=== PATIENT | female | born 1950 | race Caucasian/White ===

== ENCOUNTER 2019-11-13 14:45 | Emergency (ER) | payer MEDICARE ==
[2019-11-13] MEDS ORDERED: GI COCKTAIL 45 ML (Maalox/Lidocaine) PO ONE (15:05)
[2019-11-13] MEDS ORDERED: MORPHINE SULFATE 4 MG INJ IV ONE (15:05)
[2019-11-13] MEDS ORDERED: Sodium Chloride 0.9% 1000 ML 1,000 ML IV STA (15:05)
[2019-11-13] MEDS ORDERED: MORPHINE SULFATE 4 MG INJ ONE (15:12)
[2019-11-13] MEDS ORDERED: MAALOX ES 30 ML UNIT DOSE ONE (15:12)
[2019-11-13] MEDS ORDERED: Sodium Chloride 0.9% 1000 ML 1,000 ML ONE (15:12)
[2019-11-13] MEDS ORDERED: XYLOCAINE HCl Viscous ONE (15:12)
[2019-11-13 15:19] LABS: Absolute Neutrophil Ct (ANC) 1.25 (1.4-6.9); BASOPHIL % 0.3 % (0.0-0.4); Basophil (Absolute #) 0.01 (0-0.4); Eosinophil % 0.5 % (0.00-5.0); Eosinophil (Absolute #) 0.02 (0-0.5); Hematocrit 35.2 % (35-47); Hemoglobin 12.2 gm/dl (12.0-16.0); Lymphocyte (Absolute #) 1.88 (1.0-4.6); Lymphocytes % 50.8 % (24.0-44.0); Mean Cell Volume 78.2 fl (78-100); Mean Corpuscular Hemoglobin 27.1 pg (26-32); Mean Corpuscular Hgb Concent. 34.7 g/dl (32-36); Mean Platelet Volume 9.3 fl (7.5-11.0); Monocyte (Absolute #) 0.54 (0.0-1.3); Monocytes % 14.6 % (0.0-12.0); Neutrophil % 33.8 % (36.0-66.0); Platelet Count 146 K/mm3 (150-450); Red Cell Distribution Width 15.5 % (11.5-14.0); White Blood Count 3.7 K/mm3 (4.0-10.5)
--- NOTE | 2019-11-13 15:29 | ERPHSYRPT ---
- History of Present Illness Time Seen by Provider: 11/13/19 15:28 Historian: patient, family Exam Limitations: no limitations Patient Subjective Stated Complaint: Pt states "I have horrible belly pain. I woke up and my back hurt all the way accross and then my stomach hurt." Triage Nursing Assessment: Pt presented alert oriented X 3, skin pwd pt ambulates with an upright steady gait, able to speak in clear full sentences pT holding abdomen and moaning. Physician History: Pt states "I have horrible belly pain. I woke up and my back hurt all the way accross and then my stomach hurt." no fever, nausea, vomiting or diarrhea Timing/Duration: today Activities at Onset: none Quality: cramping Abdominal Pain Onset Location: epigastric, periumbilical Pain Radiation: back Severity of Pain-Max: moderate Severity of Pain-Current: moderate Modifying Factors: Improves With: nothing Associated Symptoms: denies symptoms Allergies/Adverse Reactions: No Known Drug Allergies Allergy (Unverified 11/13/19 14:58) Home Medications: Adalimumab [Humira] 40 mg SQ 11/13/19 [History] Benazepril HCl 20 mg PO DAILY 11/13/19 [History] Hx Tetanus, Diphtheria Vaccination/Date Given: No Hx Influenza Vaccination/Date Given: No Hx Pneumococcal Vaccination/Date Given: No Immunizations Up to Date: Yes - Review of Systems Constitutional: No Fever, No Chills Eyes: No Symptoms Ears, Nose, & Throat: No Symptoms Respiratory: No Cough, No Dyspnea Cardiac: No Chest Pain, No Edema, No Syncope Abdominal/Gastrointestinal: Abdominal Pain, No Nausea, No Vomiting, No Diarrhea Genitourinary Symptoms: No Dysuria Musculoskeletal: No Back Pain, No Neck Pain Skin: No Rash Neurological: No Dizziness, No Focal Weakness, No Sensory Changes Psychological: No Symptoms Endocrine: No Symptoms All Other Systems: Reviewed and Negative - Past Medical History Pertinent Past Medical History: Yes Neurological History: No Pertinent History ENT History: No Pertinent History Cardiac History: Hypertension Respiratory History: No Pertinent History Endocrine Medical History: No Pertinent History Musculoskeletal History: Rheumatoid Arthritis GI Medical History: No Pertinent History History: No Pertinent History Psycho-Social History: No Pertinent History Female Reproductive Disorders: No Pertinent History - Past Surgical History Past Surgical History: Yes Other Surgical History: DNC. melanoma - Social History Smoking Status: Never smoker Exposure to second hand smoke: No Drug Use: none Patient Lives Alone: No - Female History Hx Now: No - Nursing Vital Signs Nursing Vital Signs: Initial Vital Signs Temperature 97.4 F 11/13/19 14:50 Pulse Rate 52 L 11/13/19 14:50 Respiratory Rate 20 11/13/19 14:50 Blood Pressure 177/78 11/13/19 14:50 O2 Sat by Pulse Oximetry 99 11/13/19 14:50 Pain Scale Pain Intensity 6 - Physical Exam General Appearance: no apparent distress, alert Eye Exam: PERRL/EOMI, eyes nml inspection Ears, Nose, Throat Exam: normal ENT inspection, pharynx normal, moist mucous membranes Neck Exam: normal inspection, non-tender, supple, full range of motion Respiratory Exam: normal breath sounds, lungs clear, No respiratory distress Cardiovascular Exam: regular rate/rhythm, normal heart sounds Gastrointestinal/Abdomen Exam: soft, No tenderness, No mass Back Exam: normal inspection, normal range of motion, No CVA tenderness, No vertebral tenderness Extremity Exam: normal inspection, normal range of motion, pelvis stable Neurologic Exam: alert, oriented x 3, cooperative, normal mood/affect, nml cerebellar function, sensation nml, No motor deficits Skin Exam: normal color, warm, dry SpO2: 99 - Course Nursing assessment & vital signs reviewed: Yes EKG Interpreted by Me: Non-specific ST Changes - CT Exams Abdomen/Pelvis CT Interpretation: Tele-radiologist Report (Cholelitiasis, sludge in gall bladder) Ordered Tests: Active Orders 24 hr Category Date Time Status Optical Effects Line Up Person STAT Care 11/13/19 15:00 Active EKG-ER Only STAT Care 11/13/19 15:00 Active IV Insertion STAT Care 11/13/19 15:00 Active ABDOMEN AND PELVIS W/0 CONTRAS [CT] Stat Exams 11/13/19 15:06 Taken AMYLASE Stat Lab 11/13/19 15:15 Completed CBC W DIFF Stat Lab 11/13/19 15:15 Completed CMP Stat Lab 11/13/19 15:15 Completed CULTURE,URINE Stat Lab 11/13/19 15:51 Received LIPASE Stat Lab 11/13/19 15:15 Completed Lactic Acid Stat Lab 11/13/19 15:05 Completed TROPONIN Q3H Lab 11/13/19 15:15 Completed TROPONIN Q3H Lab 01/25/20 18:15 Ordered TROPONIN Q3H Lab 11/13/19 21:15 Ordered TROPONIN Q3H Lab 11/14/19 00:15 Ordered TROPONIN Q3H Lab 11/14/19 03:15 Ordered UA W/RFX UR CULTURE Stat Lab 11/13/19 15:51 Completed Medication Summary Generic Name Dose Route Start Last Admin Trade Name Royal PRN Reason Stop Dose Admin Ceftriaxone Sodium/Dextrose 1 g in 50 mls @ 100 mls/hr 11/13/19 16:49 16:51 Rocephin 1 Gm-D5w 50 Ml Bag IV 11/13/19 17:18 100 mls/hr STAT ONE 100 mls/hr Administration Discontinued Medications Generic Name Dose Route Start Last Admin Trade Name Freq PRN Reason Stop Dose Admin Al Hydrox/Mg Hydrox/Simethicone Confirm 11/13/19 15:12 Maalox Es 30 Ml Unit Dose Administered 11/13/19 15:13 Dose 30 ml .ROUTE .STK-MED ONE Fentanyl Citrate 50 mcg 11/13/19 15:54 11/13/19 15:58 Sublimaze 100 Mcg/2 Ml IV 11/13/19 15:55 50 mcg STAT ONE Administration Fentanyl Citrate Confirm 11/13/19 15:56 Sublimaze 100 Mcg/2 Ml Administered 11/13/19 15:57 Dose 100 mcg .ROUTE .STK-MED ONE Sodium Chloride 1,000 mls @ 999 mls/hr 11/13/19 15:05 11/13/19 16:17 Sodium Chloride 0.9% 1000 Ml IV 11/13/19 16:05 Infused .Q1H1M STA Infusion Sodium Chloride Confirm 11/13/19 15:12 Sodium Chloride 0.9% 1000 Ml Administered 11/13/19 15:13 Dose 1,000 mls @ ud .ROUTE .STK-MED ONE Ceftriaxone Sodium/Dextrose Confirm 11/13/19 16:50 Rocephin 1 Gm-D5w 50 Ml Bag Administered 11/13/19 16:51 Dose 1 g in 50 mls @ ud IV .STK-MED ONE Lidocaine HCl Confirm 11/13/19 15:12 Xylocaine Hcl Viscous * Administered 11/13/19 15:13 Dose 15 ml .ROUTE .STK-MED ONE Magnesium Hydroxide 45 ml 11/13/19 15:05 11/13/19 15:15 Gi Cocktail 45 Ml (Maalox/Lidocaine) PO 11/13/19 15:06 45 ml STAT ONE Administration Morphine Sulfate 4 mg 11/13/19 15:05 11/13/19 15:16 Morphine Sulfate 4 Mg Inj IV 11/13/19 15:06 4 mg STAT ONE Administration Morphine Sulfate Confirm 11/13/19 15:12 Morphine Sulfate 4 Mg Inj Administered 11/13/19 15:13 Dose 4 mg .ROUTE .STK-MED ONE Lab/Rad Data: Laboratory Result Diagrams 11/13/19 15:15 11/13/19 15:15 Laboratory Results 11/13/19 11/13/19 11/13/19 Range/Units 15:51 15:15 15:15 WBC (4.0-10.5) K/mm3 RBC (4.1-5.4) M/mm3 Hgb (12.0-16.0) gm/dl Hct (35-47) % MCV (78-100) fl MCH (26-32) pg MCHC (32-36) g/dl RDW (11.5-14.0) % Plt Count (150-450) K/mm3 MPV (7.5-11.0) fl Gran % (36.0-66.0) % Eos # (Auto) (0-0.5) Absolute Lymphs (auto) (1.0-4.6) Absolute Monos (auto) (0.0-1.3) Lymphocytes % (24.0-44.0) % Monocytes % (0.0-12.0) % Eosinophils % (0.00-5.0) % Basophils % (0.0-0.4) % Absolute Granulocytes (1.4-6.9) Basophils # (0-0.4) Sodium 139 (137-145) mmol/L Potassium 4.0 (3.5-5.1) mmol/L Chloride 105 (98-107) mmol/L Carbon Dioxide 23 (22-30) mmol/L Anion Gap 15.4 H (5-15) MEQ/L BUN 17 (7-17) mg/dL Creatinine 1.28 H (0.52-1.04) mg/dL Estimated GFR 43.7 ML/MIN Glucose 137 H (74-106) mg/dL Lactic Acid (0.4-2.0) Calcium 9.5 (8.4-10.2) mg/dL Total Bilirubin 1.80 H (0.2-1.3) mg/dL AST 21 (14-36) U/L ALT 12 (0-35) U/L Alkaline Phosphatase 100 (38-126) U/L Troponin I < 0.012 (0.000-0.034) ng/mL Serum Total Protein 8.4 H (6.3-8.2) g/dL Albumin 4.3 (3.5-5.0) g/dL Amylase 96 (30-110) U/L Lipase 161 (23-300) U/L Urine Color YELLOW (YELLOW) Urine Appearance CLEAR (CLEAR) Urine pH 7.0 (5-6) Ur Specific Jackson 1.016 (1.005-1.025) Urine Protein NEGATIVE (Negative) Urine Ketones TRACE (NEGATIVE) Urine Blood SMALL (0-5) Vicente/ul Urine Nitrite POSITIVE (NEGATIVE) Urine Bilirubin NEGATIVE (NEGATIVE) Urine Urobilinogen NEGATIVE (0-1) mg/dL Ur Leukocyte Esterase TRACE (NEGATIVE) Urine WBC (Auto) 6-10 (0-5) /HPF Urine RBC (Auto) 0-2 (0-2) /HPF U Epithel Cells (Auto) FEW (FEW) /HPF Urine Bacteria (Auto) MANY (NEGATIVE) /HPF Urine Mucus (Auto) SLIGHT (NEGATIVE) /HPF Urine Culture Reflexed YES (NO) Urine Glucose NEGATIVE (NEGATIVE) mg/dL 11/13/19 11/13/19 Range/Units 15:15 15:05 WBC 3.7 L (4.0-10.5) K/mm3 RBC 4.50 (4.1-5.4) M/mm3 Hgb 12.2 (12.0-16.0) gm/dl Hct 35.2 (35-47) % MCV 78.2 (78-100) fl MCH 27.1 (26-32) pg MCHC 34.7 (32-36) g/dl RDW 15.5 H (11.5-14.0) % Plt Count 146 L (150-450) K/mm3 MPV 9.3 (7.5-11.0) fl Gran % 33.8 L (36.0-66.0) % Eos # (Auto) 0.02 (0-0.5) Absolute Lymphs (auto) 1.88 (1.0-4.6) Absolute Monos (auto) 0.54 (0.0-1.3) Lymphocytes % 50.8 H (24.0-44.0) % Monocytes % 14.6 H (0.0-12.0) % Eosinophils % 0.5 (0.00-5.0) % Basophils % 0.3 (0.0-0.4) % Absolute Granulocytes 1.25 L (1.4-6.9) Basophils # 0.01 (0-0.4) Sodium (137-145) mmol/L Potassium (3.5-5.1) mmol/L Chloride (98-107) mmol/L Carbon Dioxide (22-30) mmol/L Anion Gap (5-15) MEQ/L BUN (7-17) mg/dL Creatinine (0.52-1.04) mg/dL Estimated GFR ML/MIN Glucose (74-106) mg/dL Lactic Acid 3.2 H (0.4-2.0) Calcium (8.4-10.2) mg/dL Total Bilirubin (0.2-1.3) mg/dL AST (14-36) U/L ALT (0-35) U/L Alkaline Phosphatase (38-126) U/L Troponin I (0.000-0.034) ng/mL Serum Total Protein (6.3-8.2) g/dL Albumin (3.5-5.0) g/dL Amylase (30-110) U/L Lipase (23-300) U/L Urine Color (YELLOW) Urine Appearance (CLEAR) Urine pH (5-6) Ur Specific Jackson (1.005-1.025) Urine Protein (Negative) Urine Ketones (NEGATIVE) Urine Blood (0-5) Vicente/ul Urine Nitrite (NEGATIVE) Urine Bilirubin (NEGATIVE) Urine Urobilinogen (0-1) mg/dL Ur Leukocyte Esterase (NEGATIVE) Urine WBC (Auto) (0-5) /HPF Urine RBC (Auto) (0-2) /HPF U Epithel Cells (Auto) (FEW) /HPF Urine Bacteria (Auto) (NEGATIVE) /HPF Urine Mucus (Auto) (NEGATIVE) /HPF Urine Culture Reflexed (NO) Urine Glucose (NEGATIVE) mg/dL - Progress Progress: unchanged, pain not gone completely Progress Note: 11/13/19 16:54 I discussed with patient and her daughter and granddaughter about the CAT scan of the abdomen report, which suggests that patient has a gallstone but there might be a chances of sludge in her bile duct. So, she may require probably MRCP or ERCP and followed by surgery. Those facility. We do not have available here, so we will transfer her to [facility]. Patient daughter is a nurse and so they have opted for patient to be taken by private car. Discussed with : Other (T) Will see patient in: other ([facility]) Counseled pt/family regarding: lab results, diagnosis, need for follow-up, rad results - Departure Departure Disposition: Transfer ([facility] DR Pal) Clinical Impression: Choledocholithiasis, Biliary sludge UTI (urinary tract infection) Qualifiers: Urinary tract infection type: site unspecified Hematuria presence: without hematuria Qualified Code(s): N39.0 - Urinary tract infection, site not specified Condition: Stable Critical Care Time: Yes Critical Care Time(excluding separately billable procedures): Critical 30-74 mins Referrals: ANGIE NGUYEN [Primary Care Provider] -
[2019-11-13 15:31] LABS: ALBUMIN 4.3 g/dL (3.5-5.0); ANION GAP 15.4 MEQ/L (5-15); BILIRUBIN,TOTAL 1.8 mg/dL (0.2-1.3); Calcium 9.5 mg/dL (8.4-10.2); Creatinine 1 1.28 mg/dL (0.52-1.04); Total Protein 8.4 g/dL (6.3-8.2)
[2019-11-13] MEDS ORDERED: SUBLIMAZE 100 MCG/2 ML IV ONE (15:54)
[2019-11-13] MEDS ORDERED: SUBLIMAZE 100 MCG/2 ML ONE (15:56)
[2019-11-13 16:04] LABS: Appearance CLEAR (CLEAR); Bacteria MANY /HPF (NEGATIVE); Bilirubin NEGATIVE (NEGATIVE); Blood SMALL Ery/ul (0-5); Epithelial Cells FEW /HPF (FEW); Glucose NEGATIVE (NEGATIVE); Ketones TRACE (NEGATIVE); Leukocyte Esterase TRACE (NEGATIVE); Mucus SLIGHT /HPF (NEGATIVE); Nitrite POSITIVE (NEGATIVE); Protein,Urine Dip NEGATIVE (Negative); RBC 0-2 /HPF (0-2); Specific Gravity 1.016 (1.005-1.025); Urobilinogen NEGATIVE mg/dL (0-1)
[2019-11-13] MEDS ORDERED: ROCEPHIN 1 Gm-D5w 50 ml Bag** 1 G/50 ML IVPB IV ONE ×2 (16:49→16:50)
[2019-11-13 16:59] VITALS: BP 143/62; PULSE 56; O2SAT 98
--- NOTE | 2019-11-13 20:58 | XRAY ---
Indication: Epigastric/periumbilical pain. Multiple contiguous axial images obtained through the abdomen and pelvis without contrast as ordered. Comparison: None Lung bases demonstrates minimal bibasilar fibrosis/scarring and right middle lobe calcified granuloma. No infiltrate or effusion. Heart is not enlarged. Distal esophagus demonstrates mild circumferential wall thickening, possible esophagitis. Noncontrasted stomach and bowel loops appear nonobstructed. Normal appendix. Tiny cul-de-sac fluid presumed physiologic from rupture/leaking cyst. 11 mm gallstone near the neck of the gallbladder. A few tiny calcified splenic granulomas. Nonobstructing 2-3 mm left lower renal calculus. Remaining liver, pancreas, spleen, adrenal glands, kidneys, ureters, bladder, and uterus appear unremarkable for noncontrast exam. Mild scattered aortoiliac calcifications without AAA. Osseous structures intact with mild degenerative changes throughout the spine. Impression: 1. 11 mm gallstone. Ultrasound may yield further information if clinically warranted. 2. Mild distal esophageal circumferential wall thickening. Rule out esophagitis. 3. Incidental nonobstructing left renal microcalculus and evidence for old granulomatous disease. Comment: Preliminary interpretation was made by [facility] who reports "amorphous density in the common bile duct" which I cannot appreciate. No abnormal intra/extra hepatic biliary distention.
== END 2019-11-13 17:05 | disposition short-term general hospital (02) ==
LOC: ED 14:45
DX: K80.50 Calculus of bile duct without cholangitis or cholecystitis without obstruction (principal); K83.8 Other specified diseases of biliary tract; N39.0 Urinary tract infection, site not specified
CPT/HCPCS: 36000; 36415; 74176; 80053; 81001; 82150; 83605; 83690; 84484; 85025; 87077; 87086; 87186; 93005; 93041; 96365; 96374; 96375; 99285; 99291; J0696; J2270; J3010; A9270-GY

== ENCOUNTER 2023-05-27 11:30 | Observation (INO) | payer MEDICARE ==
[2023-05-27 12:45] LABS: Hematocrit 24.6 % (35-47); Hemoglobin 7.7 g/dL (12.0-16.0); Mean Cell Volume 82.8 fL (78-100); Mean Corpuscular Hemoglobin 25.9 pg (26-32); Mean Corpuscular Hgb Concent. 31.3 g/dL (32-36); Mean Platelet Volume 9.4 fL (7.5-11.0); Platelet Count 182 x10^3/uL (150-450); Red Blood Count 2.97 x10^6/uL (4.1-5.4); Red Cell Distribution Width 18.9 % (11.5-14.0)
[2023-05-27 12:59] LABS: ALBUMIN 2.9 g/dL (3.5-5.0); ANION GAP 12.5 MEQ/L (5-15); BILIRUBIN,TOTAL 1.4 mg/dL (0.2-1.3); Calcium 8.3 mg/dL (8.4-10.2); Creatinine 1 1.15 mg/dL (0.52-1.04); EST GLOMERULAR FILTRATION RATE 48.9 ML/MIN; Potassium 4.4 mmol/L (3.5-5.1); Total Protein 5.3 g/dL (6.3-8.2)
--- NOTE | 2023-05-27 13:58 | ERPHSYRPT ---
- History of Present Illness Time Seen by Provider: 05/27/23 13:52 Source: patient Exam Limitations: no limitations Patient Subjective Stated Complaint: "I can't catch my breath. I've been short of breath for a couple weeks" Triage Nursing Assessment: Pt presents to ER with complaints of short of breath x 2-3 weeks. Pt feels short of breath. Intermittent cough noted with white/yellow scant sputum. Lungs are clear and equal throughout. Skin is pink, warm, and dry. Noted some peripheral pitting edema to right lower extremity. Daughter states she had Methotrexate for her Leukemia but stopped a week ago. Has intermittently been on steriod and antibiotics per blood specialists but has stopped regimens in March 2023. Pt states has had no appetite and has nausea when looking at food. Abdomen is soft and non-tender. Denies pain at this time. Pt is alert and oriented x 3. Able to communicate in full sentences. Physician History: Patient is a 73-year-old female presents to our emergency department for evaluation of shortness of breath. Patient states shortness of breath started approximately 2 weeks ago. Symptoms have been progressive. Patient had a chest x-ray 2 weeks ago which was read as negative per daughter who is at the bedside. Patient adds that she has been coughing intermittently as well. Cough pro ductive of yellow-whitish sputum. Patient has a history of leukemia. Leukemia treated with methotrexate. Patient completed a course of methotrexate last week. Patient feels very weak. Patient says her appetite has significantly diminished. Patient experiences nausea when looking at food. Patient adds that she was previously on steroids but currently is not. Patient lives alone. Symptoms are progressive. Symptoms are moderate in intensity. No specific worsening or improving factors. Patient voices no other complaints or concerns at this time. Portions of this note were created with voice recognition technology. There may be grammatical, spelling, punctuation or sound alike errors Timing/Duration: week(s) (2 weeks) Severity: moderate Modifying Factors: Improves With: nothing Associated Symptoms: denies symptoms Allergies/Adverse Reactions: No Known Drug Allergies Allergy (Verified 05/27/23 11:52) Home Medications: Amlodipine Besylate 5 mg [Norvasc 5 mg] 5 mg PO DAILY 05/27/23 [History] Cholecalciferol (Vitamin D3) [D3-5000] 125 mcg PO DAILY 05/27/23 [History] Folic Acid 0.4 mg PO DAILY 05/27/23 [History] Mecobalamin [B12 Active] 1,000 mcg PO DAILY 05/27/23 [History] Hx Tetanus, Diphtheria Vaccination/Date Given: No Hx Influenza Vaccination/Date Given: No Hx Pneumococcal Vaccination/Date Given: Yes Immunizations Up to Date: Yes Travel Risk - International Travel Have you traveled outside of the country in past 3 weeks: No - Coronavirus Screening Are you exhibiting any of the following symptoms?: Yes Symptoms: Shortness of Breath Close contact with a COVID-19 positive Pt in past 14-21 Days: No - Vaccine Status Have you recieved a Covid-19 vaccination: Yes 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 - Vaccination Dates Dates if Unknown: unknown - Review of Systems Constitutional: No Symptoms, No Fever, No Chills Eyes: No Symptoms Ears, Nose, & Throat: No Symptoms Respiratory: No Symptoms, No Cough, No Dyspnea Cardiac: No Symptoms, No Chest Pain, No Edema, No Syncope Abdominal/Gastrointestinal: No Symptoms, No Abdominal Pain, No Nausea, No Vomiting, No Diarrhea Genitourinary Symptoms: No Symptoms, No Dysuria Musculoskeletal: No Symptoms, No Back Pain, No Neck Pain Skin: No Symptoms, No Rash Neurological: No Symptoms, No Dizziness, No Focal Weakness, No Sensory Changes Psychological: No Symptoms Endocrine: No Symptoms Hematologic/Lymphatic: No Symptoms Immunological/Allergic: No Symptoms All Other Systems: Reviewed and Negative - Past Medical History Pertinent Past Medical History: Yes Neurological History: No Pertinent History ENT History: No Pertinent History Cardiac History: Hypertension Respiratory History: No Pertinent History Endocrine Medical History: No Pertinent History Musculoskeletal History: Rheumatoid Arthritis GI Medical History: No Pertinent History History: No Pertinent History Psycho-Social History: No Pertinent History Female Reproductive Disorders: No Pertinent History 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 melanoma - Social History Smoking Status: Never smoker Exposure to second hand smoke: No Drug Use: none Patient Lives Alone: Yes - Nursing Vital Signs Nursing Vital Signs: Initial Vital Signs Temperature 98.3 F 05/27/23 11:31 Pulse Rate 93 H 05/27/23 11:31 Respiratory Rate 24 05/27/23 11:31 Blood Pressure 136/60 05/27/23 11:31 O2 Sat by Pulse Oximetry 97 05/27/23 11:31 Pain Scale Pain Intensity 0 - Physical Exam General Appearance: no apparent distress, alert, other (Patient appears pale and frail) Eye Exam: PERRL/EOMI, eyes nml inspection Ears, Nose, Throat Exam: normal ENT inspection, TMs normal, pharynx normal, moist mucous membranes Neck Exam: normal inspection, non-tender, supple, full range of motion Respiratory Exam: normal breath sounds, lungs clear, airway intact, No respiratory distress Cardiovascular Exam: regular rate/rhythm, normal heart sounds, normal peripheral pulses Gastrointestinal/Abdomen Exam: soft, normal bowel sounds, No tenderness, No mass Back Exam: normal inspection, normal range of motion, No CVA tenderness, No vertebral tenderness Extremity Exam: normal inspection, normal range of motion, pelvis stable, other (Bilateral lower extremity pitting edema. Bilateral lower extremities are neurovascular intact distally. Compartments are soft. Cap refill less than 2 seconds.) Neurologic Exam: alert, oriented x 3, cooperative, normal mood/affect, nml cerebellar function, nml station & gait, sensation nml, No motor deficits Skin Exam: normal color, warm, dry, No rash Lymphatic Exam: No adenopathy SpO2 Interpretation: normal SpO2: 100 O2 Delivery: Room Air - Course Nursing assessment & vital signs reviewed: Yes EKG Interpreted by Me: RATE (91), Sinus Rhythm, NORMAL AXIS, NORMAL INTERVALS (Left anterior fascicular block.) - CT Exams Chest CT Interpretation: Tele-radiologist Report (No PE) Ordered Tests: Active Orders 24 hr Category Date Time Status Family Law Legal Assistant STAT Care 05/27/23 12:20 Active EKG-ER Only STAT Care 05/27/23 12:19 Active IV Insertion STAT Care 05/27/23 12:19 Active Pulse Oximetry (ED) STAT Care 05/27/23 12:19 Active CHEST WITH CONTRAST [CT] Stat Exams 05/27/23 13:11 Completed CBC W DIFF Stat Lab 05/27/23 12:40 Completed CMP Stat Lab 05/27/23 12:40 Completed D-DIMER QUANTITATIVE Stat Lab 05/27/23 12:40 Completed Manual Differential NC Stat Lab 05/27/23 12:40 Completed TROPONIN Q4H Lab 05/27/23 12:40 Completed TROPONIN Q4H Lab 05/27/23 16:30 Ordered TROPONIN Q4H Lab 05/27/23 20:30 Ordered UA W/RFX UR CULTURE Stat Lab 05/27/23 14:49 Received Transfer Order Routine Transfer 05/27/23 Ordered Lab/Rad Data: Laboratory Result Diagrams 05/27/23 12:40 05/27/23 12:40 Laboratory Results 05/27/23 05/27/23 05/27/23 Range/Units 12:40 12:40 12:40 WBC (4.0-10.5) x10^3/uL RBC (4.1-5.4) x10^6/uL Hgb (12.0-16.0) g/dL Hct (35-47) % MCV (78-100) fL MCH (26-32) pg MCHC (32-36) g/dL RDW (11.5-14.0) % Plt Count (150-450) x10^3/uL MPV (7.5-11.0) fL Segmented Neutrophils (36.0-66.0) % Lymphocytes (Manual) (24-44) % Monocytes (Manual) (0.0-12.0) % Eosinophils (Manual) (0.00-3.0) % Platelet Estimate (NORMAL) RBC Morphology Anisocytosis Microcytosis D-Dimer 10.36 H* (0.0-0.50) mg/L Sodium 132 L (137-145) mmol/L Potassium 4.4 (3.5-5.1) mmol/L Chloride 102 (98-107) mmol/L Carbon Dioxide 22 (22-30) mmol/L Anion Gap 12.5 (5-15) MEQ/L BUN 15 (7-17) mg/dL Creatinine 1.15 H (0.52-1.04) mg/dL Estimated GFR 48.9 ML/MIN Glucose 116 H (74-106) mg/dL Calcium 8.3 L (8.4-10.2) mg/dL Total Bilirubin 1.40 H (0.2-1.3) mg/dL AST 25 (14-36) U/L ALT 14 (0-35) U/L Alkaline Phosphatase 53 (38-126) U/L Troponin I < 0.012 (0.000-0.034) ng/mL Serum Total Protein 5.3 L (6.3-8.2) g/dL Albumin 2.9 L (3.5-5.0) g/dL 05/27/23 Range/Units 12:40 WBC 4.0 (4.0-10.5) x10^3/uL RBC 2.97 L (4.1-5.4) x10^6/uL Hgb 7.7 L (12.0-16.0) g/dL Hct 24.6 L (35-47) % MCV 82.8 (78-100) fL MCH 25.9 L (26-32) pg MCHC 31.3 L (32-36) g/dL RDW 18.9 H (11.5-14.0) % Plt Count 182 (150-450) x10^3/uL MPV 9.4 (7.5-11.0) fL Segmented Neutrophils 55 (36.0-66.0) % Lymphocytes (Manual) 26 (24-44) % Monocytes (Manual) 12 (0.0-12.0) % Eosinophils (Manual) 7 H (0.00-3.0) % Platelet Estimate NORMAL (NORMAL) RBC Morphology ABNORMAL Anisocytosis 2+ Microcytosis 1+ D-Dimer (0.0-0.50) mg/L Sodium (137-145) mmol/L Potassium (3.5-5.1) mmol/L Chloride (98-107) mmol/L Carbon Dioxide (22-30) mmol/L Anion Gap (5-15) MEQ/L BUN (7-17) mg/dL Creatinine (0.52-1.04) mg/dL Estimated GFR ML/MIN Glucose (74-106) mg/dL Calcium (8.4-10.2) mg/dL Total Bilirubin (0.2-1.3) mg/dL AST (14-36) U/L ALT (0-35) U/L Alkaline Phosphatase (38-126) U/L Troponin I (0.000-0.034) ng/mL Serum Total Protein (6.3-8.2) g/dL Albumin (3.5-5.0) g/dL - Progress Progress: improved Progress Note: I spoke to Shawna patient's oncologist nurse practitioner who advised to hold off on transfusion. We will admit patient to treat the symptoms. Patient agrees to admission to [facility] for further evaluation and treatment. Portions of this note were created with voice recognition technology. There may be grammatical, spelling, punctuation or sound alike errors 05/27/23 14:[address] Gary at 2:[address] Gary excepts admission to observation. Patient 73-year-old female with a history of leukemia on methotrexate/prednisone currently 1 week posttreatment presents to our ED with shortness of breath generalized weakness nausea anorexia failure to thrive. Physical exam reveals a frail pale 73-year-old female very pleasant. Daughter at bedside. EKG is normal sinus rhythm. D-dimer positive. CTA chest negative for PE. CBC reveals a hemoglobin of 7.7. This appears to show just under a 2 g drop in a period of a week and a half. Type and screen completed. Urinalysis pending. Patient will require admission for further evaluation and treatment. Patient lives alone and is just too weak to manage. Plan of care discussed with patient. She agrees to admission to [facility] for further evaluation and treatment. Case discussed with hospitalist who excepts admission to observation. Complexity of problem addressed is moderate acute complicated No critical care time Complex data reviewed and analyzed is extensive. Test ordered. Test reviewed and analyzed. Clinical correlation made between findings and history. Physical exam findings also correlated with work-up. Case discussed with both patient's oncology nurse practitioner and admitting physician. Patient will be admitted for further evaluation and treatment. Regimen application and or risk of morbidity/mortality of patient management is high. Patient will require hospitalization for further evaluation and treatment./Failure to thrive Vital stable. Plan of care established for shared decision making. Time spent to admit patient approximately 15 minutes. Portions of this note were created with voice recognition technology. There may be grammatical, spelling, punctuation or sound alike errors 05/27/23 14:53 Counseled pt/family regarding: lab results, diagnosis, rad results - Departure Departure Disposition: Observation Clinical Impression: Generalized weakness, Anorexia, History of leukemia, Pulmonary emphysema, Shortness of breath, Lung granuloma, Failure to thrive Condition: Stable Critical Care Time: No Referrals: ANGIE NGUYEN [Primary Care Provider] - Follow up/PCP as directed Instructions: Chronic Obstructive Pulmonary Disease
--- NOTE | 2023-05-27 14:05 | XRAY ---
Indication: Short of breath. Elevated d-dimer. Pulmonary embolus. Multiple contiguous axial images obtained through the chest using 80 cc Isovue 370 contrast and PE protocol. Comparison: None Good opacification of the pulmonary arteries to include the lobar and segmental branches. No pulmonary embolus. Heart is not enlarged. Aorta minimally arteriosclerotic without aneurysm/dissection. No pathologic mediastinal/hilar lymphadenopathy. Small hiatal hernia. Lungs demonstrates moderate diffuse pulmonary emphysema with mild bibasilar subsegmental atelectasis/scarring. Medial right middle lobe demonstrates 2 calcified granulomas, largest 1 cm. No suspicious pulmonary mass/nodule, infiltrate, effusion, or pneumothorax. Bony thorax intact with osteopenia and minimal degenerative changes throughout the spine. Limited upper abdomen demonstrates mild fatty liver and a few tiny splenic calcified granulomas. Impression: 1. Negative pulmonary embolus. No acute cardiopulmonary abnormalities. 2. Chronic findings including pulmonary emphysema, atelectasis/scarring, arteriosclerotic disease, fatty liver, chronic bony findings, and old granulomatous disease.
[2023-05-27 14:14] LABS: Eosinophil 7 % (0.00-3.0); Lymphocytes 26 % (24-44); Monocyte 12 % (0.0-12.0); Neutrophils 55 % (36.0-66.0); Total Cells Counted 100
[2023-05-27 14:19] LABS: ANISOCYTOSIS 2+; Microcytosis 1+; Platelet Estimate NORMAL (NORMAL)
[2023-05-27 14:59] LABS: Appearance Clear (Clear); Bacteria None Seen /HPF (None Seen); Bilirubin Small (Negative); Blood Negative (Negative); Epithelial Cells Rare /HPF (None Seen); Glucose, Urine Negative (Negative); Ketones Trace (Negative); Leukocyte Esterase Trace (Negative); Nitrite Negative (Negative); Ph 5.5 (4.6-8.0); Protein,Urine Dip Trace (Negative); RBC 0-2 /HPF (0-5); Specific Gravity 1.025 (1.005-1.030); WBC 0-2 /HPF (0-5)
[2023-05-27 15:01] LABS: ADD URINE CULTURE? YES (NO)
[2023-05-27] MEDS: Sodium Chloride 0.9% 1000 ML 1,000 ML IV SCH (15:04)
[2023-05-27 15:08] LABS: ABO TYPING B; Antibody Screen NEGATIVE (NEGATIVE); RH TYPING NEGATIVE
--- NOTE | 2023-05-27 16:04 | PCM.HP ---
History of Present Illness - Chief Complaint Chief Complaint: Generalized weakness, failure to thrive Date: 05/27/23 History of Present Illness: is a 73 year old female with a pmhx of HTN, RA, and TCell large granular lymphocytic leukemia (diagnosed November 2022/last treatment with methotrexate two weeks ago) admitted under observation 05/27/23 for generalized weakness, anorexia, and failure to thrive after presenting to ED with complaints of shortness of breath, productive cough, nausea with a poor appetite, and weakness. Onset about three weeks ago. Patient reports that she was taking Lisinopril which was discontinued with thoughts that this may be the cause of her cough, but it has now been several weeks and her cough remains. She describes the cough as productive with clear sputum. Additionally, she has complaints of RLE redness, swelling, and warmth. Edema is particularly noted around the right ankle, she does report hearing her ankle "pop" a few weeks ago. Of note, patient's spouse recently which she feels may be contributory to her poor appetite. In ER patient was afebrile, normotensive, and eupneic with spo2 @ 97% on RA. Lab interpretation remarkable for Hgb 7.7, eosiniphils 7, RBC morphology abnormal, anisocytois and microcytosis (pt with TCell leukemia), sodium at 132, creat at 1.15 which is her baseline, D-Dimer elevated at 10.36. EKG with normal sinus rhythm, no ST elevation/deviation. CTA imaging of the chest negative for PE, with chronic findings including pulmonary emphysema, atelectasis/scarring,arteriosclerotic disease, fatty liver, chronic bony findings, and old granulomatous disease. Patient was started on IVF. PCP: Emilie Newman Oncologist: Raul Code Status:Full Code ) - Review of Systems Constitutional: Fatigue, Weakness Eyes: No Symptoms Ears, Nose, & Throat: No Symptoms Respiratory: Cough (productive with clear sputum), Short Of Breath Cardiac: Edema (RLE redness, swelling, warmth) Abdominal/Gastrointestinal: Nausea, Appetite Changes Genitourinary Symptoms: Dysuria Musculoskeletal: No Symptoms Skin: No Symptoms Psychological: Other ( recently ) Endocrine: No Symptoms Hematologic/Lymphatic: Anemia Immunological/Allergic: No Symptoms Medications & Allergies Home Medications: Home Medication List Amlodipine Besylate 5 mg [Norvasc 5 mg] 5 mg PO DAILY 05/27/23 [History Confirmed 05/27/23] Cholecalciferol (Vitamin D3) [D3-5000] 125 mcg PO DAILY 05/27/23 [History Confirmed 05/27/23] Folic Acid 0.4 mg PO DAILY 05/27/23 [History Confirmed 05/27/23] Mecobalamin [B12 Active] 1,000 mcg PO DAILY 05/27/23 [History Confirmed 05/27/23] Allergies/Adverse Reactions: Allergies Allergy/AdvReac Type Severity Reaction Status Date / Time No Known Drug Allergies Allergy Verified 05/27/23 11:52 - Past Medical History Past Medical History: Yes Neurological History: No Pertinent History ENT History: No Pertinent History Cardiac History: Hypertension Respiratory History: No Pertinent History Endocrine Medical History: No Pertinent History Musculoskelatal History: Rheumatoid Arthritis GI Medical History: No Pertinent History History: No Pertinent History Pyscho-Social History: No Pertinent History Reproductive Disorders: No Pertinent History Comment: 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 melanoma - Social History Smoking Status: Never smoker Exposure to second hand smoke: No Alcohol: None Drug Use: none Significant Family History: cancer (Father with colon cancer) - Physical Exam Vital Signs: Vital Signs - 24 hr Temp Pulse Resp BP BP Pulse Ox 05/27/23 15:28 97.7 F 89 18 144/65 97 05/27/23 15:00 100 05/27/23 15:00 83 20 132/62 97 05/27/23 14:56 88 24 128/61 99 05/27/23 14:54 98.4 F 80 20 126/55 98 05/27/23 13:00 82 29 H 126/55 126/55 100 05/27/23 12:36 91 H 19 112/62 98 05/27/23 12:33 96 05/27/23 12:15 90 25 H 115/60 05/27/23 12:06 20 96 05/27/23 12:00 91 H 27 H 120/62 98 05/27/23 11:31 98.3 F 93 H 24 136/60 97 General Appearance: no apparent distress Neurologic Exam: alert, oriented x 3, cooperative, normal mood/affect Eye Exam: PERRL/EOMI Ears, Nose, Throat Exam: dry mucous membranes Neck Exam: normal inspection Respiratory Exam: normal breath sounds Cardiovascular Exam: regular rate/rhythm, edema (RLE edema, redness) Gastrointestinal/Abdomen Exam: normal bowel sounds Results - Labs Lab/Micro Results: Lab Results-Last 24 Hours 05/27/23 05/27/23 05/27/23 Range/Units 12:40 12:40 12:40 WBC 4.0 (4.0-10.5) x10^3/uL RBC 2.97 L (4.1-5.4) x10^6/uL Hgb 7.7 L (12.0-16.0) g/dL Hct 24.6 L (35-47) % MCV 82.8 (78-100) fL MCH 25.9 L (26-32) pg MCHC 31.3 L (32-36) g/dL RDW 18.9 H (11.5-14.0) % Plt Count 182 (150-450) x10^3/uL MPV 9.4 (7.5-11.0) fL Segmented Neutrophils 55 (36.0-66.0) % Lymphocytes (Manual) 26 (24-44) % Monocytes (Manual) 12 (0.0-12.0) % Eosinophils (Manual) 7 H (0.00-3.0) % Platelet Estimate NORMAL (NORMAL) RBC Morphology ABNORMAL Anisocytosis 2+ Microcytosis 1+ D-Dimer 10.36 H* (0.0-0.50) mg/L Sodium 132 L (137-145) mmol/L Potassium 4.4 (3.5-5.1) mmol/L Chloride 102 (98-107) mmol/L Carbon Dioxide 22 (22-30) mmol/L Anion Gap 12.5 (5-15) MEQ/L BUN 15 (7-17) mg/dL Creatinine 1.15 H (0.52-1.04) mg/dL Estimated GFR 48.9 ML/MIN Glucose 116 H (74-106) mg/dL Calcium 8.3 L (8.4-10.2) mg/dL Total Bilirubin 1.40 H (0.2-1.3) mg/dL AST 25 (14-36) U/L ALT 14 (0-35) U/L Alkaline Phosphatase 53 (38-126) U/L Troponin I (0.000-0.034) ng/mL Serum Total Protein 5.3 L (6.3-8.2) g/dL Albumin 2.9 L (3.5-5.0) g/dL Urine Color (Yellow) Urine Appearance (Clear) Urine pH (4.6-8.0) Ur Specific [place] (1.005-1.030) Urine Protein (Negative) Urine Glucose (UA) (Negative) mg/dL Urine Ketones (Negative) Urine Blood (Negative) Urine Nitrite (Negative) Urine Bilirubin (Negative) Urine Urobilinogen (0.2) mg/dL Ur Leukocyte Esterase (Negative) U Hyaline Cast (Auto) (0-2) /LPF Urine Microscopic RBC (0-5) /HPF Urine Microscopic WBC (0-5) /HPF Ur Epithelial Cells (None Seen) /HPF Urine Bacteria (None Seen) /HPF Urine Culture Reflexed (NO) ABO Group Rh Factor Antibody Screen (NEGATIVE) 05/27/23 05/27/23 05/27/23 Range/Units 12:40 14:21 14:49 WBC (4.0-10.5) x10^3/uL RBC (4.1-5.4) x10^6/uL Hgb (12.0-16.0) g/dL Hct (35-47) % MCV (78-100) fL MCH (26-32) pg MCHC (32-36) g/dL RDW (11.5-14.0) % Plt Count (150-450) x10^3/uL MPV (7.5-11.0) fL Segmented Neutrophils (36.0-66.0) % Lymphocytes (Manual) (24-44) % Monocytes (Manual) (0.0-12.0) % Eosinophils (Manual) (0.00-3.0) % Platelet Estimate (NORMAL) RBC Morphology Anisocytosis Microcytosis D-Dimer (0.0-0.50) mg/L Sodium (137-145) mmol/L Potassium (3.5-5.1) mmol/L Chloride (98-107) mmol/L Carbon Dioxide (22-30) mmol/L Anion Gap (5-15) MEQ/L BUN (7-17) mg/dL Creatinine (0.52-1.04) mg/dL Estimated GFR ML/MIN Glucose (74-106) mg/dL Calcium (8.4-10.2) mg/dL Total Bilirubin (0.2-1.3) mg/dL AST (14-36) U/L ALT (0-35) U/L Alkaline Phosphatase (38-126) U/L Troponin I < 0.012 (0.000-0.034) ng/mL Serum Total Protein (6.3-8.2) g/dL Albumin (3.5-5.0) g/dL Urine Color Dark Yellow A (Yellow) Urine Appearance Clear (Clear) Urine pH 5.5 (4.6-8.0) Ur Specific [place] 1.025 (1.005-1.030) Urine Protein Trace A (Negative) Urine Glucose (UA) Negative (Negative) mg/dL Urine Ketones Trace A (Negative) Urine Blood Negative (Negative) Urine Nitrite Negative (Negative) Urine Bilirubin Small A (Negative) Urine Urobilinogen 1.0 A (0.2) mg/dL Ur Leukocyte Esterase Trace A (Negative) U Hyaline Cast (Auto) 3-5 A (0-2) /LPF Urine Microscopic RBC 0-2 (0-5) /HPF Urine Microscopic WBC 0-2 (0-5) /HPF Ur Epithelial Cells Rare (None Seen) /HPF Urine Bacteria None Seen (None Seen) /HPF Urine Culture Reflexed YES (NO) ABO Group B Rh Factor NEGATIVE Antibody Screen NEGATIVE (NEGATIVE) - Radiology Impressions Radiology Exams & Impressions: Radiology Procedures Category Date Time Status CHEST WITH CONTRAST [CT] Stat Exams 05/27/23 13:11 Completed Assessment/Plan (1) Failure to thrive Current Visit: Yes Status: Acute Assessment & Plan: Patient with nausea/poor appetite depressed mood since spouse's recent passing -PT/OT -Remeron 15mg QHS for appetite/sleep -Nutritional consult/Ensure -PT/OT evaluation, may need placement Code(s): [id number] - (2) Edema of right lower extremity Current Visit: Yes Status: Acute Assessment & Plan: RLE redness, edema, and warmth. Reports that a few weeks ago she thought she heard a "pop" -Venous Doppler of RLE -XR right ankle/foot Code(s): R60.0 - LOCALIZED EDEMA (3) Nausea Current Visit: Yes Status: Acute Assessment & Plan: Poor oral intake due to nausea -IVF -Zofran PRN Code(s): R11.0 - NAUSEA (4) Anorexia Current Visit: Yes Status: Acute Assessment & Plan: -see failure to thrive Code(s): R63.0 - ANOREXIA (5) Generalized weakness Current Visit: Yes Status: Acute Assessment & Plan: -PT/OT evaluation, may need placement Code(s): R53.1 - WEAKNESS (6) History of leukemia Current Visit: Yes Status: Acute Assessment & Plan: -Noted, adds complexity, patient follows with Dr. Carter, last treatment with methotrexate approximately two weeks ago Code(s): Z85.6 - PERSONAL HISTORY OF LEUKEMIA (7) Shortness of breath Current Visit: Yes Status: Acute Assessment & Plan: -Patient on RA with spo2 @ 97% -CTA chest reviewed, negative for PE, chronic findings including pulmonary emphysema, atelectasis/scarring, arteriosclerotic disease, fatty liver, chronic bony findings, and old granulomatous disease. Code(s): R06.02 - SHORTNESS OF BREATH (8) Cough Current Visit: Yes Status: Acute Assessment & Plan: Subacute, duration between 2-3 weeks -Mucinex -Tessalon perles Code(s): R05.9 - COUGH, UNSPECIFIED (9) Anemia Current Visit: Yes Status: Acute Qualifiers: Anemia type: unspecified type Qualified Code(s): D64.9 - Anemia, unspecified Assessment & Plan: Most likely chemotherapy induced -Hgb at 7.7 today, will continue to monitor and replace as appropriate -iron studies, b12/fol, ferritin Code(s): D64.9 - ANEMIA, UNSPECIFIED Telemedicine Encounter - Telemedicine Encounter Telemedicine Encounter: The entirety of this encounter was performed via Telemedicine"
[2023-05-27] MEDS: Zofran 4 MG/2 ML VIAL IV PRN (17:13)
[2023-05-27] MEDS ORDERED: REMERON 30 MG ONE (20:49)
[2023-05-27] MEDS ORDERED: MIRTAZAPINE PO SCH (22:00)
[2023-05-27] MEDS ORDERED: Flonase NASAL NS SCH (22:00)
[2023-05-28] MEDS: Sodium Chloride 0.9% 1000 ML 1,000 ML IV SCH ×2 (00:58→12:25)
[2023-05-28 02:49] LABS: Ferritin 636 ng/mL (11.1-264); Folate (Folic Acid) > 19.0 ng/mL (2.76 - >20)
[2023-05-28 02:51] LABS: Vitamin B12 > 1000 pg/mL (239-931)
[2023-05-28 04:36] LABS: Hematocrit 22.5 % (35-47); Hemoglobin 7.1 g/dL (12.0-16.0); Mean Cell Volume 82.1 fL (78-100); Mean Corpuscular Hemoglobin 25.9 pg (26-32); Mean Corpuscular Hgb Concent. 31.6 g/dL (32-36); Mean Platelet Volume 9.2 fL (7.5-11.0); Platelet Count 148 x10^3/uL (150-450); Red Blood Count 2.74 x10^6/uL (4.1-5.4); White Blood Count 3.2 x10^3/uL (4.0-10.5)
[2023-05-28 04:51] LABS: ALBUMIN 2.3 g/dL (3.5-5.0); ANION GAP 8.9 MEQ/L (5-15); BILIRUBIN,TOTAL 1.2 mg/dL (0.2-1.3); Calcium 7.5 mg/dL (8.4-10.2); Creatinine 1 1.08 mg/dL (0.52-1.04); EST GLOMERULAR FILTRATION RATE 52.6 ML/MIN; Potassium 3.6 mmol/L (3.5-5.1); Total Protein 4.5 g/dL (6.3-8.2)
[2023-05-28 05:20] LABS: BAND 1 % (0.0-2.0); Eosinophil 10 % (0.00-3.0); Lymphocytes 30 % (24-44); Monocyte 19 % (0.0-12.0); Neutrophils 40 % (36.0-66.0); Total Cells Counted 100
[2023-05-28 05:21] LABS: Platelet Estimate NORMAL (NORMAL)
[2023-05-28 05:22] LABS: ANISOCYTOSIS 1+; Ovalocytes 1+; Poikilocytosis 1+
--- NOTE | 2023-05-28 08:36 | XRAY ---
Indication: Right lower extremity edema. Comparison: None 3 nonweightbearing views right foot demonstrates osteopenia, mild 1st MTP degenerative changes, small posterior heel spur, and mild diffuse soft tissue swelling/edema. No other bony, articular, or soft tissue abnormalities.
--- NOTE | 2023-05-28 08:36 | XRAY ---
Indication: Right lower extremity edema. Comparison: None 3 view right ankle demonstrates osteopenia, small posterior heel spur, and mild diffuse soft tissue swelling/edema. No other bony, articular, or soft tissue abnormalities.
[2023-05-28] MEDS: Protonix 40MG Tablet PO SCH (08:57)
[2023-05-28] MEDS: Vitamin B-12 500 MCG PO SCH (08:57)
[2023-05-28] MEDS: FOLATE 1 MG PO SCH (08:57)
[2023-05-28] MEDS: VITAMIN D PO SCH (08:57)
[2023-05-28] MEDS: NORVASC 5 MG PO SCH (08:58)
[2023-05-28] MEDS: Flonase NASAL NS SCH ×2 (08:58→23:00)
[2023-05-28] MEDS ORDERED: NON-FORMULARY ITEM (Cholecalciferol (Vitamin D3) [D3-5000] 125 MCG Capsule) PO SCH (10:00)
[2023-05-28] MEDS ORDERED: NON-FORMULARY ITEM (Folic Acid [Folic Acid] 0.4 MG Tablet) PO SCH (10:00)
[2023-05-28] MEDS ORDERED: NON-FORMULARY ITEM (Mecobalamin [B12 Active] 1,000 MCG Tab.Chew) PO SCH (10:00)
--- NOTE | 2023-05-28 10:09 | XRAY ---
Indication: Right lower extremity edema and erythema. Two-dimensional sonogram and color Doppler imaging of the major venous vessels of the right leg performed. Comparison: None Distal femoral and popliteal veins demonstrate nonoccluding thrombi. No thrombus seen in the remaining visualized common femoral, mid to proximal femoral, posterior tibial, and greater saphenous veins. Patent veins demonstrate normal compressibility and normal venous waveforms. Impression: Nonoccluding DVT in distal femoral and popliteal veins.
[2023-05-28 10:31] LABS: CROSS MATCH (PRBC) COMPATIBLE (COMPATIBLE)
[2023-05-28] MEDS: TYLENOL 325 MG PO PRN ×2 (10:53→18:39)
[2023-05-28] MEDS: Tessalon Perles 100 MG PO PRN ×2 (11:51→17:31)
[2023-05-28 15:04] LABS: Hemoglobin 8.7 g/dL (12.0-16.0)
--- NOTE | 2023-05-28 15:34 | PCM.NOTE ---
Date and Time: 05/28/23 1529 Subjective Assessment: Met with patient bedside, daughter present during interview. Endorses improvement of shortness of breath and appetite, but not back to baseline as she still has some fatigue and weakness. She also reports a continued productive cough. Discussed lab results showing hgb at 7.1 and venous doppler results with findings of DVT. Patient agreeable to receive 1 unit LPRBC and the initiation of Eliquis today. Most likely will discharge in the morning. - Review of Systems Constitutional: Fatigue, Weakness Eyes: No Symptoms Ears, Nose, & Throat: No Symptoms Respiratory: Cough (productive, clear sputum) Cardiac: Edema (RLE with erythema, edema, redness) Abdominal/Gastrointestinal: Appetite Changes (poor appetite) Genitourinary Symptoms: No Symptoms Musculoskeletal: No Symptoms Hematologic/Lymphatic: Anemia, Blood Clots Objective Exam General Appearance: no apparent distress Neurologic Exam: alert, oriented x 3, cooperative, normal mood/affect Skin Exam: normal color Eye Exam: PERRL Respiratory Exam: normal breath sounds Cardiovascular Exam: regular rate/rhythm, edema Gastrointestinal/Abdomen Exam: soft, normal bowel sounds Extremity Exam: calf tenderness (RLE), tenderness (RLE erythema, edema, tenderness) OBJECTIVE DATA Vital Signs: Vital Signs - 24 hr Temp Pulse Resp BP Pulse Ox 05/28/23 12:00 97.3 F 83 18 118/56 92 L 05/28/23 07:05 97.8 F 90 21 140/60 94 L 05/28/23 06:42 92 L 05/28/23 03:53 99.6 F 80 20 132/61 94 L 05/27/23 23:31 98.9 F 72 18 146/62 96 05/27/23 20:00 99.8 F 80 22 121/58 96 05/27/23 18:27 92 L 05/27/23 15:53 97.7 F 89 18 144/65 Pain Assessment - Last Documented Pain Intensity 0 Pain Scale Used 0-10 Pain Scale Intake and Output: Intake & Output 05/26/23 05/27/23 05/28/23 05/29/23 11:59 11:59 11:59 11:59 Intake Total 1804 380 Balance 1804 380 Weight 53.7 kg 52 kg Lab Results: Lab Results-Last 24 Hours 05/27/23 05/28/23 05/28/23 Range/Units 17:36 01:34 04:25 WBC 3.2 L (4.0-10.5) x10^3/uL RBC 2.74 L (4.1-5.4) x10^6/uL Hgb 7.1 L (12.0-16.0) g/dL Hct 22.5 L (35-47) % MCV 82.1 (78-100) fL MCH 25.9 L (26-32) pg MCHC 31.6 L (32-36) g/dL RDW 19.0 H (11.5-14.0) % Plt Count 148 L (150-450) x10^3/uL MPV 9.2 (7.5-11.0) fL Segmented Neutrophils 40 (36.0-66.0) % Band Neutrophils 1 (0.0-2.0) % Lymphocytes (Manual) 30 (24-44) % Monocytes (Manual) 19 H (0.0-12.0) % Eosinophils (Manual) 10 H (0.00-3.0) % Platelet Estimate NORMAL (NORMAL) RBC Morphology ABNORMAL Poikilocytosis 1+ Anisocytosis 1+ Ovalocytes 1+ Sodium (137-145) mmol/L Potassium (3.5-5.1) mmol/L Chloride (98-107) mmol/L Carbon Dioxide (22-30) mmol/L Anion Gap (5-15) MEQ/L BUN (7-17) mg/dL Creatinine (0.52-1.04) mg/dL Estimated GFR ML/MIN Glucose (74-106) mg/dL Calcium (8.4-10.2) mg/dL Iron (37-170) ug/dL Ferritin 636 H (11.1-264) ng/mL Total Bilirubin (0.2-1.3) mg/dL AST (14-36) U/L ALT (0-35) U/L Alkaline Phosphatase (38-126) U/L Troponin I < 0.012 (0.000-0.034) ng/mL Serum Total Protein (6.3-8.2) g/dL Albumin (3.5-5.0) g/dL Vitamin B12 > 1000 H (239-931) pg/mL Folic Acid > 19.0 (2.76 - >20) ng/mL Crossmatch (COMPATIBLE) 05/28/23 05/28/23 05/28/23 Range/Units 04:25 04:25 14:50 WBC (4.0-10.5) x10^3/uL RBC (4.1-5.4) x10^6/uL Hgb 8.7 L D (12.0-16.0) g/dL Hct 27.0 L (35-47) % MCV (78-100) fL MCH (26-32) pg MCHC (32-36) g/dL RDW (11.5-14.0) % Plt Count (150-450) x10^3/uL MPV (7.5-11.0) fL Segmented Neutrophils (36.0-66.0) % Band Neutrophils (0.0-2.0) % Lymphocytes (Manual) (24-44) % Monocytes (Manual) (0.0-12.0) % Eosinophils (Manual) (0.00-3.0) % Platelet Estimate (NORMAL) RBC Morphology Poikilocytosis Anisocytosis Ovalocytes Sodium 132 L (137-145) mmol/L Potassium 3.6 (3.5-5.1) mmol/L Chloride 105 (98-107) mmol/L Carbon Dioxide 21 L (22-30) mmol/L Anion Gap 8.9 (5-15) MEQ/L BUN 11 (7-17) mg/dL Creatinine 1.08 H (0.52-1.04) mg/dL Estimated GFR 52.6 ML/MIN Glucose 92 (74-106) mg/dL Calcium 7.5 L (8.4-10.2) mg/dL Iron 15 L (37-170) ug/dL Ferritin (11.1-264) ng/mL Total Bilirubin 1.20 (0.2-1.3) mg/dL AST 20 (14-36) U/L ALT 11 (0-35) U/L Alkaline Phosphatase 43 (38-126) U/L Troponin I (0.000-0.034) ng/mL Serum Total Protein 4.5 L (6.3-8.2) g/dL Albumin 2.3 L (3.5-5.0) g/dL Vitamin B12 (239-931) pg/mL Folic Acid (2.76 - >20) ng/mL Crossmatch (COMPATIBLE) 05/28/23 Range/Units Unknown WBC (4.0-10.5) x10^3/uL RBC (4.1-5.4) x10^6/uL Hgb (12.0-16.0) g/dL Hct (35-47) % MCV (78-100) fL MCH (26-32) pg MCHC (32-36) g/dL RDW (11.5-14.0) % Plt Count (150-450) x10^3/uL MPV (7.5-11.0) fL Segmented Neutrophils (36.0-66.0) % Band Neutrophils (0.0-2.0) % Lymphocytes (Manual) (24-44) % Monocytes (Manual) (0.0-12.0) % Eosinophils (Manual) (0.00-3.0) % Platelet Estimate (NORMAL) RBC Morphology Poikilocytosis Anisocytosis Ovalocytes Sodium (137-145) mmol/L Potassium (3.5-5.1) mmol/L Chloride (98-107) mmol/L Carbon Dioxide (22-30) mmol/L Anion Gap (5-15) MEQ/L BUN (7-17) mg/dL Creatinine (0.52-1.04) mg/dL Estimated GFR ML/MIN Glucose (74-106) mg/dL Calcium (8.4-10.2) mg/dL Iron (37-170) ug/dL Ferritin (11.1-264) ng/mL Total Bilirubin (0.2-1.3) mg/dL AST (14-36) U/L ALT (0-35) U/L Alkaline Phosphatase (38-126) U/L Troponin I (0.000-0.034) ng/mL Serum Total Protein (6.3-8.2) g/dL Albumin (3.5-5.0) g/dL Vitamin B12 (239-931) pg/mL Folic Acid (2.76 - >20) ng/mL Crossmatch COMPATIBLE (COMPATIBLE) Radiology Exams: Radiology Procedures Category Date Time Status ANKLE (3 VIEWS) Stat Exams 05/27/23 17:35 Completed CHEST WITH CONTRAST [CT] Stat Exams 05/27/23 13:11 Completed FOOT (MINIMUM 3 VIEWS) Stat Exams 05/27/23 17:35 Completed VENOUS UNILAT/LIMITED EXTREMIT [US] Routine Exams 05/28/23 18:02 Completed Multi-Disciplinary Progress Notes: Multi-Disciplinary Progress Notes 05/28/23 10:02 Physical Therapy Note by James(Truong#[id number])Marcela CHART REVIEW COMPLETE. ATTEMPTED P.T. EVAL THIS A.M. AND PT. IS NEEDING BLOOD TRANSFUSION. WILL HOLD UNTIL AFTER TRANSFUSION D/T LOW HGB, P.T. CONTRAINDICATED AT THIS TIME. Initialized on 05/28/23 10:02 - END OF NOTE Assessment/Plan (1) DVT (deep venous thrombosis) Current Visit: Yes Status: Acute Qualifiers: DVT location: lower extremity Affected thrombotic vein of extremity: femoral Chronicity: acute Laterality: right Qualified Code(s): I82.411 - Acute embolism and thrombosis of right femoral vein Assessment & Plan: -Venous doppler reviewed with findings of a nonoccluding DVT in the distal femoral and popliteal veins. Will initiate Eliquis 10mg BID x 7 days, then 5mg BID there after -Patient follows with Dr. Carter as OP, advised follow up visit for management Code(s): I82.409 - ACUTE EMBOLISM AND THOMBOS UNSP DEEP VN UNSP LOWER EXTREMITY (2) Anemia Current Visit: Yes Status: Acute Qualifiers: Anemia type: unspecified type Qualified Code(s): D64.9 - Anemia, unspecified Assessment & Plan: Secondary to TCell leukemia/cytotoxic therapies -Hgb at 7.1 today, transfused with 1 unit LPRBC, repeat hgb following transfusion stable at 8.7, will continue to monitor closely, replace as appropriate Code(s): D64.9 - ANEMIA, UNSPECIFIED (3) Failure to thrive Current Visit: Yes Status: Acute Assessment & Plan: Patient with nausea/poor appetite depressed mood since spouse's recent passing -PT/OT -Remeron 15mg QHS for appetite/sleep -Nutritional consult/Ensure Code(s): QZI0004 - (4) Edema of right lower extremity Current Visit: Yes Status: Acute Assessment & Plan: -see DVT Code(s): R60.0 - LOCALIZED EDEMA (5) Nausea Current Visit: Yes Status: Resolved Assessment & Plan: -resolved Code(s): R11.0 - NAUSEA (6) Anorexia Current Visit: Yes Status: Acute Assessment & Plan: Multifocal component of husbands recent passing and adverse effects of cytoxic therapy -Will continue remeron while IP and send rx on discharge -Encourage Ensure high protein, service station equipment mechanic consult pending Code(s): R63.0 - ANOREXIA (7) Generalized weakness Current Visit: Yes Status: Acute Assessment & Plan: -Continue PT while IP, will discuss HHC with PT for strengthening on discharge as pt wishes to return home on discharg Code(s): R53.1 - WEAKNESS (8) History of leukemia Current Visit: Yes Status: Acute Assessment & Plan: -Noted, adds complexity, patient follows with Dr. Carter, last treatment with methotrexate approximately two weeks ago Code(s): Z85.6 - PERSONAL HISTORY OF LEUKEMIA (9) Shortness of breath Current Visit: Yes Status: Acute Assessment & Plan: -Patient on RA with spo2 @ 97% -CTA chest reviewed, negative for PE, chronic findings including pulmonary emphysema, atelectasis/scarring, arteriosclerotic disease, fatty liver, chronic bony findings, and old granulomatous disease. May be symptomatic anemia, symptoms improved overnight. Code(s): R06.02 - SHORTNESS OF BREATH (10) Cough Current Visit: Yes Status: Acute Assessment & Plan: Subacute, duration between 2-3 weeks -Mucinex -Tessalon perles -Flonase Code(s): R05.9 - COUGH, UNSPECIFIED Telemedicine Encounter - Telemedicine Encounter Telemedicine Encounter: The entirety of this encounter was performed via Telemedicine"
[2023-05-28] MEDS: Zofran 4 MG/2 ML VIAL IV PRN (17:19)
[2023-05-28] MEDS ORDERED: TYLENOL 325 MG PO PRN (18:43)
[2023-05-28] MEDS ORDERED: REMERON 30 MG PO SCH (22:00)
[2023-05-28] MEDS: ELIQUIS 2.5 MG TABLET PO SCH (22:56)
[2023-05-29] MEDS: Tessalon Perles 100 MG PO PRN ×2 (03:52→09:08)
[2023-05-29 04:16] VITALS: RESP 16
[2023-05-29] MEDS: Sodium Chloride 0.9% 1000 ML 1,000 ML IV SCH ×2 (07:25→08:50)
[2023-05-29 07:37] VITALS: O2SAT 91
[2023-05-29 07:54] LABS: Hematocrit 29.4 % (35-47); Hemoglobin 9.8 g/dL (12.0-16.0); Mean Cell Volume 82.4 fL (78-100); Mean Corpuscular Hemoglobin 27.5 pg (26-32); Mean Corpuscular Hgb Concent. 33.3 g/dL (32-36); Mean Platelet Volume 9.5 fL (7.5-11.0); Platelet Count 157 x10^3/uL (150-450); Red Blood Count 3.57 x10^6/uL (4.1-5.4); Red Cell Distribution Width 17.6 % (11.5-14.0); White Blood Count 4.1 x10^3/uL (4.0-10.5)
[2023-05-29 08:11] LABS: ALBUMIN 2.4 g/dL (3.5-5.0); ANION GAP 11.8 MEQ/L (5-15); Calcium 7.7 mg/dL (8.4-10.2); Creatinine 1 1.03 mg/dL (0.52-1.04); EST GLOMERULAR FILTRATION RATE 55.5 ML/MIN; Potassium 3.7 mmol/L (3.5-5.1); Total Protein 4.7 g/dL (6.3-8.2)
[2023-05-29] MEDS: VITAMIN D PO SCH (09:07)
[2023-05-29] MEDS: NORVASC 5 MG PO SCH (09:08)
[2023-05-29] MEDS: FOLATE 1 MG PO SCH (09:08)
[2023-05-29] MEDS: Vitamin B-12 500 MCG PO SCH (09:08)
[2023-05-29] MEDS: Protonix 40MG Tablet PO SCH (09:08)
[2023-05-29] MEDS: ELIQUIS 2.5 MG TABLET PO SCH (09:09)
--- NOTE | 2023-05-29 10:26 | PCM.DS ---
Discharge Summary Date of Admission: 05/27/23 15:17 Date of Discharge: 05/29/23 Admitting Physician: KRISTEN BAHENA MD Primary Care Provider: ANGIE NGUYEN Allergies Allergies No Known Drug Allergies Allergy (Verified 05/27/23 11:52) Hospital Summary - Hospital Course Hospital Course: Ms. Calix is a 73 y/o F with h/o T cell leukemia, HTN, who was admitted 05/27/23 after presenting to ER with c/o anorexia, shortness of breath with chronic cough, and generalized weakness. Likely component of reactive disorder with recent passing of her , compounded by poor appetite after leukemia treatment. CTA of the chest was performed as her d-dimer was elevated which had findings negative for PE, chronic pulmonary emphysema, atelectasis/scaring, and old granulomatous disease. CKD is at baseline; sodium slightly low but also at baseline. Patient received IVF, Remeron as appetite stimulant, with Ensure protein supplements,and offer physical therapy which she declined. She additionally had c/o of RLE edema for which a venous doppler and right foot and ankle xrays were ordered. The right foot and ankle xrays were unremarkable. However, her venous doppler did show a nonoccluding DVT in the distal femoral and popliteal veins. She has been started on Eliquis initially but unable to afford due to high deductible and therefore will be started on coumadin with a lovenox brideg managed by the coumadin clinic which is more affordable. 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 Pineda for further management. During hospitalization, her hgb did drop down to 7.1, she does have a h/o chronic anemia with her h/o TCell leukemia. She was transfused with 1 unit of LPRBC with noted improvement of hemoglobin now at 9.8. Patient has been offered [facility] with physical therapy for strengthening, but she has declined. Patient will continue on Remeron, coumadin/ with lovenox bridging managed by the coumadin clinic at [facility] as they are helping her chronic cough, as well as flonase. (1) DVT (deep venous thrombosis) Current Visit: Yes Status: Acute Qualifiers: DVT location: lower extremity Affected thrombotic vein of extremity: femoral Chronicity: acute Laterality: right Qualified Code(s): I82.411 - Acute embolism and thrombosis of right femoral vein Assessment & Plan: -Venous doppler reviewed with findings of a nonoccluding DVT in the distal femoral and popliteal veins. Eliquis initially initiated but due to high deductible/out of pocket cost greater than $600, patient was placed on coumadin with lovenox bridging to be managed by the coumadin clinic at [facility] -Patient follows with Dr. Pineda as OP, advised follow up visit for management Code(s): I82.409 - ACUTE EMBOLISM AND THOMBOS UNSP DEEP VN UNSP LOWER EXTREMITY (2) Anemia Current Visit: Yes Status: Acute Qualifiers: Anemia type: unspecified type Qualified Code(s): D64.9 - Anemia, unspecified Assessment & Plan: Secondary to TCell leukemia/cytotoxic therapies -Hgb at 7.1 05/28/23 and was transfused with 1 unit LPRBC, repeat hgb following transfusion stable now at 9.8, she follows with Dr. Pineda outpatient Code(s): D64.9 - ANEMIA, UNSPECIFIED (3) Failure to thrive Current Visit: Yes Status: Acute Assessment & Plan: Patient with nausea/poor appetite depressed mood since spouse's recent passing. Will continue with Remeron on discharge per pt request, encouraged continue use of Boost/Ensure high protein/calorie -PT/OT -Remeron 15mg QHS for appetite/sleep -Nutritional consult/Ensure Code(s): [id number] - (4) Edema of right lower extremity Current Visit: Yes Status: Acute Assessment & Plan: -see DVT Code(s): R60.0 - LOCALIZED EDEMA (5) Nausea Current Visit: Yes Status: Resolved Assessment & Plan: -resolved Code(s): R11.0 - NAUSEA (6) Anorexia Current Visit: Yes Status: Acute Assessment & Plan: Multifocal component of husbands recent passing and adverse effects of cytoxic therapy -Will continue remeron while IP and send rx on discharge -Encourage Ensure high protein, caregiver services home consult pending Code(s): R63.0 - ANOREXIA (7) Generalized weakness Current Visit: Yes Status: Acute Assessment & Plan: -Continue PT while IP, will discuss HHC with PT for strengthening on discharge as pt wishes to return home on discharge Code(s): R53.1 - WEAKNESS (8) History of leukemia Current Visit: Yes Status: Acute Assessment & Plan: -Noted, adds complexity, patient follows with Dr. Pineda, last treatment with methotrexate approximately two weeks ago Code(s): Z85.6 - PERSONAL HISTORY OF LEUKEMIA (9) Shortness of breath Current Visit: Yes Status: Acute Assessment & Plan: -Patient on RA with spo2 @ 97% -CTA chest reviewed, negative for PE, chronic findings including pulmonary emphysema, atelectasis/scarring, arteriosclerotic disease, fatty liver, chronic bony findings, and old granulomatous disease. May be symptomatic anemia, symptoms improved overnight. Code(s): R06.02 - SHORTNESS OF BREATH (10) Cough Current Visit: Yes Status: Acute Assessment & Plan: Subacute, duration between 2-3 weeks -Justin -Harry clark -Jenifer I have spent > 45 minutes planning and coordinating safe discharge of this patient. - Vitals & Intake/Output Vital Signs: Vital Signs Temperature 98.6 F 05/29/23 07:34 Pulse Rate 87 05/29/23 07:34 Respiratory Rate 16 05/29/23 07:34 Blood Pressure 160/70 05/29/23 07:34 O2 Sat by Pulse Oximetry 91 L 05/29/23 07:34 Intake & Output: Intake & Output 05/26/23 05/27/23 05/28/23 05/29/23 11:59 11:59 11:59 11:59 Intake Total 1804 1580 Balance 1804 1580 Weight 53.7 kg 52 kg - Lab Result Diagrams: 05/29/23 07:38 05/29/23 07:38 Lab Results-Last 24 Hrs: Lab Results-Last 24 Hours 05/28/23 05/28/23 05/29/23 Range/Units 14:50 Unknown 07:38 WBC 4.1 (4.0-10.5) x10^3/uL RBC 3.57 L (4.1-5.4) x10^6/uL Hgb 8.7 L D 9.8 L (12.0-16.0) g/dL Hct 27.0 L 29.4 L (35-47) % MCV 82.4 (78-100) fL MCH 27.5 (26-32) pg MCHC 33.3 (32-36) g/dL RDW 17.6 H (11.5-14.0) % Plt Count 157 (150-450) x10^3/uL MPV 9.5 (7.5-11.0) fL Sodium (137-145) mmol/L Potassium (3.5-5.1) mmol/L Chloride (98-107) mmol/L Carbon Dioxide (22-30) mmol/L Anion Gap (5-15) MEQ/L BUN (7-17) mg/dL Creatinine (0.52-1.04) mg/dL Estimated GFR ML/MIN Glucose (74-106) mg/dL Calcium (8.4-10.2) mg/dL Total Bilirubin (0.2-1.3) mg/dL AST (14-36) U/L ALT (0-35) U/L Alkaline Phosphatase (38-126) U/L Serum Total Protein (6.3-8.2) g/dL Albumin (3.5-5.0) g/dL Crossmatch COMPATIBLE (COMPATIBLE) 05/29/23 Range/Units 07:38 WBC (4.0-10.5) x10^3/uL RBC (4.1-5.4) x10^6/uL Hgb (12.0-16.0) g/dL Hct (35-47) % MCV (78-100) fL MCH (26-32) pg MCHC (32-36) g/dL RDW (11.5-14.0) % Plt Count (150-450) x10^3/uL MPV (7.5-11.0) fL Sodium 133 L (137-145) mmol/L Potassium 3.7 (3.5-5.1) mmol/L Chloride 106 (98-107) mmol/L Carbon Dioxide 19 L (22-30) mmol/L Anion Gap 11.8 (5-15) MEQ/L BUN 12 (7-17) mg/dL Creatinine 1.03 (0.52-1.04) mg/dL Estimated GFR 55.5 ML/MIN Glucose 96 (74-106) mg/dL Calcium 7.7 L (8.4-10.2) mg/dL Total Bilirubin 2.00 H (0.2-1.3) mg/dL AST 23 (14-36) U/L ALT 12 (0-35) U/L Alkaline Phosphatase 52 (38-126) U/L Serum Total Protein 4.7 L (6.3-8.2) g/dL Albumin 2.4 L (3.5-5.0) g/dL Crossmatch (COMPATIBLE) Micro Results-Entire Visit: Microbiology 05/27/23 14:49 Urine Culture - Final Urine, Void NO GROWTH - Radiology Exams Ordered Rad Exams-Entire Visit: Radiology Procedures Category Date Time Status ANKLE (3 VIEWS) Stat Exams 05/27/23 17:35 Completed CHEST WITH CONTRAST [CT] Stat Exams 05/27/23 13:11 Completed FOOT (MINIMUM 3 VIEWS) Stat Exams 05/27/23 17:35 Completed VENOUS UNILAT/LIMITED EXTREMIT [US] Routine Exams 05/28/23 18:02 Completed - Procedures and Test Procedures and Tests throughout Hospitalization: Therapy Orders & Screens 05/27/23 16:26 PT Eval & Treat (MD Order) ONCE Reason for Eval:: Generalized weakness Diagnosis: Generalized weakness, failure to thrive OT Eval and Treat (MD Order) ONCE Comment: Physician Instructions: Reason For Exam: Discharge Exam General Appearance: no apparent distress Neurologic Exam: alert, oriented x 3 Eye Exam: PERRL Respiratory Exam: normal breath sounds Cardiovascular Exam: regular rate/rhythm, normal heart sounds Gastrointestinal/Abdomen Exam: soft, normal bowel sounds Skin Exam: normal color, warm, dry Final Diagnosis/Problem List - Final Discharge Diagnosis/Problem (1) DVT (deep venous thrombosis) Current Visit: Yes Status: Acute Code(s): I82.409 - ACUTE EMBOLISM AND THOMBOS UNSP DEEP VN UNSP LOWER EXTREMITY (2) Anemia Current Visit: Yes Status: Acute Code(s): D64.9 - ANEMIA, UNSPECIFIED (3) Failure to thrive Current Visit: Yes Status: Chronic Code(s): [id number] - (4) Edema of right lower extremity Current Visit: Yes Status: Acute Code(s): R60.0 - LOCALIZED EDEMA (5) Nausea Current Visit: Yes Status: Resolved Code(s): R11.0 - NAUSEA (6) Anorexia Current Visit: Yes Status: Chronic Code(s): R63.0 - ANOREXIA (7) Generalized weakness Current Visit: Yes Status: Chronic Code(s): R53.1 - WEAKNESS (8) History of leukemia Current Visit: Yes Status: Chronic Code(s): Z85.6 - PERSONAL HISTORY OF LEUKEMIA (9) Shortness of breath Current Visit: Yes Status: Resolved Code(s): R06.02 - SHORTNESS OF BREATH (10) Cough Current Visit: Yes Status: Chronic Code(s): R05.9 - COUGH, UNSPECIFIED Telemedicine Encounter - Telemedicine Encounter Telemedicine Encounter: The entirety of this encounter was performed via Telemedicine" - Discharge Discharge Date: 05/29/23 Disposition: Home, Self-Care Condition: Stable Prescriptions: New Fluticasone Propionate [Flonase NASAL] 2 sprays NS BID #1 unit Mirtazapine 30 mg [Remeron 30 mg] 15 mg PO HS 30 Days #30 tablet Warfarin Sodium 3 mg [Coumadin 3 MG] 3 mg PO DAILY AT 1800 tablet Continue Mecobalamin [B12 Active] 1,000 mcg PO DAILY Folic Acid 0.4 mg PO DAILY Amlodipine Besylate 5 mg [Norvasc 5 mg] 5 mg PO DAILY Cholecalciferol (Vitamin D3) [D3-5000] 125 mcg PO DAILY Outpatient Orders: Coumadin Clinic Referral Facility: [facility][1]. Hosp, Location: COUMADIN CLINIC Instructions: Deep Vein Thrombosis (Blood Clots in the Legs) (DC), Preventing falls in adults, Apixaban, Going Home on Blood Thinners , Failure to Thrive, Adult (DC), Blood transfusion Additional Instructions: TRY TO DRINK ENSURE WITH PROTEIN 2-3 TIMES A DAY. IF YOU BECOME INTERESTED IN THERAPY (EMOTIONAL) YOU CAN CALL DIDIER CHOI AT [phone] ext [phone] Follow up with: AMY PINEDA [COURTESY STAFF] - ANGIE NGUYEN [Primary Care Provider] - 06/13/23 1:00 pm ()
[2023-05-29] MEDS: Flonase NASAL NS SCH (10:31)
[2023-05-29 10:44] LABS: INR 1.18 (0.8-3.0); PROTIME 12.7 SECONDS (9.4-12.5)
[2023-05-29 11:42] VITALS: BP 137/63; PULSE 81; TEMP 98.3
[2023-05-29] MEDS ORDERED: PHARMACY DOSING REQUEST MC ONE (12:09)
[2023-05-29] MEDS ORDERED: Coumadin 3 MG PO SCH (14:00)
== END 2023-05-29 14:42 | disposition home or self-care (01) ==
LOC: ED 11:30 → MED SURG 15:17
PROVIDERS: ADMIT Internal Medicine; ATTEND Internal Medicine
DX: I82.411 Acute embolism and thrombosis of right femoral vein (principal); D64.9 Anemia, unspecified; R62.7 Adult failure to thrive; R60.0 Localized edema; R11.0 Nausea; R63.0 Anorexia; R53.1 Weakness; Z85.6 Personal history of leukemia; R06.02 Shortness of breath; R05.9 Cough, unspecified; I10 Essential (primary) hypertension; Z79.899 Other long term (current) drug therapy; Z20.828 Contact with and (suspected) exposure to other viral communicable diseases
CPT/HCPCS: 36415; 36430; 71260; 73610; 73630; 80053; 81001; 82607; 82728; 82746; 83540; 84484; 85014; 85018; 85025; 85027; 85379; 85610; 86850; 86900; 86901; 86922; 87086; 93005; 93041; 93268; 93971; 94760; 94762; 97161; 99285; G0378; P9016; Q3014; J2405; A9270-GY

== ENCOUNTER 2024-03-05 15:53 | Emergency (ER) | payer MEDICARE ==
--- NOTE | 2024-03-05 16:45 | ERPHSYRPT ---
- History of Present Illness Source: patient Exam Limitations: no limitations Timing/Duration: day(s) (6), worse Cough Quality/Degree: moderate Possible Cause: no prior episodes Modifying Factors: Improves With: coughing, rest Associated Symptoms: fever, cough, No chest pain/soreness, No shortness of breath, No sore throat Hx Tetanus, Diphtheria Vaccination/Date Given: No Hx Influenza Vaccination/Date Given: No Hx Pneumococcal Vaccination/Date Given: Yes <AYALA LANE - Last Filed: 03/05/24 19:04> <MISTI KLEIN - Last Filed: 03/05/24 20:03> - History of Present Illness Time Seen by Provider: 03/05/24 16:45 Physician History: This is a 73-year-old white female patient that has had a cough for the last 6 days and over the last several days she has been weaker and weaker. She had a fever today and arrives to the emergency department by private vehicle and has a temperature of 103 F. Patient denies chest pain. Patient denies abdominal pain. Patient denies shortness of breath. Patient does have a history of hypertension and arthritis. Patient is on methotrexate (AYALA L[address]) Allergies/Adverse Reactions: No Known Drug Allergies Allergy (Verified 03/05/24 16:45) Home Medications: Amlodipine Besylate 5 mg [Norvasc 5 mg] 5 mg PO DAILY 05/27/23 [History] Cholecalciferol (Vitamin D3) [D3-5000] 125 mcg PO DAILY 05/27/23 [History] Folic Acid 0.4 mg PO DAILY 05/27/23 [History] Mecobalamin [B12 Active] 1,000 mcg PO DAILY 05/27/23 [History] Losartan/Hydrochlorothiazide [Losartan-Hctz 50-12.5 mg Tab] 1 each PO DAILY 03/05/24 [History] Methotrexate Sodium 2.5 mg [Trexall 2.5 mg] 3 tab PO WEEKLY 03/05/24 [His tory] Travel Risk - International Travel Have you traveled outside of the country in past 3 weeks: No - Emerging Infectious Disease Are you exhibiting symptoms associated with any current EIDs: Yes Symptoms: Cough: New Onset, Fever <AYALA LANE - Last Filed: 03/05/24 19:04> - Review of Systems Constitutional: Fever, Weakness Eyes: No Symptoms Ears, Nose, & Throat: No Symptoms Respiratory: Cough Cardiac: No Symptoms Abdominal/Gastrointestinal: No Symptoms Genitourinary Symptoms: No Symptoms Musculoskeletal: No Symptoms Neurological: No Symptoms Psychological: No Symptoms Endocrine: No Symptoms Hematologic/Lymphatic: No Symptoms Immunological/Allergic: No Symptoms All Other Systems: Reviewed and Negative <AYALA LANE - Last Filed: 03/05/24 19:04> - Past Medical History Pertinent Past Medical History: Yes Neurological History: No Pertinent History ENT History: No Pertinent History Cardiac History: Hypertension Respiratory History: No Pertinent History Endocrine Medical History: No Pertinent History Musculoskeletal History: Rheumatoid Arthritis GI Medical History: No Pertinent History History: No Pertinent History Psycho-Social History: No Pertinent History Female Reproductive Disorders: No Pertinent History 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 melanoma Significant Family History: cancer (Father with colon cancer) - Social History Smoking Status: Never smoker Exposure to second hand smoke: No Drug Use: none Patient Lives Alone: Yes <AYALA LANE - Last Filed: 03/05/24 19:04> - Physical Exam General Appearance: mild distress, alert, lethargy, thin Eye Exam: PERRL/EOMI, eyes nml inspection Ears, Nose, Throat Exam: dry mucous membranes Neck Exam: normal inspection, non-tender, supple, full range of motion Respiratory Exam: normal breath sounds, lungs clear, airway intact, No chest tenderness, No respiratory distress Cardiovascular Exam: regular rate/rhythm, normal heart sounds, normal peripheral pulses Gastrointestinal/Abdomen Exam: soft, normal bowel sounds, No tenderness Pelvic Exam: not done Rectal Exam: not done Back Exam: normal inspection, normal range of motion, No CVA tenderness, No vertebral tenderness Extremity Exam: normal inspection, normal range of motion, pelvis stable Neurologic Exam: alert, oriented x 3, cooperative, rehab aide II-XII nml as tested, nml cerebellar function, sensation nml Skin Exam: normal color, warm, dry Lymphatic Exam: No adenopathy SpO2 Interpretation: normal O2 Delivery: Room Air <AYALA LANE - Last Filed: 03/05/24 19:04> - Nursing Vital Signs Nursing Vital Signs: Initial Vital Signs Pulse Rate 74 03/05/24 16:30 Respiratory Rate 25 H 03/05/24 16:30 Blood Pressure 130/63 03/05/24 16:30 O2 Sat by Pulse Oximetry 98 03/05/24 16:30 Pain Scale Pain Intensity 0 - Course Nursing assessment & vital signs reviewed: Yes EKG Interpreted by Me: RATE (74), Sinus Rhythm, NORMAL AXIS, NORMAL INTERVALS, NORMAL QRS, Other (No acute ischemic changes on today's twelve-lead EKG) <AYALA LANE - Last Filed: 03/05/24 19:04> Ordered Tests: Active Orders 24 hr Category Date Time Status Tower Equipment Repairer STAT Care 03/05/24 17:31 Active IV Insertion STAT Care 03/05/24 17:29 Active Pulse Oximetry (ED) STAT Care 03/05/24 17:29 Active CHEST 1 VIEW (PORTABLE) Stat Exams 03/05/24 17:29 Taken BLOOD CULTURE Stat Lab 03/05/24 16:10 Received CBC W DIFF Stat Lab 03/05/24 16:10 Completed CMP Stat Lab 03/05/24 17:29 Completed Lactic Acid Stat Lab 03/05/24 17:38 Completed MAG [MAGNESIUM] Stat Lab 03/05/24 16:10 Completed MONO SCREEN Stat Lab 03/05/24 17:30 Completed TROPONIN Q4H Lab 03/05/24 16:10 Completed TROPONIN Q4H Lab 03/05/24 23:15 Ordered TROPONIN Q4H Lab 03/06/24 03:15 Ordered UA W/RFX UR CULTURE Stat Lab 03/05/24 18:15 Completed Medication Summary Generic Name Dose Route Start Last Admin Trade Name Freq PRN Reason Stop Dose Admin Sodium Chloride 1,000 mls @ 250 mls/hr 03/05/24 17:30 03/05/24 17:56 Sodium Chloride 0.9% 1000 Ml IV 04/04/24 17:29 250 mls/hr .Q4H REMBERTO Administration Discontinued Medications Generic Name Dose Route Start Last Admin Trade Name Freq PRN Reason Stop Dose Admin Acetaminophen 650 mg 03/05/24 17:29 03/05/24 17:55 Acetaminophen 325 Mg Tablet PO 03/05/24 17:30 650 mg STAT STA Administration Acetaminophen Confirm 03/05/24 17:51 Acetaminophen 325 Mg Tablet Administered 03/05/24 17:52 Dose 650 mg .ROUTE .STK-MED ONE Ibuprofen 600 mg 03/05/24 17:29 03/05/24 17:54 Ibuprofen 600 Mg Tablet PO 03/05/24 17:30 600 mg STAT STA Administration Ibuprofen Confirm 03/05/24 17:51 Ibuprofen 600 Mg Tablet Administered 03/05/24 17:52 Dose 600 mg .ROUTE .STK-MED ONE Ondansetron HCl 4 mg 03/05/24 17:29 03/05/24 17:56 Ondansetron Hcl 4 Mg/2 Ml Vial IV 03/05/24 17:30 4 mg STAT STA Administration Ondansetron HCl Confirm 03/05/24 17:51 Ondansetron Hcl 4 Mg/2 Ml Vial Administered 03/05/24 17:52 Dose 4 mg .ROUTE .STK-MED ONE Lab/Rad Data: Laboratory Result Diagrams 03/05/24 16:10 03/05/24 17:29 Laboratory Results 03/05/24 03/05/24 03/05/24 Range/Units 18:15 17:50 17:50 WBC (4.0-10.5) x10^3/uL RBC (4.1-5.4) x10^6/uL Hgb (12.0-16.0) g/dL Hct (35-47) % MCV (78-100) fL MCH (26-32) pg MCHC (32-36) g/dL RDW (11.5-14.0) % Plt Count (150-450) x10^3/uL MPV (7.5-11.0) fL Gran % (36.0-66.0) % Immature Gran % (Auto) (0.00-0.4) % Nucleat RBC Rel Count (0.00-0.1) % Eos # (Auto) (0-0.5) x10^3/uL Immature Gran # (Auto) (0.00-0.03) x10^3u/L Absolute Lymphs (auto) (1.0-4.6) x10^3/uL Absolute Monos (auto) (0.0-1.3) x10^3/uL Absolute Nucleated RBC (0.00-0.01) x10^3u/L Lymphocytes % (24.0-44.0) % Monocytes % (0.0-12.0) % Eosinophils % (0.00-5.0) % Basophils % (0.0-0.4) % Absolute Granulocytes (1.4-6.9) x10^3/uL Basophils # (0-0.4) x10^3/uL Sodium (135-145) mmol/L Potassium (3.5-5.1) mmol/L Chloride (98-107) mmol/L Carbon Dioxide (22-30) mmol/L Anion Gap (5-15) MEQ/L BUN (7-17) mg/dL Creatinine (0.52-1.04) mg/dL Estimated GFR ML/MIN Glucose (74-106) mg/dL Lactic Acid (0.4-2.0) Calcium (8.4-10.2) mg/dL Magnesium (1.6-2.3) mg/dL Total Bilirubin (0.2-1.3) mg/dL AST (14-36) U/L ALT (0-35) U/L Alkaline Phosphatase (38-126) U/L Troponin I (0.000-0.033) ng/mL Serum Total Protein (6.3-8.2) g/dL Albumin (3.5-5.0) g/dL Urine Color Yellow (Yellow) Urine Appearance Clear (Clear) Urine pH 5.0 (4.6-8.0) Ur Specific [place] 1.020 (1.005-1.030) Urine Protein Trace A (Negative) Urine Glucose (UA) Negative (Negative) mg/dL Urine Ketones Negative (Negative) Urine Blood Negative (Negative) Urine Nitrite Negative (Negative) Urine Bilirubin Negative (Negative) Urine Urobilinogen 0.2 (0.2) mg/dL Ur Leukocyte Esterase Trace A (Negative) U Hyaline Cast (Auto) NONE SEEN (0-2) /LPF Urine Microscopic RBC 0-2 (0-5) /HPF Urine Microscopic WBC 0-2 (0-5) /HPF Ur Epithelial Cells None Seen (None Seen) /HPF Urine Bacteria None Seen (None Seen) /HPF Urine Culture Reflexed NO (NO) Monoscreen (NEGATIVE) Influenza Type A Ag NEGATIVE (NEGATIVE) Influenza Type B Ag NEGATIVE (NEGATIVE) RSV (PCR) NEGATIVE (NEGATIVE) SARS-CoV-2 (PCR) NEGATIVE (NEGATIVE) Group A Strep Antibody NOT DETECTED (NEGATIVE) Slides for Path Review 03/05/24 03/05/24 03/05/24 Range/Units 17:38 17:30 17:29 WBC (4.0-10.5) x10^3/uL RBC (4.1-5.4) x10^6/uL Hgb (12.0-16.0) g/dL Hct (35-47) % MCV (78-100) fL MCH (26-32) pg MCHC (32-36) g/dL RDW (11.5-14.0) % Plt Count (150-450) x10^3/uL MPV (7.5-11.0) fL Gran % (36.0-66.0) % Immature Gran % (Auto) (0.00-0.4) % Nucleat RBC Rel Count (0.00-0.1) % Eos # (Auto) (0-0.5) x10^3/uL Immature Gran # (Auto) (0.00-0.03) x10^3u/L Absolute Lymphs (auto) (1.0-4.6) x10^3/uL Absolute Monos (auto) (0.0-1.3) x10^3/uL Absolute Nucleated RBC (0.00-0.01) x10^3u/L Lymphocytes % (24.0-44.0) % Monocytes % (0.0-12.0) % Eosinophils % (0.00-5.0) % Basophils % (0.0-0.4) % Absolute Granulocytes (1.4-6.9) x10^3/uL Basophils # (0-0.4) x10^3/uL Sodium 136 (135-145) mmol/L Potassium 3.7 (3.5-5.1) mmol/L Chloride 105 (98-107) mmol/L Carbon Dioxide 18 L (22-30) mmol/L Anion Gap 16.1 H (5-15) MEQ/L BUN 27 H (7-17) mg/dL Creatinine 1.69 H (0.52-1.04) mg/dL Estimated GFR 31.3 ML/MIN Glucose 118 H (74-106) mg/dL Lactic Acid 1.1 (0.4-2.0) Calcium 9.1 (8.4-10.2) mg/dL Magnesium (1.6-2.3) mg/dL Total Bilirubin 1.10 (0.2-1.3) mg/dL AST 33 (14-36) U/L ALT 28 (0-35) U/L Alkaline Phosphatase 58 (38-126) U/L Troponin I (0.000-0.033) ng/mL Serum Total Protein 7.1 (6.3-8.2) g/dL Albumin 4.2 (3.5-5.0) g/dL Urine Color (Yellow) Urine Appearance (Clear) Urine pH (4.6-8.0) Ur Specific [place] (1.005-1.030) Urine Protein (Negative) Urine Glucose (UA) (Negative) mg/dL Urine Ketones (Negative) Urine Blood (Negative) Urine Nitrite (Negative) Urine Bilirubin (Negative) Urine Urobilinogen (0.2) mg/dL Ur Leukocyte Esterase (Negative) U Hyaline Cast (Auto) (0-2) /LPF Urine Microscopic RBC (0-5) /HPF Urine Microscopic WBC (0-5) /HPF Ur Epithelial Cells (None Seen) /HPF Urine Bacteria (None Seen) /HPF Urine Culture Reflexed (NO) Monoscreen NEGATIVE (NEGATIVE) Influenza Type A Ag (NEGATIVE) Influenza Type B Ag (NEGATIVE) RSV (PCR) (NEGATIVE) SARS-CoV-2 (PCR) (NEGATIVE) Group A Strep Antibody (NEGATIVE) Slides for Path Review 03/05/24 03/05/24 03/05/24 Range/Units 16:10 16:10 16:10 WBC 2.3 L (4.0-10.5) x10^3/uL RBC 3.62 L (4.1-5.4) x10^6/uL Hgb 10.3 L (12.0-16.0) g/dL Hct 30.3 L (35-47) % MCV 83.7 (78-100) fL MCH 28.5 (26-32) pg MCHC 34.0 (32-36) g/dL RDW 14.7 H (11.5-14.0) % Plt Count 126 L (150-450) x10^3/uL MPV 10.0 (7.5-11.0) fL Gran % 67.2 H (36.0-66.0) % Immature Gran % (Auto) 0.0 (0.00-0.4) % Nucleat RBC Rel Count 0.0 (0.00-0.1) % Eos # (Auto) 0.01 (0-0.5) x10^3/uL Immature Gran # (Auto) 0.00 (0.00-0.03) x10^3u/L Absolute Lymphs (auto) 0.55 L (1.0-4.6) x10^3/uL Absolute Monos (auto) 0.18 (0.0-1.3) x10^3/uL Absolute Nucleated RBC 0.00 (0.00-0.01) x10^3u/L Lymphocytes % 24.1 (24.0-44.0) % Monocytes % 7.9 (0.0-12.0) % Eosinophils % 0.4 (0.00-5.0) % Basophils % 0.4 (0.0-0.4) % Absolute Granulocytes 1.53 (1.4-6.9) x10^3/uL Basophils # 0.01 (0-0.4) x10^3/uL Sodium (135-145) mmol/L Potassium (3.5-5.1) mmol/L Chloride (98-107) mmol/L Carbon Dioxide (22-30) mmol/L Anion Gap (5-15) MEQ/L BUN (7-17) mg/dL Creatinine (0.52-1.04) mg/dL Estimated GFR ML/MIN Glucose (74-106) mg/dL Lactic Acid (0.4-2.0) Calcium (8.4-10.2) mg/dL Magnesium 1.5 L (1.6-2.3) mg/dL Total Bilirubin (0.2-1.3) mg/dL AST (14-36) U/L ALT (0-35) U/L Alkaline Phosphatase (38-126) U/L Troponin I < 0.012 (0.000-0.033) ng/mL Serum Total Protein (6.3-8.2) g/dL Albumin (3.5-5.0) g/dL Urine Color (Yellow) Urine Appearance (Clear) Urine pH (4.6-8.0) Ur Specific [place] (1.005-1.030) Urine Protein (Negative) Urine Glucose (UA) (Negative) mg/dL Urine Ketones (Negative) Urine Blood (Negative) Urine Nitrite (Negative) Urine Bilirubin (Negative) Urine Urobilinogen (0.2) mg/dL Ur Leukocyte Esterase (Negative) U Hyaline Cast (Auto) (0-2) /LPF Urine Microscopic RBC (0-5) /HPF Urine Microscopic WBC (0-5) /HPF Ur Epithelial Cells (None Seen) /HPF Urine Bacteria (None Seen) /HPF Urine Culture Reflexed (NO) Monoscreen (NEGATIVE) Influenza Type A Ag (NEGATIVE) Influenza Type B Ag (NEGATIVE) RSV (PCR) (NEGATIVE) SARS-CoV-2 (PCR) (NEGATIVE) Group A Strep Antibody (NEGATIVE) Slides for Path Review YES - Progress Progress: improved, re-examined Air Movement: good Blood Culture(s) Obtained: Yes <AYALA LANE - Last Filed: 03/05/24 19:04> - Progress Progress: improved Air Movement: good Blood Culture(s) Obtained: Yes Antibiotics given: No <MISTI KLEIN - Last Filed: 03/05/24 20:03> - Progress Progress Note: 03/05/24 19:08 My medical decision making and the assignment of moderate complexity to this patient's medical issue is based on review of the patient's past medical history, review patient medication list, review patient drug allergy list, history present illness and physical findings on examination. Workup in this patient includes placement of intravenous line, infusion of normal saline solution, infusion of Zofran, oral Tylenol and oral ibuprofen, CBC, CMP, magnesium level, troponin level, urinalysis, twelve-lead EKG, chest x-ray, monotest, group A strep test, viral swabs. Differential diagnosis includes pneumonia, viral illness, urinary tract infection, dehydration, electrolyte abnormalities, myocardial infarction, I am transferring care to Dr. Klein at shift change. He will follow-up with the pending studies and make final disposition. (AYALA LANE) 03/05/24 19:25 I assumed care of this patient from Dr Lane @ 19:00 03/05/24 19:58 CXR shows no acute cardio-pulmonary process labs not suggestive of bacterial infection vitals stable - fever resolved in ED w/ 1 dose tylenol - 99.5 on recent check plan to dc home, pt and daughters agree that she is stable to return home likely viral URI, plan to dc home recommend symptom treatment w/ flonase, claritin, mucinex tylenol every 6 hours for fevers drink plenty of clear liquids/gatorade/pedialyte return to ER if: develop fever that does not resolve w/ tylenol, develop significant weakness, develop chest pain, develop shortness of breath (MISTI KLEIN) Medical Desision Making - Independent Historian Additional History obtained from: Family - Diagnostic Testing Diagnostic test were ordered, analyzed, and reviewed by me: Yes Radiological Interpretation: Interpreted by me <AYALA LANE - Last Filed: 03/05/24 19:04> - Diagnostic Testing Diagnostic test were ordered, analyzed, and reviewed by me: Yes Radiological Interpretation: Interpreted by me, Reviewed by me - Risk of complications Minimal Risk: Minimal risk of morbidity <MISTI KLEIN - Last Filed: 03/05/24 20:03> - Departure Departure Disposition: Observation Critical Care Time: No <AYALA LANE - Last Filed: 03/05/24 19:04> - Departure Departure Disposition: Home Critical Care Time: No <MISTI KLEIN - Last Filed: 03/05/24 20:03> - Departure Clinical Impression: Leukopenia, Weakness, Viral URI Fever Qualifiers: Fever type: unspecified Qualified Code(s): R50.9 - Fever, unspecified Condition: Stable Referrals: ANGIE NGUYEN [Primary Care Provider] - Follow up/PCP as directed Additional Instructions: likely viral URI, plan to dc home recommend symptom treatment w/ flonase, claritin, mucinex tylenol every 6 hours for fevers drink plenty of clear liquids/gatorade/pedialyte return to ER if: develop fever that does not resolve w/ tylenol, develop significant weakness, develop chest pain, develop shortness of breath
[2024-03-05 17:40] LABS: Absolute Neutrophil Ct (ANC) 1.53 x10^3/uL (1.4-6.9); BASOPHIL % 0.4 % (0.0-0.4); Basophil (Absolute #) 0.01 x10^3/uL (0-0.4); Eosinophil % 0.4 % (0.00-5.0); Eosinophil (Absolute #) 0.01 x10^3/uL (0-0.5); Hematocrit 30.3 % (35-47); Hemoglobin 10.3 g/dL (12.0-16.0); Lymphocyte (Absolute #) 0.55 x10^3/uL (1.0-4.6); Lymphocytes % 24.1 % (24.0-44.0); Mean Cell Volume 83.7 fL (78-100); Mean Corpuscular Hemoglobin 28.5 pg (26-32); Monocyte (Absolute #) 0.18 x10^3/uL (0.0-1.3); Monocytes % 7.9 % (0.0-12.0); Neutrophil % 67.2 % (36.0-66.0); Platelet Count 126 x10^3/uL (150-450); Red Blood Count 3.62 x10^6/uL (4.1-5.4); Red Cell Distribution Width 14.7 % (11.5-14.0); White Blood Count 2.3 x10^3/uL (4.0-10.5)
[2024-03-05 17:46] LABS: ALBUMIN 4.2 g/dL (3.5-5.0); ANION GAP 16.1 MEQ/L (5-15); BILIRUBIN,TOTAL 1.1 mg/dL (0.2-1.3); Calcium 9.1 mg/dL (8.4-10.2); Creatinine 1 1.69 mg/dL (0.52-1.04); EST GLOMERULAR FILTRATION RATE 31.3 ML/MIN; Potassium 3.7 mmol/L (3.5-5.1); Total Protein 7.1 g/dL (6.3-8.2)
[2024-03-05] MEDS ORDERED: Zofran 4 MG/2 ML VIAL ONE (17:51)
[2024-03-05] MEDS ORDERED: MOTRIN 600 MG ONE (17:51)
[2024-03-05] MEDS ORDERED: TYLENOL 325 MG ONE (17:51)
[2024-03-05] MEDS ORDERED: Sodium Chloride 0.9% 1000 ML 1,000 ML ONE (17:51)
[2024-03-05] MEDS: MOTRIN 600 MG PO STA (17:54)
[2024-03-05] MEDS: TYLENOL 325 MG PO STA (17:55)
[2024-03-05] MEDS: Sodium Chloride 0.9% 1000 ML 1,000 ML IV SCH (17:56)
[2024-03-05] MEDS: Zofran 4 MG/2 ML VIAL IV STA (17:56)
[2024-03-05 18:40] LABS: INFLUENZA A NEGATIVE (NEGATIVE); INFLUENZA B NEGATIVE (NEGATIVE); RESPIRATORY SYNCTIAL VIRUS NEGATIVE (NEGATIVE); SARS-CoV-2 Xpert Express NEGATIVE (NEGATIVE)
[2024-03-05 18:43] LABS: Slide Review 1 YES
[2024-03-05 19:13] LABS: Appearance Clear (Clear); Bacteria None Seen /HPF (None Seen); Bilirubin Negative (Negative); Blood Negative (Negative); Epithelial Cells None Seen /HPF (None Seen); Glucose, Urine Negative (Negative); Hyaline Casts NONE SEEN /LPF (0-2); Ketones Negative (Negative); Leukocyte Esterase Trace (Negative); Nitrite Negative (Negative); Protein,Urine Dip Trace (Negative); RBC 0-2 /HPF (0-5); Urobilinogen 0.2 mg/dL (0.2); WBC 0-2 /HPF (0-5)
[2024-03-05 19:14] LABS: ADD URINE CULTURE? NO (NO)
[2024-03-05 19:29] VITALS: O2SAT 95
[2024-03-05 20:06] VITALS: BP 95/58; PULSE 87; RESP 17
[2024-03-05 20:10] VITALS: TEMP 99.5
--- NOTE | 2024-03-05 23:22 | XRAY ---
Indication: Fever and cough. Comparison: April 29, 2023 Portable chest remains hyperinflated and clear. Heart and mediastinal structures within normal limits. Bony thorax intact again with osteopenia and mild degenerative changes. Impression: Continued nonacute hyperinflated chest with chronic features.
== END 2024-03-05 20:13 | disposition home or self-care (01) ==
LOC: ED 15:53
DX: J06.9 Acute upper respiratory infection, unspecified (principal); D72.819 Decreased white blood cell count, unspecified; R53.1 Weakness; R50.9 Fever, unspecified; R05.1 Acute cough; I10 Essential (primary) hypertension; Z79.899 Other long term (current) drug therapy
CPT/HCPCS: 0241U; 36000; 36415; 71045; 80053; 81001; 83605; 83735; 84484; 85025; 86308; 87040; 87651; 93041; 94760; 96374; 99284; J2405; A9270-GY

== ENCOUNTER 2025-01-21 12:09 | Emergency (ER) | payer MEDICARE ==
[2025-01-21 12:14] VITALS: TEMP 98.6; O2SAT 100
--- NOTE | 2025-01-21 12:24 | ERPHSYRPT ---
- History of Present Illness Time Seen by Provider: 01/21/25 12:21 Source: patient, family Exam Limitations: no limitations Physician History: This is a cachectic appearing 74-year-old white female patient of Dr. Gerard Newman who presents to the emergency department by private vehicle accompanied by her daughter with the complaint of worsening shortness of breath over the last 2 months. Symptoms are worse with exertion. She denies chest pain. She denies fever. She does have a mild cough. She has no abdominal pain. She has had no nausea vomiting or diarrhea symptoms. She has a history of a pulmonary embolus in the past but is not on any anticoagulation therapy. Patient has a history of hypertension. Patient also has had a blood transfusion within the last 2 years secondary to a hemoglobin dropping to 7.1 level. She received 1 unit of packed red blood cells at that time. She has seen a rn baby in the past and has a known hematologic disorder. Patient's vital signs are stable at rest. Her room air oxygen saturation levels are 100% at rest. Timing/Duration: intermittent, worse, other (Intermittent symptoms for over 2 months) Severity of Dyspnea-Max: moderate Severity of Dyspnea-Current: mild Possible Cause: occasional episodes Modifying Factors: Improves With: activity (Worsens), rest (Improves) Associated Symptoms: intermittent, cough, No chest pain/discomfort, No wheezing, No calf pain Allergies/Adverse Reactions: No Known Drug Allergies Allergy (Verified 01/21/25 12:23) Home Medications: Cholecalciferol (Vitamin D3) [D3-5000] 125 mcg PO DAILY 05/27/23 [History] Mecobalamin [B12 Active] 1,000 mcg PO DAILY 05/27/23 [History] Losartan/Hydrochlorothiazide [Losartan-Hctz 50-12.5 mg Tab] 1 each PO DAILY 03/05/24 [History] Methotrexate Sodium 2.5 mg [Trexall 2.5 mg] 2 tab PO WEEKLY 03/05/24 [History] Hx Tetanus, Diphtheria Vaccination/Date Given: No Hx Influenza Vaccination/Date Given: No Hx Pneumococcal Vaccination/Date Given: Yes Travel Risk - International Travel Have you traveled outside of the country in past 3 weeks: No - Emerging Infectious Disease Are you exhibiting symptoms associated with any current EIDs: Yes Symptoms: Cough: New Onset, Fever - Review of Systems Constitutional: Weakness Eyes: No Symptoms Ears, Nose, & Throat: No Symptoms Respiratory: Dyspnea on Exertion (PIMENTEL) Cardiac: No Symptoms Abdominal/Gastrointestinal: No Symptoms Genitourinary Symptoms: No Symptoms Musculoskeletal: No Symptoms Skin: No Symptoms Neurological: No Symptoms Psychological: No Symptoms Endocrine: No Symptoms Hematologic/Lymphatic: No Symptoms Immunological/Allergic: No Symptoms All Other Systems: Reviewed and Negative - Past Medical History Pertinent Past Medical History: Yes Neurological History: No Pertinent History ENT History: No Pertinent History Cardiac History: Hypertension Respiratory History: No Pertinent History Endocrine Medical History: No Pertinent History Musculoskeletal History: Rheumatoid Arthritis GI Medical History: No Pertinent History History: No Pertinent History Psycho-Social History: No Pertinent History Female Reproductive Disorders: No Pertinent History 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 melanoma Significant Family History: cancer (Father with colon cancer) - Social History Smoking Status: Never smoker Exposure to second hand smoke: No Drug Use: none Patient Lives Alone: Yes - Social Determinants of Health Will the patient participate in the screening: Yes Do you worry about a steady place to live?: No In the past 12 months,have you had to go without utilities?: No Transportation Issues: No Has anyone in your support network made you feel unsafe?: No Have you or anyone in your house had to go w/o enough food: No - Nursing Vital Signs Nursing Vital Signs: Initial Vital Signs Temperature 98.6 F 01/21/25 12:13 Pulse Rate 71 01/21/25 12:13 Respiratory Rate 14 01/21/25 12:13 Blood Pressure 115/59 01/21/25 12:13 O2 Sat by Pulse Oximetry 100 01/21/25 12:13 Pain Scale Pain Intensity 0 - Physical Exam General Appearance: no apparent distress, alert, anxiety, cachetic Eye Exam: PERRL/EOMI, pale conjunctivae Ears, Nose, Throat Exam: hearing grossly normal, normal ENT inspection, normal pharynx Neck Exam: normal inspection, non-tender, supple, full range of motion Respiratory Exam: normal breath sounds, lungs clear, airway intact, No chest tenderness, No respiratory distress Cardiovascular/Chest Exam: normal heart sounds, regular rate/rhythm Abdominal/Gastrointestinal Exam: soft, normal bowel sounds, No tenderness, No guarding, No rebound Rectal Exam: No not done Extremity Exam: non-tender, normal range of motion, normal inspection Neurologic Exam: alert, oriented x 3, cooperative, clam dredger II-XII nml as tested, nml cerebellar function, nml station & gait, sensation nml Skin Exam: pale Lymphatic Exam: No adenopathy SpO2 Interpretation: normal SpO2: 100 O2 Delivery: Room Air - Course Nursing assessment & vital signs reviewed: Yes EKG Interpreted by Me: RATE (70), Sinus Rhythm, LAFB, NORMAL INTERVALS, NORMAL QRS, Other (No acute anemia on today's twelve-lead EKG. QTc is 463) Ordered Tests: Active Orders 24 hr Category Date Time Status Card Puncher STAT Care 01/21/25 12:20 Active EKG-ER Only STAT Care 01/21/25 12:20 Active IV Insertion STAT Care 01/21/25 12:20 Active Pulse Oximetry (ED) STAT Care 01/21/25 12:20 Active CHEST WITH CONTRAST [CT] Stat Exams 01/21/25 13:29 Completed BLOOD CULTURE Stat Lab 01/21/25 12:45 Received CBC W DIFF Stat Lab 01/21/25 12:30 Completed CMP Stat Lab 01/21/25 12:30 Completed D-DIMER QUANTITATIVE Stat Lab 01/21/25 12:30 Completed Lactic Acid Stat Lab 01/21/25 12:35 Completed MAGNESIUM Stat Lab 01/21/25 12:30 Completed NT PRO BNPII Stat Lab 01/21/25 12:30 Completed PROTIME WITH INR Stat Lab 01/21/25 12:30 Completed TROPONIN Q4H Lab 01/21/25 12:30 Completed TROPONIN Q4H Lab 01/21/25 16:05 Completed TROPONIN Q4H Lab 01/21/25 20:30 Ordered Medication Summary Generic Name Dose Route Start Last Admin Trade Name Freq PRN Reason Stop Dose Admin Sodium Chloride 500 mls @ 50 mls/hr 01/21/25 13:30 01/21/25 13:39 Sodium Chloride 0.9% 500 Ml IV 02/20/25 13:29 50 mls/hr .Q10H REMBERTO Administration Discontinued Medications Generic Name Dose Route Start Last Admin Trade Name Freq PRN Reason Stop Dose Admin Apixaban 10 mg 01/21/25 16:19 Apixaban 2.5 Mg Tablet PO 01/21/25 16:20 STAT ONE Lab/Rad Data: Laboratory Result Diagrams 01/21/25 12:30 01/21/25 12:30 Laboratory Results 01/21/25 01/21/25 01/21/25 Range/Units 16:05 13:45 13:45 WBC (3.98-10.04) x10^3/uL RBC (3.93-5.22) x10^6/uL Hgb (11.2-15.7) g/dL Hct (34.1-44.9) % MCV (79.4-94.8) fL MCH (25.6-32.2) pg MCHC (32.2-35.5) g/dL RDW (11.7-14.4) % Plt Count (182-369) x10^3/uL MPV (9.4-12.3) fL Gran % (34.0-71.1) % Immature Gran % (Auto) (0.001-0.429) % Nucleat RBC Rel Count (0.00-0.2) % Eos # (Auto) (0.04-0.36) x10^3/uL Immature Gran # (Auto) (0.001-0.031) x10^3u/L Absolute Lymphs (auto) (1.18-3.74) x10^3/uL Absolute Monos (auto) (0.24-0.86) x10^3/uL Absolute Nucleated RBC (0.00-0.012) x10^3u/L Lymphocytes % (19.3-51.7) % Monocytes % (4.7-12.5) % Eosinophils % (0.7-5.8) % Basophils % (0.1-1.2) % Absolute Granulocytes (1.56-6.13) x10^3/uL Basophils # (0.01-0.08) x10^3/uL PT (9.4-12.5) SECONDS INR (0.8-3.0) D-Dimer (0.0-0.50) mg/L Sodium (135-145) mmol/L Potassium (3.5-5.1) mmol/L Chloride (98-107) mmol/L Carbon Dioxide (22-30) mmol/L Anion Gap (5-15) MEQ/L BUN (7-17) mg/dL Creatinine (0.52-1.04) mg/dL Estimated GFR ML/MIN Glucose (74-106) mg/dL Lactic Acid (0.4-2.0) Calcium (8.4-10.2) mg/dL Magnesium (1.6-2.3) mg/dL Total Bilirubin (0.2-1.3) mg/dL AST (14-36) U/L ALT (0-35) U/L Alkaline Phosphatase (38-126) U/L Troponin I < 0.012 (0.000-0.033) ng/mL NT-Pro-B Natriuret Pep (<300) pg/mL Serum Total Protein (6.3-8.2) g/dL Albumin (3.5-5.0) g/dL Influenza Type A Ag (NEGATIVE) Influenza Type B Ag (NEGATIVE) RSV (PCR) (NEGATIVE) SARS-CoV-2 (PCR) (NEGATIVE) ABO Group B Rh Factor NEGATIVE Antibody Screen NEGATIVE (NEGATIVE) Crossmatch COMPATIBLE COMPATIBLE (COMPATIBLE) 01/21/25 01/21/25 01/21/25 Range/Units 12:55 12:35 12:30 WBC (3.98-10.04) x10^3/uL RBC (3.93-5.22) x10^6/uL Hgb (11.2-15.7) g/dL Hct (34.1-44.9) % MCV (79.4-94.8) fL MCH (25.6-32.2) pg MCHC (32.2-35.5) g/dL RDW (11.7-14.4) % Plt Count (182-369) x10^3/uL MPV (9.4-12.3) fL Gran % (34.0-71.1) % Immature Gran % (Auto) (0.001-0.429) % Nucleat RBC Rel Count (0.00-0.2) % Eos # (Auto) (0.04-0.36) x10^3/uL Immature Gran # (Auto) (0.001-0.031) x10^3u/L Absolute Lymphs (auto) (1.18-3.74) x10^3/uL Absolute Monos (auto) (0.24-0.86) x10^3/uL Absolute Nucleated RBC (0.00-0.012) x10^3u/L Lymphocytes % (19.3-51.7) % Monocytes % (4.7-12.5) % Eosinophils % (0.7-5.8) % Basophils % (0.1-1.2) % Absolute Granulocytes (1.56-6.13) x10^3/uL Basophils # (0.01-0.08) x10^3/uL PT (9.4-12.5) SECONDS INR (0.8-3.0) D-Dimer (0.0-0.50) mg/L Sodium (135-145) mmol/L Potassium (3.5-5.1) mmol/L Chloride (98-107) mmol/L Carbon Dioxide (22-30) mmol/L Anion Gap (5-15) MEQ/L BUN (7-17) mg/dL Creatinine (0.52-1.04) mg/dL Estimated GFR ML/MIN Glucose (74-106) mg/dL Lactic Acid 1.9 (0.4-2.0) Calcium (8.4-10.2) mg/dL Magnesium (1.6-2.3) mg/dL Total Bilirubin (0.2-1.3) mg/dL AST (14-36) U/L ALT (0-35) U/L Alkaline Phosphatase (38-126) U/L Troponin I < 0.012 (0.000-0.033) ng/mL NT-Pro-B Natriuret Pep (<300) pg/mL Serum Total Protein (6.3-8.2) g/dL Albumin (3.5-5.0) g/dL Influenza Type A Ag NEGATIVE (NEGATIVE) Influenza Type B Ag NEGATIVE (NEGATIVE) RSV (PCR) NEGATIVE (NEGATIVE) SARS-CoV-2 (PCR) NEGATIVE (NEGATIVE) ABO Group Rh Factor Antibody Screen (NEGATIVE) Crossmatch (COMPATIBLE) 01/21/25 01/21/25 01/21/25 Range/Units 12:30 12:30 12:30 WBC 4.6 (3.98-10.04) x10^3/uL RBC 2.68 L (3.93-5.22) x10^6/uL Hgb 7.6 L (11.2-15.7) g/dL Hct 22.2 L (34.1-44.9) % MCV 82.8 (79.4-94.8) fL MCH 28.4 (25.6-32.2) pg MCHC 34.2 (32.2-35.5) g/dL RDW 16.2 H (11.7-14.4) % Plt Count 135 L (182-369) x10^3/uL MPV 9.6 (9.4-12.3) fL Gran % 78.5 H (34.0-71.1) % Immature Gran % (Auto) 0.2 (0.001-0.429) % Nucleat RBC Rel Count 0.0 (0.00-0.2) % Eos # (Auto) 0.07 (0.04-0.36) x10^3/uL Immature Gran # (Auto) 0.01 (0.001-0.031) x10^3u/L Absolute Lymphs (auto) 0.61 L (1.18-3.74) x10^3/uL Absolute Monos (auto) 0.28 (0.24-0.86) x10^3/uL Absolute Nucleated RBC 0.00 (0.00-0.012) x10^3u/L Lymphocytes % 13.2 L (19.3-51.7) % Monocytes % 6.0 (4.7-12.5) % Eosinophils % 1.5 (0.7-5.8) % Basophils % 0.6 (0.1-1.2) % Absolute Granulocytes 3.63 (1.56-6.13) x10^3/uL Basophils # 0.03 (0.01-0.08) x10^3/uL PT 11.9 (9.4-12.5) SECONDS INR 1.10 (0.8-3.0) D-Dimer 5.51 H* (0.0-0.50) mg/L Sodium 133 L (135-145) mmol/L Potassium 4.0 (3.5-5.1) mmol/L Chloride 102 (98-107) mmol/L Carbon Dioxide 17 L (22-30) mmol/L Anion Gap 18.6 H (5-15) MEQ/L BUN 25 H (7-17) mg/dL Creatinine 1.49 H (0.52-1.04) mg/dL Estimated GFR 36.2 ML/MIN Glucose 82 (74-106) mg/dL Lactic Acid (0.4-2.0) Calcium 9.4 (8.4-10.2) mg/dL Magnesium 1.4 L (1.6-2.3) mg/dL Total Bilirubin 1.70 H (0.2-1.3) mg/dL AST 31 (14-36) U/L ALT 22 (0-35) U/L Alkaline Phosphatase 65 (38-126) U/L Troponin I (0.000-0.033) ng/mL NT-Pro-B Natriuret Pep 1210 (<300) pg/mL Serum Total Protein 5.8 L (6.3-8.2) g/dL Albumin 3.4 L (3.5-5.0) g/dL Influenza Type A Ag (NEGATIVE) Influenza Type B Ag (NEGATIVE) RSV (PCR) (NEGATIVE) SARS-CoV-2 (PCR) (NEGATIVE) ABO Group Rh Factor Antibody Screen (NEGATIVE) Crossmatch (COMPATIBLE) - Progress Progress: improved, re-examined Air Movement: good Progress Note: 01/21/25 12:21 My medical decision making and the assignment of at least moderate complexity is based on review of the patient's past medical history, review of the patient's medication list, review the patient drug allergy list, history present illness and physical findings on examination. The workup in this patient includes intravenous line placement, CBC, CMP, magnesium level, BNP, troponin level, D- dimer level, twelve-lead EKG, PT/INR. Differential diagnosis includes but is not limited to myocardial infarction, COPD, CHF, anemia, arrhythmia, electrolyte abnormalities, DVT/pulmonary embolus 01/21/25 15:22 I interpreted the patient's laboratory data results. Based on the laboratory data results, the patient has anemia with a hemoglobin of 7.6. She also has chronic renal failure with her GFR in her typical range based on several lab results dating back to 2022. In addition, she has a significantly elevated D- dimer level. We ordered a CT scan of the chest with contrast. The CT scan of the chest with contrast was interpreted by the radiologist and I reviewed the impression. The impression states new, nonoccluding pulmonary emboli right middle, right lower and left lower lobes. No distal infarction. No evidence of infiltrate or effusion. I think this patient would be better served at a facility that has a service developer, rn baby and forge operator. This patient's medical issue today is unique and that she is symptomatically anemic with chronic anemia and has bilateral pulmonary emboli in need of anticoagulation therapy. The patient does not wish to be transferred to [facility]. We will attempt to transfer this patient to [facility]. If we are placed on a list, and it is several hours to days before the ability to transfer, we will discuss with the patient/family other facilities she could be transferred to more urgently. 01/21/25 15:[address] Henry, the hospitalist on-call at [facility] at this time. I reviewed the patient's past medical history, presenting complaint, physical findings on examination and the results of our workup including the response of the patient to our interventions. She accepts the patient in transfer. The transfer center will call us back to give us an estimation of time. In the interim, I will contact Dr. Carter, the patient's rn baby to determine which intervention to begin with. That is, blood transfusion versus anticoagulant therapy. 01/21/25 16:38 As I was waiting for callback from [facility], I contacted Dr. Carter and spoke with his nurse practitioner Any Junior. She then spoke directly to Dr. Carter. He is aware that this patient's hemoglobin is 7.6. He also is aware that she has chronic renal failure issues. He is following her closely. He is now aware that she has bilateral, nonoccluding pulmonary emboli. He states that the patient can go home. Do not transfuse blood products. He states to start Eliquis 10 mg here in the emergency department then 10 mg orally twice daily. I will write a prescription for 7 days. Patient is to return to the lab here at [facility] at 8 AM on 01/24/2025, to have a CBC redrawn. The patient is told to call Dr. Carter's office at 8:30 AM to obtain a follow-up appointment. They will determine if the patient needs blood transfusions and make arrangement for it. This is all per Any Junior nurse practitioner who spoke with Dr. Carter directly. I discussed this plan with the patient and her daughter. They are fine with this plan. Blood Culture(s) Obtained: Yes Antibiotics given: No Counseled pt/family regarding: lab results, diagnosis, rad results Medical Desision Making - Independent Historian Additional History obtained from: Family - Diagnostic Testing Diagnostic test were ordered, analyzed, and reviewed by me: Yes Radiological Interpretation: Reviewed by me, Teleradiologist Report - Risk of complications The pt has a mod risk of morbidity or mortality based on: Need for prescription drug management - Departure Departure Disposition: Home Clinical Impression: Symptomatic anemia, Pulmonary emboli, Chronic renal failure Condition: Fair Critical Care Time: Yes Critical Care Time(excluding separately billable procedures): Critical 30-74 mins (50) Referrals: ANGIE NEWMAN [Primary Care Provider] - Follow up/PCP as directed Instructions: Pulmonary embolism - Discharge instructions Additional Instructions: Take your medications as prescribed. Return to the [facility] lab on 01/24/2025 at 8 AM to have repeat labs drawn. Call Dr. Franklin morgan's office on 01/24/2025, at 8:30 AM to make arrangements for follow-up appointment. If over the weekend you began to have worsening shortness of breath or increasing weakness, return to the emergency department either here at [facility], [facility] or [facility].
[2025-01-21 13:02] LABS: Absolute Neutrophil Ct (ANC) 3.63 x10^3/uL (1.56-6.13); BASOPHIL % 0.6 % (0.1-1.2); Basophil (Absolute #) 0.03 x10^3/uL (0.01-0.08); Eosinophil % 1.5 % (0.7-5.8); Eosinophil (Absolute #) 0.07 x10^3/uL (0.04-0.36); Hematocrit 22.2 % (34.1-44.9); Hemoglobin 7.6 g/dL (11.2-15.7); IMMATURE GRAN # 0.01 x10^3u/L (0.001-0.031); IMMATURE GRAN % 0.2 % (0.001-0.429); Lymphocyte (Absolute #) 0.61 x10^3/uL (1.18-3.74); Lymphocytes % 13.2 % (19.3-51.7); Mean Cell Volume 82.8 fL (79.4-94.8); Mean Corpuscular Hemoglobin 28.4 pg (25.6-32.2); Mean Corpuscular Hgb Concent. 34.2 g/dL (32.2-35.5); Mean Platelet Volume 9.6 fL (9.4-12.3); Monocyte (Absolute #) 0.28 x10^3/uL (0.24-0.86); Neutrophil % 78.5 % (34.0-71.1); Platelet Count 135 x10^3/uL (182-369); Red Blood Count 2.68 x10^6/uL (3.93-5.22); Red Cell Distribution Width 16.2 % (11.7-14.4); White Blood Count 4.6 x10^3/uL (3.98-10.04)
[2025-01-21 13:24] LABS: INR 1.1 (0.8-3.0); PROTIME 11.9 SECONDS (9.4-12.5)
[2025-01-21 13:25] LABS: ALBUMIN 3.4 g/dL (3.5-5.0); ANION GAP 18.6 MEQ/L (5-15); BILIRUBIN,TOTAL 1.7 mg/dL (0.2-1.3); Calcium 9.4 mg/dL (8.4-10.2); Creatinine 1 1.49 mg/dL (0.52-1.04); EST GLOMERULAR FILTRATION RATE 36.2 ML/MIN; MAGNESIUM 1.4 mg/dL (1.6-2.3); Total Protein 5.8 g/dL (6.3-8.2)
[2025-01-21 13:38] LABS: INFLUENZA A NEGATIVE (NEGATIVE); INFLUENZA B NEGATIVE (NEGATIVE); RESPIRATORY SYNCTIAL VIRUS NEGATIVE (NEGATIVE); SARS-CoV-2 Xpert Express NEGATIVE (NEGATIVE)
[2025-01-21] MEDS ORDERED: Sodium Chloride 0.9% 500 ML 500 ML IV ONE (13:38)
[2025-01-21] MEDS: Sodium Chloride 0.9% 500 ML 500 ML IV SCH (13:39)
[2025-01-21 14:39] LABS: ABO TYPING B; Antibody Screen NEGATIVE (NEGATIVE); RH TYPING NEGATIVE
[2025-01-21 14:40] LABS: CROSS MATCH (PRBC) COMPATIBLE (COMPATIBLE)
[2025-01-21 14:41] LABS: CROSS MATCH (PRBC) COMPATIBLE (COMPATIBLE)
--- NOTE | 2025-01-21 15:19 | XRAY ---
Indication: Short of breath. Elevated d-dimer. Pulmonary embolus. Multiple contiguous axial images obtained through the chest using 70 cc Isovue 370 contrast and PE protocol. Comparison: May 27, 2023. Good opacification pulmonary arteries. However mild diffuse respiration artifact limits pulmonary embolus evaluation. New nonoccluding emboli in right middle and lesser degree right lower/left lower lobes extending into segmental branches. Heart not enlarged. Aorta minimally atherosclerotic without aneurysm/dissection. No pathologic mediastinal/hilar lymphadenopathy. Stable small hiatal hernia. Lungs again demonstrates diffuse pulmonary emphysema, scattered fibrosis/scarring, and right middle lobe calcified granulomas. No infiltrate or effusion. Bony thorax intact again with osteopenia and minimal degenerative changes throughout spine. Limited upper abdomen again demonstrates fatty liver. Impression: 1. Respiration artifact. 2. New nonoccluding pulmonary emboli in right middle, right lower, and left lower lobes as detailed. No distal infarct. 3. Again chronic findings including pulmonary emphysema, pulmonary fibrosis/scarring, arteriosclerotic disease, hiatal hernia, fatty liver, chronic bony findings, and old granulomatous disease.
[2025-01-21 16:15] VITALS: BP 119/69; PULSE 71; RESP 22
[2025-01-21] MEDS: ELIQUIS 2.5 MG TABLET PO ONE (16:43)
== END 2025-01-21 16:55 | disposition home or self-care (01) ==
LOC: ED 12:09
DX: D64.9 Anemia, unspecified (principal); I26.99 Other pulmonary embolism without acute cor pulmonale; I12.9 Hypertensive chronic kidney disease with stage 1 through stage 4 chronic kidney disease, or unspecified chronic kidney disease; N18.9 Chronic kidney disease, unspecified; R06.02 Shortness of breath; Z79.899 Other long term (current) drug therapy
CPT/HCPCS: 0241U; 36415; 71260; 80053; 83605; 83735; 83880; 84484; 85025; 85379; 85610; 86850; 86900; 86901; 86922; 87040; 93005; 93041; 94760; 99285; 99284; 99291; A9270-GY

== ENCOUNTER 2025-02-21 14:44 | Inpatient (IN) | payer MEDICARE ==
--- NOTE | 2025-02-21 15:22 | ERPHSYRPT ---
- History of Present Illness Historian: patient Exam Limitations: no limitations Physician History: Patient's had some abdominal cramping for about 24 to 48 hours. She has been vomiting. She said it was red. She is also had some dark bowel movements and diarrhea. She has not had any episodes of vomiting or diarrhea since she has been here. What she described as kind of sounded like melena. She is on blood thinners secondary to a pulmonary embolism.Exertion makes her symptoms worse. She gets fatigued with exertion. She is pale appearing.She does not have any real exquisite abdominal pain at this time.She does have some lower extremity edema which she says is chronic. She has a history of CHF and has had fluid on her lungs before.She has been coughing quite a bit. Allergies/Adverse Reactions: No Known Drug Allergies Allergy (Verified 02/21/25 15:03) Home Medications: Cholecalciferol (Vitamin D3) [D3-5000] 125 mcg PO DAILY 05/27/23 [History] Mecobalamin [B12 Active] 1,000 mcg PO DAILY 05/27/23 [History] Losartan/Hydrochlorothiazide [Losartan-Hctz 50-12.5 mg Tab] 1 each PO DAILY 03/05/24 [History] Methotrexate Sodium 2.5 mg [Trexall 2.5 mg] 5 mg PO WEEKLY 03/05/24 [History] Albuterol Sulfate [Albuterol Sulfate Hfa] 2 puff PO Q4-6HPRN PRN 02/21/25 [History] Bumetanide 0.5 mg PO DAILY 02/21/25 [History] Hx Tetanus, Diphtheria Vaccination/Date Given: No Hx Influenza Vaccination/Date Given: No Hx Pneumococcal Vaccination/Date Given: Yes Travel Risk - Emerging Infectious Disease Are you exhibiting symptoms associated with any current EIDs: Yes Symptoms: Cough: New Onset, Fever - Review of Systems Constitutional: Fatigue, Lethargy Eyes: No Symptoms Ears, Nose, & Throat: No Symptoms Respiratory: Cough Cardiac: No Symptoms Abdominal/Gastrointestinal: Nausea, Vomiting, Diarrhea, Hematemesis (Possibly. Also possible melena.) Genitourinary Symptoms: No Symptoms Musculoskeletal: No Symptoms Skin: Other (P[place]or) - Past Medical History Pertinent Past Medical History: Yes Neurological History: No Pertinent History ENT History: No Pertinent History Cardiac History: Hypertension Respiratory History: No Pertinent History Endocrine Medical History: No Pertinent History Musculoskeletal History: Rheumatoid Arthritis GI Medical History: No Pertinent History History: No Pertinent History Psycho-Social History: No Pertinent History Female Reproductive Disorders: No Pertinent History Other Medical History: 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 Carter - Past Surgical History Past Surgical History: Yes Neuro Surgical History: No Pertinent History Cardiac: No Pertinent History Respiratory: No Pertinent History Gastrointestinal: Cholecystectomy Genitourinary: No Pertinent History Musculoskeletal: No Pertinent History Female Surgical History: Dilation & Curettage Other Surgical History: melanoma Significant Family History: cancer (Father with colon cancer) - Social History Smoking Status: Never smoker Exposure to second hand smoke: No Drug Use: none Patient Lives Alone: Yes - Social Determinants of Health Will the patient participate in the screening: Yes Do you worry about a steady place to live?: No In the past 12 months,have you had to go without utilities?: No Transportation Issues: No Has anyone in your support network made you feel unsafe?: No Have you or anyone in your house had to go w/o enough food: No - Nursing Vital Signs Nursing Vital Signs: Initial Vital Signs Temperature 99.9 F 02/21/25 15:00 Pulse Rate 89 02/21/25 15:00 Respiratory Rate 24 02/21/25 15:00 Blood Pressure 95/57 02/21/25 15:00 O2 Sat by Pulse Oximetry 99 02/21/25 15:00 Pain Scale Pain Intensity 0 - Physical Exam General Appearance: no apparent distress Eye Exam: PERRL/EOMI Ears, Nose, Throat Exam: normal ENT inspection Neck Exam: normal inspection Respiratory Exam: diminished breath sounds, No accessory muscle use Cardiovascular Exam: regular rate/rhythm, normal heart sounds Gastrointestinal/Abdomen Exam: soft, normal bowel sounds, No tenderness, No distention Pelvic Exam: not done Rectal Exam: deferred Back Exam: normal inspection Extremity Exam: normal inspection Neurologic Exam: alert, oriented x 3, cooperative Skin Exam: warm, pale SpO2: 99 - Course Nursing assessment & vital signs reviewed: Yes EKG Interpreted by Me: Sinus Rhythm, NORMAL AXIS, Left Bundle Branch Block, Non- specific ST Changes Ordered Tests: Active Orders 24 hr Category Date Time Status EKG-ER Only STAT Care 02/21/25 15:14 Active CHEST 1 VIEW (PORTABLE) Stat Exams 02/21/25 15:14 Completed BLOOD CULTURE Stat Lab 02/21/25 15:35 Received CBC W DIFF Stat Lab 02/21/25 15:40 Completed CMP Stat Lab 02/21/25 15:08 Completed Lactic Acid Routine Lab 02/21/25 17:35 Completed Lactic Acid Stat Lab 02/21/25 15:26 Completed MAG [MAGNESIUM] Stat Lab 02/21/25 15:08 Completed PT INR [PROTIME WITH INR] Stat Lab 02/21/25 15:08 Completed PTT Stat Lab 02/21/25 15:08 Completed UA W/RFX UR CULTURE Stat Lab 02/21/25 15:16 Ordered Medication Summary Generic Name Dose Route Start Last Admin Trade Name Freq PRN Reason Stop Dose Admin Sodium Chloride 1,000 mls @ 150 mls/hr 02/21/25 15:23 02/21/25 17:02 Sodium Chloride 0.9% 1000 Ml IV 02/21/25 22:02 150 mls/hr .[id number] STA Infusion Discontinued Medications Generic Name Dose Route Start Last Admin Trade Name Freq PRN Reason Stop Dose Admin Sodium Chloride Confirm 02/21/25 15:31 Sodium Chloride 0.9% 1000 Ml Administered 02/21/25 15:32 Dose 1,000 mls @ ud .ROUTE .STK-MED ONE Lab/Rad Data: Laboratory Result Diagrams 02/21/25 15:40 02/21/25 15:08 Laboratory Results 02/21/25 02/21/25 02/21/25 Range/Units 17:35 15:40 15:26 WBC 6.0 (3.98-10.04) x10^3/uL RBC 3.03 L (3.93-5.22) x10^6/uL Hgb 8.4 L (11.2-15.7) g/dL Hct 25.2 L (34.1-44.9) % MCV 83.2 (79.4-94.8) fL MCH 27.7 (25.6-32.2) pg MCHC 33.3 (32.2-35.5) g/dL RDW 19.1 H (11.7-14.4) % Plt Count 250 (182-369) x10^3/uL MPV 9.7 (9.4-12.3) fL Gran % 70.9 (34.0-71.1) % Immature Gran % (Auto) 0.8 H (0.001-0.429) % Nucleat RBC Rel Count 0.0 (0.00-0.2) % Eos # (Auto) 0.22 (0.04-0.36) x10^3/uL Immature Gran # (Auto) 0.05 H (0.001-0.031) x10^3u/L Absolute Lymphs (auto) 0.77 L (1.18-3.74) x10^3/uL Absolute Monos (auto) 0.68 (0.24-0.86) x10^3/uL Absolute Nucleated RBC 0.00 (0.00-0.012) x10^3u/L Lymphocytes % 12.8 L (19.3-51.7) % Monocytes % 11.3 (4.7-12.5) % Eosinophils % 3.7 (0.7-5.8) % Basophils % 0.5 (0.1-1.2) % Absolute Granulocytes 4.27 (1.56-6.13) x10^3/uL Basophils # 0.03 (0.01-0.08) x10^3/uL PT (9.4-12.5) SECONDS INR (0.8-3.0) APTT (25.1-36.5) SECONDS Sodium (135-145) mmol/L Potassium (3.5-5.1) mmol/L Chloride (98-107) mmol/L Carbon Dioxide (22-30) mmol/L Anion Gap (5-15) MEQ/L BUN (7-17) mg/dL Creatinine (0.52-1.04) mg/dL Estimated GFR ML/MIN Glucose (74-106) mg/dL Lactic Acid 0.8 2.7 H (0.4-2.0) Calcium (8.4-10.2) mg/dL Magnesium (1.6-2.3) mg/dL Total Bilirubin (0.2-1.3) mg/dL AST (14-36) U/L ALT (0-35) U/L Alkaline Phosphatase (38-126) U/L Serum Total Protein (6.3-8.2) g/dL Albumin (3.5-5.0) g/dL ABO Group Rh Factor Antibody Screen (NEGATIVE) 02/21/25 02/21/25 02/21/25 Range/Units 15:08 15:08 15:08 WBC (3.98-10.04) x10^3/uL RBC (3.93-5.22) x10^6/uL Hgb (11.2-15.7) g/dL Hct (34.1-44.9) % MCV (79.4-94.8) fL MCH (25.6-32.2) pg MCHC (32.2-35.5) g/dL RDW (11.7-14.4) % Plt Count (182-369) x10^3/uL MPV (9.4-12.3) fL Gran % (34.0-71.1) % Immature Gran % (Auto) (0.001-0.429) % Nucleat RBC Rel Count (0.00-0.2) % Eos # (Auto) (0.04-0.36) x10^3/uL Immature Gran # (Auto) (0.001-0.031) x10^3u/L Absolute Lymphs (auto) (1.18-3.74) x10^3/uL Absolute Monos (auto) (0.24-0.86) x10^3/uL Absolute Nucleated RBC (0.00-0.012) x10^3u/L Lymphocytes % (19.3-51.7) % Monocytes % (4.7-12.5) % Eosinophils % (0.7-5.8) % Basophils % (0.1-1.2) % Absolute Granulocytes (1.56-6.13) x10^3/uL Basophils # (0.01-0.08) x10^3/uL PT 12.2 (9.4-12.5) SECONDS INR 1.13 (0.8-3.0) APTT 27.9 (25.1-36.5) SECONDS Sodium (135-145) mmol/L Potassium (3.5-5.1) mmol/L Chloride (98-107) mmol/L Carbon Dioxide (22-30) mmol/L Anion Gap (5-15) MEQ/L BUN (7-17) mg/dL Creatinine (0.52-1.04) mg/dL Estimated GFR ML/MIN Glucose (74-106) mg/dL Lactic Acid (0.4-2.0) Calcium (8.4-10.2) mg/dL Magnesium 1.5 L (1.6-2.3) mg/dL Total Bilirubin (0.2-1.3) mg/dL AST (14-36) U/L ALT (0-35) U/L Alkaline Phosphatase (38-126) U/L Serum Total Protein (6.3-8.2) g/dL Albumin (3.5-5.0) g/dL ABO Group B Rh Factor NEGATIVE Antibody Screen NEGATIVE (NEGATIVE) 02/21/25 Range/Units 15:08 WBC (3.98-10.04) x10^3/uL RBC (3.93-5.22) x10^6/uL Hgb (11.2-15.7) g/dL Hct (34.1-44.9) % MCV (79.4-94.8) fL MCH (25.6-32.2) pg MCHC (32.2-35.5) g/dL RDW (11.7-14.4) % Plt Count (182-369) x10^3/uL MPV (9.4-12.3) fL Gran % (34.0-71.1) % Immature Gran % (Auto) (0.001-0.429) % Nucleat RBC Rel Count (0.00-0.2) % Eos # (Auto) (0.04-0.36) x10^3/uL Immature Gran # (Auto) (0.001-0.031) x10^3u/L Absolute Lymphs (auto) (1.18-3.74) x10^3/uL Absolute Monos (auto) (0.24-0.86) x10^3/uL Absolute Nucleated RBC (0.00-0.012) x10^3u/L Lymphocytes % (19.3-51.7) % Monocytes % (4.7-12.5) % Eosinophils % (0.7-5.8) % Basophils % (0.1-1.2) % Absolute Granulocytes (1.56-6.13) x10^3/uL Basophils # (0.01-0.08) x10^3/uL PT (9.4-12.5) SECONDS INR (0.8-3.0) APTT (25.1-36.5) SECONDS Sodium 129 L (135-145) mmol/L Potassium 3.2 L (3.5-5.1) mmol/L Chloride 96 L (98-107) mmol/L Carbon Dioxide 21 L (22-30) mmol/L Anion Gap 15.2 H (5-15) MEQ/L BUN 23 H (7-17) mg/dL Creatinine 1.61 H (0.52-1.04) mg/dL Estimated GFR 33.0 ML/MIN Glucose 127 H (74-106) mg/dL Lactic Acid (0.4-2.0) Calcium 8.9 (8.4-10.2) mg/dL Magnesium (1.6-2.3) mg/dL Total Bilirubin 1.40 H (0.2-1.3) mg/dL AST 34 (14-36) U/L ALT 22 (0-35) U/L Alkaline Phosphatase 60 (38-126) U/L Serum Total Protein 5.1 L (6.3-8.2) g/dL Albumin 3.0 L (3.5-5.0) g/dL ABO Group Rh Factor Antibody Screen (NEGATIVE) - Progress Progress: improved Progress Note: On the differential is GI bleed, pneumonia, dehydration, electrolyte abnormality.X-ray was done which showed a worsening pneumonia. We never did get a stool for Hemoccult testing. The fact that she has been here for 4 hours or more and has not had any hematemesis or melena or anything like that tells me I do not think she has a massive GI bleed and also her hemoglobin is 8.4 and that is usually about where it is.She got 500 cc bolus of normal saline and her pressure darern nicely. Her vital signs were stable. Her x-ray showed worsening of her pneumonia.She is weak and cannot get around the house very well speaking with the daughter it seems like would be prudent to admit her. I went ahead and called the hospitalist and he agreed to accept her. I am going to start her on Rocephin and Zithromax. 02/21/25 17:53 02/21/25 18:03 Discussed with : Juli Will see patient in: hospital (observation) Medical Desision Making - Independent Historian Additional History obtained from: Child - External Record(s) Reviewed Records reviewed as a part of evaluation & management: Inpatient, Discharge Summary - Discussion of managment Care discussed with:: hospitalist Reviewed:: Test results, Need for additional workup Agreed on:: Treatment plan, decision to admit Will see patient: in ED - Diagnostic Testing Diagnostic test were ordered, analyzed, and reviewed by me: Yes Radiological Interpretation: Reviewed by me - Risk of complications Low Risk: Low risk of morbidity from additional dx testing or treatment - Departure Departure Disposition: In-patient Admission Clinical Impression: Pneumonia Condition: Stable Critical Care Time: No Referrals: ANGIE NGUYEN [Primary Care Provider, [facility]] - Follow up/PCP as directed
[2025-02-21] MEDS ORDERED: Sodium Chloride 0.9% 1000 ML 1,000 ML ONE (15:31)
[2025-02-21] MEDS: Sodium Chloride 0.9% 1000 ML 1,000 ML IV STA ×2 (15:31→21:08)
[2025-02-21 15:42] LABS: Absolute Neutrophil Ct (ANC) 4.27 x10^3/uL (1.56-6.13); BASOPHIL % 0.5 % (0.1-1.2); Basophil (Absolute #) 0.03 x10^3/uL (0.01-0.08); Eosinophil % 3.7 % (0.7-5.8); Eosinophil (Absolute #) 0.22 x10^3/uL (0.04-0.36); Hematocrit 25.2 % (34.1-44.9); Hemoglobin 8.4 g/dL (11.2-15.7); IMMATURE GRAN # 0.05 x10^3u/L (0.001-0.031); IMMATURE GRAN % 0.8 % (0.001-0.429); Lymphocyte (Absolute #) 0.77 x10^3/uL (1.18-3.74); Lymphocytes % 12.8 % (19.3-51.7); Mean Cell Volume 83.2 fL (79.4-94.8); Mean Corpuscular Hemoglobin 27.7 pg (25.6-32.2); Mean Corpuscular Hgb Concent. 33.3 g/dL (32.2-35.5); Mean Platelet Volume 9.7 fL (9.4-12.3); Monocyte (Absolute #) 0.68 x10^3/uL (0.24-0.86); Monocytes % 11.3 % (4.7-12.5); Neutrophil % 70.9 % (34.0-71.1); Platelet Count 250 x10^3/uL (182-369); Red Blood Count 3.03 x10^6/uL (3.93-5.22); Red Cell Distribution Width 19.1 % (11.7-14.4)
[2025-02-21 15:57] LABS: ANION GAP 15.2 MEQ/L (5-15); BILIRUBIN,TOTAL 1.4 mg/dL (0.2-1.3); Calcium 8.9 mg/dL (8.4-10.2); Creatinine 1 1.61 mg/dL (0.52-1.04); Potassium 3.2 mmol/L (3.5-5.1); Total Protein 5.1 g/dL (6.3-8.2)
[2025-02-21 15:58] LABS: INR 1.13 (0.8-3.0); PROTIME 12.2 SECONDS (9.4-12.5); PTT 27.9 SECONDS (25.1-36.5)
--- NOTE | 2025-02-21 16:24 | XRAY ---
Indication: Cough. Fatigue. Comparison: February 08, 2025 Portable chest demonstrates minimal worsening mild right base infiltrate/atelectasis/effusion with new right suprahilar groundglass airspace disease. Left lung now clear. Stable COPD. Heart not enlarged.
[2025-02-21 16:26] LABS: ABO TYPING B; Antibody Screen NEGATIVE (NEGATIVE); RH TYPING NEGATIVE
[2025-02-21] MEDS ORDERED: ROCEPHIN 1 GM / 100 ML NaCl 1 GM/100 ML IVPB IV ONE (18:06)
[2025-02-21] MEDS: ROCEPHIN 1 GM / 100 ML NaCl 1 GM/100 ML IVPB IV ONE (18:07)
[2025-02-21] MEDS ORDERED: FEVERALL 650 MG PR PRN (18:48)
[2025-02-21] MEDS ORDERED: ZITHROMAX IV IV ONE (18:54)
[2025-02-21] MEDS ORDERED: Sodium Chloride 0.9% 250 ML 250 ML IV ONE (18:54)
[2025-02-21] MEDS: ZITHROMAX IV*** 500 MG in Sodium Chloride 0.9% 250 ML 250 ML IV SCH (19:02)
[2025-02-21] MEDS ORDERED: Zofran 4 MG/2 ML VIAL IV PRN (19:49)
[2025-02-21] MEDS ORDERED: TREXALL 2.5 MG PO SCH (20:00)
--- NOTE | 2025-02-21 20:25 | PCM.HP ---
History of Present Illness - Chief Complaint Chief Complaint: Pneumonia Date: 02/21/25 History of Present Illness: is a 74 year old female with a history of large T cell lymphoma, CKD, chronic anemia of CKD, HTN (no history of CAD; had recent evaluation by Dr. Wood for nonspecific T wave abnormalities on EKG attributed to hyperventilation), possible CHF (has chronic leg edema on Bumex with upcoming outpatient ECHO scheduled) and recent pneumonia (diagnosed about 3 weeks ago and treated with course of antibiotics) who presented to the ED with abdominal cramping for about 24 to 48 hours, vomiting with possible hematemesis, dark bowel movements, diarrhea, cough productive of clear sputum, fatigue with exertion, and generalized weakness. She did report recently having some red Gatorade. She is not on any blood thinners and denies any history of prior ulcer or GI bleed. She has never had an endoscopy. In the ED, hemoglobin was noted to be at baseline, and the patient's CXR demonstrated worsening infiltrate. The patient's daughter was at bedside during my assessment. - Review of Systems Constitutional: Fatigue Eyes: No Symptoms Ears, Nose, & Throat: No Symptoms Respiratory: Cough Cardiac: Edema Abdominal/Gastrointestinal: Nausea, Vomiting, Diarrhea, Hematemesis, Melena Musculoskeletal: No Symptoms Skin: No Symptoms Neurological: No Symptoms Psychological: No Symptoms Endocrine: No Symptoms Hematologic/Lymphatic: No Symptoms Immunological/Allergic: No Symptoms All Other Systems: Reviewed and Negative Medications & Allergies Home Medications: Home Medication List Cholecalciferol (Vitamin D3) [D3-5000] 125 mcg PO DAILY 05/27/23 [History Confirmed 02/21/25] Mecobalamin [B12 Active] 1,000 mcg PO DAILY 05/27/23 [History Confirmed 02/21/25] Losartan/Hydrochlorothiazide [Losartan-Hctz 50-12.5 mg Tab] 1 each PO DAILY 03/05/24 [History Confirmed 02/21/25] Methotrexate Sodium 2.5 mg [Trexall 2.5 mg] 5 mg PO WEEKLY 03/05/24 [History Confirmed 02/21/25] Albuterol Sulfate [Albuterol Sulfate Hfa] 2 puff PO Q4-6HPRN PRN 02/21/25 [ History Confirmed 02/21/25] Bumetanide 0.5 mg PO DAILY 02/21/25 [History Confirmed 02/21/25] Allergies/Adverse Reactions: Allergies Allergy/AdvReac Type Severity Reaction Status Date / Time No Known Drug Allergies Allergy Verified 02/21/25 15:03 - Past Medical History Past Medical History: Yes Neurological History: No Pertinent History ENT History: No Pertinent History Cardiac History: Hypertension Respiratory History: No Pertinent History Endocrine Medical History: No Pertinent History Musculoskelatal History: Rheumatoid Arthritis GI Medical History: No Pertinent History History: No Pertinent History Pyscho-Social History: No Pertinent History Reproductive Disorders: No Pertinent History Comment: 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 Carter - Past Surgical History Past Surgical History: Yes Neuro Surgical History: No Pertinent History Cardiac History: No Pertinent History Respiratory Surgery: No Pertinent History GI Surgical History: Cholecystectomy Genitourinary Surgical Hx: No Pertinent History Musculskeletal Surgical Hx: No Pertinent History Female Surgical History: Dilation & Curettage Other Surgical History: melanoma Significant Family History: cancer (Father with colon cancer) - Social History Smoking Status: Never smoker Exposure to second hand smoke: No Alcohol: None Drug Use: none - Social Determinants of Health Will the patient participate in the screening: Yes Do you worry about a steady place to live?: No Do you have any problems with any of the following?: No known problems In the past 12 months,have you had to go without utilities?: No Have you or anyone in your house had to go without enough: No Transportation Issues: No Has anyone in your support network made you feel unsafe?: No - Physical Exam Vital Signs: Vital Signs - 24 hr Temp Pulse Resp BP Pulse Ox 02/21/25 18:06 99 02/21/25 18:00 75 31 H 102/57 95 02/21/25 17:30 85 30 H 105/56 96 02/21/25 17:00 77 27 H 108/64 97 02/21/25 16:30 80 26 H 123/65 93 L 02/21/25 16:00 121 H 33 H 97/60 96 02/21/25 15:00 99.9 F 89 24 95/57 99 General Appearance: no apparent distress, alert Neurologic Exam: alert, oriented x 3, cooperative, rotary drier feeder II-XII nml as tested, normal mood/affect, nml cerebellar function Eye Exam: PERRL/EOMI, eyes nml inspection Ears, Nose, Throat Exam: normal ENT inspection Neck Exam: normal inspection, non-tender, full range of motion Respiratory Exam: airway intact, rhonchi (in right lung field) Cardiovascular Exam: regular rate/rhythm, normal heart sounds, edema (symmetric bilateral leg edema (at baseline per patient)) Gastrointestinal/Abdomen Exam: soft, normal bowel sounds Back Exam: normal range of motion Extremity Exam: normal range of motion, pedal edema, swelling Skin Exam: normal color Results - Labs Lab/Micro Results: Lab Results-Last 24 Hours 02/21/25 02/21/25 02/21/25 Range/Units 15:08 15:08 15:08 WBC (3.98-10.04) x10^3/uL RBC (3.93-5.22) x10^6/uL Hgb (11.2-15.7) g/dL Hct (34.1-44.9) % MCV (79.4-94.8) fL MCH (25.6-32.2) pg MCHC (32.2-35.5) g/dL RDW (11.7-14.4) % Plt Count (182-369) x10^3/uL MPV (9.4-12.3) fL Gran % (34.0-71.1) % Immature Gran % (Auto) (0.001-0.429) % Nucleat RBC Rel Count (0.00-0.2) % Eos # (Auto) (0.04-0.36) x10^3/uL Immature Gran # (Auto) (0.001-0.031) x10^3u/L Absolute Lymphs (auto) (1.18-3.74) x10^3/uL Absolute Monos (auto) (0.24-0.86) x10^3/uL Absolute Nucleated RBC (0.00-0.012) x10^3u/L Lymphocytes % (19.3-51.7) % Monocytes % (4.7-12.5) % Eosinophils % (0.7-5.8) % Basophils % (0.1-1.2) % Absolute Granulocytes (1.56-6.13) x10^3/uL Basophils # (0.01-0.08) x10^3/uL PT 12.2 (9.4-12.5) SECONDS INR 1.13 (0.8-3.0) APTT 27.9 (25.1-36.5) SECONDS Sodium 129 L (135-145) mmol/L Potassium 3.2 L (3.5-5.1) mmol/L Chloride 96 L (98-107) mmol/L Carbon Dioxide 21 L (22-30) mmol/L Anion Gap 15.2 H (5-15) MEQ/L BUN 23 H (7-17) mg/dL Creatinine 1.61 H (0.52-1.04) mg/dL Estimated GFR 33.0 ML/MIN Glucose 127 H (74-106) mg/dL Lactic Acid (0.4-2.0) Calcium 8.9 (8.4-10.2) mg/dL Magnesium 1.5 L (1.6-2.3) mg/dL Total Bilirubin 1.40 H (0.2-1.3) mg/dL AST 34 (14-36) U/L ALT 22 (0-35) U/L Alkaline Phosphatase 60 (38-126) U/L Serum Total Protein 5.1 L (6.3-8.2) g/dL Albumin 3.0 L (3.5-5.0) g/dL ABO Group Rh Factor Antibody Screen (NEGATIVE) 02/21/25 02/21/25 02/21/25 Range/Units 15:08 15:26 15:40 WBC 6.0 (3.98-10.04) x10^3/uL RBC 3.03 L (3.93-5.22) x10^6/uL Hgb 8.4 L (11.2-15.7) g/dL Hct 25.2 L (34.1-44.9) % MCV 83.2 (79.4-94.8) fL MCH 27.7 (25.6-32.2) pg MCHC 33.3 (32.2-35.5) g/dL RDW 19.1 H (11.7-14.4) % Plt Count 250 (182-369) x10^3/uL MPV 9.7 (9.4-12.3) fL Gran % 70.9 (34.0-71.1) % Immature Gran % (Auto) 0.8 H (0.001-0.429) % Nucleat RBC Rel Count 0.0 (0.00-0.2) % Eos # (Auto) 0.22 (0.04-0.36) x10^3/uL Immature Gran # (Auto) 0.05 H (0.001-0.031) x10^3u/L Absolute Lymphs (auto) 0.77 L (1.18-3.74) x10^3/uL Absolute Monos (auto) 0.68 (0.24-0.86) x10^3/uL Absolute Nucleated RBC 0.00 (0.00-0.012) x10^3u/L Lymphocytes % 12.8 L (19.3-51.7) % Monocytes % 11.3 (4.7-12.5) % Eosinophils % 3.7 (0.7-5.8) % Basophils % 0.5 (0.1-1.2) % Absolute Granulocytes 4.27 (1.56-6.13) x10^3/uL Basophils # 0.03 (0.01-0.08) x10^3/uL PT (9.4-12.5) SECONDS INR (0.8-3.0) APTT (25.1-36.5) SECONDS Sodium (135-145) mmol/L Potassium (3.5-5.1) mmol/L Chloride (98-107) mmol/L Carbon Dioxide (22-30) mmol/L Anion Gap (5-15) MEQ/L BUN (7-17) mg/dL Creatinine (0.52-1.04) mg/dL Estimated GFR ML/MIN Glucose (74-106) mg/dL Lactic Acid 2.7 H (0.4-2.0) Calcium (8.4-10.2) mg/dL Magnesium (1.6-2.3) mg/dL Total Bilirubin (0.2-1.3) mg/dL AST (14-36) U/L ALT (0-35) U/L Alkaline Phosphatase (38-126) U/L Serum Total Protein (6.3-8.2) g/dL Albumin (3.5-5.0) g/dL ABO Group B Rh Factor NEGATIVE Antibody Screen NEGATIVE (NEGATIVE) 02/21/25 Range/Units 17:35 WBC (3.98-10.04) x10^3/uL RBC (3.93-5.22) x10^6/uL Hgb (11.2-15.7) g/dL Hct (34.1-44.9) % MCV (79.4-94.8) fL MCH (25.6-32.2) pg MCHC (32.2-35.5) g/dL RDW (11.7-14.4) % Plt Count (182-369) x10^3/uL MPV (9.4-12.3) fL Gran % (34.0-71.1) % Immature Gran % (Auto) (0.001-0.429) % Nucleat RBC Rel Count (0.00-0.2) % Eos # (Auto) (0.04-0.36) x10^3/uL Immature Gran # (Auto) (0.001-0.031) x10^3u/L Absolute Lymphs (auto) (1.18-3.74) x10^3/uL Absolute Monos (auto) (0.24-0.86) x10^3/uL Absolute Nucleated RBC (0.00-0.012) x10^3u/L Lymphocytes % (19.3-51.7) % Monocytes % (4.7-12.5) % Eosinophils % (0.7-5.8) % Basophils % (0.1-1.2) % Absolute Granulocytes (1.56-6.13) x10^3/uL Basophils # (0.01-0.08) x10^3/uL PT (9.4-12.5) SECONDS INR (0.8-3.0) APTT (25.1-36.5) SECONDS Sodium (135-145) mmol/L Potassium (3.5-5.1) mmol/L Chloride (98-107) mmol/L Carbon Dioxide (22-30) mmol/L Anion Gap (5-15) MEQ/L BUN (7-17) mg/dL Creatinine (0.52-1.04) mg/dL Estimated GFR ML/MIN Glucose (74-106) mg/dL Lactic Acid 0.8 (0.4-2.0) Calcium (8.4-10.2) mg/dL Magnesium (1.6-2.3) mg/dL Total Bilirubin (0.2-1.3) mg/dL AST (14-36) U/L ALT (0-35) U/L Alkaline Phosphatase (38-126) U/L Serum Total Protein (6.3-8.2) g/dL Albumin (3.5-5.0) g/dL ABO Group Rh Factor Antibody Screen (NEGATIVE) - Radiology Impressions Radiology Exams & Impressions: Radiology Procedures Category Date Time Status CHEST 1 VIEW (PORTABLE) Stat Exams 02/21/25 15:14 Completed - Other Procedures and Tests Respiratory Therapy 02/21/25 18:16 Flutter Therapy UD Assessment/Plan (1) Symptomatic anemia Current Visit: No Status: Acute Assessment & Plan: Will trend hemoglobin and transfuse if Hgb <7. IV PPI. May need outpatient GI referral. Not on anticoagulation. Denies NSAID use or alcohol overuse. Has a component of anemia of CKD. Code(s): D64.9 - ANEMIA, UNSPECIFIED (2) Pneumonia Current Visit: Yes Status: Acute Assessment & Plan: IV antibiotics. Will request sputum culture. Mucinex. Ambulatory O2 assessment. Code(s): J18.9 - PNEUMONIA, UNSPECIFIED ORGANISM (3) Weakness Current Visit: No Status: Acute Assessment & Plan: Possibly due to the anemia, hypokalemia, dehydration, and pneumonia. PT eval. Code(s): R53.1 - WEAKNESS (4) Chronic renal failure Current Visit: No Status: Acute Assessment & Plan: Monitor renal function. Hold Bumex. Creatinine at baseline. Does not follow with a computer science professor. (5) Hypokalemia Current Visit: Yes Status: Acute Assessment & Plan: Replete. Telemetry. Code(s): E87.6 - HYPOKALEMIA (6) Dehydration Current Visit: Yes Status: Acute Assessment & Plan: Hold Bumex. Gentle IV fluids. Code(s): E86.0 - DEHYDRATION (7) Hypomagnesemia Current Visit: Yes Status: Acute Assessment & Plan: Replete Mag and recheck level. Code(s): E83.42 - HYPOMAGNESEMIA Telemedicine Encounter - Telemedicine Encounter Telemedicine Encounter: "The entirety of this encounter was performed via Telemedicine" This visit was performed using real-time audio and video connection between my location and thepatients locationwith the assistance of a surrogateat the patients location. Written or verbal consent was obtained from the patient /guardian to perform this visit using[place] Casetelemedicine technology. Any patient questions regarding the telemedicine interaction were answered. Please note that this admission required 45 minutes to complete.
[2025-02-21] MEDS: POTASSIUM CHLORIDE 20 mEq IN WATER 100ML 20 MEQ/100 ML BAG IV ONE (21:08)
[2025-02-21] MEDS ORDERED: Magnesium 1 Gm / 100 Ml D5W*** 0 ML IV ONE (21:22)
[2025-02-21] MEDS: PROTONIX 40 MG IV IV SCH (21:32)
[2025-02-21] MEDS: Mucinex 600MG ER Tabs PO SCH (21:32)
[2025-02-21] MEDS ORDERED: MAGNESIUM SULF 2 G/50 ML BAG 2 GM/50 ML PIGGYBACK IV ONE (21:37)
[2025-02-21] MEDS: Magnesium Sulfate 1 GM/2 ML VIAL IV ONE (21:56)
[2025-02-21] MEDS: MAGNESIUM SULF 2 G/50 ML BAG 2 GM/50 ML PIGGYBACK IV ONE (21:58)
[2025-02-22] MEDS: POTASSIUM CHLORIDE 20 mEq IN WATER 100ML 20 MEQ/100 ML BAG IV ONE (01:51)
[2025-02-22 06:46] LABS: Absolute Neutrophil Ct (ANC) 2.92 x10^3/uL (1.56-6.13); BASOPHIL % 0.5 % (0.1-1.2); Basophil (Absolute #) 0.02 x10^3/uL (0.01-0.08); Eosinophil % 6.2 % (0.7-5.8); Eosinophil (Absolute #) 0.27 x10^3/uL (0.04-0.36); Hematocrit 20.7 % (34.1-44.9); Hemoglobin 7.1 g/dL (11.2-15.7); IMMATURE GRAN # 0.04 x10^3u/L (0.001-0.031); IMMATURE GRAN % 0.9 % (0.001-0.429); Lymphocyte (Absolute #) 0.64 x10^3/uL (1.18-3.74); Lymphocytes % 14.6 % (19.3-51.7); Mean Cell Volume 83.5 fL (79.4-94.8); Mean Corpuscular Hemoglobin 28.6 pg (25.6-32.2); Mean Corpuscular Hgb Concent. 34.3 g/dL (32.2-35.5); Mean Platelet Volume 9.3 fL (9.4-12.3); Monocytes % 11.4 % (4.7-12.5); Neutrophil % 66.4 % (34.0-71.1); Platelet Count 169 x10^3/uL (182-369); Red Blood Count 2.48 x10^6/uL (3.93-5.22); Red Cell Distribution Width 18.9 % (11.7-14.4); White Blood Count 4.4 x10^3/uL (3.98-10.04)
[2025-02-22 07:10] LABS: ANION GAP 10.4 MEQ/L (5-15); Calcium 7.8 mg/dL (8.4-10.2); Creatinine 1 1.48 mg/dL (0.52-1.04); EST GLOMERULAR FILTRATION RATE 36.5 ML/MIN; MAGNESIUM 1.8 mg/dL (1.6-2.3); Potassium 3.8 mmol/L (3.5-5.1)
[2025-02-22 08:37] LABS: Appearance Clear (Clear); Bacteria None Seen /HPF (None Seen); Bilirubin Negative (Negative); Blood Negative (Negative); Epithelial Cells None Seen /HPF (None Seen); Glucose, Urine Negative (Negative); Ketones Negative (Negative); Leukocyte Esterase Trace (Negative); Nitrite Negative (Negative); Protein,Urine Dip Negative (Negative); RBC 0-2 /HPF (0-5); Specific Gravity 1.015 (1.005-1.030); Urobilinogen 0.2 mg/dL (0.2); WBC 0-2 /HPF (0-5)
[2025-02-22] MEDS ORDERED: NON-FORMULARY ITEM (Cholecalciferol (Vitamin D3) [D3-5000] 125 MCG Capsule) PO SCH (10:00)
[2025-02-22] MEDS ORDERED: NON-FORMULARY ITEM (Mecobalamin [B12 Active] 1,000 MCG Tab.Chew) PO SCH (10:00)
[2025-02-22] MEDS ORDERED: NON-FORMULARY ITEM (Losartan/Hydrochlorothiazide [Losartan-Hctz 50-12.5 Mg Tab] 1 EACH Tab PO SCH (10:00)
--- NOTE | 2025-02-22 10:23 | XRAY ---
Indication: Abdomen pain. Bloody stools. Multiple contiguous axial images obtained through the abdomen and pelvis without contrast. Comparison: November 13, 2019. Lung bases demonstrates new incompletely visualized right lower lobe consolidating/nonconsolidating airspace disease with moderate effusion. Also new incompletely visualized tiny left effusion with compressive atelectasis. Heart not enlarged. Noncontrasted stomach and bowel loops appear nonobstructed. Again incidental 3 cm descending duodenal diverticulum. New mild uniformly fluid distended small bowel loops up to 3 cm with fluid leveling, ileus versus enteritis. Interval cholecystectomy. Again incidental nonobstructing left renal punctate calculus and tiny splenic calcified granulomas. No free fluid/air. Remaining liver, pancreas, spleen, adrenal glands, kidneys, ureters, bladder, and uterus are unremarkable for noncontrast exam. Worsening mild diffuse arteriosclerotic calcifications. No AAA. Osseous structures intact again with osteopenia and mild degenerative changes throughout the spine. Impression: 1. New incompletely visualized right lower lobe consolidating/nonconsolidating airspace disease with effusion. Also new tiny left effusion. 2. New mild fluid distended small bowel loops with fluid leveling, ileus versus enteritis. 3. Chronic findings including duodenal diverticulum, nonobstructing left renal punctate calculus, arteriosclerotic disease, chronic bony findings, and old granulomatous disease
[2025-02-22] MEDS: VITAMIN D PO SCH (10:24)
[2025-02-22] MEDS: hydroDIURIL 25 MG PO SCH (10:25)
[2025-02-22] MEDS: Acidophilus TABLET PO SCH (10:26)
[2025-02-22] MEDS: TYLENOL 325 MG PO PRN (10:26)
[2025-02-22] MEDS: Cozaar 50 MG PO SCH (10:38)
[2025-02-22] MEDS: Vitamin B-12 500 MCG PO SCH (10:38)
[2025-02-22 12:14] LABS: Hemoglobin 7.2 g/dL (11.2-15.7)
--- NOTE | 2025-02-22 12:21 | PCM.NOTE ---
Date and Time: 02/22/25 1206 Subjective Assessment: A 74-year-old female with a history of large T-cell lymphoma, chronic kidney disease (CKD), chronic anemia secondary to CKD, hypertension (without a history of coronary artery disease and with a recent evaluation by Dr. Wood attributing nonspecific T-wave abnormalities on EKG to hyperventilation), possi ble congestive heart failure (on Bumex for chronic leg edema with an upcoming outpatient echocardiogram), and a recent pneumonia diagnosis approximately three weeks ago (treated with antibiotics), presented to the ED with 2448 hours of abdominal cramping, vomiting with possible hematemesis, dark bowel movements, diarrhea, a productive cough with clear sputum, exertional fatigue, and generalized weakness. She noted having consumed red Gatorade recently. She is on blood thinners currently for multiple PE's dx 1 moth ago. She has never undergone an endoscopy. In the ED, her hemoglobin was at baseline, though the chest X-ray showed worsening infiltrates. The patient appeared very weak and underweight during assessment, resting in bed on 02/22. She admitted to poor oral intake due to a lack of appetite. Her daughter, present at the bedside, inquired about restarting Remeron, which the patient had previously taken with good results over two years ago. Nutrition was consulted. The patient is currently NPO in preparation for a CT abdomen/pelvis to evaluate for melena and abdominal pain, and General Surgery was consulted for possible EGD and colonoscopy. Hemoglobin was noted to be 7.1; H&H checks were ordered every six hours, with plans to transfuse if hemoglobin drops below 7. Occult blood testing is pending, though the patient reports dark, tarry stools. She also has a family history of colorectal cancer (father). The patient reported bilateral lower extremity pain and edema for the past month following a diagnosis of bilateral pulmonary emboli. Her legs were warm on exam, and a venous duplex of both lower extremities was ordered. Her daughter mentioned possibly misdosing Eliquis, stating she had been administering 10 mg twice daily for longer than recommended accidentally and had not reduced to 5 mg BID as instructed. Eliquis has been held due to concern for melena and hematemesis. Protonix was started on admission. Antibiotics for pneumonia continued. She remains on 2L nasal cannula at 93%, baseline (room air). The patient denies chest pain, shortness of breath, nausea, vomiting, or diarrhea at this time. - Review of Systems Constitutional: Fatigue, Weakness, Weight Loss, No Fever, No Chills Eyes: No Symptoms Ears, Nose, & Throat: No Symptoms Respiratory: No Cough, No Short Of Breath Cardiac: Edema (BLLE), No Chest Pain, No Syncope Abdominal/Gastrointestinal: Abdominal Pain, Hematemesis, Melena, Appetite Changes, No Nausea, No Vomiting, No Diarrhea Genitourinary Symptoms: No Dysuria Musculoskeletal: No Back Pain, No Neck Pain Skin: No Rash Neurological: No Dizziness, No Focal Weakness, No Sensory Changes Psychological: No Symptoms Endocrine: No Symptoms Hematologic/Lymphatic: No Symptoms Immunological/Allergic: No Symptoms Objective Exam General Appearance: no apparent distress, alert, cachetic, thin Neurologic Exam: alert, oriented x 3, cooperative, normal mood/affect, nml cerebellar function, sensation nml, motor weakness, No motor deficits Skin Exam: warm, dry, pale Eye Exam: PERRL, EOMI, eyes nml inspection Ears, Nose, Throat Exam: normal ENT inspection, pharynx normal, moist mucous membranes Neck Exam: normal inspection, non-tender, supple, full range of motion Respiratory Exam: normal breath sounds, lungs clear, No respiratory distress Cardiovascular Exam: regular rate/rhythm, normal heart sounds Gastrointestinal/Abdomen Exam: soft, tenderness (generalized), No mass Extremity Exam: normal inspection, normal range of motion, swelling (+ 3 BLLE edema), tenderness Back Exam: normal inspection, normal range of motion, No CVA tenderness, No vertebral tenderness Pelvic Exam: deferred Rectal Exam: deferred Objective Data Vital Signs: Vital Signs - 24 hr Temp Pulse Resp BP BP Pulse Ox 02/22/25 11:02 99.1 F 89 16 126/56 91 L 02/22/25 10:00 101.5 F 02/22/25 07:41 95 H 16 91 L 02/22/25 07:34 97.9 F 95 H 16 117/57 93 L 02/22/25 04:00 97.8 F 85 19 125/58 95 02/21/25 23:50 98.2 F 101 H 22 114/55 95 02/21/25 20:32 98.9 F 77 18 105/51 100 02/21/25 18:46 98.3 F 76 18 105/51 100 02/21/25 18:06 99 02/21/25 18:00 75 31 H 102/57 95 02/21/25 17:30 85 30 H 105/56 96 02/21/25 17:00 77 27 H 108/64 97 02/21/25 16:30 80 26 H 123/65 93 L 02/21/25 16:00 121 H 33 H 97/60 96 02/21/25 15:00 99.9 F 89 24 95/57 99 Pain Assessment - Last Documented Pain Intensity 0 Intake and Output: Intake & Output 02/20/25 02/21/25 02/22/25 02/23/25 11:59 11:59 11:59 11:59 Intake Total 1581 Output Total 400 Balance 1181 Weight 46.7 kg Lab Results: Lab Results-Last 24 Hours 02/21/25 02/21/25 02/21/25 Range/Units 08:25 15:08 15:08 WBC (3.98-10.04) x10^3/uL RBC (3.93-5.22) x10^6/uL Hgb (11.2-15.7) g/dL Hct (34.1-44.9) % MCV (79.4-94.8) fL MCH (25.6-32.2) pg MCHC (32.2-35.5) g/dL RDW (11.7-14.4) % Plt Count (182-369) x10^3/uL MPV (9.4-12.3) fL Gran % (34.0-71.1) % Immature Gran % (Auto) (0.001-0.429) % Nucleat RBC Rel Count (0.00-0.2) % Eos # (Auto) (0.04-0.36) x10^3/uL Immature Gran # (Auto) (0.001-0.031) x10^3u/L Absolute Lymphs (auto) (1.18-3.74) x10^3/uL Absolute Monos (auto) (0.24-0.86) x10^3/uL Absolute Nucleated RBC (0.00-0.012) x10^3u/L Lymphocytes % (19.3-51.7) % Monocytes % (4.7-12.5) % Eosinophils % (0.7-5.8) % Basophils % (0.1-1.2) % Absolute Granulocytes (1.56-6.13) x10^3/uL Basophils # (0.01-0.08) x10^3/uL PT (9.4-12.5) SECONDS INR (0.8-3.0) APTT (25.1-36.5) SECONDS Sodium 129 L (135-145) mmol/L Potassium 3.2 L (3.5-5.1) mmol/L Chloride 96 L (98-107) mmol/L Carbon Dioxide 21 L (22-30) mmol/L Anion Gap 15.2 H (5-15) MEQ/L BUN 23 H (7-17) mg/dL Creatinine 1.61 H (0.52-1.04) mg/dL Estimated GFR 33.0 ML/MIN Glucose 127 H (74-106) mg/dL Lactic Acid (0.4-2.0) Calcium 8.9 (8.4-10.2) mg/dL Magnesium 1.5 L (1.6-2.3) mg/dL Total Bilirubin 1.40 H (0.2-1.3) mg/dL AST 34 (14-36) U/L ALT 22 (0-35) U/L Alkaline Phosphatase 60 (38-126) U/L Serum Total Protein 5.1 L (6.3-8.2) g/dL Albumin 3.0 L (3.5-5.0) g/dL Urine Color Dark Yellow A (Yellow) Urine Appearance Clear (Clear) Urine pH 5.0 (4.6-8.0) Ur Specific [place] 1.015 (1.005-1.030) Urine Protein Negative (Negative) Urine Glucose (UA) Negative (Negative) mg/dL Urine Ketones Negative (Negative) Urine Blood Negative (Negative) Urine Nitrite Negative (Negative) Urine Bilirubin Negative (Negative) Urine Urobilinogen 0.2 (0.2) mg/dL Ur Leukocyte Esterase Trace A (Negative) U Hyaline Cast (Auto) 6-10 A (0-2) /LPF Urine Microscopic RBC 0-2 (0-5) /HPF Urine Microscopic WBC 0-2 (0-5) /HPF Ur Epithelial Cells None Seen (None Seen) /HPF Urine Bacteria None Seen (None Seen) /HPF Urine Culture Reflexed NO (NO) ABO Group Rh Factor Antibody Screen (NEGATIVE) 02/21/25 02/21/25 02/21/25 Range/Units 15:08 15:08 15:26 WBC (3.98-10.04) x10^3/uL RBC (3.93-5.22) x10^6/uL Hgb (11.2-15.7) g/dL Hct (34.1-44.9) % MCV (79.4-94.8) fL MCH (25.6-32.2) pg MCHC (32.2-35.5) g/dL RDW (11.7-14.4) % Plt Count (182-369) x10^3/uL MPV (9.4-12.3) fL Gran % (34.0-71.1) % Immature Gran % (Auto) (0.001-0.429) % Nucleat RBC Rel Count (0.00-0.2) % Eos # (Auto) (0.04-0.36) x10^3/uL Immature Gran # (Auto) (0.001-0.031) x10^3u/L Absolute Lymphs (auto) (1.18-3.74) x10^3/uL Absolute Monos (auto) (0.24-0.86) x10^3/uL Absolute Nucleated RBC (0.00-0.012) x10^3u/L Lymphocytes % (19.3-51.7) % Monocytes % (4.7-12.5) % Eosinophils % (0.7-5.8) % Basophils % (0.1-1.2) % Absolute Granulocytes (1.56-6.13) x10^3/uL Basophils # (0.01-0.08) x10^3/uL PT 12.2 (9.4-12.5) SECONDS INR 1.13 (0.8-3.0) APTT 27.9 (25.1-36.5) SECONDS Sodium (135-145) mmol/L Potassium (3.5-5.1) mmol/L Chloride (98-107) mmol/L Carbon Dioxide (22-30) mmol/L Anion Gap (5-15) MEQ/L BUN (7-17) mg/dL Creatinine (0.52-1.04) mg/dL Estimated GFR ML/MIN Glucose (74-106) mg/dL Lactic Acid 2.7 H (0.4-2.0) Calcium (8.4-10.2) mg/dL Magnesium (1.6-2.3) mg/dL Total Bilirubin (0.2-1.3) mg/dL AST (14-36) U/L ALT (0-35) U/L Alkaline Phosphatase (38-126) U/L Serum Total Protein (6.3-8.2) g/dL Albumin (3.5-5.0) g/dL Urine Color (Yellow) Urine Appearance (Clear) Urine pH (4.6-8.0) Ur Specific [place] (1.005-1.030) Urine Protein (Negative) Urine Glucose (UA) (Negative) mg/dL Urine Ketones (Negative) Urine Blood (Negative) Urine Nitrite (Negative) Urine Bilirubin (Negative) Urine Urobilinogen (0.2) mg/dL Ur Leukocyte Esterase (Negative) U Hyaline Cast (Auto) (0-2) /LPF Urine Microscopic RBC (0-5) /HPF Urine Microscopic WBC (0-5) /HPF Ur Epithelial Cells (None Seen) /HPF Urine Bacteria (None Seen) /HPF Urine Culture Reflexed (NO) ABO Group B Rh Factor NEGATIVE Antibody Screen NEGATIVE (NEGATIVE) 02/21/25 02/21/25 02/21/25 Range/Units 15:40 17:35 21:05 WBC 6.0 (3.98-10.04) x10^3/uL RBC 3.03 L (3.93-5.22) x10^6/uL Hgb 8.4 L 7.7 L (11.2-15.7) g/dL Hct 25.2 L (34.1-44.9) % MCV 83.2 (79.4-94.8) fL MCH 27.7 (25.6-32.2) pg MCHC 33.3 (32.2-35.5) g/dL RDW 19.1 H (11.7-14.4) % Plt Count 250 (182-369) x10^3/uL MPV 9.7 (9.4-12.3) fL Gran % 70.9 (34.0-71.1) % Immature Gran % (Auto) 0.8 H (0.001-0.429) % Nucleat RBC Rel Count 0.0 (0.00-0.2) % Eos # (Auto) 0.22 (0.04-0.36) x10^3/uL Immature Gran # (Auto) 0.05 H (0.001-0.031) x10^3u/L Absolute Lymphs (auto) 0.77 L (1.18-3.74) x10^3/uL Absolute Monos (auto) 0.68 (0.24-0.86) x10^3/uL Absolute Nucleated RBC 0.00 (0.00-0.012) x10^3u/L Lymphocytes % 12.8 L (19.3-51.7) % Monocytes % 11.3 (4.7-12.5) % Eosinophils % 3.7 (0.7-5.8) % Basophils % 0.5 (0.1-1.2) % Absolute Granulocytes 4.27 (1.56-6.13) x10^3/uL Basophils # 0.03 (0.01-0.08) x10^3/uL PT (9.4-12.5) SECONDS INR (0.8-3.0) APTT (25.1-36.5) SECONDS Sodium (135-145) mmol/L Potassium (3.5-5.1) mmol/L Chloride (98-107) mmol/L Carbon Dioxide (22-30) mmol/L Anion Gap (5-15) MEQ/L BUN (7-17) mg/dL Creatinine (0.52-1.04) mg/dL Estimated GFR ML/MIN Glucose (74-106) mg/dL Lactic Acid 0.8 (0.4-2.0) Calcium (8.4-10.2) mg/dL Magnesium (1.6-2.3) mg/dL Total Bilirubin (0.2-1.3) mg/dL AST (14-36) U/L ALT (0-35) U/L Alkaline Phosphatase (38-126) U/L Serum Total Protein (6.3-8.2) g/dL Albumin (3.5-5.0) g/dL Urine Color (Yellow) Urine Appearance (Clear) Urine pH (4.6-8.0) Ur Specific [place] (1.005-1.030) Urine Protein (Negative) Urine Glucose (UA) (Negative) mg/dL Urine Ketones (Negative) Urine Blood (Negative) Urine Nitrite (Negative) Urine Bilirubin (Negative) Urine Urobilinogen (0.2) mg/dL Ur Leukocyte Esterase (Negative) U Hyaline Cast (Auto) (0-2) /LPF Urine Microscopic RBC (0-5) /HPF Urine Microscopic WBC (0-5) /HPF Ur Epithelial Cells (None Seen) /HPF Urine Bacteria (None Seen) /HPF Urine Culture Reflexed (NO) ABO Group Rh Factor Antibody Screen (NEGATIVE) 02/22/25 02/22/25 02/22/25 Range/Units 01:00 06:42 06:42 WBC 4.4 (3.98-10.04) x10^3/uL RBC 2.48 L (3.93-5.22) x10^6/uL Hgb 7.1 L (11.2-15.7) g/dL Hct 20.7 L (34.1-44.9) % MCV 83.5 (79.4-94.8) fL MCH 28.6 (25.6-32.2) pg MCHC 34.3 (32.2-35.5) g/dL RDW 18.9 H (11.7-14.4) % Plt Count 169 L (182-369) x10^3/uL MPV 9.3 L (9.4-12.3) fL Gran % 66.4 (34.0-71.1) % Immature Gran % (Auto) 0.9 H (0.001-0.429) % Nucleat RBC Rel Count 0.0 (0.00-0.2) % Eos # (Auto) 0.27 (0.04-0.36) x10^3/uL Immature Gran # (Auto) 0.04 H (0.001-0.031) x10^3u/L Absolute Lymphs (auto) 0.64 L (1.18-3.74) x10^3/uL Absolute Monos (auto) 0.50 (0.24-0.86) x10^3/uL Absolute Nucleated RBC 0.00 (0.00-0.012) x10^3u/L Lymphocytes % 14.6 L (19.3-51.7) % Monocytes % 11.4 (4.7-12.5) % Eosinophils % 6.2 H (0.7-5.8) % Basophils % 0.5 (0.1-1.2) % Absolute Granulocytes 2.92 (1.56-6.13) x10^3/uL Basophils # 0.02 (0.01-0.08) x10^3/uL PT (9.4-12.5) SECONDS INR (0.8-3.0) APTT (25.1-36.5) SECONDS Sodium 131 L (135-145) mmol/L Potassium 3.3 L 3.8 (3.5-5.1) mmol/L Chloride 105 (98-107) mmol/L Carbon Dioxide 20 L (22-30) mmol/L Anion Gap 10.4 (5-15) MEQ/L BUN 20 H (7-17) mg/dL Creatinine 1.48 H (0.52-1.04) mg/dL Estimated GFR 36.5 ML/MIN Glucose 98 (74-106) mg/dL Lactic Acid (0.4-2.0) Calcium 7.8 L (8.4-10.2) mg/dL Magnesium 1.8 (1.6-2.3) mg/dL Total Bilirubin (0.2-1.3) mg/dL AST (14-36) U/L ALT (0-35) U/L Alkaline Phosphatase (38-126) U/L Serum Total Protein (6.3-8.2) g/dL Albumin (3.5-5.0) g/dL Urine Color (Yellow) Urine Appearance (Clear) Urine pH (4.6-8.0) Ur Specific [place] (1.005-1.030) Urine Protein (Negative) Urine Glucose (UA) (Negative) mg/dL Urine Ketones (Negative) Urine Blood (Negative) Urine Nitrite (Negative) Urine Bilirubin (Negative) Urine Urobilinogen (0.2) mg/dL Ur Leukocyte Esterase (Negative) U Hyaline Cast (Auto) (0-2) /LPF Urine Microscopic RBC (0-5) /HPF Urine Microscopic WBC (0-5) /HPF Ur Epithelial Cells (None Seen) /HPF Urine Bacteria (None Seen) /HPF Urine Culture Reflexed (NO) ABO Group Rh Factor Antibody Screen (NEGATIVE) 02/22/25 Range/Units 06:42 WBC (3.98-10.04) x10^3/uL RBC (3.93-5.22) x10^6/uL Hgb (11.2-15.7) g/dL Hct (34.1-44.9) % MCV (79.4-94.8) fL MCH (25.6-32.2) pg MCHC (32.2-35.5) g/dL RDW (11.7-14.4) % Plt Count (182-369) x10^3/uL MPV (9.4-12.3) fL Gran % (34.0-71.1) % Immature Gran % (Auto) (0.001-0.429) % Nucleat RBC Rel Count (0.00-0.2) % Eos # (Auto) (0.04-0.36) x10^3/uL Immature Gran # (Auto) (0.001-0.031) x10^3u/L Absolute Lymphs (auto) (1.18-3.74) x10^3/uL Absolute Monos (auto) (0.24-0.86) x10^3/uL Absolute Nucleated RBC (0.00-0.012) x10^3u/L Lymphocytes % (19.3-51.7) % Monocytes % (4.7-12.5) % Eosinophils % (0.7-5.8) % Basophils % (0.1-1.2) % Absolute Granulocytes (1.56-6.13) x10^3/uL Basophils # (0.01-0.08) x10^3/uL PT (9.4-12.5) SECONDS INR (0.8-3.0) APTT (25.1-36.5) SECONDS Sodium (135-145) mmol/L Potassium (3.5-5.1) mmol/L Chloride (98-107) mmol/L Carbon Dioxide (22-30) mmol/L Anion Gap (5-15) MEQ/L BUN (7-17) mg/dL Creatinine (0.52-1.04) mg/dL Estimated GFR ML/MIN Glucose (74-106) mg/dL Lactic Acid (0.4-2.0) Calcium (8.4-10.2) mg/dL Magnesium (1.6-2.3) mg/dL Total Bilirubin 0.80 (0.2-1.3) mg/dL AST (14-36) U/L ALT (0-35) U/L Alkaline Phosphatase (38-126) U/L Serum Total Protein (6.3-8.2) g/dL Albumin (3.5-5.0) g/dL Urine Color (Yellow) Urine Appearance (Clear) Urine pH (4.6-8.0) Ur Specific [place] (1.005-1.030) Urine Protein (Negative) Urine Glucose (UA) (Negative) mg/dL Urine Ketones (Negative) Urine Blood (Negative) Urine Nitrite (Negative) Urine Bilirubin (Negative) Urine Urobilinogen (0.2) mg/dL Ur Leukocyte Esterase (Negative) U Hyaline Cast (Auto) (0-2) /LPF Urine Microscopic RBC (0-5) /HPF Urine Microscopic WBC (0-5) /HPF Ur Epithelial Cells (None Seen) /HPF Urine Bacteria (None Seen) /HPF Urine Culture Reflexed (NO) ABO Group Rh Factor Antibody Screen (NEGATIVE) Radiology Exams: Radiology Procedures Category Date Time Status ABDOMEN AND PELVIS W/0 CONTRAS [CT] Routine Exams 02/22/25 09:19 Completed CHEST 1 VIEW (PORTABLE) Stat Exams 02/21/25 15:14 Completed ECHO W/2D AND DOPPLER [US] Routine Exams 02/22/25 09:19 Ordered VENOUS BILATERAL EXTREMITY [US] Routine Exams 02/22/25 09:23 Ordered Medications: Medications Generic Name Dose Route Start Last Admin Trade Name Freq PRN Reason Stop Dose Admin Acetaminophen 650 mg 02/21/25 18:48 Acetaminophen 650 Mg Supp.Rect MT 03/23/25 18:47 Q4H PRN PRN PAIN AND/OR FEVER Acetaminophen 325 mg 02/21/25 19:49 02/22/25 10:26 Acetaminophen 325 Mg Tablet PO 03/23/25 19:48 325 mg Q4H PRN PRN Administration PAIN, FEVER, HEADACHE Albuterol Sulfate 2 puff 02/21/25 19:47 Albuterol Common Canister Inhaler IH 03/23/25 19:46 Q4-6HPRN PRN SHORTNESS OF BREATH Cholecalciferol 5,000 unit 02/22/25 10:00 02/22/25 10:24 Cholecalciferol (Vitamin D3) 1000 Unit Tablet PO 03/24/25 09:59 5,000 unit DAILY REMBERTO Administration Cyanocobalamin 1,000 mcg 02/22/25 10:00 02/22/25 10:38 Cyanocobalamin 500 Mcg Tablet PO 03/24/25 09:59 1,000 mcg DAILY REMBERTO Administration Guaifenesin 600 mg 02/21/25 22:00 02/22/25 10:30 Guaifenesin 600 Mg Tablet Er PO 03/23/25 21:59 600 mg BID REMBERTO Administration Hydrochlorothiazide 12.5 mg 02/22/25 10:00 02/22/25 10:25 Hydrochlorothiazide 25 Mg Tablet PO 03/24/25 09:59 12.5 mg DAILY REMBERTO Administration Ceftriaxone Sodium 2 gm in 100 mls @ 200 mls/hr 02/22/25 22:00 Rocephin 2 Gm/100 Ml Nacl IV 03/24/25 21:59 HS REMBERTO Azithromycin 500 mg/ Sodium 250 mls @ 250 mls/hr 02/22/25 22:00 Chloride IV 03/24/25 09:59 HS REMBERTO Lactobacillus Acidophilus 1 tab 02/22/25 10:00 02/22/25 10:26 Lactobacillus Acidophilus 1 Tab Tablet PO 03/24/25 09:59 1 tab DAILY REMBERTO Administration Losartan Potassium 50 mg 02/22/25 10:00 02/22/25 10:38 Losartan Potassium 50 Mg Tablet PO 03/24/25 09:59 50 mg DAILY REMBERTO Administration Ondansetron HCl 4 mg 02/21/25 19:49 Ondansetron Hcl 4 Mg/2 Ml Vial IV 03/23/25 19:48 Q6H PRN PRN NAUSEA/VOMITING Pantoprazole Sodium 40 mg 02/22/25 22:00 Pantoprazole 40 Mg Vial IV 03/23/25 19:59 HS REMBERTO Discontinued Medications Generic Name Dose Route Start Last Admin Trade Name Freq PRN Reason Stop Dose Admin Azithromycin Confirm 02/21/25 18:54 Azithromycin Inj Administered 02/21/25 18:55 Dose 500 mg IV .STK-MED ONE Sodium Chloride 1,000 mls @ 150 mls/hr 02/21/25 15:23 02/21/25 20:10 Sodium Chloride 0.9% 1000 Ml IV 02/21/25 22:02 Infused .Q6H40M STA Infusion Sodium Chloride Confirm 02/21/25 15:31 Sodium Chloride 0.9% 1000 Ml Administered 02/21/25 15:32 Dose 1,000 mls @ ud .ROUTE .STK-MED ONE Ceftriaxone Sodium 1 gm in 100 mls @ 200 mls/hr 02/21/25 18:04 02/21/25 18:07 Rocephin 1 Gm / 100 Ml Nacl IV 02/21/25 18:33 200 mls/hr STAT ONE 200 mls/hr Administration Azithromycin 500 mg/ Sodium 250 mls @ 250 mls/hr 02/22/25 10:00 02/21/25 19:02 Chloride IV 03/24/25 09:59 250 mls/hr Q24H10 REMBERTO Administration Ceftriaxone Sodium Confirm 02/21/25 18:06 Rocephin 1 Gm / 100 Ml Nacl Administered 02/21/25 18:07 Dose 1 gm in 100 mls @ ud IV .STK-MED ONE Sodium Chloride 1,000 mls @ 100 mls/hr 02/21/25 18:48 02/21/25 21:08 Sodium Chloride 0.9% 1000 Ml IV 02/22/25 04:47 75 mls/hr .Q10H STA Administration Sodium Chloride Confirm 02/21/25 18:54 Sodium Chloride 0.9% 250 Ml Administered 02/21/25 18:55 Dose 250 mls @ ud IV .STK-MED ONE Potassium Chloride 20 meq in 100 mls @ 50 mls/hr 02/21/25 19:52 02/21/25 21:08 Potassium Chloride 20 Meq In Water 100ml IV 02/21/25 21:51 50 mls/hr STAT ONE Administration Magnesium Sulfate/Dextrose Confirm 02/21/25 21:22 Magnesium 1 Gm / 100 Ml D5w Administered 02/21/25 21:23 Dose 100 mls @ ud IV .STK-MED ONE Magnesium Sulfate/Water Confirm 02/21/25 21:37 Magnesium Sulf 2 G/50 Ml Bag Administered 02/21/25 21:38 Dose 2 gm in 50 mls @ ud IV .STK-MED ONE Magnesium Sulfate/Water 2 gm in 50 mls @ 100 mls/hr 02/21/25 21:55 02/21/25 21:58 Magnesium Sulf 2 G/50 Ml Bag IV 02/21/25 22:24 100 mls/hr ONCE ONE Administration Potassium Chloride 20 meq in 100 mls @ 50 mls/hr 02/22/25 01:47 02/22/25 01:51 Potassium Chloride 20 Meq In Water 100ml IV 02/22/25 03:46 50 mls/hr STAT ONE Administration Magnesium Sulfate 2 gm 02/21/25 20:00 02/21/25 21:56 Magnesium Sulfate Injection IV 02/21/25 20:01 Not Given ONCE ONE Methotrexate 5 mg 02/21/25 20:00 Methotrexate Sodium 2.5 Mg Tablet PO 03/23/25 19:59 WEEKLY REMBERTO Methotrexate 5 mg 02/27/25 10:00 Methotrexate Sodium 2.5 Mg Tablet PO 03/29/25 09:59 WEEKLY REMBERTO Non-Formulary Medication 1 each 02/22/25 10:00 Losartan/Hydrochlorothiazide [Losartan-Hctz 50-12.5 Mg Tab] PO 03/24/25 09:59 DAILY REMBERTO Non-Formulary Medication 1 each 02/21/25 19:52 Pharmacy Dosing Request [facility] 02/21/25 19:53 STAT ONE Pantoprazole Sodium 40 mg 02/21/25 20:00 02/21/25 21:32 Pantoprazole 40 Mg Vial IV 03/23/25 19:59 40 mg Q24H REMBERTO Administration Multi-Disciplinary Progress Notes: Multi-Disciplinary Progress Notes 02/21/25 23:49 Respiratory Note by Marlen Villa SpO2 83% on room air, 2lpm applied via nasal cannula. SpO2 95% on 2L. Initialized on 02/21/25 23:49 - END OF NOTE Assessment/Plan (1) Symptomatic anemia Current Visit: No Status: Acute Assessment & Plan: - Hgb 7.1 this AM - repeat 7.2 - H& H Q6 - Transfuse if Hgb <7 - GS consult - Protonix Code(s): D64.9 - ANEMIA, UNSPECIFIED (2) Hx of pulmonary embolus Current Visit: Yes Status: Acute Assessment & Plan: - Dx 1 month ago and started on Eliquis - Eliquis on hold d/t anemia - BLLE + edema, warm, painful- VD of BLLE. - ECHO Code(s): Z86.711 - PERSONAL HISTORY OF PULMONARY EMBOLISM (3) Pneumonia Current Visit: Yes Status: Acute Assessment & Plan: -IV antibiotics. - Sputum culture. - Mucinex. - Ambulatory O2 assessment. - 2L NC 93%- BL RA - CBC reviewed - BC x2 - Sputum culture pending - CXR reviewed - CBC reviewed Code(s): J18.9 - PNEUMONIA, UNSPECIFIED ORGANISM (4) Melena Current Visit: Yes Status: Acute Assessment & Plan: - Occult stool pending - CT abd/pelvis - GS consult - Hgb 7.1 this AM- transfuse if < 7 - H& H Q6 - Dosing of Eliquis may be of concern Code(s): K92.1 - MELENA (5) Edema of both lower extremities Current Visit: Yes Status: Acute Assessment & Plan: - Venous duplex BLLE - If VD negative will place TEDS Code(s): R60.0 - LOCALIZED EDEMA (6) Abdominal pain Current Visit: Yes Status: Acute Assessment & Plan: - CT abd pelvis- reviewed- possible ileus - NPO - GS consult - Pain only increased with palpation Code(s): R10.9 - UNSPECIFIED ABDOMINAL PAIN (7) Underweight (BMI < 18.5) Current Visit: Yes Status: Acute Assessment & Plan: - Nutrition consult - Consider Ensure high protein when not NPO - Consider restarting Remeron Code(s): R63.6 - UNDERWEIGHT; Z68.1 - BODY MASS INDEX [BMI] 19.9 OR LESS, ADULT (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 Code(s): R53.1 - WEAKNESS (11) Dehydration Current Visit: Yes Status: Acute Assessment & Plan: - CMP reviewed - anion gap 10.4- OK - At baseline renal function - IVF Code(s): E86.0 - DEHYDRATION (12) Hypokalemia Current Visit: Yes Status: Resolved Assessment & Plan: - resolved Code(s): E87.6 - HYPOKALEMIA (13) Hypomagnesemia Current Visit: Yes Status: Resolved Assessment & Plan: - resolved VTE: On hold PPI: Protonix Next of KIN: Daughter D/C plan: 2-3 days Code status: Full Code(s): E83.42 - HYPOMAGNESEMIA
[2025-02-22] MEDS: Sodium Chloride 0.9% 1000 ML 1,000 ML IV SCH (13:09)
--- NOTE | 2025-02-22 15:40 | XRAY ---
Indication: Bilateral leg edema. Recent PEs. Two-dimensional sonogram and color Doppler imaging major venous major venous vessels left and right leg performed. Comparison: None No thrombus seen in the examined deep venous vessels left and right leg including greater saphenous vein. Veins demonstrate normal compressibility. Venous waveforms are normal with and without augmentation. Impression: Left and right legs negative for DVT.
[2025-02-22 18:24] LABS: Hematocrit 22.3 % (34.1-44.9); Hemoglobin 7.4 g/dL (11.2-15.7)
[2025-02-22] MEDS: ROCEPHIN 2 GM/100 ML NACL 2 GM/100 ML IVPB IV SCH (21:36)
[2025-02-22] MEDS: PROTONIX 40 MG IV IV SCH (21:43)
[2025-02-22] MEDS: ZITHROMAX IV*** 500 MG in Sodium Chloride 0.9% 250 ML 250 ML IV SCH (22:40)
--- NOTE | 2025-02-23 09:08 | XRAY ---
Indication: New onset confusion. Stroke. History lymphocytic leukemia. Multiple contiguous axial images obtained through the head without contrast. Comparison: None Age-appropriate global atrophy. Remote lacunar infarcts left basal ganglia and left external capsule. No acute intracranial hemorrhage, abnormal extra-axial fluid collection, or mass effect. Fourth ventricle is midline without hydrocephalus. Oneil-white matter differentiation preserved. Bony calvarium intact. Mild mucosal thickening both ethmoid and both maxillary sinuses without fluid leveling. Mastoid air cells are clear. Impression: Atrophy within normal limits. Remote lacunar infarcts left basal ganglia and left external capsule. No acute intracranial abnormalities. Incidental paranasal sinus disease.
[2025-02-23 09:19] LABS: Hematocrit 25.1 % (34.1-44.9); Hemoglobin 7.9 g/dL (11.2-15.7); Mean Cell Volume 85.7 fL (79.4-94.8); Mean Corpuscular Hgb Concent. 31.5 g/dL (32.2-35.5); Mean Platelet Volume 9.6 fL (9.4-12.3); Platelet Count 228 x10^3/uL (182-369); Red Blood Count 2.93 x10^6/uL (3.93-5.22); White Blood Count 5.9 x10^3/uL (3.98-10.04)
[2025-02-23 09:37] LABS: ALBUMIN 2.2 g/dL (3.5-5.0); ANION GAP 13.9 MEQ/L (5-15); BILIRUBIN,TOTAL 0.7 mg/dL (0.2-1.3); Calcium 8.7 mg/dL (8.4-10.2); Creatinine 1 1.47 mg/dL (0.52-1.04); EST GLOMERULAR FILTRATION RATE 36.8 ML/MIN; Potassium 3.9 mmol/L (3.5-5.1); Total Protein 4.2 g/dL (6.3-8.2)
[2025-02-23] MEDS: DULCOLAX 5 MG PO ONE (09:44)
--- NOTE | 2025-02-23 10:24 | PCM.NOTE ---
Date and Time: 02/23/25 1010 Subjective Assessment: 02/22/25 A 74-year-old female with a history of large T-cell lymphoma, chronic kidney disease (CKD), chronic anemia secondary to CKD, hypertension (without a history of coronary artery disease and with a recent evaluation by Dr. Wood attributing nonspecific T-wave abnormalities on EKG to hyperventilation), possible congestive heart failure (on Bumex for chronic leg edema with an upcoming outpatient echocardiogram), and a recent pneumonia diagnosis approximately three weeks ago (treated with antibiotics), presented to the ED with 2448 hours of abdominal cramping, vomiting with possible hematemesis, dark bowel movements, diarrhea, a productive cough with clear sputum, exertional fatigue, and generalized weakness. She noted having consumed red Gatorade recently. She is on blood thinners currently for multiple PE's dx 1 moth ago. She has never undergone an endoscopy. In the ED, her hemoglobin was at baseline, though the chest X-ray showed worsening infiltrates. The patient appeared very weak and underweight during assessment, resting in bed on 02/22. She admitted to poor oral intake due to a lack of appetite. Her daughter, present at the bedside, inquired about restarting Remeron, which the patient had previously taken with good results over two years ago. Nutrition was consulted. The patient is currently NPO in preparation for a CT abdomen/pelvis to evaluate for melena and abdominal pain, and General Surgery was consulted for possible EGD and colonoscopy. Hemoglobin was noted to be 7.1; H&H checks were ordered every six hours, with plans to transfuse if hemoglobin drops below 7. Occult blood testing is pending, though the patient reports dark, tarry stools. She also has a family history of colorectal cancer (father). The patient reported bilateral lower extremity pain and edema for the past month following a diagnosis of bilateral pulmonary emboli. Her legs were warm on exam, and a venous duplex of both lower extremities was ordered. Her daughter mentioned possibly misdosing Eliquis, stating she had been administering 10 mg twice daily for longer than recommended accidentally and had not reduced to 5 mg BID as instructed. Eliquis has been held due to concern for melena and hematemesis. Protonix was started on admission. Antibiotics for pneumonia continued. She remains on 2L nasal cannula at 93%, baseline (room air). The patient denies chest pain, shortness of breath, nausea, vomiting, or diarrhea at this time. 02/23/25 The patient was found resting in bed and is now awake and alert with the lights on in the room. She was noted to be very confused earlier this morning and was initially not agreeable to having labs drawn. According to the nursing note, the confusion began overnight. The patients daughter reported that this change in mental status is not typical and expressed concern that she had not been contacted. There is no documentation indicating that the overnight provider was informed of the new-onset confusion. A head CT was ordered this morning to evaluate the change in mental status, which revealed chronic lacunar infarcts in the left basal ganglia and left external capsule, with no acute abnormalities. After speaking with her daughter, the patient became agreeable to having labs drawn. The daughter also shared that the patient is underweight and cannot tolerate regular Ensure protein drinks but is willing to drink Ensure Clear, which has now been ordered with meals. Occult stool testing is pending today. The patient is scheduled for EGD and colonoscopy tomorrow with General Surgery, and bowel prep is set to begin today. IV fluids are to be continued. A venous duplex study performed yesterday was negative, and TEDS have been placed. Blood cultures x2 remain negative. On exam, the patient showed no focal neurological deficits after returning from the head CT. Additionally, the patient reports left thigh muscle pain and was unable to lift her leg during the neurological exam due to discomfort. No bruising or visible abnormalities were noted on physical exam. She denies any further concerns at this time. A CT abdomen performed yesterday revealed findings concerning for possible ileus versus enteritis. Surgery was consulted for evaluation, and they recommended initiating a clear liquid diet, which has since been started. - Review of Systems Constitutional: Weakness, No Fever, No Chills Eyes: No Symptoms Ears, Nose, & Throat: No Symptoms Respiratory: Short Of Breath, No Cough Cardiac: No Chest Pain, No Edema, No Syncope Abdominal/Gastrointestinal: No Abdominal Pain, No Nausea, No Vomiting, No Diarrhea Genitourinary Symptoms: No Dysuria Musculoskeletal: Myalgias (Left thigh pain), No Back Pain, No Neck Pain Skin: No Rash Neurological: Irritability, Other (confusion), No Dizziness, No Focal Weakness, No Sensory Changes Psychological: No Symptoms, Mood Changes Endocrine: No Symptoms Hematologic/Lymphatic: No Symptoms Immunological/Allergic: No Symptoms Objective Exam General Appearance: alert, cachetic, thin Neurologic Exam: alert, oriented x 3, cooperative, normal mood/affect, nml cere bellar function, sensation nml, disoriented, confusion, motor weakness, No motor deficits Skin Exam: normal color, warm, dry Eye Exam: PERRL, EOMI, eyes nml inspection Ears, Nose, Throat Exam: normal ENT inspection, pharynx normal, moist mucous membranes Neck Exam: normal inspection, non-tender, supple, full range of motion Respiratory Exam: normal breath sounds, lungs clear, No respiratory distress Cardiovascular Exam: regular rate/rhythm, normal heart sounds Gastrointestinal/Abdomen Exam: soft, No tenderness, No mass Extremity Exam: normal inspection, normal range of motion, tenderness (Left thigh) Back Exam: normal inspection, normal range of motion, No CVA tenderness, No vertebral tenderness Pelvic Exam: deferred Rectal Exam: deferred Objective Data Vital Signs: Vital Signs - 24 hr Temp Pulse Resp BP Pulse Ox 02/23/25 08:17 80 16 91 L 02/23/25 07:09 98.5 F 81 16 102/51 91 L 02/22/25 23:24 97.5 F 86 17 105/49 96 02/22/25 20:00 97.1 F 97 H 19 80/50 94 L 02/22/25 18:20 78 18 92 L 02/22/25 15:44 98.4 F 72 16 101/49 85 L 02/22/25 11:02 99.1 F 89 16 126/56 91 L Pain Assessment - Last Documented Pain Intensity 0 Intake and Output: Intake & Output 02/20/25 02/21/25 02/22/25 02/23/25 11:59 11:59 11:59 11:59 Intake Total 1581 3155 Output Total 400 350 Balance 1181 2805 Weight 46.7 kg Lab Results: Lab Results-Last 24 Hours 02/22/25 02/22/25 02/23/25 Range/Units 12:11 18:19 09:14 WBC 5.9 (3.98-10.04) x10^3/uL RBC 2.93 L (3.93-5.22) x10^6/uL Hgb 7.2 L 7.4 L 7.9 L (11.2-15.7) g/dL Hct 22.0 L 22.3 L 25.1 L (34.1-44.9) % MCV 85.7 (79.4-94.8) fL MCH 27.0 (25.6-32.2) pg MCHC 31.5 L (32.2-35.5) g/dL RDW 19.0 H (11.7-14.4) % Plt Count 228 D (182-369) x10^3/uL MPV 9.6 (9.4-12.3) fL Sodium (135-145) mmol/L Potassium (3.5-5.1) mmol/L Chloride (98-107) mmol/L Carbon Dioxide (22-30) mmol/L Anion Gap (5-15) MEQ/L BUN (7-17) mg/dL Creatinine (0.52-1.04) mg/dL Estimated GFR ML/MIN Glucose (74-106) mg/dL Calcium (8.4-10.2) mg/dL Total Bilirubin (0.2-1.3) mg/dL AST (14-36) U/L ALT (0-35) U/L Alkaline Phosphatase (38-126) U/L Serum Total Protein (6.3-8.2) g/dL Albumin (3.5-5.0) g/dL 02/23/25 Range/Units 09:14 WBC (3.98-10.04) x10^3/uL RBC (3.93-5.22) x10^6/uL Hgb (11.2-15.7) g/dL Hct (34.1-44.9) % MCV (79.4-94.8) fL MCH (25.6-32.2) pg MCHC (32.2-35.5) g/dL RDW (11.7-14.4) % Plt Count (182-369) x10^3/uL MPV (9.4-12.3) fL Sodium 132 L (135-145) mmol/L Potassium 3.9 (3.5-5.1) mmol/L Chloride 104 (98-107) mmol/L Carbon Dioxide 18 L (22-30) mmol/L Anion Gap 13.9 (5-15) MEQ/L BUN 21 H (7-17) mg/dL Creatinine 1.47 H (0.52-1.04) mg/dL Estimated GFR 36.8 ML/MIN Glucose 106 (74-106) mg/dL Calcium 8.7 (8.4-10.2) mg/dL Total Bilirubin 0.70 (0.2-1.3) mg/dL AST 31 (14-36) U/L ALT 17 (0-35) U/L Alkaline Phosphatase 55 (38-126) U/L Serum Total Protein 4.2 L (6.3-8.2) g/dL Albumin 2.2 L (3.5-5.0) g/dL Radiology Exams: Radiology Procedures Category Date Time Status ABDOMEN AND PELVIS W/0 CONTRAS [CT] Routine Exams 02/22/25 09:19 Completed CHEST 1 VIEW (PORTABLE) Stat Exams 02/21/25 15:14 Completed ECHO W/2D AND DOPPLER [US] Routine Exams 02/22/25 09:19 Taken HEAD WITHOUT CONTRAST [CT] Routine Exams 02/23/25 07:42 Completed VENOUS BILATERAL EXTREMITY [US] Routine Exams 02/22/25 09:23 Completed Medications: Medications Generic Name Dose Route Start Last Admin Trade Name Freq PRN Reason Stop Dose Admin Acetaminophen 650 mg 02/21/25 18:48 Acetaminophen 650 Mg Supp.Rect W[place] 03/23/25 18:47 Q4H PRN PRN PAIN AND/OR FEVER Acetaminophen 325 mg 02/21/25 19:49 02/22/25 10:26 Acetaminophen 325 Mg Tablet PO 03/23/25 19:48 325 mg Q4H PRN PRN Administration PAIN, FEVER, HEADACHE Albuterol Sulfate 2 puff 02/21/25 19:47 Albuterol Common Canister Inhaler IH 03/23/25 19:46 Q4-6HPRN PRN SHORTNESS OF BREATH Cholecalciferol 5,000 unit 02/22/25 10:00 02/23/25 09:44 Cholecalciferol (Vitamin D3) 1000 Unit Tablet PO 03/24/25 09:59 5,000 unit DAILY REMBERTO Administration Cyanocobalamin 1,000 mcg 02/22/25 10:00 02/23/25 09:44 Cyanocobalamin 500 Mcg Tablet PO 03/24/25 09:59 1,000 mcg DAILY REMBERTO Administration Guaifenesin 600 mg 02/21/25 22:00 02/23/25 09:44 Guaifenesin 600 Mg Tablet Er PO 03/23/25 21:59 600 mg BID REMBERTO Administration Hydrochlorothiazide 12.5 mg 02/22/25 10:00 02/22/25 10:25 Hydrochlorothiazide 25 Mg Tablet PO 03/24/25 09:59 12.5 mg DAILY REMBERTO Administration Ceftriaxone Sodium 2 gm in 100 mls @ 200 mls/hr 02/22/25 22:00 02/22/25 21:36 Rocephin 2 Gm/100 Ml Nacl IV 03/24/25 21:59 200 mls/hr HS REMBERTO Administration Azithromycin 500 mg/ Sodium 250 mls @ 250 mls/hr 02/22/25 22:00 02/22/25 22:40 Chloride IV 03/24/25 09:59 250 mls/hr HS REMBERTO Administration Sodium Chloride 1,000 mls @ 50 mls/hr 02/22/25 12:45 02/22/25 13:09 Sodium Chloride 0.9% 1000 Ml IV 03/24/25 12:44 50 mls/hr .Q20H REMBERTO Administration Lactobacillus Acidophilus 1 tab 02/22/25 10:00 02/23/25 09:44 Lactobacillus Acidophilus 1 Tab Tablet PO 03/24/25 09:59 1 tab DAILY REMBERTO Administration Losartan Potassium 50 mg 02/22/25 10:00 02/22/25 10:38 Losartan Potassium 50 Mg Tablet PO 03/24/25 09:59 50 mg DAILY REMBERTO Administration Ondansetron HCl 4 mg 02/21/25 19:49 Ondansetron Hcl 4 Mg/2 Ml Vial IV 03/23/25 19:48 Q6H PRN PRN NAUSEA/VOMITING Pantoprazole Sodium 40 mg 02/22/25 22:00 02/22/25 21:43 Pantoprazole 40 Mg Vial IV 03/23/25 19:59 40 mg HS REMBERTO Administration Discontinued Medications Generic Name Dose Route Start Last Admin Trade Name Freq PRN Reason Stop Dose Admin Azithromycin Confirm 02/21/25 18:54 Azithromycin Inj Administered 02/21/25 18:55 Dose 500 mg IV .STK-MED ONE Bisacodyl 10 mg 02/23/25 09:00 02/23/25 09:44 Bisacodyl 5 Mg Tablet.Ec PO 02/23/25 09:01 10 mg NOW ONE Administration Sodium Chloride 1,000 mls @ 150 mls/hr 02/21/25 15:23 02/21/25 20:10 Sodium Chloride 0.9% 1000 Ml IV 02/21/25 22:02 Infused .Q6H40M STA Infusion Sodium Chloride Confirm 02/21/25 15:31 Sodium Chloride 0.9% 1000 Ml Administered 02/21/25 15:32 Dose 1,000 mls @ ud .ROUTE .STK-MED ONE Ceftriaxone Sodium 1 gm in 100 mls @ 200 mls/hr 02/21/25 18:04 02/21/25 18:07 Rocephin 1 Gm / 100 Ml Nacl IV 02/21/25 18:33 200 mls/hr STAT ONE 200 mls/hr Administration Azithromycin 500 mg/ Sodium 250 mls @ 250 mls/hr 02/22/25 10:00 02/21/25 19:02 Chloride IV 03/24/25 09:59 250 mls/hr Q24H10 REMBERTO Administration Ceftriaxone Sodium Confirm 02/21/25 18:06 Rocephin 1 Gm / 100 Ml Nacl Administered 02/21/25 18:07 Dose 1 gm in 100 mls @ ud IV .STK-MED ONE Sodium Chloride 1,000 mls @ 100 mls/hr 02/21/25 18:48 02/21/25 21:08 Sodium Chloride 0.9% 1000 Ml IV 02/22/25 04:47 75 mls/hr .Q10H STA Administration Sodium Chloride Confirm 02/21/25 18:54 Sodium Chloride 0.9% 250 Ml Administered 02/21/25 18:55 Dose 250 mls @ ud IV .STK-MED ONE Potassium Chloride 20 meq in 100 mls @ 50 mls/hr 02/21/25 19:52 02/21/25 21:08 Potassium Chloride 20 Meq In Water 100ml IV 02/21/25 21:51 50 mls/hr STAT ONE Administration Magnesium Sulfate/Dextrose Confirm 02/21/25 21:22 Magnesium 1 Gm / 100 Ml D5w Administered 02/21/25 21:23 Dose 100 mls @ ud IV .STK-MED ONE Magnesium Sulfate/Water Confirm 02/21/25 21:37 Magnesium Sulf 2 G/50 Ml Bag Administered 02/21/25 21:38 Dose 2 gm in 50 mls @ ud IV .STK-MED ONE Magnesium Sulfate/Water 2 gm in 50 mls @ 100 mls/hr 02/21/25 21:55 02/21/25 21:58 Magnesium Sulf 2 G/50 Ml Bag IV 02/21/25 22:24 100 mls/hr ONCE ONE Administration Potassium Chloride 20 meq in 100 mls @ 50 mls/hr 02/22/25 01:47 02/22/25 01:51 Potassium Chloride 20 Meq In Water 100ml IV 02/22/25 03:46 50 mls/hr STAT ONE Administration Magnesium Sulfate 2 gm 02/21/25 20:00 02/21/25 21:56 Magnesium Sulfate Injection IV 02/21/25 20:01 Not Given ONCE ONE Methotrexate 5 mg 02/21/25 20:00 Methotrexate Sodium 2.5 Mg Tablet PO 03/23/25 19:59 WEEKLY REMBERTO Methotrexate 5 mg 02/27/25 10:00 Methotrexate Sodium 2.5 Mg Tablet PO 03/29/25 09:59 WEEKLY REMBERTO Non-Formulary Medication 1 each 02/22/25 10:00 Losartan/Hydrochlorothiazide [Losartan-Hctz 50-12.5 Mg Tab] PO 03/24/25 09:59 DAILY REMBERTO Non-Formulary Medication 1 each 02/21/25 19:52 Pharmacy Dosing Request [facility] 02/21/25 19:53 STAT ONE Pantoprazole Sodium 40 mg 02/21/25 20:00 02/21/25 21:32 Pantoprazole 40 Mg Vial IV 03/23/25 19:59 40 mg Q24H REMBERTO Administration Assessment/Plan (1) Symptomatic anemia Current Visit: No Status: Acute Code(s): D64.9 - ANEMIA, UNSPECIFIED (2) Hx of pulmonary embolus Current Visit: Yes Status: Acute Code(s): Z86.711 - PERSONAL HISTORY OF PULMONARY EMBOLISM (3) Pneumonia Current Visit: Yes Status: Acute Code(s): J18.9 - PNEUMONIA, UNSPECIFIED ORGANISM (4) Melena Current Visit: Yes Status: Acute Code(s): K92.1 - MELENA (5) Edema of both lower extremities Current Visit: Yes Status: Acute Code(s): R60.0 - LOCALIZED EDEMA (6) Abdominal pain Current Visit: Yes Status: Acute Code(s): R10.9 - UNSPECIFIED ABDOMINAL PAIN (7) Underweight (BMI < 18.5) Current Visit: Yes Status: Acute Code(s): R63.6 - UNDERWEIGHT; Z68.1 - BODY MASS INDEX [BMI] 19.9 OR LESS, ADULT (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 Code(s): Z85.72 - PERSONAL HISTORY OF NON-HODGKIN LYMPHOMAS (9) Chronic renal failure Current Visit: No Status: Acute (10) Generalized weakness Current Visit: No Status: Chronic Code(s): R53.1 - WEAKNESS (11) Dehydration Current Visit: Yes Status: Acute Code(s): E86.0 - DEHYDRATION (12) Hypokalemia Current Visit: Yes Status: Resolved Code(s): E87.6 - HYPOKALEMIA (13) Hypomagnesemia Current Visit: Yes Status: Resolved Assessment & Plan: (1) Symptomatic anemia Current Visit: No Status: Acute Assessment & Plan: - Hgb 7.1 this AM - repeat 7.2 - H& H Q6 - Transfuse if Hgb <7 - GS consult - Protonix 02/23 - Hgb 7.9 - Plan is for EGD colonoscopy tomorrow with GS- NPO at midnight- prep to start today. Code(s): D64.9 - ANEMIA, UNSPECIFIED (2) Hx of pulmonary embolus Current Visit: Yes Status: Acute Assessment & Plan: - Dx 1 month ago and started on Eliquis - Eliquis on hold d/t anemia - BLLE + edema, warm, painful- VD of BLLE. - ECHO results pending Code(s): Z86.711 - PERSONAL HISTORY OF PULMONARY EMBOLISM (3) Pneumonia Current Visit: Yes Status: Acute Assessment & Plan: - IV antibiotics. - Sputum culture- pending - Mucinex. - Ambulatory O2 assessment. - 2L NC 93%- BL RA - CBC reviewed - BC x2 negative - Sputum culture pending - CXR reviewed 02/23 - 2lNC 91% - CBC reviewed Code(s): J18.9 - PNEUMONIA, UNSPECIFIED ORGANISM (4) Melena Current Visit: Yes Status: Acute Assessment & Plan: - Occult stool pending - CT abd/pelvis - GS consult - Hgb 7.1 this AM- transfuse if < 7 - H& H Q6 - Dosing of Eliquis may be of concern 02/23 - Hgb 7.9 - EGD Colonoscopy in AM with GS Code(s): K92.1 - MELENA (5) Edema of both lower extremities Current Visit: Yes Status: Acute Assessment & Plan: - Venous duplex BLLE - If VD negative will place TEDS Code(s): R60.0 - LOCALIZED EDEMA (6) Abdominal pain Current Visit: Yes Status: Acute Assessment & Plan: - CT abd pelvis- reviewed- possible ileus- GS consulted - NPO - GS consult - Pain only increased with palpation 02/23 - GS started clears and bowel prep today Code(s): R10.9 - UNSPECIFIED ABDOMINAL PAIN (7) Underweight (BMI < 18.5) Current Visit: Yes Status: Acute Assessment & Plan: - Nutrition consult - Consider Ensure high protein when not NPO - Consider restarting Remeron 02/23 - Ensure clear started Code(s): R63.6 - UNDERWEIGHT; Z68.1 - BODY MASS INDEX [BMI] 19.9 OR LESS, ADULT (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 Code(s): R53.1 - WEAKNESS (11) Dehydration Current Visit: Yes Status: Acute Assessment & Plan: - CMP reviewed - anion gap 10.4- OK - At baseline renal function - IVF Code(s): E86.0 - DEHYDRATION (12) Hypokalemia Current Visit: Yes Status: Resolved Assessment & Plan: - resolved Code(s): E87.6 - HYPOKALEMIA (13) Hypomagnesemia Current Visit: Yes Status: Resolved Assessment & Plan: - resolved Code(s): E83.42 - HYPOMAGNESEMIA (14) Confusion state Current Visit: Yes Status: Acute Assessment & Plan: - Started last night per nursing note. - Daughter asked that she be called if pt is confused. - CT head- reviewed- no acute concerns - Lights on during the day and blinds open. VTE: On hold PPI: Protonix Next of KIN: Daughter D/C plan: 2-3 days Code status: Full Code(s): F44.89 - OTHER DISSOCIATIVE AND CONVERSION DISORDERS
[2025-02-23] MEDS: VENTOLIN COMMON CANISTER IH PRN (11:55)
[2025-02-23] MEDS: PHARMACY DOSING REQUEST MC ONE (12:26)
[2025-02-23] MEDS: PHARMACY RENAL DOSING MC ONE (12:41)
[2025-02-23] MEDS ORDERED: solu-MEDROL 40 MG, Sterile H2O 10 ml 1 ML IV SCH ×2 (13:51→22:00)
[2025-02-23] MEDS ORDERED: DUONEB 0.5-3 MG/3 ml Neb IH PRN (15:25)
[2025-02-23] MEDS: solu-MEDROL 40 MG, Sterile H2O 10 ml 1 ML IV SCH (15:53)
[2025-02-23] MEDS: Pain Relieving Rub TOP PRN (16:05)
--- NOTE | 2025-02-23 16:17 | XRAY ---
Indication: Increasing short of breath. Comparison: February 21, 2025 Portable chest demonstrates new diffuse right lung consolidating/nonconsolidating airspace disease with small effusion and new left upper lobe groundglass airspace disease without large effusion. Heart not enlarged.
[2025-02-23 16:47] LABS: IFOB TEST RESULTS POSITIVE (NEGATIVE)
[2025-02-23] MEDS: GAVILAX PO SCH ×2 (17:10→21:25)
[2025-02-23] MEDS: Advair Hfa 115/21 Common canister IH SCH (18:58)
--- NOTE | 2025-02-23 20:48 | CONS ---
HISTORY: A 74-year-old female who had a prior history of some T-cell lymphoma, chronic renal insufficiency, chronic anemia, with some hypertension. She had been on some Eliquis for some nonspecific T-wave abnormalities. She had some recent diagnosis. She came in with complaint of pneumonia at this time and some weakness. She has had 1 episode of some dark stools, although she said she had taken some medication for her bowels that she thought turned that color. PAST SURGICAL HISTORY: She had cholecystectomy in the past, had D and C in the past, had some skin cancer removed in the past. HOME MEDICATIONS: Medications prior to admission were vitamin D3, vitamin B12, Losartan, hydrochlorothiazide, Trexall, albuterol sulfate, bumetanide. She had been on some Eliquis. It is unclear exactly when her last dosage was. ALLERGIES: No known drug allergies. FAMILY HISTORY: Father had colon cancer. SOCIAL HISTORY: No smoking or alcohol abuse. REVIEW OF SYSTEMS: Twelve systems reviewed. Appropriate as noted above and peer my assessment. She had some weakness and anemia as well as a pneumonia. She had some other chronic medical problems mentioned above. Continued medical management of her vitamin deficiency and her history of lymphoma and renal insufficiency. Otherwise, continue antibiotics for pneumonia. She seems to be hemodynamically stable right at the moment. She does not need any emergent surgical intervention. LABORATORY DATA AND TESTS: Initially, they had mentioned the hemoglobin being 4, but it looks like it was 7.1 or so initially according to the staff. It looks like it was 7.2 this afternoon. Hematocrit was 22. She denies any bright bloody stools at this point. Her INR was okay. She is on some antibiotics for the pneumonia here. PHYSICAL EXAMINATION: GENERAL: No acute distress. HEENT: Sclerae nonicteric. NECK: No JVD. CHEST: Equal excursion. Nonlabored breathing. ABDOMEN: Soft, nontender. No peritoneal signs. EXTREMITIES: No edema. NEUROLOGIC: Alert. PSYCHIATRIC: Appropriate mood and affect. IMPRESSION: A 74-year-old patient with a history of pneumonia, history of some anemia and some weakness, history of some renal insufficiency in the past. I feel that if she is stable medically from the pneumonia standpoint, which she seems to be at the moment, as she has not had prior endoscopy in the past, and she has had a prior history of dark stools whether it was related to medication or related to upper GI source such as peptic ulcer disease, gastritis, or colon source, she does have a family history of a father with colon cancer, feel she would benefit from EGD and colonoscopy this admission if she is stable from a medical standpoint from the pneumonia standpoint. Risks were explained in detail including bleeding, infection, risk of bowel injury, perforation, risk of missed or non-diagnosis, risk of incomplete exam, general risk of anesthesia sedation, risk of bowel prep, not limited to. She seems to be agreeable with her family at the bedside right at this time. She will be on full liquids today and clear liquids tomorrow. She will have a MiraLAX bowel prep tomorrow evening. We will double check. Enrique wants just doing cases here on . We will see if he has time to proceed on . If not, then myself or one of my partners could do it later in the evening.
[2025-02-24 04:55] LABS: Hematocrit 20.8 % (34.1-44.9); Mean Cell Volume 83.2 fL (79.4-94.8); Mean Corpuscular Hemoglobin 27.2 pg (25.6-32.2); Mean Corpuscular Hgb Concent. 32.7 g/dL (32.2-35.5); Mean Platelet Volume 9.7 fL (9.4-12.3); Platelet Count 161 x10^3/uL (182-369); Red Cell Distribution Width 18.7 % (11.7-14.4); White Blood Count 2.1 x10^3/uL (3.98-10.04)
[2025-02-24 05:02] LABS: Hemoglobin 6.8 g/dL (11.2-15.7)
[2025-02-24 05:28] LABS: ALBUMIN 2.2 g/dL (3.5-5.0); ANION GAP 15.7 MEQ/L (5-15); BILIRUBIN,TOTAL 0.3 mg/dL (0.2-1.3); Calcium 9.1 mg/dL (8.4-10.2); Creatinine 1 1.36 mg/dL (0.52-1.04); EST GLOMERULAR FILTRATION RATE 40.4 ML/MIN; Total Protein 4.5 g/dL (6.3-8.2)
[2025-02-24] MEDS: POTASSIUM CHLORIDE 20 mEq IN WATER 100ML 20 MEQ/100 ML BAG IV SCH (05:56)
[2025-02-24 06:20] LABS: Slide Review YES
[2025-02-24 07:04] LABS: ABO TYPING B; Antibody Screen NEGATIVE (NEGATIVE); RH TYPING NEGATIVE
[2025-02-24 07:06] LABS: CROSS MATCH (PRBC) COMPATIBLE (COMPATIBLE)
[2025-02-24] MEDS ORDERED: HUMALOG SQ PRN (07:40)
[2025-02-24 08:08] LABS: CROSS MATCH (PRBC) COMPATIBLE (COMPATIBLE)
--- NOTE | 2025-02-24 11:39 | PCM.NOTE ---
Date and Time: 02/24/25 1132 Subjective Assessment: 02/22/25 A 74-year-old female with a history of large T-cell lymphoma, chronic kidney disease (CKD), chronic anemia secondary to CKD, hypertension (without a history of coronary artery disease and with a recent evaluation by Dr. Wood attributing nonspecific T-wave abnormalities on EKG to hyperventilation), possible congestive heart failure (on Bumex for chronic leg edema with an upcoming outpatient echocardiogram), and a recent pneumonia diagnosis approximately three weeks ago (treated with antibiotics), presented to the ED with 2448 hours of abdominal cramping, vomiting with possible hematemesis, dark bowel movements, diarrhea, a productive cough with clear sputum, exertional fatigue, and generalized weakness. She noted having consumed red Gatorade recently. She is on blood thinners currently for multiple PE's dx 1 moth ago. She has never undergone an endoscopy. In the ED, her hemoglobin was at baseline, though the chest X-ray showed worsening infiltrates. The patient appeared very weak and underweight during assessment, resting in bed on 02/22. She admitted to poor oral intake due to a lack of appetite. Her daughter, present at the bedside, inquired about restarting Remeron, which the patient had previously taken with good results over two years ago. Nutrition was consulted. The patient is currently NPO in preparation for a CT abdomen/pelvis to evaluate for melena and abdominal pain, and General Surgery was consulted for possible EGD and colonoscopy. Hemoglobin was noted to be 7.1; H&H checks were ordered every six hours, with plans to transfuse if hemoglobin drops below 7. Occult blood testing is pending, though the patient reports dark, tarry stools. She also has a family history of colorectal cancer (father). The patient reported bilateral lower extremity pain and edema for the past month following a diagnosis of bilateral pulmonary emboli. Her legs were warm on exam, and a venous duplex of both lower extremities was ordered. Her daughter mentioned possibly misdosing Eliquis, stating she had been administering 10 mg twice daily for longer than recommended accidentally and had not reduced to 5 mg BID as instructed. Eliquis has been held due to concern for melena and hematemesis. Protonix was started on admission. Antibiotics for pneumonia continued. She remains on 2L nasal cannula at 93%, baseline (room air). The patient denies chest pain, shortness of breath, nausea, vomiting, or diarrhea at this time. 02/23/25 The patient was found resting in bed and is now awake and alert with the lights on in the room. She was noted to be very confused earlier this morning and was initially not agreeable to having labs drawn. According to the nursing note, the confusion began overnight. The patients daughter reported that this change in mental status is not typical and expressed concern that she had not been contacted. There is no documentation indicating that the overnight provider was informed of the new-onset confusion. A head CT was ordered this morning to evaluate the change in mental status, which revealed chronic lacunar infarcts in the left basal ganglia and left external capsule, with no acute abnormalities. After speaking with her daughter, the patient became agreeable to having labs drawn. The daughter also shared that the patient is underweight and cannot tolerate regular Ensure protein drinks but is willing to drink Ensure Clear, which has now been ordered with meals. Occult stool testing is pending today. The patient is scheduled for EGD and colonoscopy tomorrow with General Surgery, and bowel prep is set to begin today. IV fluids are to be continued. A venous duplex study performed yesterday was negative, and TEDS have been placed. Blood cultures x2 remain negative. On exam, the patient showed no focal neurological deficits after returning from the head CT. Additionally, the patient reports left thigh muscle pain and was unable to lift her leg during the neurological exam due to discomfort. No bruising or visible abnormalities were noted on physical exam. She denies any further concerns at this time. A CT abdomen performed yesterday revealed findings concerning for possible ileus versus enteritis. Surgery was consulted for evaluation, and they recommended initiating a clear liquid diet, which has since been started. 02/24/25 The patient is awake and alert today and did not experience any confusion overnight. Her daughter stayed with her throughout the night and reported no changes in mental status. This morning, the patient was found to have a positive occult stool test and a hemoglobin level of 6.8. Two units of PRBCs have been ordered, with Lasix to be given after each unit to prevent fluid overload. Notably, the patient developed crackles yesterday evening, prompting discontinuation of IV fluids. Bilateral lower extremity edema has improved with the use of TEDS. Last night, the nurse notified the provider of increased shortness of breath, and the patients oxygen requirement was increased to 3L via nasal cannula. As of today, she is back down to 2L, maintaining an oxygen saturation of 95%. Steroids were started at the time of increased respiratory symptoms. This morning, the patients glucose was elevated secondary to steroid use, and a sliding scale Humalog regimen along with accuchecks before meals and at bedtime have been added. Potassium was low at 3.0 and has been replaced. The patient is scheduled for an EGD and colonoscopy later today. She is agreeable to receiving home health care upon discharge and currently denies any further concerns. - Review of Systems Constitutional: Weakness, No Fever, No Chills Eyes: No Symptoms Ears, Nose, & Throat: No Symptoms Respiratory: Short Of Breath, No Cough Cardiac: No Chest Pain, No Edema, No Syncope Abdominal/Gastrointestinal: No Abdominal Pain, No Nausea, No Vomiting, No Diarrhea Genitourinary Symptoms: No Dysuria Musculoskeletal: No Back Pain, No Neck Pain Skin: No Rash Neurological: No Dizziness, No Focal Weakness, No Sensory Changes Psychological: No Symptoms Endocrine: No Symptoms Hematologic/Lymphatic: No Symptoms Immunological/Allergic: No Symptoms Objective Exam General Appearance: no apparent distress, alert, cachetic, thin Neurologic Exam: alert, oriented x 3, cooperative, normal mood/affect, nml cerebellar function, sensation nml, No motor deficits Skin Exam: warm, dry, pale Eye Exam: PERRL, EOMI, eyes nml inspection Ears, Nose, Throat Exam: normal ENT inspection, pharynx normal, moist mucous membranes Neck Exam: normal inspection, non-tender, supple, full range of motion Respiratory Exam: normal breath sounds, lungs clear, No respiratory distress Cardiovascular Exam: regular rate/rhythm, normal heart sounds Gastrointestinal/Abdomen Exam: soft, No tenderness, No mass Extremity Exam: normal inspection, normal range of motion Back Exam: normal inspection, normal range of motion, No CVA tenderness, No vertebral tenderness Pelvic Exam: deferred Rectal Exam: deferred Objective Data Vital Signs: Vital Signs - 24 hr Temp Pulse Resp BP Pulse Ox 02/24/25 08:00 96.9 F 51 L 28 H 110/50 98 02/24/25 07:42 48 L 16 99 02/24/25 04:00 96.9 F 48 L 16 94/52 95 02/24/25 00:00 96.9 F 63 18 93/44 100 02/23/25 20:00 97.6 F 67 19 80/52 96 02/23/25 18:58 60 18 98 02/23/25 15:46 98.8 F 75 16 111/53 96 02/23/25 12:00 98.8 F 75 16 111/53 96 02/23/25 11:59 78 18 95 Pain Assessment - Last Documented Pain Intensity 0 Intake and Output: Intake & Output 02/21/25 02/22/25 02/23/25 02/24/25 11:59 11:59 11:59 11:59 Intake Total 1581 3155 3069 Output Total 400 350 400 Balance 1181 2805 2669 Weight 46.7 kg Lab Results: Lab Results-Last 24 Hours 02/23/25 02/24/25 02/24/25 Range/Units 16:25 04:40 04:40 WBC 2.1 L (3.98-10.04) x10^3/uL RBC 2.50 L (3.93-5.22) x10^6/uL Hgb 6.8 L* (11.2-15.7) g/dL Hct 20.8 L (34.1-44.9) % MCV 83.2 (79.4-94.8) fL MCH 27.2 (25.6-32.2) pg MCHC 32.7 (32.2-35.5) g/dL RDW 18.7 H (11.7-14.4) % Plt Count 161 L (182-369) x10^3/uL MPV 9.7 (9.4-12.3) fL Smear Path Review Pending Sodium 133 L (135-145) mmol/L Potassium 3.0 L* D (3.5-5.1) mmol/L Chloride 103 (98-107) mmol/L Carbon Dioxide 17 L (22-30) mmol/L Anion Gap 15.7 H (5-15) MEQ/L BUN 21 H (7-17) mg/dL Creatinine 1.36 H (0.52-1.04) mg/dL Estimated GFR 40.4 ML/MIN Glucose 175 H (74-106) mg/dL Hemoglobin A1c (4.5-6.0) % Calcium 9.1 (8.4-10.2) mg/dL Magnesium (1.6-2.3) mg/dL Total Bilirubin 0.30 (0.2-1.3) mg/dL AST 34 (14-36) U/L ALT 24 (0-35) U/L Alkaline Phosphatase 52 (38-126) U/L Serum Total Protein 4.5 L (6.3-8.2) g/dL Albumin 2.2 L (3.5-5.0) g/dL Stl Occult Blood (IFOB) POSITIVE A (NEGATIVE) Slides for Path Review YES ABO Group Rh Factor Antibody Screen (NEGATIVE) Crossmatch (COMPATIBLE) 02/24/25 02/24/25 02/24/25 Range/Units 04:40 05:30 05:30 WBC (3.98-10.04) x10^3/uL RBC (3.93-5.22) x10^6/uL Hgb (11.2-15.7) g/dL Hct (34.1-44.9) % MCV (79.4-94.8) fL MCH (25.6-32.2) pg MCHC (32.2-35.5) g/dL RDW (11.7-14.4) % Plt Count (182-369) x10^3/uL MPV (9.4-12.3) fL Smear Path Review Sodium (135-145) mmol/L Potassium (3.5-5.1) mmol/L Chloride (98-107) mmol/L Carbon Dioxide (22-30) mmol/L Anion Gap (5-15) MEQ/L BUN (7-17) mg/dL Creatinine (0.52-1.04) mg/dL Estimated GFR ML/MIN Glucose (74-106) mg/dL Hemoglobin A1c (4.5-6.0) % Calcium (8.4-10.2) mg/dL Magnesium (1.6-2.3) mg/dL Total Bilirubin (0.2-1.3) mg/dL AST (14-36) U/L ALT (0-35) U/L Alkaline Phosphatase (38-126) U/L Serum Total Protein (6.3-8.2) g/dL Albumin (3.5-5.0) g/dL Stl Occult Blood (IFOB) (NEGATIVE) Slides for Path Review ABO Group B Rh Factor NEGATIVE Antibody Screen NEGATIVE (NEGATIVE) Crossmatch COMPATIBLE COMPATIBLE (COMPATIBLE) 02/24/25 Range/Units 05:35 WBC (3.98-10.04) x10^3/uL RBC (3.93-5.22) x10^6/uL Hgb (11.2-15.7) g/dL Hct (34.1-44.9) % MCV (79.4-94.8) fL MCH (25.6-32.2) pg MCHC (32.2-35.5) g/dL RDW (11.7-14.4) % Plt Count (182-369) x10^3/uL MPV (9.4-12.3) fL Smear Path Review Sodium (135-145) mmol/L Potassium (3.5-5.1) mmol/L Chloride (98-107) mmol/L Carbon Dioxide (22-30) mmol/L Anion Gap (5-15) MEQ/L BUN (7-17) mg/dL Creatinine (0.52-1.04) mg/dL Estimated GFR ML/MIN Glucose (74-106) mg/dL Hemoglobin A1c (4.5-6.0) % Calcium (8.4-10.2) mg/dL Magnesium 1.8 (1.6-2.3) mg/dL Total Bilirubin (0.2-1.3) mg/dL AST (14-36) U/L ALT (0-35) U/L Alkaline Phosphatase (38-126) U/L Serum Total Protein (6.3-8.2) g/dL Albumin (3.5-5.0) g/dL Stl Occult Blood (IFOB) (NEGATIVE) Slides for Path Review ABO Group Rh Factor Antibody Screen (NEGATIVE) Crossmatch (COMPATIBLE) Radiology Exams: Radiology Procedures Category Date Time Status CHEST 1 VIEW (PORTABLE) Routine Exams 02/23/25 15:27 Completed HEAD WITHOUT CONTRAST [CT] Routine Exams 02/23/25 07:42 Completed Medications: Medications Generic Name Dose Route Start Last Admin Trade Name Freq PRN Reason Stop Dose Admin Acetaminophen 650 mg 02/21/25 18:48 Acetaminophen 650 Mg Supp.Rect LA 03/23/25 18:47 Q4H PRN PRN PAIN AND/OR FEVER Acetaminophen 325 mg 02/21/25 19:49 02/22/25 10:26 Acetaminophen 325 Mg Tablet PO 03/23/25 19:48 325 mg Q4H PRN PRN Administration PAIN, FEVER, HEADACHE Albuterol/Ipratropium 3 ml 02/23/25 15:25 Ipratropium/Albuterol Sulfate 3 Ml Ampul.Neb IH 03/25/25 15:24 Q4HPRN PRN SHORTNESS OF BREATH/WHEEZING Cholecalciferol 5,000 unit 02/22/25 10:00 02/23/25 09:44 Cholecalciferol (Vitamin D3) 1000 Unit Tablet PO 03/24/25 09:59 5,000 unit DAILY REMBERTO Administration Methylprednisolone Sodium 0 mg 02/23/25 15:40 02/24/25 09:14 Succinate 40 mg/ Sterile Water IV 03/25/25 15:39 40 mg 1 ml Q12HT REMBERTO Administration Cyanocobalamin 1,000 mcg 02/22/25 10:00 02/23/25 09:44 Cyanocobalamin 500 Mcg Tablet PO 03/24/25 09:59 1,000 mcg DAILY REMBERTO Administration Guaifenesin 600 mg 02/21/25 22:00 02/23/25 21:28 Guaifenesin 600 Mg Tablet Er PO 03/23/25 21:59 600 mg BID REMBERTO Administration Ceftriaxone Sodium 2 gm in 100 mls @ 200 mls/hr 02/22/25 22:00 02/23/25 21:32 Rocephin 2 Gm/100 Ml Nacl IV 03/24/25 21:59 200 mls/hr HS REMBERTO Administration Azithromycin 500 mg/ Sodium 250 mls @ 250 mls/hr 02/22/25 22:00 02/23/25 22:12 Chloride IV 03/24/25 09:59 250 mls/hr HS REMBERTO Administration Sodium Chloride 500 mls @ 25 mls/hr 02/24/25 07:45 Sodium Chloride 0.9% 500 Ml IV 03/26/25 07:44 .Q20H REMBERTO Insulin Human Lispro 0 unit 02/24/25 07:40 Insulin Lispro 1 Unit SQ 03/26/25 07:39 UD PRN HYPERGLYCEMIA Lactobacillus Acidophilus 1 tab 02/22/25 10:00 02/23/25 09:44 Lactobacillus Acidophilus 1 Tab Tablet PO 03/24/25 09:59 1 tab DAILY REMBERTO Administration Methyl Salicylate 0 gm 02/23/25 10:54 02/23/25 16:05 Methyl Salicylate/Menthol 85 Gm Cream TOP 03/25/25 10:53 85 gm .3-4 TIMES DAILY PRN PRN Administration Ondansetron HCl 4 mg 02/21/25 19:49 Ondansetron Hcl 4 Mg/2 Ml Vial IV 03/23/25 19:48 Q6H PRN PRN NAUSEA/VOMITING Pantoprazole Sodium 40 mg 02/22/25 22:00 02/23/25 21:29 Pantoprazole 40 Mg Vial IV 03/23/25 19:59 40 mg HS REMBERTO Administration Fluticasone/Salmeterol 2 puff 02/23/25 19:00 02/24/25 07:38 Fluticasone/Salmeterol 115/21 60 Puff Aer.W.Adap 03/25/25 18:59 2 puff BIDRT REMBERTO Administration Sodium Bicarbonate 650 mg 02/24/25 10:00 Sodium Bicarbonate 650 Mg Tablet PO 03/26/25 09:59 BID REMBERTO Discontinued Medications Generic Name Dose Route Start Last Admin Trade Name Freq PRN Reason Stop Dose Admin Albuterol Sulfate 2 puff 02/21/25 19:47 02/23/25 11:55 Albuterol Common Canister Inhaler 03/23/25 19:46 2 puff Q4-6HPRN PRN Administration SHORTNESS OF BREATH Azithromycin Confirm 02/21/25 18:54 Azithromycin Inj Administered 02/21/25 18:55 Dose 500 mg IV .STK-MED ONE Bisacodyl 10 mg 02/23/25 09:00 02/23/25 09:44 Bisacodyl 5 Mg Tablet.Ec PO 02/23/25 09:01 10 mg NOW ONE Administration Methylprednisolone Sodium 0 mg 02/23/25 22:00 Succinate 40 mg/ Sterile Water IV 03/25/25 21:59 1 ml Q12HT REMBERTO Methylprednisolone Sodium 0 mg 02/23/25 13:51 Succinate 40 mg/ Sterile Water IV 03/25/25 13:50 1 ml Q12HT REMBERTO Furosemide 20 mg 02/24/25 07:35 Furosemide 20 Mg/Vial IV 02/24/25 07:36 AFTER EA UNIT BLOOD ONE Hydrochlorothiazide 12.5 mg 02/22/25 10:00 02/23/25 11:23 Hydrochlorothiazide 25 Mg Tablet PO 03/24/25 09:59 Not Given DAILY REMBERTO Sodium Chloride 1,000 mls @ 150 mls/hr 02/21/25 15:23 02/21/25 20:10 Sodium Chloride 0.9% 1000 Ml IV 02/21/25 22:02 Infused .Q6H40M STA Infusion Sodium Chloride Confirm 02/21/25 15:31 Sodium Chloride 0.9% 1000 Ml Administered 02/21/25 15:32 Dose 1,000 mls @ ud .ROUTE .STK-MED ONE Ceftriaxone Sodium 1 gm in 100 mls @ 200 mls/hr 02/21/25 18:04 02/21/25 18:07 Rocephin 1 Gm / 100 Ml Nacl IV 02/21/25 18:33 200 mls/hr STAT ONE 200 mls/hr Administration Azithromycin 500 mg/ Sodium 250 mls @ 250 mls/hr 02/22/25 10:00 02/21/25 19:02 Chloride IV 03/24/25 09:59 250 mls/hr Q24H10 REMBERTO Administration Ceftriaxone Sodium Confirm 02/21/25 18:06 Rocephin 1 Gm / 100 Ml Nacl Administered 02/21/25 18:07 Dose 1 gm in 100 mls @ ud IV .STK-MED ONE Sodium Chloride 1,000 mls @ 100 mls/hr 02/21/25 18:48 02/21/25 21:08 Sodium Chloride 0.9% 1000 Ml IV 02/22/25 04:47 75 mls/hr .Q10H STA Administration Sodium Chloride Confirm 02/21/25 18:54 Sodium Chloride 0.9% 250 Ml Administered 02/21/25 18:55 Dose 250 mls @ ud IV .STK-MED ONE Potassium Chloride 20 meq in 100 mls @ 50 mls/hr 02/21/25 19:52 02/21/25 21:08 Potassium Chloride 20 Meq In Water 100ml IV 02/21/25 21:51 50 mls/hr STAT ONE Administration Magnesium Sulfate/Dextrose Confirm 02/21/25 21:22 Magnesium 1 Gm / 100 Ml D5w Administered 02/21/25 21:23 Dose 100 mls @ ud IV .STK-MED ONE Magnesium Sulfate/Water Confirm 02/21/25 21:37 Magnesium Sulf 2 G/50 Ml Bag Administered 02/21/25 21:38 Dose 2 gm in 50 mls @ ud IV .STK-MED ONE Magnesium Sulfate/Water 2 gm in 50 mls @ 100 mls/hr 02/21/25 21:55 02/21/25 21:58 Magnesium Sulf 2 G/50 Ml Bag IV 02/21/25 22:24 100 mls/hr ONCE ONE Administration Potassium Chloride 20 meq in 100 mls @ 50 mls/hr 02/22/25 01:47 02/22/25 01:51 Potassium Chloride 20 Meq In Water 100ml IV 02/22/25 03:46 50 mls/hr STAT ONE Administration Sodium Chloride 1,000 mls @ 50 mls/hr 02/22/25 12:45 02/23/25 12:36 Sodium Chloride 0.9% 1000 Ml IV 03/24/25 12:44 50 mls/hr .Q20H REMBERTO Administration Potassium Chloride 20 meq in 100 mls @ 50 mls/hr 02/24/25 06:00 02/24/25 08:35 Potassium Chloride 20 Meq In Water 100ml IV 02/24/25 09:59 50 mls/hr Q2H REMBERTO Administration Losartan Potassium 50 mg 02/22/25 10:00 02/23/25 11:23 Losartan Potassium 50 Mg Tablet PO 03/24/25 09:59 Not Given DAILY REMBERTO Magnesium Sulfate 2 gm 02/21/25 20:00 02/21/25 21:56 Magnesium Sulfate Injection IV 02/21/25 20:01 Not Given ONCE ONE Methotrexate 5 mg 02/21/25 20:00 Methotrexate Sodium 2.5 Mg Tablet PO 03/23/25 19:59 WEEKLY REMBERTO Methotrexate 5 mg 02/27/25 10:00 Methotrexate Sodium 2.5 Mg Tablet PO 03/29/25 09:59 WEEKLY REMBERTO Non-Formulary Medication 1 each 02/22/25 10:00 Losartan/Hydrochlorothiazide [Losartan-Hctz 50-12.5 Mg Tab] PO 03/24/25 09:59 DAILY REMBERTO Non-Formulary Medication 1 each 02/21/25 19:52 02/23/25 12:41 Pharmacy Dosing Request 02/21/25 19:53 Not Given STAT ONE Non-Formulary Medication 1 each 02/23/25 10:24 02/23/25 12:26 Pharmacy Dosing Request 02/23/25 10:25 Not Given STAT ONE Pantoprazole Sodium 40 mg 02/21/25 20:00 02/21/25 21:32 Pantoprazole 40 Mg Vial IV 03/23/25 19:59 40 mg Q24H REMBERTO Administration Polyethylene Glycol 0 gm 02/23/25 17:00 02/23/25 17:10 Polyethylene Glycol 3350 238 Gm Powder PO 02/23/25 19:00 238 gm .C85--25ZSB REMBERTO Administration Polyethylene Glycol 0 gm 02/23/25 21:00 02/23/25 21:25 Polyethylene Glycol 3350 238 Gm Powder PO 02/23/25 23:00 238 gm .Q15 - 30 MIN REMBERTO Administration Multi-Disciplinary Progress Notes: Multi-Disciplinary Progress Notes 02/24/25 10:29 Case Management Note by Kylah Mitchell REFERRAL FAXED TO [facility]. THEY WILL NEED NOTIFIED AT TIME OF DC AT [phone]. THEY WILL NEED FAXED THE DC INSTRUCTIONS, DC MED LIST AND DC SUMMARY TO [phone] Initialized on 02/24/25 10:29 - END OF NOTE 02/24/25 10:27 Case Management Note by Kylah Mitchell S/W PATIENT AND FAMILY AT BEDSIDE. PATIENT ALERT AND ORIENTED- SHE IS STILL REFUSING REHAB STAY . PATIENT EDUCATED THIS IS THE SAFEST DC PLAN. FAMILY HAS AGREED TO PROVIDE 24 HR CARE AT HOME. PATIENT AGREEABLE TO [facility]. DISCUSSED PROVIDERS. WILL SEND REFERRAL TO [facility]. PATIENT AND FAMILY DENY ANY OTHER NEEDS AT THIS TIME Initialized on 02/24/25 10:27 - END OF NOTE Assessment/Plan (1) Symptomatic anemia Current Visit: No Status: Acute Code(s): D64.9 - ANEMIA, UNSPECIFIED (2) Hx of pulmonary embolus Current Visit: Yes Status: Acute Code(s): Z86.711 - PERSONAL HISTORY OF PULMONARY EMBOLISM (3) Pneumonia Current Visit: Yes Status: Acute Code(s): J18.9 - PNEUMONIA, UNSPECIFIED ORGANISM (4) Melena Current Visit: Yes Status: Acute Code(s): K92.1 - MELENA (5) Edema of both lower extremities Current Visit: Yes Status: Acute Code(s): R60.0 - LOCALIZED EDEMA (6) Abdominal pain Current Visit: Yes Status: Acute Code(s): R10.9 - UNSPECIFIED ABDOMINAL PAIN (7) Underweight (BMI < 18.5) Current Visit: Yes Status: Acute Code(s): R63.6 - UNDERWEIGHT; Z68.1 - BODY MASS INDEX [BMI] 19.9 OR LESS, ADULT (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 Code(s): Z85.72 - PERSONAL HISTORY OF NON-HODGKIN LYMPHOMAS (9) Chronic renal failure Current Visit: No Status: Acute (10) Generalized weakness Current Visit: No Status: Chronic Code(s): R53.1 - WEAKNESS (11) Dehydration Current Visit: Yes Status: Acute Code(s): E86.0 - DEHYDRATION (12) Hypokalemia Current Visit: Yes Status: Resolved Code(s): E87.6 - HYPOKALEMIA (13) Hypomagnesemia Current Visit: Yes Status: Resolved Code(s): E83.42 - HYPOMAGNESEMIA (14) Confusion state Current Visit: Yes Status: Acute Assessment & Plan: (1) Symptomatic anemia Current Visit: No Status: Acute Assessment & Plan: - Hgb 7.1 this AM - repeat 7.2 - H& H Q6 - Transfuse if Hgb <7 - GS consult - Protonix 02/23 - Hgb 7.9 - Plan is for EGD colonoscopy tomorrow with GS- NPO at midnight- prep to start today. 02/24 - Hgb 6.8 - 2 units PRBC ordered - trend Hgb today - CBC, CMP reviewed - Occult stool + Code(s): D64.9 - ANEMIA, UNSPECIFIED (2) Hx of pulmonary embolus Current Visit: Yes Status: Acute Assessment & Plan: - Dx 1 month ago and started on Eliquis - Eliquis on hold d/t anemia - BLLE + edema, warm, painful- VD of BLLE. - ECHO results pending Code(s): Z86.711 - PERSONAL HISTORY OF PULMONARY EMBOLISM (3) Pneumonia Current Visit: Yes Status: Acute Assessment & Plan: - IV antibiotics. - Sputum culture- pending - Mucinex. - Ambulatory O2 assessment. - 2L NC 93%- BL RA - CBC reviewed - BC x2 negative - Sputum culture pending - CXR reviewed 02/23 - 2lNC 91% - CBC reviewed - Steroids started - O2 increased to 3lNC in the evening and IVF stopped d/t crackles heard in bases per nursing - Repeat CXR reviewed 02/24 - 2lNC 95% Code(s): J18.9 - PNEUMONIA, UNSPECIFIED ORGANISM (4) Melena Current Visit: Yes Status: Acute Assessment & Plan: - Occult stool pending - CT abd/pelvis - GS consult - Hgb 7.1 this AM- transfuse if < 7 - H& H Q6 - Dosing of Eliquis may be of concern 02/23 - Hgb 7.9 - EGD Colonoscopy in AM with GS 02/24 - HGB 6.8- 2 units PRBC - EGD/Colonoscopy this afternoon Code(s): K92.1 - MELENA (5) Edema of both lower extremities Current Visit: Yes Status: Acute Assessment & Plan: - Venous duplex BLLE - If VD negative will place TEDS 02/24 - Improved with TEDS Code(s): R60.0 - LOCALIZED EDEMA (6) Abdominal pain Current Visit: Yes Status: Acute Assessment & Plan: - CT abd pelvis- reviewed- possible ileus- GS consulted - NPO - GS consult - Pain only increased with palpation 02/23 - GS started clears and bowel prep today 02/24 - Sxs improving Code(s): R10.9 - UNSPECIFIED ABDOMINAL PAIN (7) Underweight (BMI < 18.5) Current Visit: Yes Status: Acute Assessment & Plan: - Nutrition consult - Consider Ensure high protein when not NPO - Consider restarting Remeron 02/23 - Ensure clear started 02/24 - NPO for procedure today Code(s): R63.6 - UNDERWEIGHT; Z68.1 - BODY MASS INDEX [BMI] 19.9 OR LESS, ADULT (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 02/24 - Per CM agreeable to [facility] at d/c Code(s): R53.1 - WEAKNESS (11) Dehydration Current Visit: Yes Status: Acute Assessment & Plan: - CMP reviewed - Anion gap 10.4- OK - At baseline renal function - IVF 02/24 - IVF stopped last night d/t crackles in bases of lungs - Anion gap 15.7 Code(s): E86.0 - DEHYDRATION (12) Hypokalemia Current Visit: Yes Status: Resolved Assessment & Plan: - K+ 3.0- replaced Code(s): E87.6 - HYPOKALEMIA (13) Hypomagnesemia Current Visit: Yes Status: Resolved Assessment & Plan: - resolved Code(s): E83.42 - HYPOMAGNESEMIA (14) Confusion state Current Visit: Yes Status: Acute Assessment & Plan: - Started last night per nursing note. - Daughter asked that she be called if pt is confused. - CT head- reviewed- no acute concerns - Lights on during the day and blinds open. 02/24 - Resolved Code(s): F44.89 - OTHER DISSOCIATIVE AND CONVERSION DISORDERS Code(s): F44.89 - OTHER DISSOCIATIVE AND CONVERSION DISORDERS (15) Metabolic acidosis Current Visit: Yes Status: Acute Assessment & Plan: - CO2 17- trend - PO sodium bicarb started as she cannot have IV fluids d/t fluid overload risk. Code(s): E87.20 - ACIDOSIS, UNSPECIFIED (16) Hyperglycemia Current Visit: Yes Status: Acute Assessment & Plan: - 2:2 steroids - Accuchecks ac/hs - Humalog s/s - A1c pending VTE: On hold PPI: Protonix Next of KIN: Daughter D/C plan: 1-2 days Code status: Full Code(s): R73.9 - HYPERGLYCEMIA, UNSPECIFIED
[2025-02-24] MEDS: SODIUM BICARBONATE PO SCH (12:02)
[2025-02-24] MEDS: Sodium Chloride 0.9% 500 ML 500 ML IV SCH (12:33)
[2025-02-24] MEDS: Lasix 20 MG/2 ML IV ONE (12:34)
[2025-02-24] MEDS ORDERED: propofoL IV ONE (14:06)
--- NOTE | 2025-02-24 14:08 | PCM.NOTE ---
Date and Time: 02/24/25 1407 Objective Data Vital Signs: Vital Signs - 24 hr Temp Pulse Resp BP Pulse Ox 02/24/25 13:22 97.1 F 52 L 24 105/51 97 02/24/25 12:30 97.1 F 52 L 24 105/51 97 02/24/25 08:00 96.9 F 51 L 28 H 110/50 98 02/24/25 07:42 48 L 16 99 02/24/25 04:00 96.9 F 48 L 16 94/52 95 02/24/25 00:00 96.9 F 63 18 93/44 100 02/23/25 20:00 97.6 F 67 19 80/52 96 02/23/25 18:58 60 18 98 02/23/25 15:46 98.8 F 75 16 111/53 96 Pain Assessment - Last Documented Pain Intensity 0 Intake and Output: Intake & Output 02/22/25 02/23/25 02/24/25 02/25/25 11:59 11:59 11:59 11:59 Intake Total 1581 3155 3069 Output Total 400 350 400 Balance 1181 2805 2669 Weight 46.7 kg 46.7 kg Lab Results: Lab Results-Last 24 Hours 02/23/25 02/24/25 02/24/25 Range/Units 16:25 04:40 04:40 WBC 2.1 L (3.98-10.04) x10^3/uL RBC 2.50 L (3.93-5.22) x10^6/uL Hgb 6.8 L* (11.2-15.7) g/dL Hct 20.8 L (34.1-44.9) % MCV 83.2 (79.4-94.8) fL MCH 27.2 (25.6-32.2) pg MCHC 32.7 (32.2-35.5) g/dL RDW 18.7 H (11.7-14.4) % Plt Count 161 L (182-369) x10^3/uL MPV 9.7 (9.4-12.3) fL Smear Path Review Pending Sodium 133 L (135-145) mmol/L Potassium 3.0 L* D (3.5-5.1) mmol/L Chloride 103 (98-107) mmol/L Carbon Dioxide 17 L (22-30) mmol/L Anion Gap 15.7 H (5-15) MEQ/L BUN 21 H (7-17) mg/dL Creatinine 1.36 H (0.52-1.04) mg/dL Estimated GFR 40.4 ML/MIN Glucose 175 H (74-106) mg/dL Hemoglobin A1c (4.5-6.0) % Calcium 9.1 (8.4-10.2) mg/dL Magnesium (1.6-2.3) mg/dL Total Bilirubin 0.30 (0.2-1.3) mg/dL AST 34 (14-36) U/L ALT 24 (0-35) U/L Alkaline Phosphatase 52 (38-126) U/L Serum Total Protein 4.5 L (6.3-8.2) g/dL Albumin 2.2 L (3.5-5.0) g/dL Stl Occult Blood (IFOB) POSITIVE A (NEGATIVE) Slides for Path Review YES ABO Group Rh Factor Antibody Screen (NEGATIVE) Crossmatch (COMPATIBLE) 02/24/25 02/24/25 02/24/25 Range/Units 04:40 05:30 05:30 WBC (3.98-10.04) x10^3/uL RBC (3.93-5.22) x10^6/uL Hgb (11.2-15.7) g/dL Hct (34.1-44.9) % MCV (79.4-94.8) fL MCH (25.6-32.2) pg MCHC (32.2-35.5) g/dL RDW (11.7-14.4) % Plt Count (182-369) x10^3/uL MPV (9.4-12.3) fL Smear Path Review Sodium (135-145) mmol/L Potassium (3.5-5.1) mmol/L Chloride (98-107) mmol/L Carbon Dioxide (22-30) mmol/L Anion Gap (5-15) MEQ/L BUN (7-17) mg/dL Creatinine (0.52-1.04) mg/dL Estimated GFR ML/MIN Glucose (74-106) mg/dL Hemoglobin A1c (4.5-6.0) % Calcium (8.4-10.2) mg/dL Magnesium (1.6-2.3) mg/dL Total Bilirubin (0.2-1.3) mg/dL AST (14-36) U/L ALT (0-35) U/L Alkaline Phosphatase (38-126) U/L Serum Total Protein (6.3-8.2) g/dL Albumin (3.5-5.0) g/dL Stl Occult Blood (IFOB) (NEGATIVE) Slides for Path Review ABO Group B Rh Factor NEGATIVE Antibody Screen NEGATIVE (NEGATIVE) Crossmatch COMPATIBLE COMPATIBLE (COMPATIBLE) 02/24/25 02/24/25 Range/Units 05:35 13:32 WBC (3.98-10.04) x10^3/uL RBC (3.93-5.22) x10^6/uL Hgb (11.2-15.7) g/dL Hct (34.1-44.9) % MCV (79.4-94.8) fL MCH (25.6-32.2) pg MCHC (32.2-35.5) g/dL RDW (11.7-14.4) % Plt Count (182-369) x10^3/uL MPV (9.4-12.3) fL Smear Path Review Sodium (135-145) mmol/L Potassium 3.7 D (3.5-5.1) mmol/L Chloride (98-107) mmol/L Carbon Dioxide (22-30) mmol/L Anion Gap (5-15) MEQ/L BUN (7-17) mg/dL Creatinine (0.52-1.04) mg/dL Estimated GFR ML/MIN Glucose (74-106) mg/dL Hemoglobin A1c (4.5-6.0) % Calcium (8.4-10.2) mg/dL Magnesium 1.8 (1.6-2.3) mg/dL Total Bilirubin (0.2-1.3) mg/dL AST (14-36) U/L ALT (0-35) U/L Alkaline Phosphatase (38-126) U/L Serum Total Protein (6.3-8.2) g/dL Albumin (3.5-5.0) g/dL Stl Occult Blood (IFOB) (NEGATIVE) Slides for Path Review ABO Group Rh Factor Antibody Screen (NEGATIVE) Crossmatch (COMPATIBLE) Radiology Exams: Radiology Procedures Category Date Time Status CHEST 1 VIEW (PORTABLE) Routine Exams 02/23/25 15:27 Completed HEAD WITHOUT CONTRAST [CT] Routine Exams 02/23/25 07:42 Completed Medications: Medications Generic Name Dose Route Start Last Admin Trade Name Freq PRN Reason Stop Dose Admin Acetaminophen 650 mg 02/21/25 18:48 Acetaminophen 650 Mg Supp.Rect AR 03/23/25 18:47 Q4H PRN PRN PAIN AND/OR FEVER Acetaminophen 325 mg 02/21/25 19:49 02/22/25 10:26 Acetaminophen 325 Mg Tablet PO 03/23/25 19:48 325 mg Q4H PRN PRN Administration PAIN, FEVER, HEADACHE Albuterol/Ipratropium 3 ml 02/23/25 15:25 Ipratropium/Albuterol Sulfate 3 Ml Ampul.Neb IH 03/25/25 15:24 Q4HPRN PRN SHORTNESS OF BREATH/WHEEZING Cholecalciferol 5,000 unit 02/22/25 10:00 02/24/25 12:02 Cholecalciferol (Vitamin D3) 1000 Unit Tablet PO 03/24/25 09:59 Not Given DAILY REMBERTO Methylprednisolone Sodium 0 mg 02/23/25 15:40 02/24/25 09:14 Succinate 40 mg/ Sterile Water IV 03/25/25 15:39 40 mg 1 ml Q12HT REMBERTO Administration Cyanocobalamin 1,000 mcg 02/22/25 10:00 02/24/25 12:02 Cyanocobalamin 500 Mcg Tablet PO 03/24/25 09:59 Not Given DAILY REMBERTO Guaifenesin 600 mg 02/21/25 22:00 02/24/25 12:02 Guaifenesin 600 Mg Tablet Er PO 03/23/25 21:59 Not Given BID REMBERTO Ceftriaxone Sodium 2 gm in 100 mls @ 200 mls/hr 02/22/25 22:00 02/23/25 21:32 Rocephin 2 Gm/100 Ml Nacl IV 03/24/25 21:59 200 mls/hr HS REMBERTO Administration Azithromycin 500 mg/ Sodium 250 mls @ 250 mls/hr 02/22/25 22:00 02/23/25 22:12 Chloride IV 03/24/25 09:59 250 mls/hr HS REMBERTO Administration Sodium Chloride 500 mls @ 25 mls/hr 02/24/25 07:45 02/24/25 12:33 Sodium Chloride 0.9% 500 Ml IV 03/26/25 07:44 25 mls/hr .Q20H REMBERTO Administration Insulin Human Lispro 0 unit 02/24/25 07:40 Insulin Lispro 1 Unit SQ 03/26/25 07:39 UD PRN HYPERGLYCEMIA Lactobacillus Acidophilus 1 tab 02/22/25 10:00 02/24/25 12:02 Lactobacillus Acidophilus 1 Tab Tablet PO 03/24/25 09:59 Not Given DAILY REMBERTO Methyl Salicylate 0 gm 02/23/25 10:54 02/23/25 16:05 Methyl Salicylate/Menthol 85 Gm Cream TOP 03/25/25 10:53 85 gm .3-4 TIMES DAILY PRN PRN Administration Ondansetron HCl 4 mg 02/21/25 19:49 Ondansetron Hcl 4 Mg/2 Ml Vial IV 03/23/25 19:48 Q6H PRN PRN NAUSEA/VOMITING Pantoprazole Sodium 40 mg 02/22/25 22:00 02/23/25 21:29 Pantoprazole 40 Mg Vial IV 03/23/25 19:59 40 mg HS REMBERTO Administration Fluticasone/Salmeterol 2 puff 02/23/25 19:00 02/24/25 07:38 Fluticasone/Salmeterol 115/21 60 Puff Aer.W.Adap 03/25/25 18:59 2 puff BIDRT REMBERTO Administration Sodium Bicarbonate 650 mg 02/24/25 10:00 02/24/25 12:02 Sodium Bicarbonate 650 Mg Tablet PO 03/26/25 09:59 Not Given BID REMBERTO Discontinued Medications Generic Name Dose Route Start Last Admin Trade Name Freq PRN Reason Stop Dose Admin Albuterol Sulfate 2 puff 02/21/25 19:47 02/23/25 11:55 Albuterol Common Canister Inhaler 03/23/25 19:46 2 puff Q4-6HPRN PRN Administration SHORTNESS OF BREATH Azithromycin Confirm 02/21/25 18:54 Azithromycin Inj Administered 02/21/25 18:55 Dose 500 mg IV .STK-MED ONE Bisacodyl 10 mg 02/23/25 09:00 02/23/25 09:44 Bisacodyl 5 Mg Tablet.Ec PO 02/23/25 09:01 10 mg NOW ONE Administration Methylprednisolone Sodium 0 mg 02/23/25 22:00 Succinate 40 mg/ Sterile Water IV 03/25/25 21:59 1 ml Q12HT REMBERTO Methylprednisolone Sodium 0 mg 02/23/25 13:51 Succinate 40 mg/ Sterile Water IV 03/25/25 13:50 1 ml Q12HT REMBERTO Furosemide 20 mg 02/24/25 07:35 02/24/25 12:34 Furosemide 20 Mg/Vial IV 02/24/25 07:36 20 mg AFTER EA UNIT BLOOD ONE Administration Hydrochlorothiazide 12.5 mg 02/22/25 10:00 02/23/25 11:23 Hydrochlorothiazide 25 Mg Tablet PO 03/24/25 09:59 Not Given DAILY REMBERTO Sodium Chloride 1,000 mls @ 150 mls/hr 02/21/25 15:23 02/21/25 20:10 Sodium Chloride 0.9% 1000 Ml IV 02/21/25 22:02 Infused .Q6H40M STA Infusion Sodium Chloride Confirm 02/21/25 15:31 Sodium Chloride 0.9% 1000 Ml Administered 02/21/25 15:32 Dose 1,000 mls @ ud .ROUTE .STK-MED ONE Ceftriaxone Sodium 1 gm in 100 mls @ 200 mls/hr 02/21/25 18:04 02/21/25 18:07 Rocephin 1 Gm / 100 Ml Nacl IV 02/21/25 18:33 200 mls/hr STAT ONE 200 mls/hr Administration Azithromycin 500 mg/ Sodium 250 mls @ 250 mls/hr 02/22/25 10:00 02/21/25 19:02 Chloride IV 03/24/25 09:59 250 mls/hr Q24H10 REMBERTO Administration Ceftriaxone Sodium Confirm 02/21/25 18:06 Rocephin 1 Gm / 100 Ml Nacl Administered 02/21/25 18:07 Dose 1 gm in 100 mls @ ud IV .STK-MED ONE Sodium Chloride 1,000 mls @ 100 mls/hr 02/21/25 18:48 02/21/25 21:08 Sodium Chloride 0.9% 1000 Ml IV 02/22/25 04:47 75 mls/hr .Q10H STA Administration Sodium Chloride Confirm 02/21/25 18:54 Sodium Chloride 0.9% 250 Ml Administered 02/21/25 18:55 Dose 250 mls @ ud IV .STK-MED ONE Potassium Chloride 20 meq in 100 mls @ 50 mls/hr 02/21/25 19:52 02/21/25 21:08 Potassium Chloride 20 Meq In Water 100ml IV 02/21/25 21:51 50 mls/hr STAT ONE Administration Magnesium Sulfate/Dextrose Confirm 02/21/25 21:22 Magnesium 1 Gm / 100 Ml D5w Administered 02/21/25 21:23 Dose 100 mls @ ud IV .STK-MED ONE Magnesium Sulfate/Water Confirm 02/21/25 21:37 Magnesium Sulf 2 G/50 Ml Bag Administered 02/21/25 21:38 Dose 2 gm in 50 mls @ ud IV .STK-MED ONE Magnesium Sulfate/Water 2 gm in 50 mls @ 100 mls/hr 02/21/25 21:55 02/21/25 21:58 Magnesium Sulf 2 G/50 Ml Bag IV 02/21/25 22:24 100 mls/hr ONCE ONE Administration Potassium Chloride 20 meq in 100 mls @ 50 mls/hr 02/22/25 01:47 02/22/25 01:51 Potassium Chloride 20 Meq In Water 100ml IV 02/22/25 03:46 50 mls/hr STAT ONE Administration Sodium Chloride 1,000 mls @ 50 mls/hr 02/22/25 12:45 02/23/25 12:36 Sodium Chloride 0.9% 1000 Ml IV 03/24/25 12:44 50 mls/hr .Q20H REMBERTO Administration Potassium Chloride 20 meq in 100 mls @ 50 mls/hr 02/24/25 06:00 02/24/25 08:35 Potassium Chloride 20 Meq In Water 100ml IV 02/24/25 09:59 50 mls/hr Q2H REMBERTO Administration Losartan Potassium 50 mg 02/22/25 10:00 02/23/25 11:23 Losartan Potassium 50 Mg Tablet PO 03/24/25 09:59 Not Given DAILY REMBERTO Magnesium Sulfate 2 gm 02/21/25 20:00 02/21/25 21:56 Magnesium Sulfate Injection IV 02/21/25 20:01 Not Given ONCE ONE Methotrexate 5 mg 02/21/25 20:00 Methotrexate Sodium 2.5 Mg Tablet PO 03/23/25 19:59 WEEKLY REMBERTO Methotrexate 5 mg 02/27/25 10:00 Methotrexate Sodium 2.5 Mg Tablet PO 03/29/25 09:59 WEEKLY REMBERTO Non-Formulary Medication 1 each 02/22/25 10:00 Losartan/Hydrochlorothiazide [Losartan-Hctz 50-12.5 Mg Tab] PO 03/24/25 09:59 DAILY REMBERTO Non-Formulary Medication 1 each 02/21/25 19:52 02/23/25 12:41 Pharmacy Dosing Request 02/21/25 19:53 Not Given STAT ONE Non-Formulary Medication 1 each 02/23/25 10:24 02/23/25 12:26 Pharmacy Dosing Request 02/23/25 10:25 Not Given STAT ONE Pantoprazole Sodium 40 mg 02/21/25 20:00 02/21/25 21:32 Pantoprazole 40 Mg Vial IV 03/23/25 19:59 40 mg Q24H REMBERTO Administration Polyethylene Glycol 0 gm 02/23/25 17:00 02/23/25 17:10 Polyethylene Glycol 3350 238 Gm Powder PO 02/23/25 19:00 238 gm .[id number] REMBERTO Administration Polyethylene Glycol 0 gm 02/23/25 21:00 02/23/25 21:25 Polyethylene Glycol 3350 238 Gm Powder PO 02/23/25 23:00 238 gm .Q15 - 30 MIN REMBERTO Administration Multi-Disciplinary Progress Notes: Multi-Disciplinary Progress Notes 02/24/25 10:29 Case Management Note by Kylah Mitchell Addendum entered by Kylah Mitchell 02/24/25 12:21: [facility] HAS ACCEPTED Original Note: REFERRAL FAXED TO [facility]. THEY WILL NEED NOTIFIED AT TIME OF DC AT [phone]. THEY WILL NEED FAXED THE DC INSTRUCTIONS, DC MED LIST AND DC SUMMARY TO [phone] Initialized on 02/24/25 10:29 - END OF NOTE 02/24/25 10:27 Case Management Note by Kylah Mitchell S/W PATIENT AND FAMILY AT BEDSIDE. PATIENT ALERT AND ORIENTED- SHE IS STILL REFUSING REHAB STAY . PATIENT EDUCATED THIS IS THE SAFEST DC PLAN. FAMILY HAS AGREED TO PROVIDE 24 HR CARE AT HOME. PATIENT AGREEABLE TO [facility]. DISCUSSED PROVIDERS. WILL SEND REFERRAL TO [facility]. PATIENT AND FAMILY DENY ANY OTHER NEEDS AT THIS TIME Initialized on 02/24/25 10:27 - END OF NOTE Assessment/Plan (1) Melena Current Visit: Yes Status: Acute Assessment & Plan: S: no acute issues overnight. scarlet prep. no roosevelt bleeding. no nv. o nad nonlbaored resps nd, soft,nttp a/p; egd c scope today. hemoccult positive anemia. Code(s): K92.1 - MELENA
[2025-02-24] MEDS ORDERED: ROBINUL ONE (14:15)
[2025-02-24 16:41] LABS: Hematocrit 35.3 % (34.1-44.9)
[2025-02-24 16:48] LABS: Hemoglobin 12.1 g/dL (11.2-15.7)
[2025-02-25 05:09] LABS: Hematocrit 36.5 % (34.1-44.9); Hemoglobin 12.1 g/dL (11.2-15.7); Mean Cell Volume 87.5 fL (79.4-94.8); Mean Corpuscular Hgb Concent. 33.2 g/dL (32.2-35.5); Mean Platelet Volume 10.7 fL (9.4-12.3); Platelet Count 217 x10^3/uL (182-369); Red Blood Count 4.17 x10^6/uL (3.93-5.22); Red Cell Distribution Width 18.5 % (11.7-14.4); White Blood Count 10.3 x10^3/uL (3.98-10.04)
[2025-02-25 05:44] LABS: ALBUMIN 2.5 g/dL (3.5-5.0); BILIRUBIN,TOTAL 0.6 mg/dL (0.2-1.3); Calcium 9.7 mg/dL (8.4-10.2); Creatinine 1 1.36 mg/dL (0.52-1.04); EST GLOMERULAR FILTRATION RATE 40.4 ML/MIN; MAGNESIUM 1.9 mg/dL (1.6-2.3); Potassium 3.7 mmol/L (3.5-5.1); Total Protein 4.7 g/dL (6.3-8.2)
[2025-02-25] MEDS: SODIUM BICARBONATE 50 MEQ/50 ML ABBOJECT IV ONE (06:31)
--- NOTE | 2025-02-25 09:34 | XRAY ---
Indication: Leukocytosis. Short of breath. Comparison: February 23, 2025 Portable chest demonstrates mild clearing previous diffuse right lung and left upper lobe airspace disease. Moderate residual airspace disease right lung base with small effusion. Heart not enlarged. No new cardiopulmonary abnormalities.
[2025-02-25] MEDS: Sodium Bicarbonate 50 MEQ/50 ML VIAL*** 150 MEQ in Dextrose 5%/Water IV Soln. 1000 ML 1... IV SCH (09:38)
--- NOTE | 2025-02-25 09:55 | OP ---
SURGERY DATE/TIME: 02/24/2025 [id number] PREOPERATIVE DIAGNOSIS: Anemia, Hemoccult-positivity, gastrointestinal bleed. POSTOPERATIVE DIAGNOSES: 1) Minimal gastritis. 2) Polypoid lesions at rectosigmoid. PROCEDURE: 1) Esophagogastroduodenoscopy. 2) Colonoscopy with polypectomy. SURGEON: Sanchez Lam MD ANESTHESIA: IV anesthesia. CONDITION: Stable. COMPLICATIONS: None. SPECIMEN: Rectosigmoid polyp and rectal polyp. INDICATION: The patient has been admitted to the hospital with anemia requiring transfusion, Hemoccult positivity, possibility of melena. The patient has not had colonoscopy before. Discussion had with patient's family. They want to proceed with an EGD, colonoscopy. FINDINGS: 1) No source for anemia identified on EGD or colonoscopy. 2) Fair preparation. 3) Polypoid lesions at the rectum, rectosigmoid, removed. DESCRIPTION OF PROCEDURE AND FINDINGS: Patient was brought to the endoscopy suite. Routinely positioned and prepared. IV anesthesia induced by Anesthesia. Gastroscope inserted through the mouth, advanced to the third portion of the duodenum. Duodenum was totally normal. Stomach with just very minimal erythematous gastritis. No source for GI bleed identified. GE junction normal. Esophagus normal. Stomach suctioned out. Scope withdrawn. Digital rectal exam, external exam normal. The scope was inserted, advanced to the terminal ileum. Withdrawal time was greater than 6 minutes. Preparation was an Aronchick fair preparation with over 90% of mucosa visualized. There was just mild diverticulosis. There were no internal hemorrhoids. At the rectosigmoid, there was pedunculated polypoid about 1 cm area of mucosa, might just be inflammatory polyps, taken with a hot snare x3, 1 cm that was at the rectosigmoid and upper rectum at about 10 to 12 cm. Retroflexion was normal. Scope was withdrawn. The patient tolerated the procedure well, was taken to Recovery in stable condition. RECOMMENDATIONS: Return to floor, regular diet. If there is any evidence of acute GI bleed, could consider CT scan, consideration for bleeding scan. If there is continued anemia, Hemoccult positivity, tail endoscopy could be considered. Follow up in office in around 2 weeks for pathology results. Hold therapeutic blood thinner for 10 days. Restart is up to Medicine.
--- NOTE | 2025-02-25 11:48 | XRAY ---
Indication: Head injury following fall. Multiple contiguous axial images obtained through the head without contrast. Comparison: February 23, 2025 Again age-appropriate global atrophy and remote lacunar infarcts left basal ganglia mass/left external capsule. No acute intracranial hemorrhage, abnormal extra-axial fluid collection, or mass effect. Fourth ventricle is midline without hydrocephalus. Oneil-white matter differentiation preserved. Bony calvarium intact. Visualized paranasal sinuses and mastoid air cells are clear. Impression: No change compared to CT 2 days ago. Again atrophy and remote lacunar infarcts. No new/acute intracranial abnormalities.
--- NOTE | 2025-02-25 12:14 | PCM.NOTE ---
Date and Time: 02/25/25 1207 Subjective Assessment: 02/22/25 A 74-year-old female with a history of large T-cell lymphoma, chronic kidney disease (CKD), chronic anemia secondary to CKD, hypertension (without a history of coronary artery disease and with a recent evaluation by Dr. Wood attributing nonspecific T-wave abnormalities on EKG to hyperventilation), possible congestive heart failure (on Bumex for chronic leg edema with an upcoming outpatient echocardiogram), and a recent pneumonia diagnosis approximately three weeks ago (treated with antibiotics), presented to the ED with 2448 hours of abdominal cramping, vomiting with possible hematemesis, dark bowel movements, diarrhea, a productive cough with clear sputum, exertional fatigue, and generalized weakness. She noted having consumed red Gatorade recently. She is on blood thinners currently for multiple PE's dx 1 moth ago. She has never undergone an endoscopy. In the ED, her hemoglobin was at baseline, though the chest X-ray showed worsening infiltrates. The patient appeared very weak and underweight during assessment, resting in bed on 02/22. She admitted to poor oral intake due to a lack of appetite. Her daughter, present at the bedside, inquired about restarting Remeron, which the patient had previously taken with good results over two years ago. Nutrition was consulted. The patient is currently NPO in preparation for a CT abdomen/pelvis to evaluate for melena and abdominal pain, and General Surgery was consulted for possible EGD and colonoscopy. Hemoglobin was noted to be 7.1; H&H checks were ordered every six hours, with plans to transfuse if hemoglobin drops below 7. Occult blood testing is pending, though the patient reports dark, tarry stools. She also has a family history of colorectal cancer (father). The patient reported bilateral lower extremity pain and edema for the past month following a diagnosis of bilateral pulmonary emboli. Her legs were warm on exam, and a venous duplex of both lower extremities was ordered. Her daughter mentioned possibly misdosing Eliquis, stating she had been administering 10 mg twice daily for longer than recommended accidentally and had not reduced to 5 mg BID as instructed. Eliquis has been held due to concern for melena and hematemesis. Protonix was started on admission. Antibiotics for pneumonia continued. She remains on 2L nasal cannula at 93%, baseline (room air). The patient denies chest pain, shortness of breath, nausea, vomiting, or diarrhea at this time. 02/23/25 The patient was found resting in bed and is now awake and alert with the lights on in the room. She was noted to be very confused earlier this morning and was initially not agreeable to having labs drawn. According to the nursing note, the confusion began overnight. The patients daughter reported that this change in mental status is not typical and expressed concern that she had not been contacted. There is no documentation indicating that the overnight provider was informed of the new-onset confusion. A head CT was ordered this morning to evaluate the change in mental status, which revealed chronic lacunar infarcts in the left basal ganglia and left external capsule, with no acute abnormalities. After speaking with her daughter, the patient became agreeable to having labs drawn. The daughter also shared that the patient is underweight and cannot tolerate regular Ensure protein drinks but is willing to drink Ensure Clear, which has now been ordered with meals. Occult stool testing is pending today. The patient is scheduled for EGD and colonoscopy tomorrow with General Surgery, and bowel prep is set to begin today. IV fluids are to be continued. A venous duplex study performed yesterday was negative, and TEDS have been placed. Blood cultures x2 remain negative. On exam, the patient showed no focal neurological deficits after returning from the head CT. Additionally, the patient reports left thigh muscle pain and was unable to lift her leg during the neurological exam due to discomfort. No bruising or visible abnormalities were noted on physical exam. She denies any further concerns at this time. A CT abdomen performed yesterday revealed findings concerning for possible ileus versus enteritis. Surgery was consulted for evaluation, and they recommended initiating a clear liquid diet, which has since been started. 02/24/25 The patient is awake and alert today and did not experience any confusion overnight. Her daughter stayed with her throughout the night and reported no changes in mental status. This morning, the patient was found to have a positive occult stool test and a hemoglobin level of 6.8. Two units of PRBCs have been ordered, with Lasix to be given after each unit to prevent fluid overload. Notably, the patient developed crackles yesterday evening, prompting discontinuation of IV fluids. Bilateral lower extremity edema has improved with the use of TEDS. Last night, the nurse notified the provider of increased shortness of breath, and the patients oxygen requirement was increased to 3L via nasal cannula. As of today, she is back down to 2L, maintaining an oxygen saturation of 95%. Steroids were started at the time of increased respiratory symptoms. This morning, the patients glucose was elevated secondary to steroid use, and a sliding scale Humalog regimen along with accuchecks before meals and at bedtime have been added. Potassium was low at 3.0 and has been replaced. The patient is scheduled for an EGD and colonoscopy later today. She is agreeable to receiving home health care upon discharge and currently denies any further concerns. 02/25/25 Pt resting in the chair this AM. She states she feel on the floor last night and hit her head hard. She states she thought she could get to the bathroom as it was a shirt distance and she fell. She does not have a bruise or any raised areas. She only c/o of head pain from the fall. She states she laid there for an unknown amount of time until lab found her and then obtained the nurse. CT head showed no new area of concern. Ck not elevated. Hgb stable today after 2 units of PRBC gave yesterday. WBC elevated at 10.3, likely 2:2 steroids. She remains SOB on 2lNC at 97%. Repeat CXR ordered and shows right lung base small effusion, with clearing of previous findings. Co2 16 and bicarb gtt started. Continue antibiotics, steroids, nebs for pneumonia. She had an EGD and colonoscopy yesterday. 2 polyps were removed and no bleeding found per GS note. hypokalemia resolved. She denies CP, abd pain, N/V/D. - Review of Systems Constitutional: Weakness, No Fever, No Chills Eyes: No Symptoms Ears, Nose, & Throat: No Symptoms Respiratory: No Cough, No Short Of Breath Cardiac: No Chest Pain, No Edema, No Syncope Abdominal/Gastrointestinal: No Abdominal Pain, No Nausea, No Vomiting, No Diarrhea Genitourinary Symptoms: No Dysuria Musculoskeletal: No Back Pain, No Neck Pain Skin: No Rash Neurological: Headache, No Dizziness, No Focal Weakness, No Sensory Changes Psychological: No Symptoms Endocrine: No Symptoms Hematologic/Lymphatic: No Symptoms Immunological/Allergic: No Symptoms Objective Exam General Appearance: no apparent distress, alert, cachetic, thin Neurologic Exam: alert, oriented x 3, cooperative, normal mood/affect, nml cerebellar function, sensation nml, motor weakness, No motor deficits Skin Exam: normal color, warm, dry Eye Exam: PERRL, EOMI, eyes nml inspection Ears, Nose, Throat Exam: normal ENT inspection, pharynx normal, moist mucous membranes Neck Exam: normal inspection, non-tender, supple, full range of motion Respiratory Exam: normal breath sounds, lungs clear, No respiratory distress Cardiovascular Exam: regular rate/rhythm, normal heart sounds Gastrointestinal/Abdomen Exam: soft, No tenderness, No mass Extremity Exam: normal inspection, normal range of motion Back Exam: normal inspection, normal range of motion, No CVA tenderness, No vertebral tenderness Pelvic Exam: deferred Rectal Exam: deferred Objective Data Vital Signs: Vital Signs - 24 hr Temp Pulse Resp BP Pulse Ox 02/25/25 11:52 97.8 F 50 L 16 127/60 97 02/25/25 08:00 97.9 F 57 L 16 133/60 93 L 02/25/25 07:32 57 L 16 97 02/25/25 04:30 96.6 F 56 L 17 127/65 93 L 02/24/25 23:25 97.0 F 74 16 113/57 98 02/24/25 20:02 95 02/24/25 20:01 95 02/24/25 20:00 96.8 F 56 L 16 104/58 95 02/24/25 19:55 78 18 95 02/24/25 15:45 96.6 F 66 17 135/65 95 02/24/25 13:22 97.1 F 52 L 24 105/51 97 02/24/25 12:30 97.1 F 52 L 24 105/51 97 Pain Assessment - Last Documented Pain Intensity 0 Intake and Output: Intake & Output 02/23/25 02/24/25 02/25/25 02/26/25 11:59 11:59 11:59 11:59 Intake Total 3155 3069 2298 Output Total 350 400 Balance 2805 2669 2298 Weight 46.7 kg Lab Results: Lab Results-Last 24 Hours 02/24/25 02/24/25 02/25/25 Range/Units 13:32 16:30 04:59 WBC (3.98-10.04) x10^3/uL RBC (3.93-5.22) x10^6/uL Hgb 12.1 D (11.2-15.7) g/dL Hct 35.3 (34.1-44.9) % MCV (79.4-94.8) fL MCH (25.6-32.2) pg MCHC (32.2-35.5) g/dL RDW (11.7-14.4) % Plt Count (182-369) x10^3/uL MPV (9.4-12.3) fL Sodium 136 (135-145) mmol/L Potassium 3.7 D 3.7 (3.5-5.1) mmol/L Chloride 107 (98-107) mmol/L Carbon Dioxide 16 L* (22-30) mmol/L Anion Gap 17.0 H (5-15) MEQ/L BUN 26 H (7-17) mg/dL Creatinine 1.36 H (0.52-1.04) mg/dL Estimated GFR 40.4 ML/MIN Glucose 94 (74-106) mg/dL Calcium 9.7 (8.4-10.2) mg/dL Magnesium 1.9 (1.6-2.3) mg/dL Total Bilirubin 0.60 (0.2-1.3) mg/dL AST 36 (14-36) U/L ALT 33 (0-35) U/L Alkaline Phosphatase 74 (38-126) U/L Creatine Kinase (30-135) U/L Serum Total Protein 4.7 L (6.3-8.2) g/dL Albumin 2.5 L (3.5-5.0) g/dL 02/25/25 02/25/25 Range/Units 04:59 04:59 WBC 10.3 H (3.98-10.04) x10^3/uL RBC 4.17 (3.93-5.22) x10^6/uL Hgb 12.1 (11.2-15.7) g/dL Hct 36.5 (34.1-44.9) % MCV 87.5 (79.4-94.8) fL MCH 29.0 (25.6-32.2) pg MCHC 33.2 (32.2-35.5) g/dL RDW 18.5 H (11.7-14.4) % Plt Count 217 D (182-369) x10^3/uL MPV 10.7 (9.4-12.3) fL Sodium (135-145) mmol/L Potassium (3.5-5.1) mmol/L Chloride (98-107) mmol/L Carbon Dioxide (22-30) mmol/L Anion Gap (5-15) MEQ/L BUN (7-17) mg/dL Creatinine (0.52-1.04) mg/dL Estimated GFR ML/MIN Glucose (74-106) mg/dL Calcium (8.4-10.2) mg/dL Magnesium (1.6-2.3) mg/dL Total Bilirubin (0.2-1.3) mg/dL AST (14-36) U/L ALT (0-35) U/L Alkaline Phosphatase (38-126) U/L Creatine Kinase 77 (30-135) U/L Serum Total Protein (6.3-8.2) g/dL Albumin (3.5-5.0) g/dL Radiology Exams: Radiology Procedures Category Date Time Status CHEST 1 VIEW (PORTABLE) Routine Exams 02/23/25 15:27 Completed CHEST 1 VIEW (PORTABLE) Routine Exams 02/25/25 07:51 Completed HEAD WITHOUT CONTRAST [CT] Routine Exams 02/25/25 09:35 Completed Medications: Medications Generic Name Dose Route Start Last Admin Trade Name Freq PRN Reason Stop Dose Admin Acetaminophen 650 mg 02/21/25 18:48 Acetaminophen 650 Mg Supp.Rect LA 03/23/25 18:47 Q4H PRN PRN PAIN AND/OR FEVER Acetaminophen 325 mg 02/21/25 19:49 02/22/25 10:26 Acetaminophen 325 Mg Tablet PO 03/23/25 19:48 325 mg Q4H PRN PRN Administration PAIN, FEVER, HEADACHE Albuterol/Ipratropium 3 ml 02/23/25 15:25 Ipratropium/Albuterol Sulfate 3 Ml Ampul.Neb IH 03/25/25 15:24 Q4HPRN PRN SHORTNESS OF BREATH/WHEEZING Cholecalciferol 5,000 unit 02/22/25 10:00 02/25/25 09:42 Cholecalciferol (Vitamin D3) 1000 Unit Tablet PO 03/24/25 09:59 5,000 unit DAILY REMBERTO Administration Methylprednisolone Sodium 0 mg 02/23/25 15:40 02/25/25 09:39 Succinate 40 mg/ Sterile Water IV 03/25/25 15:39 40 mg 1 ml Q12HT REMBERTO Administration Cyanocobalamin 1,000 mcg 02/22/25 10:00 02/25/25 09:42 Cyanocobalamin 500 Mcg Tablet PO 03/24/25 09:59 1,000 mcg DAILY REMBERTO Administration Guaifenesin 600 mg 02/21/25 22:00 02/25/25 09:43 Guaifenesin 600 Mg Tablet Er PO 03/23/25 21:59 600 mg BID REMBERTO Administration Ceftriaxone Sodium 2 gm in 100 mls @ 200 mls/hr 02/22/25 22:00 02/24/25 21:13 Rocephin 2 Gm/100 Ml Nacl IV 03/24/25 21:59 200 mls/hr HS REMBERTO Administration Azithromycin 500 mg/ Sodium 250 mls @ 250 mls/hr 02/22/25 22:00 02/24/25 21:13 Chloride IV 03/24/25 09:59 250 mls/hr HS REMBERTO Administration Sodium Bicarbonate 150 meq/ 1,150 mls @ 100 mls/hr 02/25/25 08:30 02/25/25 09:38 Dextrose IV 03/27/25 08:29 100 mls/hr .[id number] REMBERTO 100 mls/hr Administration Insulin Human Lispro 0 unit 02/24/25 07:40 Insulin Lispro 1 Unit SQ 03/26/25 07:39 UD PRN HYPERGLYCEMIA Lactobacillus Acidophilus 1 tab 02/22/25 10:00 02/25/25 09:43 Lactobacillus Acidophilus 1 Tab Tablet PO 03/24/25 09:59 1 tab DAILY REMBERTO Administration Methyl Salicylate 0 gm 02/23/25 10:54 02/23/25 16:05 Methyl Salicylate/Menthol 85 Gm Cream TOP 03/25/25 10:53 85 gm .3-4 TIMES DAILY PRN PRN Administration Ondansetron HCl 4 mg 02/21/25 19:49 Ondansetron Hcl 4 Mg/2 Ml Vial IV 03/23/25 19:48 Q6H PRN PRN NAUSEA/VOMITING Pantoprazole Sodium 40 mg 02/22/25 22:00 02/24/25 21:13 Pantoprazole 40 Mg Vial IV 03/23/25 19:59 40 mg HS REMBERTO Administration Fluticasone/Salmeterol 2 puff 02/23/25 19:00 02/25/25 07:25 Fluticasone/Salmeterol 115/21 60 Puff Aer.W.Adap 03/25/25 18:59 2 puff BIDRT REMBERTO Administration Discontinued Medications Generic Name Dose Route Start Last Admin Trade Name Freq PRN Reason Stop Dose Admin Albuterol Sulfate 2 puff 02/21/25 19:47 02/23/25 11:55 Albuterol Common Canister Inhaler 03/23/25 19:46 2 puff Q4-6HPRN PRN Administration SHORTNESS OF BREATH Azithromycin Confirm 02/21/25 18:54 Azithromycin Inj Administered 02/21/25 18:55 Dose 500 mg IV .STK-MED ONE Bisacodyl 10 mg 02/23/25 09:00 02/23/25 09:44 Bisacodyl 5 Mg Tablet.Ec PO 02/23/25 09:01 10 mg NOW ONE Administration Methylprednisolone Sodium 0 mg 02/23/25 22:00 Succinate 40 mg/ Sterile Water IV 03/25/25 21:59 1 ml Q12HT REMBERTO Methylprednisolone Sodium 0 mg 02/23/25 13:51 Succinate 40 mg/ Sterile Water IV 03/25/25 13:50 1 ml Q12HT REMBERTO Furosemide 20 mg 02/24/25 07:35 02/24/25 12:34 Furosemide 20 Mg/Vial IV 02/24/25 07:36 20 mg AFTER EA UNIT BLOOD ONE Administration Glycopyrrolate Confirm 02/24/25 14:15 Glycopyrrolate 0.2 Mg/1ml Sdv Administered 02/24/25 14:16 Dose 0.2 mg .ROUTE .STK-MED ONE Hydrochlorothiazide 12.5 mg 02/22/25 10:00 02/23/25 11:23 Hydrochlorothiazide 25 Mg Tablet PO 03/24/25 09:59 Not Given DAILY REMBERTO Sodium Chloride 1,000 mls @ 150 mls/hr 02/21/25 15:23 02/21/25 20:10 Sodium Chloride 0.9% 1000 Ml IV 02/21/25 22:02 Infused .Q6H40M STA Infusion Sodium Chloride Confirm 02/21/25 15:31 Sodium Chloride 0.9% 1000 Ml Administered 02/21/25 15:32 Dose 1,000 mls @ ud .ROUTE .STK-MED ONE Ceftriaxone Sodium 1 gm in 100 mls @ 200 mls/hr 02/21/25 18:04 02/21/25 18:07 Rocephin 1 Gm / 100 Ml Nacl IV 02/21/25 18:33 200 mls/hr STAT ONE 200 mls/hr Administration Azithromycin 500 mg/ Sodium 250 mls @ 250 mls/hr 02/22/25 10:00 02/21/25 19:02 Chloride IV 03/24/25 09:59 250 mls/hr Q24H10 REMBERTO Administration Ceftriaxone Sodium Confirm 02/21/25 18:06 Rocephin 1 Gm / 100 Ml Nacl Administered 02/21/25 18:07 Dose 1 gm in 100 mls @ ud IV .STK-MED ONE Sodium Chloride 1,000 mls @ 100 mls/hr 02/21/25 18:48 02/21/25 21:08 Sodium Chloride 0.9% 1000 Ml IV 02/22/25 04:47 75 mls/hr .Q10H STA Administration Sodium Chloride Confirm 02/21/25 18:54 Sodium Chloride 0.9% 250 Ml Administered 02/21/25 18:55 Dose 250 mls @ ud IV .STK-MED ONE Potassium Chloride 20 meq in 100 mls @ 50 mls/hr 02/21/25 19:52 02/21/25 21:08 Potassium Chloride 20 Meq In Water 100ml IV 02/21/25 21:51 50 mls/hr STAT ONE Administration Magnesium Sulfate/Dextrose Confirm 02/21/25 21:22 Magnesium 1 Gm / 100 Ml D5w Administered 02/21/25 21:23 Dose 100 mls @ ud IV .STK-MED ONE Magnesium Sulfate/Water Confirm 02/21/25 21:37 Magnesium Sulf 2 G/50 Ml Bag Administered 02/21/25 21:38 Dose 2 gm in 50 mls @ ud IV .STK-MED ONE Magnesium Sulfate/Water 2 gm in 50 mls @ 100 mls/hr 02/21/25 21:55 02/21/25 21:58 Magnesium Sulf 2 G/50 Ml Bag IV 02/21/25 22:24 100 mls/hr ONCE ONE Administration Potassium Chloride 20 meq in 100 mls @ 50 mls/hr 02/22/25 01:47 02/22/25 01:51 Potassium Chloride 20 Meq In Water 100ml IV 02/22/25 03:46 50 mls/hr STAT ONE Administration Sodium Chloride 1,000 mls @ 50 mls/hr 02/22/25 12:45 02/23/25 12:36 Sodium Chloride 0.9% 1000 Ml IV 03/24/25 12:44 50 mls/hr .Q20H REMBERTO Administration Potassium Chloride 20 meq in 100 mls @ 50 mls/hr 02/24/25 06:00 02/24/25 08:35 Potassium Chloride 20 Meq In Water 100ml IV 02/24/25 09:59 50 mls/hr Q2H REMBERTO Administration Sodium Chloride 500 mls @ 25 mls/hr 02/24/25 07:45 02/24/25 19:00 Sodium Chloride 0.9% 500 Ml IV 03/26/25 07:44 0 mls/hr .Q20H REMBERTO Infusion Losartan Potassium 50 mg 02/22/25 10:00 02/23/25 11:23 Losartan Potassium 50 Mg Tablet PO 03/24/25 09:59 Not Given DAILY REMBERTO Magnesium Sulfate 2 gm 02/21/25 20:00 02/21/25 21:56 Magnesium Sulfate Injection IV 02/21/25 20:01 Not Given ONCE ONE Methotrexate 5 mg 02/21/25 20:00 Methotrexate Sodium 2.5 Mg Tablet PO 03/23/25 19:59 WEEKLY REMBERTO Methotrexate 5 mg 02/27/25 10:00 Methotrexate Sodium 2.5 Mg Tablet PO 03/29/25 09:59 WEEKLY REMBERTO Non-Formulary Medication 1 each 02/22/25 10:00 Losartan/Hydrochlorothiazide [Losartan-Hctz 50-12.5 Mg Tab] PO 03/24/25 09:59 DAILY REMBERTO Non-Formulary Medication 1 each 02/21/25 19:52 02/23/25 12:41 Pharmacy Dosing Request 02/21/25 19:53 Not Given STAT ONE Non-Formulary Medication 1 each 02/23/25 10:24 02/23/25 12:26 Pharmacy Dosing Request 02/23/25 10:25 Not Given STAT ONE Pantoprazole Sodium 40 mg 02/21/25 20:00 02/21/25 21:32 Pantoprazole 40 Mg Vial IV 03/23/25 19:59 40 mg Q24H REMBERTO Administration Polyethylene Glycol 0 gm 02/23/25 17:00 02/23/25 17:10 Polyethylene Glycol 3350 238 Gm Powder PO 02/23/25 19:00 238 gm .N41--20PEA REMBERTO Administration Polyethylene Glycol 0 gm 02/23/25 21:00 02/23/25 21:25 Polyethylene Glycol 3350 238 Gm Powder PO 02/23/25 23:00 238 gm .Q15 - 30 MIN REMBERTO Administration Propofol Confirm 02/24/25 14:06 Propofol 200 Mg/20 Ml Vial Administered 02/24/25 14:07 Dose 200 mg IV .STK-MED ONE Sodium Bicarbonate 650 mg 02/24/25 10:00 02/24/25 21:12 Sodium Bicarbonate 650 Mg Tablet PO 03/26/25 09:59 650 mg BID REMBERTO Administration Sodium Bicarbonate 50 meq 02/25/25 06:15 02/25/25 06:31 Sodium Bicarbonate 1 Meq/Ml 50ml Syringe IV 02/25/25 06:16 50 meq STAT ONE Administration Multi-Disciplinary Progress Notes: Multi-Disciplinary Progress Notes 02/25/25 11:03 Physical Therapy Note by Rui (L [id number]),Aylin Patient had new report of fall this AM at ~0600 when attempting to get up to the bathroom independently. Nursing notes critical CO2 level with IV medication provided. Patient yesterday received blood transfusion. She had colonoscopy/EGD procedure yesterday with minimal gastritis and polypoid lesions at rectosigmoid. If continued anemia, hemoccult positive than a tail endoscopy could be considered per op note. Follow-up recommended for path results in 2 weeks. Patient up in recliner and daughter in room upon entering for PT. Patient on 1LO2 via NC and family reports she is not on O2 at baseline. Daughter did report "small open sore on buttocks" which was supposed to be assessed by wound care. PT discussed with RN (Sofi) as this has not been reported to PT team regarding request for wound care. RN assessed area while PT assisted with transfer with small buttocks open area noted on left gluteal cleft and shear area on right gluteal cleft. RN states they can handle additional wound care at this time and will consult Therapy team if needed in the future. Patient was agreeable to PT at this time and pleasant. Sit<>Stand from recliner requiring Eulogio with slight retropulsive trunk sway. RN in room post buttocks assessment with patient trial ambulation off supplemental O2. Ambulation of 25' with FWW requiring Eulogio on RA. Improved safety with FWW vs rollator with PT education on recommended AD to family. O2 saturation at lowest 92% on RA after activity with HR 78bpm. Education on pursed lip breathing technique. Extensive discussion with family regarding D/C plan. Patient is not agreeable to SNF rehab stay. However, patient was agreeable to swing bed placement if approved. She did exhibit improvement in ambulation distance this date compared to previous PT session. Recommend swing bed placement to assist with LE strengthening, transfer safety and ambulation tolerance to reduce risk of fall upon returning home with caregiver assistance. Medical status changes and intermittent confusion noted during hospitalization. Family reports that decline in mobility started ~1 month ago with family increase in assistance ~2 weeks ago. She started using SPC to/from bathroom ~2 weeks ago. However, prior to decline patient was independent with ambulation and independent with sponge baths at home. Family does report they will be able to provide 24/7 care upon returning home but hope for patient to improve deficits above in order to improve safety upon returning home. Initialized on 02/25/25 11:03 - END OF NOTE Assessment/Plan (1) Symptomatic anemia Current Visit: No Status: Acute Code(s): D64.9 - ANEMIA, UNSPECIFIED (2) Hx of pulmonary embolus Current Visit: Yes Status: Acute Code(s): Z86.711 - PERSONAL HISTORY OF PULMONARY EMBOLISM (3) Pneumonia Current Visit: Yes Status: Acute Code(s): J18.9 - PNEUMONIA, UNSPECIFIED ORGANISM (4) Melena Current Visit: Yes Status: Acute Code(s): K92.1 - MELENA (5) Edema of both lower extremities Current Visit: Yes Status: Acute Code(s): R60.0 - LOCALIZED EDEMA (6) Abdominal pain Current Visit: Yes Status: Acute Code(s): R10.9 - UNSPECIFIED ABDOMINAL PAIN (7) Underweight (BMI < 18.5) Current Visit: Yes Status: Acute Code(s): R63.6 - UNDERWEIGHT; Z68.1 - BODY MASS INDEX [BMI] 19.9 OR LESS, ADULT (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 Code(s): Z85.72 - PERSONAL HISTORY OF NON-HODGKIN LYMPHOMAS (9) Chronic renal failure Current Visit: No Status: Acute (10) Generalized weakness Current Visit: No Status: Chronic Code(s): R53.1 - WEAKNESS (11) Dehydration Current Visit: Yes Status: Acute Code(s): E86.0 - DEHYDRATION (12) Hypokalemia Current Visit: Yes Status: Resolved Code(s): E87.6 - HYPOKALEMIA (13) Hypomagnesemia Current Visit: Yes Status: Resolved Code(s): E83.42 - HYPOMAGNESEMIA (14) Confusion state Current Visit: Yes Status: Acute Code(s): F44.89 - OTHER DISSOCIATIVE AND CONVERSION DISORDERS (15) Metabolic acidosis Current Visit: Yes Status: Acute Code(s): E87.20 - ACIDOSIS, UNSPECIFIED (16) Hyperglycemia Current Visit: Yes Status: Acute Assessment & Plan: (1) Symptomatic anemia Current Visit: No Status: Acute Assessment & Plan: - Hgb 7.1 this AM - repeat 7.2 - H& H Q6 - Transfuse if Hgb <7 - GS consult - Protonix 02/23 - Hgb 7.9 - Plan is for EGD colonoscopy tomorrow with GS- NPO at midnight- prep to start today. 02/24 - Hgb 6.8 - 2 units PRBC ordered - trend Hgb today - CBC, CMP reviewed - Occult stool + - EGD/ colonoscopy today - Polyps removed and no bleeding seen per GS 02/25 - Hgb 12.1 - CBC reviewed Code(s): D64.9 - ANEMIA, UNSPECIFIED (2) Hx of pulmonary embolus Current Visit: Yes Status: Acute Assessment & Plan: - Dx 1 month ago and started on Eliquis - Eliquis on hold d/t anemia - BLLE + edema, warm, painful- VD of BLLE. - ECHO results pending Code(s): Z86.711 - PERSONAL HISTORY OF PULMONARY EMBOLISM (3) Pneumonia Current Visit: Yes Status: Acute Assessment & Plan: - IV antibiotics. - Sputum culture- pending - Mucinex. - Ambulatory O2 assessment. - 2L NC 93%- BL RA - CBC reviewed - BC x2 negative - Sputum culture pending - CXR reviewed 02/23 - 2lNC 91% - CBC reviewed - Steroids started - O2 increased to 3lNC in the evening and IVF stopped d/t crackles heard in bases per nursing - Repeat CXR reviewed 02/24 - 2lNC 95% 02/25 - 2LNC 97%- wean O2 - Repeat CXR reviewed - WBC 10.3 - BC x2 negative - Sputum culture pending Code(s): J18.9 - PNEUMONIA, UNSPECIFIED ORGANISM (4) Melena Current Visit: Yes Status: Acute Assessment & Plan: - Occult stool pending - CT abd/pelvis - GS consult - Hgb 7.1 this AM- transfuse if < 7 - H& H Q6 - Dosing of Eliquis may be of concern 02/23 - Hgb 7.9 - EGD Colonoscopy in AM with GS 02/24 - HGB 6.8- 2 units PRBC - EGD/Colonoscopy this afternoon 02/24 - Hgb 12.1 Code(s): K92.1 - MELENA (5) Edema of both lower extremities Current Visit: Yes Status: Acute Assessment & Plan: - Venous duplex BLLE - If VD negative will place TEDS 02/24 - Improved with TEDS Code(s): R60.0 - LOCALIZED EDEMA (6) Abdominal pain Current Visit: Yes Status: Acute Assessment & Plan: - CT abd pelvis- reviewed- possible ileus- GS consulted - NPO - GS consult - Pain only increased with palpation 02/23 - GS started clears and bowel prep today 02/24 - Sxs improving Code(s): R10.9 - UNSPECIFIED ABDOMINAL PAIN (7) Underweight (BMI < 18.5) Current Visit: Yes Status: Acute Assessment & Plan: - Nutrition consult - Consider Ensure high protein when not NPO - Consider restarting Remeron 02/23 - Ensure clear started 02/24 - NPO for procedure today 02/25 - Resume House regular diet and ensure clear Code(s): R63.6 - UNDERWEIGHT; Z68.1 - BODY MASS INDEX [BMI] 19.9 OR LESS, ADULT (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 02/24 - Per CM agreeable to [facility] at d/c Code(s): R53.1 - WEAKNESS (11) Dehydration Current Visit: Yes Status: Acute Assessment & Plan: - CMP reviewed - Anion gap 10.4- OK - At baseline renal function - IVF 02/24 - IVF stopped last night d/t crackles in bases of lungs - Anion gap 15.7 02/25 - Anion gap 17 - IVF Code(s): E86.0 - DEHYDRATION (12) Hypokalemia Current Visit: Yes Status: Resolved Assessment & Plan: - K+ 3.0- replaced 02/25 - resolved Code(s): E87.6 - HYPOKALEMIA (13) Hypomagnesemia Current Visit: Yes Status: Resolved Assessment & Plan: - resolved Code(s): E83.42 - HYPOMAGNESEMIA (14) Confusion state Current Visit: Yes Status: Acute Assessment & Plan: - Started last night per nursing note. - Daughter asked that she be called if pt is confused. - CT head- reviewed- no acute concerns - Lights on during the day and blinds open. 02/24 - Resolved Code(s): F44.89 - OTHER DISSOCIATIVE AND CONVERSION DISORDERS (15) Metabolic acidosis Current Visit: Yes Status: Acute Assessment & Plan: - CO2 17- trend - PO sodium bicarb started as she cannot have IV fluids d/t fluid overload risk. 02/25 - CO2 16 - Bicarb gtt started Code(s): E87.20 - ACIDOSIS, UNSPECIFIED (16) Hyperglycemia Current Visit: Yes Status: Acute Assessment & Plan: - 2:2 steroids - Accuchecks ac/hs - Humalog s/s - A1c pending Code(s): R73.9 - HYPERGLYCEMIA, UNSPECIFIED Code(s): R73.9 - HYPERGLYCEMIA, UNSPECIFIED (17) Fall from bed Current Visit: No Status: Acute Assessment & Plan: - Fell last night from bed - CT head negative - CK normal - Denies any further complaints other than head pain. Code(s): W06.XXXA - FALL FROM BED, INITIAL ENCOUNTER (18) Head injury, acute Current Visit: Yes Status: Acute Assessment & Plan: - CT head negative for acute concern VTE: On hold PPI: Protonix Next of KIN: Daughter D/C plan: 1-2 days Code status: Full Code(s): S09.90XA - UNSPECIFIED INJURY OF HEAD, INITIAL ENCOUNTER
[2025-02-26 07:00] LABS: ANION GAP 10.7 MEQ/L (5-15); BILIRUBIN,TOTAL 0.4 mg/dL (0.2-1.3); Creatinine 1 1.15 mg/dL (0.52-1.04); EST GLOMERULAR FILTRATION RATE 49.4 ML/MIN; Total Protein 4.1 g/dL (6.3-8.2)
[2025-02-26 07:07] LABS: Potassium 2.9 mmol/L (3.5-5.1)
[2025-02-26 07:49] LABS: Hematocrit 28.9 % (34.1-44.9); Hemoglobin 9.9 g/dL (11.2-15.7); Mean Corpuscular Hemoglobin 28.8 pg (25.6-32.2); Mean Corpuscular Hgb Concent. 34.3 g/dL (32.2-35.5); Mean Platelet Volume 10.2 fL (9.4-12.3); Platelet Count 206 x10^3/uL (182-369); Red Blood Count 3.44 x10^6/uL (3.93-5.22); Red Cell Distribution Width 18.5 % (11.7-14.4); White Blood Count 9.2 x10^3/uL (3.98-10.04)
--- NOTE | 2025-02-26 09:19 | PCM.NOTE ---
Date and Time: 02/26/25 0913 Subjective Assessment: 02/23/25 The patient was found resting in bed and is now awake and alert with the lights on in the room. She was noted to be very confused earlier this morning and was initially not agreeable to having labs drawn. According to the nursing note, the confusion began overnight. The patients daughter reported that this change in mental status is not typical and expressed concern that she had not been contacted. There is no documentation indicating that the overnight provider was informed of the new-onset confusion. A head CT was ordered this morning to evaluate the change in mental status, which revealed chronic lacunar infarcts in the left basal ganglia and left external capsule, with no acute abnormalities. After speaking with her daughter, the patient became agreeable to having labs drawn. The daughter also shared that the patient is underweight and cannot tolerate regular Ensure protein drinks but is willing to drink Ensure Clear, which has now been ordered with meals. Occult stool testing is pending today. The patient is scheduled for EGD and colonoscopy tomorrow with General Surgery, and bowel prep is set to begin today. IV fluids are to be continued. A venous duplex study performed yesterday was negative, and TEDS have been placed. Blood cultures x2 remain negative. On exam, the patient showed no focal neurological deficits after returning from the head CT. Additionally, the patient reports left thigh muscle pain and was unable to lift her leg during the neurological exam due to discomfort. No bruising or visible abnormalities were noted on physical exam. She denies any further concerns at this time. A CT abdomen performed yesterday revealed findings concerning for possible ileus versus enteritis. Surgery was consulted for evaluation, and they recommended initiating a clear liquid diet, which has since been started. 02/24/25 The patient is awake and alert today and did not experience any confusion overnight. Her daughter stayed with her throughout the night and reported no changes in mental status. This morning, the patient was found to have a positive occult stool test and a hemoglobin level of 6.8. Two units of PRBCs have been ordered, with Lasix to be given after each unit to prevent fluid overload. Notably, the patient developed crackles yesterday evening, prompting discontinuation of IV fluids. Bilateral lower extremity edema has improved with the use of TEDS. Last night, the nurse notified the provider of increased shortness of breath, and the patients oxygen requirement was increased to 3L via nasal cannula. As of today, she is back down to 2L, maintaining an oxygen saturation of 95%. Steroids were started at the time of increased respiratory symptoms. This morning, the patients glucose was elevated secondary to steroid use, and a sliding scale Humalog regimen along with accuchecks before meals and at bedtime have been added. Potassium was low at 3.0 and has been replaced. The patient is scheduled for an EGD and colonoscopy later today. She is agreeable to receiving home health care upon discharge and currently denies any further concerns. 02/25/25 Pt resting in the chair this AM. She states she feel on the floor last night and hit her head hard. She states she thought she could get to the bathroom as it was a shirt distance and she fell. She does not have a bruise or any raised areas. She only c/o of head pain from the fall. She states she laid there for an unknown amount of time until lab found her and then obtained the nurse. CT head showed no new area of concern. Ck not elevated. Hgb stable today after 2 units of PRBC gave yesterday. WBC elevated at 10.3, likely 2:2 steroids. She remains SOB on 2lNC at 97%. Repeat CXR ordered and shows right lung base small effusion, with clearing of previous findings. Co2 16 and bicarb gtt started. Continue antibiotics, steroids, nebs for pneumonia. She had an EGD and colonoscopy yester day. 2 polyps were removed and no bleeding found per GS note. hypokalemia resolved. She denies CP, abd pain, N/V/D. 02/26/25 Pt resting in bed. She states she is feeling better but has continued weakness. She would like to transition to swing bed Friday if able, case management aware. Hgb 9.9 today, continue IV protonix BID. K+ 2.9 and replaced. She is on 2LNC at 95% and RT order to wean O2 placed. Lung sounds are clear. Per daughter O2 has been dropping at night and will likely need home O2 at d/c for bedtime. Overnight pulse ox ordered for further eval. Continue antibiotics, steroids, and duonebs for pneumonia. Bibarb gtt stopped as CO2 27 today. She denies any further concerns at this time. - Review of Systems Constitutional: Weakness, No Fever, No Chills Eyes: No Symptoms Ears, Nose, & Throat: No Symptoms Respiratory: No Cough, No Short Of Breath Cardiac: No Chest Pain, No Edema, No Syncope Abdominal/Gastrointestinal: No Abdominal Pain, No Nausea, No Vomiting, No Diarrhea Genitourinary Symptoms: No Dysuria Musculoskeletal: No Back Pain, No Neck Pain Skin: No Rash Neurological: No Dizziness, No Focal Weakness, No Sensory Changes Psychological: No Symptoms Endocrine: No Symptoms Hematologic/Lymphatic: No Symptoms Immunological/Allergic: No Symptoms Objective Data Vital Signs: Vital Signs - 24 hr Temp Pulse Resp BP Pulse Ox 02/26/25 08:00 97.6 F 57 L 18 127/59 94 L 02/26/25 06:44 57 L 16 95 02/25/25 23:46 97.9 F 56 L 15 108/75 95 02/25/25 19:55 97.7 F 55 L 16 137/62 96 02/25/25 18:56 55 L 16 96 02/25/25 16:00 97.7 F 55 L 16 135/58 93 L 02/25/25 11:52 97.8 F 50 L 16 127/60 97 Pain Assessment - Last Documented Pain Intensity 0 Intake and Output: Intake & Output 02/23/25 02/24/25 02/25/25 02/26/25 11:59 11:59 11:59 11:59 Intake Total 3155 3069 2298 780 Output Total 603 909 6137 Balance 2805 2669 2298 -320 Weight 46.7 kg Lab Results: Lab Results-Last 24 Hours 02/25/25 02/25/25 02/26/25 Range/Units 04:59 05:05 06:32 WBC (3.98-10.04) x10^3/uL RBC (3.93-5.22) x10^6/uL Hgb (11.2-15.7) g/dL Hct (34.1-44.9) % MCV (79.4-94.8) fL MCH (25.6-32.2) pg MCHC (32.2-35.5) g/dL RDW (11.7-14.4) % Plt Count (182-369) x10^3/uL MPV (9.4-12.3) fL Sodium 136 (135-145) mmol/L Potassium 2.9 L* D (3.5-5.1) mmol/L Chloride 102 (98-107) mmol/L Carbon Dioxide 27 (22-30) mmol/L Anion Gap 10.7 (5-15) MEQ/L BUN 26 H (7-17) mg/dL Creatinine 1.15 H (0.52-1.04) mg/dL Estimated GFR 49.4 ML/MIN Glucose 142 H (74-106) mg/dL Hemoglobin A1c 5.04 (4.5-6.0) % Calcium 9.0 (8.4-10.2) mg/dL Magnesium (1.6-2.3) mg/dL Total Bilirubin 0.40 (0.2-1.3) mg/dL AST 29 (14-36) U/L ALT 27 (0-35) U/L Alkaline Phosphatase 93 (38-126) U/L Creatine Kinase 77 (30-135) U/L Serum Total Protein 4.1 L (6.3-8.2) g/dL Albumin 2.0 L (3.5-5.0) g/dL 02/26/25 02/26/25 Range/Units 06:32 07:08 WBC 9.2 (3.98-10.04) x10^3/uL RBC 3.44 L (3.93-5.22) x10^6/uL Hgb 9.9 L (11.2-15.7) g/dL Hct 28.9 L (34.1-44.9) % MCV 84.0 (79.4-94.8) fL MCH 28.8 (25.6-32.2) pg MCHC 34.3 (32.2-35.5) g/dL RDW 18.5 H (11.7-14.4) % Plt Count 206 (182-369) x10^3/uL MPV 10.2 (9.4-12.3) fL Sodium (135-145) mmol/L Potassium (3.5-5.1) mmol/L Chloride (98-107) mmol/L Carbon Dioxide (22-30) mmol/L Anion Gap (5-15) MEQ/L BUN (7-17) mg/dL Creatinine (0.52-1.04) mg/dL Estimated GFR ML/MIN Glucose (74-106) mg/dL Hemoglobin A1c (4.5-6.0) % Calcium (8.4-10.2) mg/dL Magnesium 1.7 (1.6-2.3) mg/dL Total Bilirubin (0.2-1.3) mg/dL AST (14-36) U/L ALT (0-35) U/L Alkaline Phosphatase (38-126) U/L Creatine Kinase (30-135) U/L Serum Total Protein (6.3-8.2) g/dL Albumin (3.5-5.0) g/dL Radiology Exams: Radiology Procedures Category Date Time Status CHEST 1 VIEW (PORTABLE) Routine Exams 02/25/25 07:51 Completed HEAD WITHOUT CONTRAST [CT] Routine Exams 02/25/25 09:35 Completed Medications: Medications Generic Name Dose Route Start Last Admin Trade Name Freq PRN Reason Stop Dose Admin Acetaminophen 650 mg 02/21/25 18:48 Acetaminophen 650 Mg Supp.Rect HI 03/23/25 18:47 Q4H PRN PRN PAIN AND/OR FEVER Acetaminophen 325 mg 02/21/25 19:49 02/22/25 10:26 Acetaminophen 325 Mg Tablet PO 03/23/25 19:48 325 mg Q4H PRN PRN Administration PAIN, FEVER, HEADACHE Albuterol/Ipratropium 3 ml 02/23/25 15:25 Ipratropium/Albuterol Sulfate 3 Ml Ampul.Neb IH 03/25/25 15:24 Q4HPRN PRN SHORTNESS OF BREATH/WHEEZING Cholecalciferol 5,000 unit 02/22/25 10:00 02/25/25 09:42 Cholecalciferol (Vitamin D3) 1000 Unit Tablet PO 03/24/25 09:59 5,000 unit DAILY REMBERTO Administration Methylprednisolone Sodium 0 mg 02/23/25 15:40 02/25/25 21:40 Succinate 40 mg/ Sterile Water IV 03/25/25 15:39 40 mg 1 ml Q12HT REMBERTO Administration Cyanocobalamin 1,000 mcg 02/22/25 10:00 02/25/25 09:42 Cyanocobalamin 500 Mcg Tablet PO 03/24/25 09:59 1,000 mcg DAILY REMBERTO Administration Guaifenesin 600 mg 02/21/25 22:00 02/25/25 21:38 Guaifenesin 600 Mg Tablet Er PO 03/23/25 21:59 600 mg BID REMBERTO Administration Ceftriaxone Sodium 2 gm in 100 mls @ 200 mls/hr 02/22/25 22:00 02/25/25 21:41 Rocephin 2 Gm/100 Ml Nacl IV 03/24/25 21:59 200 mls/hr HS REMBERTO Administration Azithromycin 500 mg/ Sodium 250 mls @ 250 mls/hr 02/22/25 22:00 02/25/25 21:41 Chloride IV 03/24/25 09:59 250 mls/hr HS REMBERTO Administration Potassium Chloride 100 mls @ 50 mls/hr 02/26/25 08:00 Potassium Chloride 20 Meq In Water 100ml IV 02/26/25 11:59 Q2H REMBERTO Sodium Chloride 500 mls @ 50 mls/hr 02/26/25 08:15 Sodium Chloride 0.9% 500 Ml IV 03/28/25 08:14 .Q10H REMBERTO Insulin Human Lispro 0 unit 02/24/25 07:40 Insulin Lispro 1 Unit SQ 03/26/25 07:39 UD PRN HYPERGLYCEMIA Lactobacillus Acidophilus 1 tab 02/22/25 10:00 02/25/25 09:43 Lactobacillus Acidophilus 1 Tab Tablet PO 03/24/25 09:59 1 tab DAILY REMBERTO Administration Methyl Salicylate 0 gm 02/23/25 10:54 02/23/25 16:05 Methyl Salicylate/Menthol 85 Gm Cream TOP 03/25/25 10:53 85 gm .3-4 TIMES DAILY PRN PRN Administration Ondansetron HCl 4 mg 02/21/25 19:49 Ondansetron Hcl 4 Mg/2 Ml Vial IV 03/23/25 19:48 Q6H PRN PRN NAUSEA/VOMITING Pantoprazole Sodium 40 mg 02/26/25 10:00 Pantoprazole 40 Mg Vial IV 03/28/25 09:59 BID REMBERTO Potassium Chloride 20 meq 02/26/25 08:00 Potassium Chloride Tab 10 Meq Tab PO 02/26/25 14:01 Q2H REMBERTO Fluticasone/Salmeterol 2 puff 02/23/25 19:00 02/26/25 06:37 Fluticasone/Salmeterol 115/21 60 Puff Aer.W.Adap IH 03/25/25 18:59 2 puff BIDRT REMBERTO Administration Discontinued Medications Generic Name Dose Route Start Last Admin Trade Name Freq PRN Reason Stop Dose Admin Albuterol Sulfate 2 puff 02/21/25 19:47 02/23/25 11:55 Albuterol Common Canister Inhaler IH 03/23/25 19:46 2 puff Q4-6HPRN PRN Administration SHORTNESS OF BREATH Azithromycin Confirm 02/21/25 18:54 Azithromycin Inj Administered 02/21/25 18:55 Dose 500 mg IV .STK-MED ONE Bisacodyl 10 mg 02/23/25 09:00 02/23/25 09:44 Bisacodyl 5 Mg Tablet.Ec PO 02/23/25 09:01 10 mg NOW ONE Administration Methylprednisolone Sodium 0 mg 02/23/25 22:00 Succinate 40 mg/ Sterile Water IV 03/25/25 21:59 1 ml Q12HT REMBERTO Methylprednisolone Sodium 0 mg 02/23/25 13:51 Succinate 40 mg/ Sterile Water IV 03/25/25 13:50 1 ml Q12HT REMBERTO Furosemide 20 mg 02/24/25 07:35 02/24/25 12:34 Furosemide 20 Mg/Vial IV 02/24/25 07:36 20 mg AFTER EA UNIT BLOOD ONE Administration Glycopyrrolate Confirm 02/24/25 14:15 Glycopyrrolate 0.2 Mg/1ml Sdv Administered 02/24/25 14:16 Dose 0.2 mg .ROUTE .STK-MED ONE Hydrochlorothiazide 12.5 mg 02/22/25 10:00 02/23/25 11:23 Hydrochlorothiazide 25 Mg Tablet PO 03/24/25 09:59 Not Given DAILY REMBERTO Sodium Chloride 1,000 mls @ 150 mls/hr 02/21/25 15:23 02/21/25 20:10 Sodium Chloride 0.9% 1000 Ml IV 02/21/25 22:02 Infused .Q6H40M STA Infusion Sodium Chloride Confirm 02/21/25 15:31 Sodium Chloride 0.9% 1000 Ml Administered 02/21/25 15:32 Dose 1,000 mls @ ud .ROUTE .STK-MED ONE Ceftriaxone Sodium 1 gm in 100 mls @ 200 mls/hr 02/21/25 18:04 02/21/25 18:07 Rocephin 1 Gm / 100 Ml Nacl IV 02/21/25 18:33 200 mls/hr STAT ONE 200 mls/hr Administration Azithromycin 500 mg/ Sodium 250 mls @ 250 mls/hr 02/22/25 10:00 02/21/25 19:02 Chloride IV 03/24/25 09:59 250 mls/hr Q24H10 REMBERTO Administration Ceftriaxone Sodium Confirm 02/21/25 18:06 Rocephin 1 Gm / 100 Ml Nacl Administered 02/21/25 18:07 Dose 1 gm in 100 mls @ ud IV .STK-MED ONE Sodium Chloride 1,000 mls @ 100 mls/hr 02/21/25 18:48 02/21/25 21:08 Sodium Chloride 0.9% 1000 Ml IV 02/22/25 04:47 75 mls/hr .Q10H STA Administration Sodium Chloride Confirm 02/21/25 18:54 Sodium Chloride 0.9% 250 Ml Administered 02/21/25 18:55 Dose 250 mls @ ud IV .STK-MED ONE Potassium Chloride 20 meq in 100 mls @ 50 mls/hr 02/21/25 19:52 02/21/25 21:08 Potassium Chloride 20 Meq In Water 100ml IV 02/21/25 21:51 50 mls/hr STAT ONE Administration Magnesium Sulfate/Dextrose Confirm 02/21/25 21:22 Magnesium 1 Gm / 100 Ml D5w Administered 02/21/25 21:23 Dose 100 mls @ ud IV .STK-MED ONE Magnesium Sulfate/Water Confirm 02/21/25 21:37 Magnesium Sulf 2 G/50 Ml Bag Administered 02/21/25 21:38 Dose 2 gm in 50 mls @ ud IV .STK-MED ONE Magnesium Sulfate/Water 2 gm in 50 mls @ 100 mls/hr 02/21/25 21:55 02/21/25 21:58 Magnesium Sulf 2 G/50 Ml Bag IV 02/21/25 22:24 100 mls/hr ONCE ONE Administration Potassium Chloride 20 meq in 100 mls @ 50 mls/hr 02/22/25 01:47 02/22/25 01:51 Potassium Chloride 20 Meq In Water 100ml IV 02/22/25 03:46 50 mls/hr STAT ONE Administration Sodium Chloride 1,000 mls @ 50 mls/hr 02/22/25 12:45 02/23/25 12:36 Sodium Chloride 0.9% 1000 Ml IV 03/24/25 12:44 50 mls/hr .Q20H REMBERTO Administration Potassium Chloride 20 meq in 100 mls @ 50 mls/hr 02/24/25 06:00 02/24/25 08:35 Potassium Chloride 20 Meq In Water 100ml IV 02/24/25 09:59 50 mls/hr Q2H REMBERTO Administration Sodium Chloride 500 mls @ 25 mls/hr 02/24/25 07:45 02/24/25 19:00 Sodium Chloride 0.9% 500 Ml IV 03/26/25 07:44 0 mls/hr .Q20H REMBERTO Infusion Sodium Bicarbonate 150 meq/ 1,150 mls @ 100 mls/hr 02/25/25 08:30 02/25/25 21:15 Dextrose IV 03/27/25 08:29 100 mls/hr .[id number] REMBERTO 100 mls/hr Administration Losartan Potassium 50 mg 02/22/25 10:00 02/23/25 11:23 Losartan Potassium 50 Mg Tablet PO 03/24/25 09:59 Not Given DAILY REMBERTO Magnesium Sulfate 2 gm 02/21/25 20:00 02/21/25 21:56 Magnesium Sulfate Injection IV 02/21/25 20:01 Not Given ONCE ONE Methotrexate 5 mg 02/21/25 20:00 Methotrexate Sodium 2.5 Mg Tablet PO 03/23/25 19:59 WEEKLY REMBERTO Methotrexate 5 mg 02/27/25 10:00 Methotrexate Sodium 2.5 Mg Tablet PO 03/29/25 09:59 WEEKLY REMBERTO Non-Formulary Medication 1 each 02/22/25 10:00 Losartan/Hydrochlorothiazide [Losartan-Hctz 50-12.5 Mg Tab] PO 03/24/25 09:59 DAILY REMBERTO Non-Formulary Medication 1 each 02/21/25 19:52 02/23/25 12:41 Pharmacy Dosing Request 02/21/25 19:53 Not Given STAT ONE Non-Formulary Medication 1 each 02/23/25 10:24 02/23/25 12:26 Pharmacy Dosing Request 02/23/25 10:25 Not Given STAT ONE Pantoprazole Sodium 40 mg 02/21/25 20:00 02/21/25 21:32 Pantoprazole 40 Mg Vial IV 03/23/25 19:59 40 mg Q24H REMBERTO Administration Pantoprazole Sodium 40 mg 02/22/25 22:00 02/25/25 21:40 Pantoprazole 40 Mg Vial IV 03/23/25 19:59 40 mg HS REMBERTO Administration Polyethylene Glycol 0 gm 02/23/25 17:00 02/23/25 17:10 Polyethylene Glycol 3350 238 Gm Powder PO 02/23/25 19:00 238 gm .[id number] REMBERTO Administration Polyethylene Glycol 0 gm 02/23/25 21:00 02/23/25 21:25 Polyethylene Glycol 3350 238 Gm Powder PO 02/23/25 23:00 238 gm .Q15 - 30 MIN REMBERTO Administration Propofol Confirm 02/24/25 14:06 Propofol 200 Mg/20 Ml Vial Administered 02/24/25 14:07 Dose 200 mg IV .STK-MED ONE Sodium Bicarbonate 650 mg 02/24/25 10:00 02/24/25 21:12 Sodium Bicarbonate 650 Mg Tablet PO 03/26/25 09:59 650 mg BID REMBERTO Administration Sodium Bicarbonate 50 meq 02/25/25 06:15 02/25/25 06:31 Sodium Bicarbonate 1 Meq/Ml 50ml Syringe IV 02/25/25 06:16 50 meq STAT ONE Administration Multi-Disciplinary Progress Notes: Multi-Disciplinary Progress Notes 02/25/25 13:00 Case Management Note by Kylah Mitchell PATIENT AND FAMILY INTERESTED IN SWINGBED PROGRAM FOR SHORT TERM REHAB STAY PRIOR TO RETURNING HOME WITH 24 HR CARE AND [facility]. PATIENT DOES NOT WANT TO GO TO A REHAB FACILITY. FAMILY NOTIFIED THAT SHE WILL NEED TO INTEND TO BE HERE [place] AT LEAST 1 [place] [facility] [place] THAT IT CANNOT BE USED [place] TO THE [place]. THEY VERIFIED UNDERSTANDING. PATIENT STILL WEAK AND STILL HAD SOME CONFUSION THIS AM. WILL ASSESS APPROPRIATENESS FOR SWINGBED AGAIN ON FRIDAY WHEN PATIENT IS HOPEFULLY MORE STABLE TO DC. FAMILY NOTIFIED AND IN AGREEMENT WITH PLAN. PATIENT NEEDS A WALKER- THIS WILL NEED ADDRESSED AT TIME OF DC Initialized on 02/25/25 13:00 - END OF NOTE 02/25/25 11:03 Physical Therapy Note by Rui (L [id number])Aylin Patient had new report of fall this AM at ~0600 when attempting to get up to the bathroom independently. Nursing notes critical CO2 level with IV medication provided. Patient yesterday received blood transfusion. She had colonoscopy/EGD procedure yesterday with minimal gastritis and polypoid lesions at rectosigmoid. If continued anemia, hemoccult positive than a tail endoscopy could be considered per op note. Follow-up recommended for path results in 2 weeks. Patient up in recliner and daughter in room upon entering for PT. Patient on 1LO2 via NC and family reports she is not on O2 at baseline. Daughter did report "small open sore on buttocks" which was supposed to be assessed by wound care. PT discussed with RN (Sofi) as this has not been reported to PT team regarding request for wound care. RN assessed area while PT assisted with transfer with small buttocks open area noted on left gluteal cleft and shear area on right gluteal cleft. RN states they can handle additional wound care at this time and will consult Therapy team if needed in the future. Patient was agreeable to PT at this time and pleasant. Sit<>Stand from recliner requiring Eulogio with slight retropulsive trunk sway. RN in room post buttocks assessment with patient trial ambulation off supplemental O2. Ambulation of 25' with FWW requiring Eulogio on RA. Improved safety with FWW vs rollator with PT education on recommended AD to family. O2 saturation at lowest 92% on RA after activity with HR 78bpm. Education on pursed lip breathing technique. Extensive discussion with family regarding D/C plan. Patient is not agreeable to SNF rehab stay. However, patient was agreeable to swing bed placement if approved. She did exhibit improvement in ambulation distance this date compared to previous PT session. Recommend swing bed placement to assist with LE strengthening, transfer safety and ambulation tolerance to reduce risk of fall upon returning home with caregiver assistance. Medical status changes and intermittent confusion noted during hospitalization. Family reports that decline in mobility started ~1 month ago with family increase in assistance ~2 weeks ago. She started using SPC to/from bathroom ~2 weeks ago. However, prior to decline patient was independent with ambulation and independent with sponge baths at home. Family does report they will be able to provide 24/7 care upon returning home but hope for patient to improve deficits above in order to improve safety upon returning home. Initialized on 02/25/25 11:03 - END OF NOTE Assessment/Plan (1) Symptomatic anemia Current Visit: No Status: Acute Code(s): D64.9 - ANEMIA, UNSPECIFIED (2) Hx of pulmonary embolus Current Visit: Yes Status: Acute Code(s): Z86.711 - PERSONAL HISTORY OF PULMONARY EMBOLISM (3) Pneumonia Current Visit: Yes Status: Acute Code(s): J18.9 - PNEUMONIA, UNSPECIFIED ORGANISM (4) Melena Current Visit: Yes Status: Acute Code(s): K92.1 - MELENA (5) Edema of both lower extremities Current Visit: Yes Status: Acute Code(s): R60.0 - LOCALIZED EDEMA (6) Abdominal pain Current Visit: Yes Status: Acute Code(s): R10.9 - UNSPECIFIED ABDOMINAL PAIN (7) Underweight (BMI < 18.5) Current Visit: Yes Status: Acute Code(s): R63.6 - UNDERWEIGHT; Z68.1 - BODY MASS INDEX [BMI] 19.9 OR LESS, ADULT (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 Code(s): Z85.72 - PERSONAL HISTORY OF NON-HODGKIN LYMPHOMAS (9) Chronic renal failure Current Visit: No Status: Acute (10) Generalized weakness Current Visit: No Status: Chronic Code(s): R53.1 - WEAKNESS (11) Dehydration Current Visit: Yes Status: Acute Code(s): E86.0 - DEHYDRATION (12) Hypokalemia Current Visit: Yes Status: Resolved Code(s): E87.6 - HYPOKALEMIA (13) Hypomagnesemia Current Visit: Yes Status: Resolved Code(s): E83.42 - HYPOMAGNESEMIA (14) Confusion state Current Visit: Yes Status: Acute Code(s): F44.89 - OTHER DISSOCIATIVE AND CONVERSION DISORDERS (15) Metabolic acidosis Current Visit: Yes Status: Acute Code(s): E87.20 - ACIDOSIS, UNSPECIFIED (16) Hyperglycemia Current Visit: Yes Status: Acute Code(s): R73.9 - HYPERGLYCEMIA, UNSPECIFIED (17) Fall from bed Current Visit: No Status: Acute Code(s): W06.XXXA - FALL FROM BED, INITIAL ENCOUNTER (18) Head injury, acute Current Visit: Yes Status: Acute Assessment & Plan: (1) Symptomatic anemia Current Visit: No Status: Acute Assessment & Plan: - Hgb 7.1 this AM - repeat 7.2 - H& H Q6 - Transfuse if Hgb <7 - GS consult - Protonix 5/7 - Hgb 7.9 - Plan is for EGD colonoscopy tomorrow with GS- NPO at midnight- prep to start today. 02/24 - Hgb 6.8 - 2 units PRBC ordered - trend Hgb today - CBC, CMP reviewed - Occult stool + - EGD/ colonoscopy today - Polyps removed and no bleeding seen per GS 02/25 - Hgb 12.1 - CBC reviewed 02/26 - Hgb 9.9 - CBC reviewed - Eliquis restarted - Protonix BID Code(s): D64.9 - ANEMIA, UNSPECIFIED (2) Hx of pulmonary embolus Current Visit: Yes Status: Acute Assessment & Plan: - Dx 1 month ago and started on Eliquis - Eliquis on hold d/t anemia - BLLE + edema, warm, painful- VD of BLLE. - ECHO results pending 02/26 - Restarted Eliquis Code(s): Z86.711 - PERSONAL HISTORY OF PULMONARY EMBOLISM (3) Pneumonia Current Visit: Yes Status: Acute Assessment & Plan: - IV antibiotics. - Sputum culture- pending - Mucinex. - Ambulatory O2 assessment. - 2L NC 93%- BL RA - CBC reviewed - BC x2 negative - Sputum culture pending - CXR reviewed 02/23 - 2lNC 91% - CBC reviewed - Steroids started - O2 increased to 3lNC in the evening and IVF stopped d/t crackles heard in bases per nursing - Repeat CXR reviewed 02/24 - 2lNC 95% 02/25 - 2LNC 97%- wean O2 - Repeat CXR reviewed - WBC 10.3 - BC x2 negative - Sputum culture pending 02/26 - 2lNC 95%- wean O2 - ordered place for RT - Overnight pulse ox - WBC 9.2 - CBC reviewed Code(s): J18.9 - PNEUMONIA, UNSPECIFIED ORGANISM (4) Melena Current Visit: Yes Status: Acute Assessment & Plan: - Occult stool pending - CT abd/pelvis - GS consult - Hgb 7.1 this AM- transfuse if < 7 - H& H Q6 - Dosing of Eliquis may be of concern 02/23 - Hgb 7.9 - EGD Colonoscopy in AM with GS / - HGB 6.8- 2 units PRBC - EGD/Colonoscopy this afternoon 02/24 - Hgb 12.1 02/25 - Hgb9.9 - Protonix BID Code(s): K92.1 - MELENA (5) Edema of both lower extremities Current Visit: Yes Status: Acute Assessment & Plan: - Venous duplex BLLE - If VD negative will place TEDS 02/24 - Improved with TEDS Code(s): R60.0 - LOCALIZED EDEMA (6) Abdominal pain Current Visit: Yes Status: Acute Assessment & Plan: - CT abd pelvis- reviewed- possible ileus- GS consulted - NPO - GS consult - Pain only increased with palpation 02/23 - GS started clears and bowel prep today 02/24 - Sxs improving Code(s): R10.9 - UNSPECIFIED ABDOMINAL PAIN (7) Underweight (BMI < 18.5) Current Visit: Yes Status: Acute Assessment & Plan: - Nutrition consult - Consider Ensure high protein when not NPO - Consider restarting Remeron 02/23 - Ensure clear started 02/24 - NPO for procedure today 02/25 - Resume House regular diet and ensure clear Code(s): R63.6 - UNDERWEIGHT; Z68.1 - BODY MASS INDEX [BMI] 19.9 OR LESS, ADULT (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 02/24 - Per CM agreeable to [facility] at d/c 02/26 - Pt and family wanting swing bed- CM aware Code(s): R53.1 - WEAKNESS (11) Dehydration Current Visit: Yes Status: Acute Assessment & Plan: - CMP reviewed - Anion gap 10.4- OK - At baseline renal function - IVF 02/24 - IVF stopped last night d/t crackles in bases of lungs - Anion gap 15.7 02/25 - Anion gap 17 - IVF 02/26 - resolved Code(s): E86.0 - DEHYDRATION (12) Hypokalemia Current Visit: Yes Status: Resolved Assessment & Plan: - K+ 3.0- replaced 02/26 - K+ 2.9- replaced Code(s): E87.6 - HYPOKALEMIA (13) Hypomagnesemia Current Visit: Yes Status: Resolved Assessment & Plan: - resolved Code(s): E83.42 - HYPOMAGNESEMIA (14) Confusion state Current Visit: Yes Status: Acute Assessment & Plan: - Started last night per nursing note. - Daughter asked that she be called if pt is confused. - CT head- reviewed- no acute concerns - Lights on during the day and blinds open. 02/24 - Resolved Code(s): F44.89 - OTHER DISSOCIATIVE AND CONVERSION DISORDERS (15) Metabolic acidosis Current Visit: Yes Status: Acute Assessment & Plan: - CO2 17- trend - PO sodium bicarb started as she cannot have IV fluids d/t fluid overload risk. 02/25 - CO2 16 - Bicarb gtt started 02/26 - Resolved - Bicarb gtt stopped Code(s): E87.20 - ACIDOSIS, UNSPECIFIED (16) Hyperglycemia Current Visit: Yes Status: Acute Assessment & Plan: - 2:2 steroids - Accuchecks ac/hs - Humalog s/s - A1c 5.04 Code(s): R73.9 - HYPERGLYCEMIA, UNSPECIFIED (17) Fall from bed Current Visit: No Status: Acute Assessment & Plan: - Fell last night from bed - CT head negative - CK normal - Denies any further complaints other than head pain. Code(s): W06.XXXA - FALL FROM BED, INITIAL ENCOUNTER (18) Head injury, acute Current Visit: Yes Status: Acute Assessment & Plan: - CT head negative for acute concern VTE: Eliquis PPI: Protonix Next of KIN: Daughter D/C plan: 1-2 days Code status: Full Code(s): S09.90XA - UNSPECIFIED INJURY OF HEAD, INITIAL ENCOUNTER Code(s): S09.90XA - UNSPECIFIED INJURY OF HEAD, INITIAL ENCOUNTER
[2025-02-26] MEDS: Sodium Chloride 0.9% 500 ML 500 ML IV SCH (09:21)
[2025-02-26] MEDS: POTASSIUM CHLORIDE 20 mEq IN WATER 100ML 100 ML IV SCH (09:22)
[2025-02-26] MEDS: Klor Con PO SCH (09:26)
[2025-02-26] MEDS: PROTONIX 40 MG IV IV SCH (10:26)
[2025-02-26] MEDS: ELIQUIS 2.5 MG TABLET PO SCH (10:29)
[2025-02-26] MEDS ORDERED: Klor Con ONE (16:42)
[2025-02-27 06:37] LABS: ALBUMIN 2.1 g/dL (3.5-5.0); ANION GAP 10.2 MEQ/L (5-15); BILIRUBIN,TOTAL 0.6 mg/dL (0.2-1.3); Calcium 9.3 mg/dL (8.4-10.2); Creatinine 1 1.08 mg/dL (0.52-1.04); EST GLOMERULAR FILTRATION RATE 53.2 ML/MIN; Potassium 4.8 mmol/L (3.5-5.1); Total Protein 4.4 g/dL (6.3-8.2)
[2025-02-27 07:55] LABS: Hematocrit 31.9 % (34.1-44.9); Hemoglobin 10.6 g/dL (11.2-15.7); Mean Cell Volume 87.4 fL (79.4-94.8); Mean Corpuscular Hgb Concent. 33.2 g/dL (32.2-35.5); Mean Platelet Volume 10.9 fL (9.4-12.3); Platelet Count 193 x10^3/uL (182-369); Red Blood Count 3.65 x10^6/uL (3.93-5.22); Red Cell Distribution Width 19.2 % (11.7-14.4); White Blood Count 7.7 x10^3/uL (3.98-10.04)
--- NOTE | 2025-02-27 09:21 | PCM.NOTE ---
Date and Time: 02/27/25 0910 Subjective Assessment: 02/23/25 The patient was found resting in bed and is now awake and alert with the lights on in the room. She was noted to be very confused earlier this morning and was initially not agreeable to having labs drawn. According to the nursing note, the confusion began overnight. The patients daughter reported that this change in mental status is not typical and expressed concern that she had not been contacted. There is no documentation indicating that the overnight provider was informed of the new-onset confusion. A head CT was ordered this morning to evaluate the change in mental status, which revealed chronic lacunar infarcts in the left basal ganglia and left external capsule, with no acute abnormalities. After speaking with her daughter, the patient became agreeable to having labs drawn. The daughter also shared that the patient is underweight and cannot tolerate regular Ensure protein drinks but is willing to drink Ensure Clear, which has now been ordered with meals. Occult stool testing is pending today. The patient is scheduled for EGD and colonoscopy tomorrow with General Surgery, and bowel prep is set to begin today. IV fluids are to be continued. A venous duplex study performed yesterday was negative, and TEDS have been placed. Blood cultures x2 remain negative. On exam, the patient showed no focal neurological deficits after returning from the head CT. Additionally, the patient reports left thigh muscle pain and was unable to lift her leg during the neurological exam due to discomfort. No bruising or visible abnormalities were noted on physical exam. She denies any further concerns at this time. A CT abdomen performed yesterday revealed findings concerning for possible ileus versus enteritis. Surgery was consulted for evaluation, and they recommended initiating a clear liquid diet, which has since been started. 02/24/25 The patient is awake and alert today and did not experience any confusion overnight. Her daughter stayed with her throughout the night and reported no changes in mental status. This morning, the patient was found to have a positive occult stool test and a hemoglobin level of 6.8. Two units of PRBCs have been ordered, with Lasix to be given after each unit to prevent fluid overload. Notably, the patient developed crackles yesterday evening, prompting discontinuation of IV fluids. Bilateral lower extremity edema has improved with the use of TEDS. Last night, the nurse notified the provider of increased shortness of breath, and the patients oxygen requirement was increased to 3L via nasal cannula. As of today, she is back down to 2L, maintaining an oxygen saturation of 95%. Steroids were started at the time of increased respiratory symptoms. This morning, the patients glucose was elevated secondary to steroid use, and a sliding scale Humalog regimen along with accuchecks before meals and at bedtime have been added. Potassium was low at 3.0 and has been replaced. The patient is scheduled for an EGD and colonoscopy later today. She is agreeable to receiving home health care upon discharge and currently denies any further concerns. 02/25/25 Pt resting in the chair this AM. She states she feel on the floor last night and hit her head hard. She states she thought she could get to the bathroom as it was a shirt distance and she fell. She does not have a bruise or any raised areas. She only c/o of head pain from the fall. She states she laid there for an unknown amount of time until lab found her and then obtained the nurse. CT head showed no new area of concern. Ck not elevated. Hgb stable today after 2 units of PRBC gave yesterday. WBC elevated at 10.3, likely 2:2 steroids. She remains SOB on 2lNC at 97%. Repeat CXR ordered and shows right lung base small effusion, with clearing of previous findings. Co2 16 and bicarb gtt started. Continue antibiotics, steroids, nebs for pneumonia. She had an EGD and colonoscopy yester day. 2 polyps were removed and no bleeding found per GS note. hypokalemia resolved. She denies CP, abd pain, N/V/D. 02/26/25 Pt resting in bed. She states she is feeling better but has continued weakness. She would like to transition to swing bed Friday if able, case management aware. Hgb 9.9 today, continue IV protonix BID. K+ 2.9 and replaced. She is on 2LNC at 95% and RT order to wean O2 placed. Lung sounds are clear. Per daughter O2 has been dropping at night and will likely need home O2 at d/c for bedtime. Overnight pulse ox ordered for further eval. Continue antibiotics, steroids, and duonebs for pneumonia. Bibarb gtt stopped as CO2 27 today. She denies any further concerns at this time. 02/27/25 Pt resting in the chair. She is having loose stools and c-diff lab as well as probiotics ordered. Hypokalemia resolved. Overnight pulse ox shows need for O2 at night with O2 dropping in the 80's at night. CM to set up for d/c. Hgb stable at 10.6. Continue antibiotics, steroids, and duonebs for pneumonia. Today she is Room air 90% while up and awake. She denies CP, SOB, abd. pain, N/V. Awaiting plan for d/c vs. possible swing bed. - Review of Systems Constitutional: Weakness, No Fever, No Chills Eyes: No Symptoms Ears, Nose, & Throat: No Symptoms Respiratory: No Cough, No Short Of Breath Cardiac: No Chest Pain, No Edema, No Syncope Abdominal/Gastrointestinal: Diarrhea, No Abdominal Pain, No Nausea, No Vomiting Genitourinary Symptoms: No Dysuria Musculoskeletal: No Back Pain, No Neck Pain Skin: No Rash Neurological: No Dizziness, No Focal Weakness, No Sensory Changes Psychological: No Symptoms Endocrine: No Symptoms Hematologic/Lymphatic: No Symptoms Immunological/Allergic: No Symptoms Objective Exam General Appearance: no apparent distress, alert Neurologic Exam: alert, oriented x 3, cooperative, normal mood/affect, nml cerebellar function, sensation nml, motor weakness, No motor deficits Skin Exam: normal color, warm, dry Eye Exam: PERRL, EOMI, eyes nml inspection Ears, Nose, Throat Exam: normal ENT inspection, pharynx normal, moist mucous membranes Neck Exam: normal inspection, non-tender, supple, full range of motion Respiratory Exam: normal breath sounds, lungs clear, No respiratory distress Cardiovascular Exam: regular rate/rhythm, normal heart sounds Gastrointestinal/Abdomen Exam: soft, No tenderness, No mass Extremity Exam: normal inspection, normal range of motion Back Exam: normal inspection, normal range of motion, No CVA tenderness, No vertebral tenderness Pelvic Exam: deferred Rectal Exam: deferred Objective Data Vital Signs: Vital Signs - 24 hr Temp Pulse Resp BP Pulse Ox 02/27/25 06:56 60 16 90 L 02/27/25 03:49 52 L 19 02/26/25 23:56 97.7 F 72 17 147/70 90 L 02/26/25 20:03 60 16 95 02/26/25 20:00 97.7 F 61 15 142/66 95 02/26/25 16:00 96.9 F 61 20 161/74 94 L 02/26/25 12:00 96.9 F 56 L 20 139/62 94 L Pain Assessment - Last Documented Pain Intensity 0 Intake and Output: Intake & Output 02/24/25 02/25/25 02/26/25 02/27/25 11:59 11:59 11:59 11:59 Intake Total 3069 2298 980 900 Output Total 400 1100 Balance 2669 2298 -120 900 Weight 46.7 kg Lab Results: Lab Results-Last 24 Hours 02/26/25 02/27/25 02/27/25 Range/Units 16:00 05:58 05:58 WBC (3.98-10.04) x10^3/uL RBC (3.93-5.22) x10^6/uL Hgb (11.2-15.7) g/dL Hct (34.1-44.9) % MCV (79.4-94.8) fL MCH (25.6-32.2) pg MCHC (32.2-35.5) g/dL RDW (11.7-14.4) % Plt Count (182-369) x10^3/uL MPV (9.4-12.3) fL Sodium 136 (135-145) mmol/L Potassium 4.4 D 4.8 (3.5-5.1) mmol/L Chloride 105 (98-107) mmol/L Carbon Dioxide 26 (22-30) mmol/L Anion Gap 10.2 (5-15) MEQ/L BUN 24 H (7-17) mg/dL Creatinine 1.08 H (0.52-1.04) mg/dL Estimated GFR 53.2 ML/MIN Glucose 113 H (74-106) mg/dL Calcium 9.3 (8.4-10.2) mg/dL Magnesium 1.7 (1.6-2.3) mg/dL Total Bilirubin 0.60 (0.2-1.3) mg/dL AST 47 H (14-36) U/L ALT 32 (0-35) U/L Alkaline Phosphatase 70 (38-126) U/L Serum Total Protein 4.4 L (6.3-8.2) g/dL Albumin 2.1 L (3.5-5.0) g/dL 02/27/25 Range/Units 07:31 WBC 7.7 (3.98-10.04) x10^3/uL RBC 3.65 L (3.93-5.22) x10^6/uL Hgb 10.6 L (11.2-15.7) g/dL Hct 31.9 L (34.1-44.9) % MCV 87.4 (79.4-94.8) fL MCH 29.0 (25.6-32.2) pg MCHC 33.2 (32.2-35.5) g/dL RDW 19.2 H (11.7-14.4) % Plt Count 193 (182-369) x10^3/uL MPV 10.9 (9.4-12.3) fL Sodium (135-145) mmol/L Potassium (3.5-5.1) mmol/L Chloride (98-107) mmol/L Carbon Dioxide (22-30) mmol/L Anion Gap (5-15) MEQ/L BUN (7-17) mg/dL Creatinine (0.52-1.04) mg/dL Estimated GFR ML/MIN Glucose (74-106) mg/dL Calcium (8.4-10.2) mg/dL Magnesium (1.6-2.3) mg/dL Total Bilirubin (0.2-1.3) mg/dL AST (14-36) U/L ALT (0-35) U/L Alkaline Phosphatase (38-126) U/L Serum Total Protein (6.3-8.2) g/dL Albumin (3.5-5.0) g/dL Radiology Exams: Radiology Procedures Category Date Time Status HEAD WITHOUT CONTRAST [CT] Routine Exams 02/25/25 09:35 Completed Medications: Medications Generic Name Dose Route Start Last Admin Trade Name Freq PRN Reason Stop Dose Admin Acetaminophen 650 mg 02/21/25 18:48 Acetaminophen 650 Mg Supp.Rect NJ 03/23/25 18:47 Q4H PRN PRN PAIN AND/OR FEVER Acetaminophen 325 mg 02/21/25 19:49 02/22/25 10:26 Acetaminophen 325 Mg Tablet PO 03/23/25 19:48 325 mg Q4H PRN PRN Administration PAIN, FEVER, HEADACHE Albuterol/Ipratropium 3 ml 02/23/25 15:25 Ipratropium/Albuterol Sulfate 3 Ml Ampul.Neb IH 03/25/25 15:24 Q4HPRN PRN SHORTNESS OF BREATH/WHEEZING Apixaban 5 mg 02/26/25 10:00 02/26/25 21:02 Apixaban 2.5 Mg Tablet PO 03/28/25 09:59 5 mg BID REMBERTO Administration Cholecalciferol 5,000 unit 02/22/25 10:00 02/26/25 09:25 Cholecalciferol (Vitamin D3) 1000 Unit Tablet PO 03/24/25 09:59 5,000 unit DAILY REMBERTO Administration Methylprednisolone Sodium 0 mg 02/23/25 15:40 02/26/25 21:02 Succinate 40 mg/ Sterile Water IV 03/25/25 15:39 40 mg 1 ml Q12HT REMBERTO Administration Cyanocobalamin 1,000 mcg 02/22/25 10:00 02/26/25 09:26 Cyanocobalamin 500 Mcg Tablet PO 03/24/25 09:59 1,000 mcg DAILY REMBERTO Administration Guaifenesin 600 mg 02/21/25 22:00 02/26/25 21:02 Guaifenesin 600 Mg Tablet Er PO 03/23/25 21:59 600 mg BID REMBERTO Administration Ceftriaxone Sodium 2 gm in 100 mls @ 200 mls/hr 02/22/25 22:00 02/26/25 20:56 Rocephin 2 Gm/100 Ml Nacl IV 03/24/25 21:59 200 mls/hr HS REMBERTO Administration Azithromycin 500 mg/ Sodium 250 mls @ 250 mls/hr 02/22/25 22:00 02/26/25 22:12 Chloride IV 03/24/25 09:59 250 mls/hr HS REMBERTO Administration Insulin Human Lispro 0 unit 02/24/25 07:40 Insulin Lispro 1 Unit SQ 03/26/25 07:39 UD PRN HYPERGLYCEMIA Lactobacillus Acidophilus 1 tab 02/22/25 10:00 02/26/25 09:26 Lactobacillus Acidophilus 1 Tab Tablet PO 03/24/25 09:59 1 tab DAILY REMBERTO Administration Methyl Salicylate 0 gm 02/23/25 10:54 02/23/25 16:05 Methyl Salicylate/Menthol 85 Gm Cream TOP 03/25/25 10:53 85 gm .3-4 TIMES DAILY PRN PRN Administration Ondansetron HCl 4 mg 02/21/25 19:49 Ondansetron Hcl 4 Mg/2 Ml Vial IV 03/23/25 19:48 Q6H PRN PRN NAUSEA/VOMITING Pantoprazole Sodium 40 mg 02/26/25 10:00 02/26/25 21:02 Pantoprazole 40 Mg Vial IV 03/28/25 09:59 40 mg BID REMBERTO Administration Fluticasone/Salmeterol 2 puff 02/23/25 19:00 02/27/25 06:49 Fluticasone/Salmeterol 115/21 60 Puff Aer.W.Adap 03/25/25 18:59 2 puff BIDRT REMBERTO Administration Discontinued Medications Generic Name Dose Route Start Last Admin Trade Name Freq PRN Reason Stop Dose Admin Albuterol Sulfate 2 puff 02/21/25 19:47 02/23/25 11:55 Albuterol Common Canister Inhaler 03/23/25 19:46 2 puff Q4-6HPRN PRN Administration SHORTNESS OF BREATH Azithromycin Confirm 02/21/25 18:54 Azithromycin Inj Administered 02/21/25 18:55 Dose 500 mg IV .STK-MED ONE Bisacodyl 10 mg 02/23/25 09:00 02/23/25 09:44 Bisacodyl 5 Mg Tablet.Ec PO 02/23/25 09:01 10 mg NOW ONE Administration Methylprednisolone Sodium 0 mg 02/23/25 22:00 Succinate 40 mg/ Sterile Water IV 03/25/25 21:59 1 ml Q12HT [facility] Methylprednisolone Sodium 0 mg 02/23/25 13:51 Succinate 40 mg/ Sterile Water IV 03/25/25 13:50 1 ml Q12HT REMBERTO Furosemide 20 mg 02/24/25 07:35 02/24/25 12:34 Furosemide 20 Mg/Vial IV 02/24/25 07:36 20 mg AFTER EA UNIT BLOOD ONE Administration Glycopyrrolate Confirm 02/24/25 14:15 Glycopyrrolate 0.2 Mg/1ml Sdv Administered 02/24/25 14:16 Dose 0.2 mg .ROUTE .STK-MED ONE Hydrochlorothiazide 12.5 mg 02/22/25 10:00 02/23/25 11:23 Hydrochlorothiazide 25 Mg Tablet PO 03/24/25 09:59 Not Given DAILY REMBERTO Sodium Chloride 1,000 mls @ 150 mls/hr 02/21/25 15:23 02/21/25 20:10 Sodium Chloride 0.9% 1000 Ml IV 02/21/25 22:02 Infused .Q6H40M STA Infusion Sodium Chloride Confirm 02/21/25 15:31 Sodium Chloride 0.9% 1000 Ml Administered 02/21/25 15:32 Dose 1,000 mls @ ud .ROUTE .STK-MED ONE Ceftriaxone Sodium 1 gm in 100 mls @ 200 mls/hr 02/21/25 18:04 02/21/25 18:07 Rocephin 1 Gm / 100 Ml Nacl IV 02/21/25 18:33 200 mls/hr STAT ONE 200 mls/hr Administration Azithromycin 500 mg/ Sodium 250 mls @ 250 mls/hr 02/22/25 10:00 02/21/25 19:02 Chloride IV 03/24/25 09:59 250 mls/hr Q24H10 REMBERTO Administration Ceftriaxone Sodium Confirm 02/21/25 18:06 Rocephin 1 Gm / 100 Ml Nacl Administered 02/21/25 18:07 Dose 1 gm in 100 mls @ ud IV .STK-MED ONE Sodium Chloride 1,000 mls @ 100 mls/hr 02/21/25 18:48 02/21/25 21:08 Sodium Chloride 0.9% 1000 Ml IV 02/22/25 04:47 75 mls/hr .Q10H STA Administration Sodium Chloride Confirm 02/21/25 18:54 Sodium Chloride 0.9% 250 Ml Administered 02/21/25 18:55 Dose 250 mls @ ud IV .STK-MED ONE Potassium Chloride 20 meq in 100 mls @ 50 mls/hr 02/21/25 19:52 02/21/25 21:08 Potassium Chloride 20 Meq In Water 100ml IV 02/21/25 21:51 50 mls/hr STAT ONE Administration Magnesium Sulfate/Dextrose Confirm 02/21/25 21:22 Magnesium 1 Gm / 100 Ml D5w Administered 02/21/25 21:23 Dose 100 mls @ ud IV .STK-MED ONE Magnesium Sulfate/Water Confirm 02/21/25 21:37 Magnesium Sulf 2 G/50 Ml Bag Administered 02/21/25 21:38 Dose 2 gm in 50 mls @ ud IV .STK-MED ONE Magnesium Sulfate/Water 2 gm in 50 mls @ 100 mls/hr 02/21/25 21:55 02/21/25 21:58 Magnesium Sulf 2 G/50 Ml Bag IV 02/21/25 22:24 100 mls/hr ONCE ONE Administration Potassium Chloride 20 meq in 100 mls @ 50 mls/hr 02/22/25 01:47 02/22/25 01 :51 Potassium Chloride 20 Meq In Water 100ml IV 02/22/25 03:46 50 mls/hr STAT ONE Administration Sodium Chloride 1,000 mls @ 50 mls/hr 02/22/25 12:45 02/23/25 12:36 Sodium Chloride 0.9% 1000 Ml IV 03/24/25 12:44 50 mls/hr .Q20H REMBERTO Administration Potassium Chloride 20 meq in 100 mls @ 50 mls/hr 02/24/25 06:00 02/24/25 08:35 Potassium Chloride 20 Meq In Water 100ml IV 02/24/25 09:59 50 mls/hr Q2H REMBERTO Administration Sodium Chloride 500 mls @ 25 mls/hr 02/24/25 07:45 02/26/25 12:57 Sodium Chloride 0.9% 500 Ml IV 03/26/25 07:44 Not Given .Q20H REMBERTO Sodium Bicarbonate 150 meq/ 1,150 mls @ 100 mls/hr 02/25/25 08:30 02/26/25 12:56 Dextrose IV 03/27/25 08:29 Not Given .[id number] REMBERTO Potassium Chloride 100 mls @ 50 mls/hr 02/26/25 08:00 02/26/25 11:10 Potassium Chloride 20 Meq In Water 100ml IV 02/26/25 11:59 50 mls/hr Q2H REMBERTO Administration Sodium Chloride 500 mls @ 50 mls/hr 02/26/25 08:15 02/26/25 09:21 Sodium Chloride 0.9% 500 Ml IV 03/28/25 08:14 50 mls/hr .Q10H REMBERTO Administration Losartan Potassium 50 mg 02/22/25 10:00 02/23/25 11:23 Losartan Potassium 50 Mg Tablet PO 03/24/25 09:59 Not Given DAILY REMBERTO Magnesium Sulfate 2 gm 02/21/25 20:00 02/21/25 21:56 Magnesium Sulfate Injection IV 02/21/25 20:01 Not Given ONCE ONE Methotrexate 5 mg 02/21/25 20:00 Methotrexate Sodium 2.5 Mg Tablet PO 03/23/25 19:59 WEEKLY REMBERTO Methotrexate 5 mg 02/27/25 10:00 Methotrexate Sodium 2.5 Mg Tablet PO 03/29/25 09:59 WEEKLY REMBERTO Non-Formulary Medication 1 each 02/22/25 10:00 Losartan/Hydrochlorothiazide [Losartan-Hctz 50-12.5 Mg Tab] PO 03/24/25 09:59 DAILY REMBERTO Non-Formulary Medication 1 each 02/21/25 19:52 02/23/25 12:41 Pharmacy Dosing Request 02/21/25 19:53 Not Given STAT ONE Non-Formulary Medication 1 each 02/23/25 10:24 02/23/25 12:26 Pharmacy Dosing Request 02/23/25 10:25 Not Given STAT ONE Pantoprazole Sodium 40 mg 02/21/25 20:00 02/21/25 21:32 Pantoprazole 40 Mg Vial IV 03/23/25 19:59 40 mg Q24H REMBERTO Administration Pantoprazole Sodium 40 mg 02/22/25 22:00 02/25/25 21:40 Pantoprazole 40 Mg Vial IV 03/23/25 19:59 40 mg HS REMBERTO Administration Polyethylene Glycol 0 gm 02/23/25 17:00 02/23/25 17:10 Polyethylene Glycol 3350 238 Gm Powder PO 02/23/25 19:00 238 gm .[id number] REMBERTO Administration Polyethylene Glycol 0 gm 02/23/25 21:00 02/23/25 21:25 Polyethylene Glycol 3350 238 Gm Powder PO 02/23/25 23:00 238 gm .Q15 - 30 MIN REMBERTO Administration Potassium Chloride 20 meq 02/26/25 08:00 02/26/25 16:43 Potassium Chloride Tab 10 Meq Tab PO 02/26/25 14:01 20 meq Q2H REMBERTO Administration Potassium Chloride Confirm 02/26/25 16:42 Potassium Chloride Tab 10 Meq Tab Administered 02/26/25 16:43 Dose 20 meq .ROUTE .STK-MED ONE Propofol Confirm 02/24/25 14:06 Propofol 200 Mg/20 Ml Vial Administered 02/24/25 14:07 Dose 200 mg IV .STK-MED ONE Sodium Bicarbonate 650 mg 02/24/25 10:00 02/24/25 21:12 Sodium Bicarbonate 650 Mg Tablet PO 03/26/25 09:59 650 mg BID REMBERTO Administration Sodium Bicarbonate 50 meq 02/25/25 06:15 02/25/25 06:31 Sodium Bicarbonate 1 Meq/Ml 50ml Syringe IV 02/25/25 06:16 50 meq STAT ONE Administration Assessment/Plan (1) Symptomatic anemia Current Visit: No Status: Acute Code(s): D64.9 - ANEMIA, UNSPECIFIED (2) Hx of pulmonary embolus Current Visit: Yes Status: Acute Code(s): Z86.711 - PERSONAL HISTORY OF PULMONARY EMBOLISM (3) Pneumonia Current Visit: Yes Status: Acute Code(s): J18.9 - PNEUMONIA, UNSPECIFIED ORGANISM (4) Melena Current Visit: Yes Status: Acute Code(s): K92.1 - MELENA (5) Edema of both lower extremities Current Visit: Yes Status: Acute Code(s): R60.0 - LOCALIZED EDEMA (6) Abdominal pain Current Visit: Yes Status: Acute Code(s): R10.9 - UNSPECIFIED ABDOMINAL PAIN (7) Underweight (BMI < 18.5) Current Visit: Yes Status: Acute Code(s): R63.6 - UNDERWEIGHT; Z68.1 - BODY MASS INDEX [BMI] 19.9 OR LESS, ADULT (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 Code(s): Z85.72 - PERSONAL HISTORY OF NON-HODGKIN LYMPHOMAS (9) Chronic renal failure Current Visit: No Status: Acute (10) Generalized weakness Current Visit: No Status: Chronic Code(s): R53.1 - WEAKNESS (11) Dehydration Current Visit: Yes Status: Acute Code(s): E86.0 - DEHYDRATION (12) Hypokalemia Current Visit: Yes Status: Resolved Code(s): E87.6 - HYPOKALEMIA (13) Hypomagnesemia Current Visit: Yes Status: Resolved Code(s): E83.42 - HYPOMAGNESEMIA (14) Confusion state Current Visit: Yes Status: Acute Code(s): F44.89 - OTHER DISSOCIATIVE AND CONVERSION DISORDERS (15) Metabolic acidosis Current Visit: Yes Status: Acute Code(s): E87.20 - ACIDOSIS, UNSPECIFIED (16) Hyperglycemia Current Visit: Yes Status: Acute Code(s): R73.9 - HYPERGLYCEMIA, UNSPECIFIED (17) Fall from bed Current Visit: No Status: Acute Code(s): W06.XXXA - FALL FROM BED, INITIAL ENCOUNTER (18) Head injury, acute Current Visit: Yes Status: Acute Assessment & Plan: (1) Symptomatic anemia Current Visit: No Status: Acute Assessment & Plan: - Hgb 7.1 this AM - repeat 7.2 - H& H Q6 - Transfuse if Hgb <7 - GS consult - Protonix 02/23 - Hgb 7.9 - Plan is for EGD colonoscopy tomorrow with GS- NPO at midnight- prep to start today. 02/24 - Hgb 6.8 - 2 units PRBC ordered - trend Hgb today - CBC, CMP reviewed - Occult stool + - EGD/ colonoscopy today - Polyps removed and no bleeding seen per GS 02/25 - Hgb 12.1 - CBC reviewed 02/26 - Hgb 9.9 - CBC reviewed - Eliquis restarted - Protonix BID 02/27 - Hgb 10.6 - CBC reviewed Code(s): D64.9 - ANEMIA, UNSPECIFIED (2) Hx of pulmonary embolus Current Visit: Yes Status: Acute Assessment & Plan: - Dx 1 month ago and started on Eliquis - Eliquis on hold d/t anemia - BLLE + edema, warm, painful- VD of BLLE. - ECHO results pending 02/26 - Restarted Eliquis Code(s): Z86.711 - PERSONAL HISTORY OF PULMONARY EMBOLISM (3) Pneumonia Current Visit: Yes Status: Acute Assessment & Plan: - IV antibiotics. - Sputum culture- pending - Mucinex. - Ambulatory O2 assessment. - 2L NC 93%- BL RA - CBC reviewed - BC x2 negative - Sputum culture pending - CXR reviewed 02/23 - 2lNC 91% - CBC reviewed - Steroids started - O2 increased to 3lNC in the evening and IVF stopped d/t crackles heard in bases per nursing - Repeat CXR reviewed 02/24 - 2lNC 95% 02/25 - 2LNC 97%- wean O2 - Repeat CXR reviewed - WBC 10.3 - BC x2 negative - Sputum culture pending 02/26 - 2lNC 95%- wean O2 - ordered place for RT - Overnight pulse ox - WBC 9.2 - CBC reviewed 02/27 - CBC reviewed - Overnight pulse ox shows need for Home O2 at night with sats dropping in the 80"s at noc- CM to set up - Today while awake- RA 90% Code(s): J18.9 - PNEUMONIA, UNSPECIFIED ORGANISM (4) Melena Current Visit: Yes Status: Acute Assessment & Plan: - Occult stool pending - CT abd/pelvis - GS consult - Hgb 7.1 this AM- transfuse if < 7 - H& H Q6 - Dosing of Eliquis may be of concern 02/23 - Hgb 7.9 - EGD Colonoscopy in AM with GS 02/24 - HGB 6.8- 2 units PRBC - EGD/Colonoscopy this afternoon 02/24 - Hgb 12.1 02/25 - Hgb 12.1 - Protonix BID 02/26 - Hgb 9.9 02/27 - Hgb 10.6 Code(s): K92.1 - MELENA (5) Edema of both lower extremities Current Visit: Yes Status: Acute Assessment & Plan: - Venous duplex BLLE - If VD negative will place TEDS 02/24 - Improved with TEDS Code(s): R60.0 - LOCALIZED EDEMA (6) Abdominal pain Current Visit: Yes Status: Acute Assessment & Plan: - CT abd pelvis- reviewed- possible ileus- GS consulted - NPO - GS consult - Pain only increased with palpation 02/23 - GS started clears and bowel prep today 02/24 - Sxs improving Code(s): R10.9 - UNSPECIFIED ABDOMINAL PAIN (7) Underweight (BMI < 18.5) Current Visit: Yes Status: Acute Assessment & Plan: - Nutrition consult - Consider Ensure high protein when not NPO - Consider restarting Remeron 02/23 - Ensure clear started 02/24 - NPO for procedure today 02/25 - Resume House regular diet and ensure clear Code(s): R63.6 - UNDERWEIGHT; Z68.1 - BODY MASS INDEX [BMI] 19.9 OR LESS, ADULT (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 02/24 - Per CM agreeable to HHC at d/c 02/26 - Pt and family wanting swing bed- CM aware Code(s): R53.1 - WEAKNESS (11) Dehydration Current Visit: Yes Status: Acute Assessment & Plan: - CMP reviewed - Anion gap 10.4- OK - At baseline renal function - IVF 02/24 - IVF stopped last night d/t crackles in bases of lungs - Anion gap 15.7 02/25 - Anion gap 17 - IVF 02/26 - resolved Code(s): E86.0 - DEHYDRATION (12) Hypokalemia Current Visit: Yes Status: Resolved Assessment & Plan: - K+ 3.0- replaced 02/26 - K+ 2.9- replaced- trend 02/27 - resolved Code(s): E87.6 - HYPOKALEMIA (13) Hypomagnesemia Current Visit: Yes Status: Resolved Assessment & Plan: - resolved Code(s): E83.42 - HYPOMAGNESEMIA (14) Confusion state Current Visit: Yes Status: Acute Assessment & Plan: - Started last night per nursing note. - Daughter asked that she be called if pt is confused. - CT head- reviewed- no acute concerns - Lights on during the day and blinds open. 02/24 - Resolved Code(s): F44.89 - OTHER DISSOCIATIVE AND CONVERSION DISORDERS (15) Metabolic acidosis Current Visit: Yes Status: Acute Assessment & Plan: - CO2 17- trend - PO sodium bicarb started as she cannot have IV fluids d/t fluid overload risk. 02/25 - CO2 16 - Bicarb gtt started 02/26 - Resolved - Bicarb gtt stopped Code(s): E87.20 - ACIDOSIS, UNSPECIFIED (16) Hyperglycemia Current Visit: Yes Status: Acute Assessment & Plan: - 2:2 steroids - Accuchecks ac/hs - Humalog s/s - A1c 5.04 Code(s): R73.9 - HYPERGLYCEMIA, UNSPECIFIED (17) Fall from bed Current Visit: No Status: Acute Assessment & Plan: - Fell last night from bed - CT head negative - CK normal - Denies any further complaints other than head pain. Code(s): W06.XXXA - FALL FROM BED, INITIAL ENCOUNTER (18) Head injury, acute Current Visit: Yes Status: Acute Assessment & Plan: - CT head negative for acute concern Code(s): S09.90XA - UNSPECIFIED INJURY OF HEAD, INITIAL ENCOUNTER Code(s): S09.90XA - UNSPECIFIED INJURY OF HEAD, INITIAL ENCOUNTER (19) Diarrhea Current Visit: Yes Status: Acute Assessment & Plan: - C-diff - Probiotics VTE: Eliquis PPI: Protonix Next of KIN: Daughter D/C plan: 1-2 days- pending d/c plan Code status: Full Code(s): R19.7 - DIARRHEA, UNSPECIFIED
[2025-02-27] MEDS ORDERED: TREXALL 2.5 MG PO SCH (10:00)
--- NOTE | 2025-02-28 05:33 | PCM.NOTE ---
Date and Time: 02/28/25 0528 Subjective Assessment: Ms. Calix is a 74-year-old female with a significant medical history including cutaneous T-cell lymphoma, CKD, chronic anemia of CKD, HTN, possible CHF (with outpatient echocardiogram pending), and a recent episode of pneumonia who presented 02/21/25 with abdominal cramping, diarrhea, vomiting with possible hematemesis, melena, and generalized weakness. CXR on admission showed worsening infiltrates, and labs revealed anemia with a hemoglobin of 6.8. GI bleeding was suspected and confirmed by a positive occult stool test. She underwent EGD and colonoscopy, which showed two polyps but no active bleeding. She received two units of PRBCs with post-transfusion stabilization of hemoglobin. The patient ex perienced acute confusion on 02/23, prompting a head CT that showed chronic lacunar infarcts but no acute changes. Mental status returned to baseline. On 02/25, she reported a fall from bed with a head injury, though head CT was again negative and she remained neurologically intact. She developed hypoxia with bilateral crackles, requiring 2L oxygen via nasal cannula and steroids; later weaned with improved oxygenation. Overnight oximetry revealed oxygen desaturation into the 80s, and home nocturnal oxygen is being arranged. Her pneumonia is being treated with antibiotics, duonebs, and steroids. She also experienced loose stools; C. difficile testing was ordered and probiotics initiated. Electrolyte disturbances included hypokalemia and metabolic acidosis, both of which have since resolved. The patient is agreeable to home health care or swing bed placement, and case management is facilitating discharge planning within 12 days. 02/28/25: Met with patient and daughter at bedside. Endorses tenderness from fall otherwise at baseline. BLE edema noted on exam. Will request podiatry consult for compression dressings. No incidence of confusion. Hemoglobin,kidney function and electrolytes stable. Plan for PT evaluation today as patient would like to stay for Swing bed admission due to continued weakness. - Review of Systems Constitutional: No Symptoms Eyes: No Symptoms Ears, Nose, & Throat: No Symptoms Respiratory: No Symptoms Cardiac: Edema (BLE edema +2 pitting) Abdominal/Gastrointestinal: No Symptoms Genitourinary Symptoms: No Symptoms Musculoskeletal: No Symptoms Skin: No Symptoms Neurological: No Symptoms Psychological: No Symptoms Endocrine: No Symptoms Hematologic/Lymphatic: No Symptoms Immunological/Allergic: No Symptoms Objective Exam General Appearance: no apparent distress Neurologic Exam: alert, oriented x 3, cooperative Skin Exam: normal color Eye Exam: PERRL Ears, Nose, Throat Exam: normal ENT inspection Neck Exam: normal inspection Respiratory Exam: normal breath sounds, lungs clear Cardiovascular Exam: regular rate/rhythm, normal heart sounds Gastrointestinal/Abdomen Exam: soft, normal bowel sounds Extremity Exam: swelling (BLE +2 pitting) Back Exam: normal inspection Pelvic Exam: deferred Rectal Exam: deferred Objective Data Vital Signs: Vital Signs - 24 hr Temp Pulse Resp BP Pulse Ox 02/28/25 04:00 96.9 F 69 16 129/53 96 02/28/25 00:00 97.9 F 58 L 16 120/65 95 02/27/25 20:00 97.9 F 66 16 133/72 94 L 02/27/25 19:10 74 16 97 02/27/25 16:00 96.9 F 62 18 166/75 92 L 02/27/25 12:00 97.3 F 64 20 142/66 97 02/27/25 08:00 97.5 F 59 L 18 150/70 90 L 02/27/25 06:56 60 16 90 L Pain Assessment - Last Documented Pain Intensity 0 Intake and Output: Intake & Output 02/25/25 02/26/25 02/27/25 02/28/25 11:59 11:59 11:59 11:59 Intake Total 2298 980 1260 660 Output Total 1100 800 Balance 2298 -120 1260 -140 Weight 46.7 kg Lab Results: Lab Results-Last 24 Hours 02/27/25 02/27/25 02/27/25 Range/Units 05:58 05:58 07:31 WBC 7.7 (3.98-10.04) x10^3/uL RBC 3.65 L (3.93-5.22) x10^6/uL Hgb 10.6 L (11.2-15.7) g/dL Hct 31.9 L (34.1-44.9) % MCV 87.4 (79.4-94.8) fL MCH 29.0 (25.6-32.2) pg MCHC 33.2 (32.2-35.5) g/dL RDW 19.2 H (11.7-14.4) % Plt Count 193 (182-369) x10^3/uL MPV 10.9 (9.4-12.3) fL Sodium 136 (135-145) mmol/L Potassium 4.8 (3.5-5.1) mmol/L Chloride 105 (98-107) mmol/L Carbon Dioxide 26 (22-30) mmol/L Anion Gap 10.2 (5-15) MEQ/L BUN 24 H (7-17) mg/dL Creatinine 1.08 H (0.52-1.04) mg/dL Estimated GFR 53.2 ML/MIN Glucose 113 H (74-106) mg/dL Calcium 9.3 (8.4-10.2) mg/dL Magnesium 1.7 (1.6-2.3) mg/dL Total Bilirubin 0.60 (0.2-1.3) mg/dL AST 47 H (14-36) U/L ALT 32 (0-35) U/L Alkaline Phosphatase 70 (38-126) U/L Serum Total Protein 4.4 L (6.3-8.2) g/dL Albumin 2.1 L (3.5-5.0) g/dL Medications: Medications Generic Name Dose Route Start Last Admin Trade Name Freq PRN Reason Stop Dose Admin Acetaminophen 650 mg 02/21/25 18:48 Acetaminophen 650 Mg Supp.Rect MO 03/23/25 18:47 Q4H PRN PRN PAIN AND/OR FEVER Acetaminophen 325 mg 02/21/25 19:49 02/22/25 10:26 Acetaminophen 325 Mg Tablet PO 03/23/25 19:48 325 mg Q4H PRN PRN Administration PAIN, FEVER, HEADACHE Albuterol/Ipratropium 3 ml 02/23/25 15:25 Ipratropium/Albuterol Sulfate 3 Ml Ampul.Neb IH 03/25/25 15:24 Q4HPRN PRN SHORTNESS OF BREATH/WHEEZING Apixaban 5 mg 02/26/25 10:00 02/27/25 21:16 Apixaban 2.5 Mg Tablet PO 03/28/25 09:59 5 mg BID REMBERTO Administration Cholecalciferol 5,000 unit 02/22/25 10:00 02/27/25 10:47 Cholecalciferol (Vitamin D3) 1000 Unit Tablet PO 03/24/25 09:59 5,000 unit DAILY REMBERTO Administration Methylprednisolone Sodium 0 mg 02/23/25 15:40 02/27/25 21:16 Succinate 40 mg/ Sterile Water IV 03/25/25 15:39 40 mg 1 ml Q12HT REMBERTO Administration Cyanocobalamin 1,000 mcg 02/22/25 10:00 02/27/25 10:48 Cyanocobalamin 500 Mcg Tablet PO 03/24/25 09:59 1,000 mcg DAILY REMBERTO Administration Guaifenesin 600 mg 02/21/25 22:00 02/27/25 21:16 Guaifenesin 600 Mg Tablet Er PO 03/23/25 21:59 600 mg BID REMBERTO Administration Insulin Human Lispro 0 unit 02/24/25 07:40 Insulin Lispro 1 Unit SQ 03/26/25 07:39 UD PRN HYPERGLYCEMIA Lactobacillus Acidophilus 1 tab 02/22/25 10:00 02/27/25 10:47 Lactobacillus Acidophilus 1 Tab Tablet PO 03/24/25 09:59 1 tab DAILY REMBERTO Administration Methyl Salicylate 0 gm 02/23/25 10:54 02/23/25 16:05 Methyl Salicylate/Menthol 85 Gm Cream TOP 03/25/25 10:53 85 gm .3-4 TIMES DAILY PRN PRN Administration Ondansetron HCl 4 mg 02/21/25 19:49 Ondansetron Hcl 4 Mg/2 Ml Vial IV 03/23/25 19:48 Q6H PRN PRN NAUSEA/VOMITING Pantoprazole Sodium 40 mg 02/26/25 10:00 02/27/25 21:16 Pantoprazole 40 Mg Vial IV 03/28/25 09:59 40 mg BID REMBERTO Administration Fluticasone/Salmeterol 2 puff 02/23/25 19:00 02/27/25 19:09 Fluticasone/Salmeterol 115/21 60 Puff Aer.W.Adap 03/25/25 18:59 2 puff BIDRT REMBERTO Administration Discontinued Medications Generic Name Dose Route Start Last Admin Trade Name Freq PRN Reason Stop Dose Admin Albuterol Sulfate 2 puff 02/21/25 19:47 02/23/25 11:55 Albuterol Common Canister Inhaler 03/23/25 19:46 2 puff Q4-6HPRN PRN Administration SHORTNESS OF BREATH Azithromycin Confirm 02/21/25 18:54 Azithromycin Inj Administered 02/21/25 18:55 Dose 500 mg IV .STK-MED ONE Bisacodyl 10 mg 02/23/25 09:00 02/23/25 09:44 Bisacodyl 5 Mg Tablet.Ec PO 02/23/25 09:01 10 mg NOW ONE Administration Methylprednisolone Sodium 0 mg 02/23/25 22:00 Succinate 40 mg/ Sterile Water IV 03/25/25 21:59 1 ml Q12HT REMBERTO Methylprednisolone Sodium 0 mg 02/23/25 13:51 Succinate 40 mg/ Sterile Water IV 03/25/25 13:50 1 ml Q12HT REMBERTO Furosemide 20 mg 02/24/25 07:35 02/24/25 12:34 Furosemide 20 Mg/Vial IV 02/24/25 07:36 20 mg AFTER EA UNIT BLOOD ONE Administration Glycopyrrolate Confirm 02/24/25 14:15 Glycopyrrolate 0.2 Mg/1ml Sdv Administered 02/24/25 14:16 Dose 0.2 mg .ROUTE .STK-MED ONE Hydrochlorothiazide 12.5 mg 02/22/25 10:00 02/23/25 11:23 Hydrochlorothiazide 25 Mg Tablet PO 03/24/25 09:59 Not Given DAILY REMBERTO Sodium Chloride 1,000 mls @ 150 mls/hr 02/21/25 15:23 02/21/25 20:10 Sodium Chloride 0.9% 1000 Ml IV 02/21/25 22:02 Infused .Q6H40M STA Infusion Sodium Chloride Confirm 02/21/25 15:31 Sodium Chloride 0.9% 1000 Ml Administered 02/21/25 15:32 Dose 1,000 mls @ ud .ROUTE .STK-MED ONE Ceftriaxone Sodium 1 gm in 100 mls @ 200 mls/hr 02/21/25 18:04 02/21/25 18:07 Rocephin 1 Gm / 100 Ml Nacl IV 02/21/25 18:33 200 mls/hr STAT ONE 200 mls/hr Administration Azithromycin 500 mg/ Sodium 250 mls @ 250 mls/hr 02/22/25 10:00 02/21/25 19:02 Chloride IV 03/24/25 09:59 250 mls/hr Q24H10 REMBERTO Administration Ceftriaxone Sodium Confirm 02/21/25 18:06 Rocephin 1 Gm / 100 Ml Nacl Administered 02/21/25 18:07 Dose 1 gm in 100 mls @ ud IV .STK-MED ONE Sodium Chloride 1,000 mls @ 100 mls/hr 02/21/25 18:48 02/21/25 21:08 Sodium Chloride 0.9% 1000 Ml IV 02/22/25 04:47 75 mls/hr .Q10H STA Administration Ceftriaxone Sodium 2 gm in 100 mls @ 200 mls/hr 02/22/25 22:00 02/26/25 20:56 Rocephin 2 Gm/100 Ml Nacl IV 03/24/25 21:59 200 mls/hr HS REMBERTO Administration Sodium Chloride Confirm 02/21/25 18:54 Sodium Chloride 0.9% 250 Ml Administered 02/21/25 18:55 Dose 250 mls @ ud IV .STK-MED ONE Potassium Chloride 20 meq in 100 mls @ 50 mls/hr 02/21/25 19:52 02/21/25 21:08 Potassium Chloride 20 Meq In Water 100ml IV 02/21/25 21:51 50 mls/hr STAT ONE Administration Magnesium Sulfate/Dextrose Confirm 02/21/25 21:22 Magnesium 1 Gm / 100 Ml D5w Administered 02/21/25 21:23 Dose 100 mls @ ud IV .STK-MED ONE Magnesium Sulfate/Water Confirm 02/21/25 21:37 Magnesium Sulf 2 G/50 Ml Bag Administered 02/21/25 21:38 Dose 2 gm in 50 mls @ ud IV .STK-MED ONE Magnesium Sulfate/Water 2 gm in 50 mls @ 100 mls/hr 02/21/25 21:55 02/21/25 21:58 Magnesium Sulf 2 G/50 Ml Bag IV 02/21/25 22:24 100 mls/hr ONCE ONE Administration Potassium Chloride 20 meq in 100 mls @ 50 mls/hr 02/22/25 01:47 02/22/25 01:51 Potassium Chloride 20 Meq In Water 100ml IV 02/22/25 03:46 50 mls/hr STAT ONE Administration Azithromycin 500 mg/ Sodium 250 mls @ 250 mls/hr 02/22/25 22:00 02/26/25 22:12 Chloride IV 03/24/25 09:59 250 mls/hr HS REMBERTO Administration Sodium Chloride 1,000 mls @ 50 mls/hr 02/22/25 12:45 02/23/25 12:36 Sodium Chloride 0.9% 1000 Ml IV 03/24/25 12:44 50 mls/hr .Q20H REMBERTO Administration Potassium Chloride 20 meq in 100 mls @ 50 mls/hr 02/24/25 06:00 02/24/25 08:35 Potassium Chloride 20 Meq In Water 100ml IV 02/24/25 09:59 50 mls/hr Q2H REMBERTO Administration Sodium Chloride 500 mls @ 25 mls/hr 02/24/25 07:45 02/26/25 12:57 Sodium Chloride 0.9% 500 Ml IV 03/26/25 07:44 Not Given .Q20H REMBERTO Sodium Bicarbonate 150 meq/ 1,150 mls @ 100 mls/hr 02/25/25 08:30 02/26/25 12:56 Dextrose IV 03/27/25 08:29 Not Given .[id number] REMBERTO Potassium Chloride 100 mls @ 50 mls/hr 02/26/25 08:00 02/26/25 11:10 Potassium Chloride 20 Meq In Water 100ml IV 02/26/25 11:59 50 mls/hr Q2H REMBERTO Administration Sodium Chloride 500 mls @ 50 mls/hr 02/26/25 08:15 02/26/25 09:21 Sodium Chloride 0.9% 500 Ml IV 03/28/25 08:14 50 mls/hr .Q10H REMBERTO Administration Losartan Potassium 50 mg 02/22/25 10:00 02/23/25 11:23 Losartan Potassium 50 Mg Tablet PO 03/24/25 09:59 Not Given DAILY REMBERTO Magnesium Sulfate 2 gm 02/21/25 20:00 02/21/25 21:56 Magnesium Sulfate Injection IV 02/21/25 20:01 Not Given ONCE ONE Methotrexate 5 mg 02/21/25 20:00 Methotrexate Sodium 2.5 Mg Tablet PO 03/23/25 19:59 WEEKLY REMBERTO Methotrexate 5 mg 02/27/25 10:00 Methotrexate Sodium 2.5 Mg Tablet PO 03/29/25 09:59 WEEKLY REMBERTO Non-Formulary Medication 1 each 02/22/25 10:00 Losartan/Hydrochlorothiazide [Losartan-Hctz 50-12.5 Mg Tab] PO 03/24/25 09:59 DAILY REMBERTO Non-Formulary Medication 1 each 02/21/25 19:52 02/23/25 12:41 Pharmacy Dosing Request 02/21/25 19:53 Not Given STAT ONE Non-Formulary Medication 1 each 02/23/25 10:24 02/23/25 12:26 Pharmacy Dosing Request 02/23/25 10:25 Not Given STAT ONE Pantoprazole Sodium 40 mg 02/21/25 20:00 02/21/25 21:32 Pantoprazole 40 Mg Vial IV 03/23/25 19:59 40 mg Q24H REMBERTO Administration Pantoprazole Sodium 40 mg 02/22/25 22:00 02/25/25 21:40 Pantoprazole 40 Mg Vial IV 03/23/25 19:59 40 mg HS REMBERTO Administration Polyethylene Glycol 0 gm 02/23/25 17:00 02/23/25 17:10 Polyethylene Glycol 3350 238 Gm Powder PO 02/23/25 19:00 238 gm .[id number] REMBERTO Administration Polyethylene Glycol 0 gm 02/23/25 21:00 02/23/25 21:25 Polyethylene Glycol 3350 238 Gm Powder PO 02/23/25 23:00 238 gm .Q15 - 30 MIN REMBERTO Administration Potassium Chloride 20 meq 02/26/25 08:00 02/26/25 16:43 Potassium Chloride Tab 10 Meq Tab PO 02/26/25 14:01 20 meq Q2H REMBERTO Administration Potassium Chloride Confirm 02/26/25 16:42 Potassium Chloride Tab 10 Meq Tab Administered 02/26/25 16:43 Dose 20 meq .ROUTE .STK-MED ONE Propofol Confirm 02/24/25 14:06 Propofol 200 Mg/20 Ml Vial Administered 02/24/25 14:07 Dose 200 mg IV .STK-MED ONE Sodium Bicarbonate 650 mg 02/24/25 10:00 02/24/25 21:12 Sodium Bicarbonate 650 Mg Tablet PO 03/26/25 09:59 650 mg BID REMBERTO Administration Sodium Bicarbonate 50 meq 02/25/25 06:15 02/25/25 06:31 Sodium Bicarbonate 1 Meq/Ml 50ml Syringe IV 02/25/25 06:16 50 meq STAT ONE Administration Multi-Disciplinary Progress Notes: Multi-Disciplinary Progress Notes 02/27/25 10:43 Pharmacy Note by Eyad Mena Today is day 7 of Zithromax IV. Please review if this is still needed. Initialized on 02/27/25 10:43 - END OF NOTE Assessment/Plan (1) Symptomatic anemia Current Visit: Yes Status: Acute Assessment & Plan: -GI bleeding suspected due to melena and positive occult blood. Treated with 2 units PRBC. Hgb stable - EGD/ colonoscopy- Polyps removed and no bleeding seen per GS -Eliquis restarted -CBC reviewed- hemoglobin at 10.3 -IV protonix BID Code(s): D64.9 - ANEMIA, UNSPECIFIED (2) Pneumonia Current Visit: Yes Status: Acute Assessment & Plan: - IV antibiotics (Ceftriaxone/azithromycin), duonebs, and solumedrol -Received complete course of azithromycin - discontinue -CXR showed improvement; still requires oxygen at night -Protonix Code(s): J18.9 - PNEUMONIA, UNSPECIFIED ORGANISM (3) Abdominal pain Current Visit: Yes Status: Acute Assessment & Plan: -Likely multifactorial; CT abdomen suggested ileus or enteritis. Resolved after bowel rest and clear diet -General surgery following Code(s): R10.9 - UNSPECIFIED ABDOMINAL PAIN (4) Confusion state Current Visit: Yes Status: Acute Assessment & Plan: -Reversible cause, possibly metabolic or environmental. CT head showed chronic changes only -Resolved and at baseline mentation Code(s): F44.89 - OTHER DISSOCIATIVE AND CONVERSION DISORDERS (5) Dehydration Current Visit: Yes Status: Acute Assessment & Plan: -Anion gap acidosis and elevated BUN resolved after hydration. IVF discontinued due to pulmonary congestion. Code(s): E86.0 - DEHYDRATION (6) Diarrhea Current Visit: Yes Status: Acute Assessment & Plan: -Possibly infectious. C. difficile testing ordered; probiotics Code(s): R19.7 - DIARRHEA, UNSPECIFIED (7) Edema of both lower extremities Current Visit: Yes Status: Acute Assessment & Plan: -Venous duplex negative for DVT -Poditry consulted for compression dressings -lasix 20mg PO Code(s): R60.0 - LOCALIZED EDEMA (8) Head injury, acute Current Visit: Yes Status: Acute Assessment & Plan: -No acute findings on CT or neuro exam. No external trauma Code(s): S09.90XA - UNSPECIFIED INJURY OF HEAD, INITIAL ENCOUNTER (9) Hx of pulmonary embolus Current Visit: Yes Status: Acute Assessment & Plan: -Dx 1 month ago -On Eliquis, which was temporarily held due to bleeding but later resumed -Venous Doppler reviewed and BLE negative for DVT -Echo pending Code(s): Z86.711 - PERSONAL HISTORY OF PULMONARY EMBOLISM (10) Hyperglycemia Current Visit: Yes Status: Acute Assessment & Plan: -Triggered by steroid use; managed with sliding scale insulin.-ADA diet Code(s): R73.9 - HYPERGLYCEMIA, UNSPECIFIED (11) Melena Current Visit: Yes Status: Acute Assessment & Plan: -Associated with drop in hemoglobin and occult GI blood loss. No active bleeding seen on endoscopy Code(s): K92.1 - MELENA (12) Metabolic acidosis Current Visit: Yes Status: Acute Assessment & Plan: -CO2 <18 initially; corrected with PO bicarb. GTT discontinued once resolved -C02 reviewed at 25 Code(s): E87.20 - ACIDOSIS, UNSPECIFIED (13) Underweight (BMI < 18.5) Current Visit: Yes Status: Acute Assessment & Plan: -Unable to tolerate standard supplements. Ensure Clear started. Nutritional support ongoing Code(s): R63.6 - UNDERWEIGHT; Z68.1 - BODY MASS INDEX [BMI] 19.9 OR LESS, ADULT (14) History of cutaneous T-cell lymphoma Current Visit: Yes Status: Chronic Assessment & Plan: -No active treatment currently noted; documented for completeness Code(s): Z85.72 - PERSONAL HISTORY OF NON-HODGKIN LYMPHOMAS (15) Hypokalemia Current Visit: Yes Status: Resolved Assessment & Plan: -K+ corrected from 2.9 4.4 today with repletion -tele -monitor renal/lytes daily Code(s): E87.6 - HYPOKALEMIA (16) Hypomagnesemia Current Visit: Yes Status: Resolved Assessment & Plan: -Treated and resolved Code(s): E83.42 - HYPOMAGNESEMIA (17) Chronic renal failure Current Visit: No Status: Acute Assessment & Plan: -Stable renal function with creat reviewed at 1.41 compared to baseline around 1.5-1.6 -Monitor renal/lytes -avoid nephrotoxic agents (18) Fall from bed Current Visit: No Status: Acute Assessment & Plan: -No acute findings on CT or neuro exam. No external trauma Code(s): W06.XXXA - FALL FROM BED, INITIAL ENCOUNTER (19) Weakness Current Visit: No Status: Acute Assessment & Plan: -Functional decline; patient prefers swing bed or C. PT evaluation completed Code(s): R53.1 - WEAKNESS
[2025-02-28 06:06] LABS: ALBUMIN 2.2 g/dL (3.5-5.0); ANION GAP 10.2 MEQ/L (5-15); BILIRUBIN,TOTAL 0.5 mg/dL (0.2-1.3); Calcium 9.5 mg/dL (8.4-10.2); Creatinine 1 1.41 mg/dL (0.52-1.04); EST GLOMERULAR FILTRATION RATE 38.7 ML/MIN; Potassium 4.4 mmol/L (3.5-5.1); Total Protein 4.6 g/dL (6.3-8.2)
[2025-02-28 07:58] LABS: Absolute Neutrophil Ct (ANC) 6.49 x10^3/uL (1.56-6.13); BASOPHIL % 0.2 % (0.1-1.2); Basophil (Absolute #) 0.02 x10^3/uL (0.01-0.08); Eosinophil (Absolute #) 0 x10^3/uL (0.04-0.36); Hematocrit 31.2 % (34.1-44.9); Hemoglobin 10.3 g/dL (11.2-15.7); IMMATURE GRAN # 0.24 x10^3u/L (0.001-0.031); IMMATURE GRAN % 2.9 % (0.001-0.429); Lymphocyte (Absolute #) 1.07 x10^3/uL (1.18-3.74); Lymphocytes % 13.1 % (19.3-51.7); Mean Cell Volume 87.2 fL (79.4-94.8); Mean Corpuscular Hemoglobin 28.8 pg (25.6-32.2); Mean Platelet Volume 10.2 fL (9.4-12.3); Monocyte (Absolute #) 0.32 x10^3/uL (0.24-0.86); Monocytes % 3.9 % (4.7-12.5); Neutrophil % 79.9 % (34.0-71.1); Platelet Count 212 x10^3/uL (182-369); Red Blood Count 3.58 x10^6/uL (3.93-5.22); White Blood Count 8.1 x10^3/uL (3.98-10.04)
[2025-02-28 09:41] LABS: 027 TOX PROD PRESUMPTIVE NEGATIVE (NEGATIVE); TOXIGENIC C. DIFF ORG NEGATIVE (NEGATIVE)
[2025-02-28] MEDS: DELTASONE 20 MG PO SCH (10:15)
[2025-02-28] MEDS: LASIX 20 MG PO SCH (11:23)
--- NOTE | 2025-02-28 16:38 | PCM.CONS ---
Podiatry HPI - Consult Date of Consultation Date: 02/28/25 Reason for Consult: Bilateral venous insuffiecny Consulting Provider: MARINA LIAO DPM - [facility] History of Present Illness: is a 74 year old female with a history of large T cell lymphoma, CKD, chronic anemia of CKD, HTN (no history of CAD; had recent evaluation by Dr. Wood for nonspecific T wave abnormalities on EKG attributed to hyperventilation), possible CHF (has chronic leg edema on Bumex with upcoming outpatient ECHO scheduled) and recent pneumonia (diagnosed about 3 weeks ago and treated with course of antibiotics) who presented to the ED with abdominal cramping for about 24 to 48 hours, vomiting with possible hematemesis, dark bowel movements, diarrhea, cough productive of clear sputum, fatigue with exertion, and generalized weakness. She did report recently having some red Gatorade. She is not on any blood thinners and denies any history of prior ulcer or GI bleed. She has never had an endoscopy. In the ED, hemoglobin was noted to be at baseline, and the patient's CXR demonstrated worsening infiltrate. The patient's daughter was at bedside during my assessment. Medications & Allergies Home Medications: Home Medication List Cholecalciferol (Vitamin D3) [D3-5000] 125 mcg PO DAILY 05/27/23 [History Confirmed 02/21/25] Mecobalamin [B12 Active] 1,000 mcg PO DAILY 05/27/23 [History Confirmed 02/21/25] Methotrexate Sodium 2.5 mg [Trexall 2.5 mg] 5 mg PO WEEKLY 03/05/24 [History Confirmed 02/21/25] Albuterol Sulfate [Albuterol Sulfate Hfa] 2 puff PO Q4-6HPRN PRN 02/21/25 [History Confirmed 02/21/25] Apixaban [Eliquis 2.5 mg Tablet] 5 mg PO BID 02/21/25 [History Confirmed 02/21/25] Bumetanide 0.5 mg PO DAILY 02/21/25 [History Confirmed 02/21/25] Allergies/Adverse Reactions: Allergies Allergy/AdvReac Type Severity Reaction Status Date / Time No Known Drug Allergies Allergy Verified 02/21/25 15:03 - Past Medical History Past Medical History: Yes Neurological History: No Pertinent History ENT History: No Pertinent History Cardiac History: Hypertension Respiratory History: No Pertinent History Endocrine Medical History: No Pertinent History Musculoskelatal History: Rheumatoid Arthritis GI Medical History: No Pertinent History History: No Pertinent History Pyscho-Social History: No Pertinent History Reproductive Disorders: No Pertinent History Comment: 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 Carter - Past Surgical History Past Surgical History: Yes Neuro Surgical History: No Pertinent History Cardiac History: No Pertinent History Respiratory Surgery: No Pertinent History GI Surgical History: Cholecystectomy Genitourinary Surgical Hx: No Pertinent History Musculskeletal Surgical Hx: No Pertinent History Female Surgical History: Dilation & Curettage Other Surgical History: melanoma Significant Family History: cancer (Father with colon cancer) - Social History Smoking Status: Never smoker Exposure to second hand smoke: No Alcohol: None Drug Use: none - Social Determinants of Health Will the patient participate in the screening: Yes Do you worry about a steady place to live?: No Do you have any problems with any of the following?: No known problems In the past 12 months,have you had to go without utilities?: No Have you or anyone in your house had to go without enough: No Transportation Issues: No Has anyone in your support network made you feel unsafe?: No Does the patient want assistance with any of the above?: No Physical Exam - Narrative Narrative Physical Exam: Podiatry Physical Exam Results - Labs Lab/Micro Results: Lab Results-Last 24 Hours 02/27/25 02/28/25 02/28/25 Range/Units 08:36 04:50 04:55 WBC 8.1 (3.98-10.04) x10^3/uL RBC 3.58 L (3.93-5.22) x10^6/uL Hgb 10.3 L (11.2-15.7) g/dL Hct 31.2 L (34.1-44.9) % MCV 87.2 (79.4-94.8) fL MCH 28.8 (25.6-32.2) pg MCHC 33.0 (32.2-35.5) g/dL RDW 19.0 H (11.7-14.4) % Plt Count 212 (182-369) x10^3/uL MPV 10.2 (9.4-12.3) fL Gran % 79.9 H (34.0-71.1) % Immature Gran % (Auto) 2.9 H (0.001-0.429) % Nucleat RBC Rel Count 0.0 (0.00-0.2) % Eos # (Auto) 0 L (0.04-0.36) x10^3/uL Immature Gran # (Auto) 0.24 H (0.001-0.031) x10^3u/L Absolute Lymphs (auto) 1.07 L (1.18-3.74) x10^3/uL Absolute Monos (auto) 0.32 (0.24-0.86) x10^3/uL Absolute Nucleated RBC 0.00 (0.00-0.012) x10^3u/L Lymphocytes % 13.1 L (19.3-51.7) % Monocytes % 3.9 L (4.7-12.5) % Eosinophils % 0.0 L (0.7-5.8) % Basophils % 0.2 (0.1-1.2) % Absolute Granulocytes 6.49 H (1.56-6.13) x10^3/uL Basophils # 0.02 (0.01-0.08) x10^3/uL Sodium 135 (135-145) mmol/L Potassium 4.4 (3.5-5.1) mmol/L Chloride 104 (98-107) mmol/L Carbon Dioxide 25 (22-30) mmol/L Anion Gap 10.2 (5-15) MEQ/L BUN 27 H (7-17) mg/dL Creatinine 1.41 H (0.52-1.04) mg/dL Estimated GFR 38.7 ML/MIN Glucose 115 H (74-106) mg/dL Calcium 9.5 (8.4-10.2) mg/dL Total Bilirubin 0.50 (0.2-1.3) mg/dL AST 59 H (14-36) U/L ALT 63 H (0-35) U/L Alkaline Phosphatase 85 (38-126) U/L Serum Total Protein 4.6 L (6.3-8.2) g/dL Albumin 2.2 L (3.5-5.0) g/dL C. difficile Screen NEGATIVE (NEGATIVE) C.difficile [id number] PRESUMPTIVE NEGATIVE (NEGATIVE) Microbiology 02/21/25 15:35 Blood Culture - Final Blood 02/21/25 15:31 Blood Culture - Final Blood Assessment/Plan (1) Dehydration Current Visit: Yes Status: Acute Code(s): E86.0 - DEHYDRATION (2) Edema of both lower extremities Current Visit: Yes Status: Acute Assessment & Plan: Initial patient examination and evaluation Ultrasounds negative for dvt to the bilateral lower extremity. Patient started diuresis today with medicine team Recommend compression therapy to the bilateral lower extremity in the form of unna boots. Patient encouraged to elevate extremities. Will follow with you. Code(s): R60.0 - LOCALIZED EDEMA (3) Hx of pulmonary embolus Current Visit: Yes Status: Acute Code(s): Z86.711 - PERSONAL HISTORY OF PULMONARY EMBOLISM (4) Shortness of breath Current Visit: No Status: Resolved Code(s): R06.02 - SHORTNESS OF BREATH
[2025-03-01 04:15] VITALS: O2SAT 95
[2025-03-01 05:23] LABS: Hematocrit 31.7 % (34.1-44.9); Hemoglobin 10.3 g/dL (11.2-15.7); Mean Cell Volume 87.3 fL (79.4-94.8); Mean Corpuscular Hemoglobin 28.4 pg (25.6-32.2); Mean Corpuscular Hgb Concent. 32.5 g/dL (32.2-35.5); Mean Platelet Volume 9.9 fL (9.4-12.3); Platelet Count 183 x10^3/uL (182-369); Red Blood Count 3.63 x10^6/uL (3.93-5.22); Red Cell Distribution Width 18.9 % (11.7-14.4)
--- NOTE | 2025-03-01 05:38 | PCM.NOTE ---
Date and Time: 03/01/25 0537 Subjective Assessment: Ms. Calix is a 74-year-old female with a significant medical history including cutaneous T-cell lymphoma, CKD, chronic anemia of CKD, HTN, possible CHF (with outpatient echocardiogram pending), and a recent episode of pneumonia who presented 02/21/25 with abdominal cramping, diarrhea, vomiting with possible hematemesis, melena, and generalized weakness. CXR on admission showed worsening infiltrates, and labs revealed anemia with a hemoglobin of 6.8. GI bleeding was suspected and confirmed by a positive occult stool test. She underwent EGD and colonoscopy, which showed two polyps but no active bleeding. She received two units of PRBCs with post-transfusion stabilization of hemoglobin. The patient ex perienced acute confusion on 02/23, prompting a head CT that showed chronic lacunar infarcts but no acute changes. Mental status returned to baseline. On 02/25, she reported a fall from bed with a head injury, though head CT was again negative and she remained neurologically intact. She developed hypoxia with bilateral crackles, requiring 2L oxygen via nasal cannula and steroids; later weaned with improved oxygenation. Overnight oximetry revealed oxygen desaturation into the 80s, and home nocturnal oxygen is being arranged. Her pneumonia is being treated with antibiotics, duonebs, and steroids. She also experienced loose stools; C. difficile testing was ordered and probiotics initiated. Electrolyte disturbances included hypokalemia and metabolic acidosis, both of which have since resolved. The patient is agreeable to home health care or swing bed placement, and case management is facilitating discharge planning within 12 days. 02/28/25: Met with patient and daughter at bedside. Endorses tenderness from fall otherwise at baseline. BLE edema noted on exam. Will request podiatry consult for compression dressings. No incidence of confusion. Hemoglobin,kidney function and electrolytes stable. Plan for PT evaluation today as patient would like to stay for Swing bed admission due to continued weakness. Objective Data Vital Signs: Vital Signs - 24 hr Temp Pulse Resp BP Pulse Ox 03/01/25 04:00 97.2 F 57 L 19 110/56 95 02/28/25 23:24 96.9 F 65 15 118/56 93 L 02/28/25 19:50 96.8 F 63 16 111/64 92 L 02/28/25 16:00 97.4 F 63 16 113/56 96 02/28/25 12:00 97.3 F 77 16 113/55 95 02/28/25 07:39 96.9 F 64 16 120/58 94 L 02/28/25 07:37 64 16 94 L Pain Assessment - Last Documented Pain Intensity 3 Pain Scale Used [facility] Intake and Output: Intake & Output 02/26/25 02/27/25 02/28/25 03/01/25 11:59 11:59 11:59 11:59 Intake Total 980 1260 660 660 Output Total 1100 800 Balance -120 1260 -140 660 Lab Results: Lab Results-Last 24 Hours 02/27/25 02/28/25 02/28/25 Range/Units 08:36 04:50 04:55 WBC 8.1 (3.98-10.04) x10^3/uL RBC 3.58 L (3.93-5.22) x10^6/uL Hgb 10.3 L (11.2-15.7) g/dL Hct 31.2 L (34.1-44.9) % MCV 87.2 (79.4-94.8) fL MCH 28.8 (25.6-32.2) pg MCHC 33.0 (32.2-35.5) g/dL RDW 19.0 H (11.7-14.4) % Plt Count 212 (182-369) x10^3/uL MPV 10.2 (9.4-12.3) fL Gran % 79.9 H (34.0-71.1) % Immature Gran % (Auto) 2.9 H (0.001-0.429) % Nucleat RBC Rel Count 0.0 (0.00-0.2) % Eos # (Auto) 0 L (0.04-0.36) x10^3/uL Immature Gran # (Auto) 0.24 H (0.001-0.031) x10^3u/L Absolute Lymphs (auto) 1.07 L (1.18-3.74) x10^3/uL Absolute Monos (auto) 0.32 (0.24-0.86) x10^3/uL Absolute Nucleated RBC 0.00 (0.00-0.012) x10^3u/L Lymphocytes % 13.1 L (19.3-51.7) % Monocytes % 3.9 L (4.7-12.5) % Eosinophils % 0.0 L (0.7-5.8) % Basophils % 0.2 (0.1-1.2) % Absolute Granulocytes 6.49 H (1.56-6.13) x10^3/uL Basophils # 0.02 (0.01-0.08) x10^3/uL Sodium 135 (135-145) mmol/L Potassium 4.4 (3.5-5.1) mmol/L Chloride 104 (98-107) mmol/L Carbon Dioxide 25 (22-30) mmol/L Anion Gap 10.2 (5-15) MEQ/L BUN 27 H (7-17) mg/dL Creatinine 1.41 H (0.52-1.04) mg/dL Estimated GFR 38.7 ML/MIN Glucose 115 H (74-106) mg/dL Calcium 9.5 (8.4-10.2) mg/dL Total Bilirubin 0.50 (0.2-1.3) mg/dL AST 59 H (14-36) U/L ALT 63 H (0-35) U/L Alkaline Phosphatase 85 (38-126) U/L Serum Total Protein 4.6 L (6.3-8.2) g/dL Albumin 2.2 L (3.5-5.0) g/dL C. difficile Screen NEGATIVE (NEGATIVE) C.difficile 027-[id number] PRESUMPTIVE NEGATIVE (NEGATIVE) 03/01/25 Range/Units 05:18 WBC 8.0 (3.98-10.04) x10^3/uL RBC 3.63 L (3.93-5.22) x10^6/uL Hgb 10.3 L (11.2-15.7) g/dL Hct 31.7 L (34.1-44.9) % MCV 87.3 (79.4-94.8) fL MCH 28.4 (25.6-32.2) pg MCHC 32.5 (32.2-35.5) g/dL RDW 18.9 H (11.7-14.4) % Plt Count 183 (182-369) x10^3/uL MPV 9.9 (9.4-12.3) fL Gran % (34.0-71.1) % Immature Gran % (Auto) (0.001-0.429) % Nucleat RBC Rel Count (0.00-0.2) % Eos # (Auto) (0.04-0.36) x10^3/uL Immature Gran # (Auto) (0.001-0.031) x10^3u/L Absolute Lymphs (auto) (1.18-3.74) x10^3/uL Absolute Monos (auto) (0.24-0.86) x10^3/uL Absolute Nucleated RBC (0.00-0.012) x10^3u/L Lymphocytes % (19.3-51.7) % Monocytes % (4.7-12.5) % Eosinophils % (0.7-5.8) % Basophils % (0.1-1.2) % Absolute Granulocytes (1.56-6.13) x10^3/uL Basophils # (0.01-0.08) x10^3/uL Sodium (135-145) mmol/L Potassium (3.5-5.1) mmol/L Chloride (98-107) mmol/L Carbon Dioxide (22-30) mmol/L Anion Gap (5-15) MEQ/L BUN (7-17) mg/dL Creatinine (0.52-1.04) mg/dL Estimated GFR ML/MIN Glucose (74-106) mg/dL Calcium (8.4-10.2) mg/dL Total Bilirubin (0.2-1.3) mg/dL AST (14-36) U/L ALT (0-35) U/L Alkaline Phosphatase (38-126) U/L Serum Total Protein (6.3-8.2) g/dL Albumin (3.5-5.0) g/dL C. difficile Screen (NEGATIVE) C.difficile 027-NAP1-B1 (NEGATIVE) Medications: Medications Generic Name Dose Route Start Last Admin Trade Name Freq PRN Reason Stop Dose Admin Acetaminophen 650 mg 02/21/25 18:48 Acetaminophen 650 Mg Supp.Rect W[place] 03/23/25 18:47 Q4H PRN PRN PAIN AND/OR FEVER Acetaminophen 325 mg 02/21/25 19:49 02/28/25 22:01 Acetaminophen 325 Mg Tablet PO 03/23/25 19:48 325 mg Q4H PRN PRN Administration PAIN, FEVER, HEADACHE Apixaban 5 mg 02/26/25 10:00 02/28/25 22:01 Apixaban 2.5 Mg Tablet PO 03/28/25 09:59 5 mg BID REMBERTO Administration Cholecalciferol 5,000 unit 02/22/25 10:00 02/28/25 10:15 Cholecalciferol (Vitamin D3) 1000 Unit Tablet PO 03/24/25 09:59 5,000 unit DAILY REMBERTO Administration Cyanocobalamin 1,000 mcg 02/22/25 10:00 02/28/25 10:16 Cyanocobalamin 500 Mcg Tablet PO 03/24/25 09:59 1,000 mcg DAILY REMBERTO Administration Furosemide 20 mg 02/28/25 10:00 02/28/25 11:23 Furosemide 20 Mg Tablet PO 03/30/25 09:59 20 mg DAILY REMBERTO Administration Guaifenesin 600 mg 02/21/25 22:00 02/28/25 22:01 Guaifenesin 600 Mg Tablet Er PO 03/23/25 21:59 600 mg BID REMBERTO Administration Insulin Human Lispro 0 unit 02/24/25 07:40 Insulin Lispro 1 Unit SQ 03/26/25 07:39 UD PRN HYPERGLYCEMIA Lactobacillus Acidophilus 1 tab 02/22/25 10:00 02/28/25 10:15 Lactobacillus Acidophilus 1 Tab Tablet PO 03/24/25 09:59 1 tab DAILY REMBERTO Administration Methyl Salicylate 0 gm 02/23/25 10:54 02/28/25 13:36 Methyl Salicylate/Menthol 85 Gm Cream TOP 03/25/25 10:53 1 gm .3-4 TIMES DAILY PRN PRN Administration Ondansetron HCl 4 mg 02/21/25 19:49 Ondansetron Hcl 4 Mg/2 Ml Vial IV 03/23/25 19:48 Q6H PRN PRN NAUSEA/VOMITING Pantoprazole Sodium 40 mg 02/26/25 10:00 02/28/25 22:01 Pantoprazole 40 Mg Vial IV 03/28/25 09:59 40 mg BID REMBERTO Administration Prednisone 40 mg 02/28/25 10:00 02/28/25 10:15 Prednisone 20 Mg Tablet PO 03/05/25 09:59 40 mg DAILY REMBERTO Administration Discontinued Medications Generic Name Dose Route Start Last Admin Trade Name Freq PRN Reason Stop Dose Admin Albuterol Sulfate 2 puff 02/21/25 19:47 02/23/25 11:55 Albuterol Common Canister Inhaler 03/23/25 19:46 2 puff Q4-6HPRN PRN Administration SHORTNESS OF BREATH Albuterol/Ipratropium 3 ml 02/23/25 15:25 Ipratropium/Albuterol Sulfate 3 Ml Ampul.Neb 03/25/25 15:24 Q4HPRN PRN SHORTNESS OF BREATH/WHEEZING Azithromycin Confirm 02/21/25 18:54 Azithromycin Inj Administered 02/21/25 18:55 Dose 500 mg IV .STK-MED ONE Bisacodyl 10 mg 02/23/25 09:00 02/23/25 09:44 Bisacodyl 5 Mg Tablet.Ec PO 02/23/25 09:01 10 mg NOW ONE Administration Methylprednisolone Sodium 0 mg 02/23/25 22:00 Succinate 40 mg/ Sterile Water IV 03/25/25 21:59 1 ml Q12HT REMBERTO Methylprednisolone Sodium 0 mg 02/23/25 13:51 Succinate 40 mg/ Sterile Water IV 03/25/25 13:50 1 ml Q12HT REMBERTO Methylprednisolone Sodium 0 mg 02/23/25 15:40 02/27/25 21:16 Succinate 40 mg/ Sterile Water IV 03/25/25 15:39 40 mg 1 ml Q12HT REMBERTO Administration Furosemide 20 mg 02/24/25 07:35 02/24/25 12:34 Furosemide 20 Mg/Vial IV 02/24/25 07:36 20 mg AFTER EA UNIT BLOOD ONE Administration Glycopyrrolate Confirm 02/24/25 14:15 Glycopyrrolate 0.2 Mg/1ml Sdv Administered 02/24/25 14:16 Dose 0.2 mg .ROUTE .STK-MED ONE Hydrochlorothiazide 12.5 mg 02/22/25 10:00 02/23/25 11:23 Hydrochlorothiazide 25 Mg Tablet PO 03/24/25 09:59 Not Given DAILY REMBERTO Sodium Chloride 1,000 mls @ 150 mls/hr 02/21/25 15:23 02/21/25 20:10 Sodium Chloride 0.9% 1000 Ml IV 02/21/25 22:02 Infused .Q6H40M STA Infusion Sodium Chloride Confirm 02/21/25 15:31 Sodium Chloride 0.9% 1000 Ml Administered 02/21/25 15:32 Dose 1,000 mls @ ud .ROUTE .STK-MED ONE Ceftriaxone Sodium 1 gm in 100 mls @ 200 mls/hr 02/21/25 18:04 02/21/25 18:07 Rocephin 1 Gm / 100 Ml Nacl IV 02/21/25 18:33 200 mls/hr STAT ONE 200 mls/hr Administration Azithromycin 500 mg/ Sodium 250 mls @ 250 mls/hr 02/22/25 10:00 02/21/25 19:02 Chloride IV 03/24/25 09:59 250 mls/hr Q24H10 REMBERTO Administration Ceftriaxone Sodium Confirm 02/21/25 18:06 Rocephin 1 Gm / 100 Ml Nacl Administered 02/21/25 18:07 Dose 1 gm in 100 mls @ ud IV .STK-MED ONE Sodium Chloride 1,000 mls @ 100 mls/hr 02/21/25 18:48 02/21/25 21:08 Sodium Chloride 0.9% 1000 Ml IV 02/22/25 04:47 75 mls/hr .Q10H STA Administration Ceftriaxone Sodium 2 gm in 100 mls @ 200 mls/hr 02/22/25 22:00 02/26/25 20:56 Rocephin 2 Gm/100 Ml Nacl IV 03/24/25 21:59 200 mls/hr HS REMBERTO Administration Sodium Chloride Confirm 02/21/25 18:54 Sodium Chloride 0.9% 250 Ml Administered 02/21/25 18:55 Dose 250 mls @ ud IV .STK-MED ONE Potassium Chloride 20 meq in 100 mls @ 50 mls/hr 02/21/25 19:52 02/21/25 21:08 Potassium Chloride 20 Meq In Water 100ml IV 02/21/25 21:51 50 mls/hr STAT ONE Administration Magnesium Sulfate/Dextrose Confirm 02/21/25 21:22 Magnesium 1 Gm / 100 Ml D5w Administered 02/21/25 21:23 Dose 100 mls @ ud IV .STK-MED ONE Magnesium Sulfate/Water Confirm 02/21/25 21:37 Magnesium Sulf 2 G/50 Ml Bag Administered 02/21/25 21:38 Dose 2 gm in 50 mls @ ud IV .STK-MED ONE Magnesium Sulfate/Water 2 gm in 50 mls @ 100 mls/hr 02/21/25 21:55 02/21/25 21:58 Magnesium Sulf 2 G/50 Ml Bag IV 02/21/25 22:24 100 mls/hr ONCE ONE Administration Potassium Chloride 20 meq in 100 mls @ 50 mls/hr 02/22/25 01:47 02/22/25 01:51 Potassium Chloride 20 Meq In Water 100ml IV 02/22/25 03:46 50 mls/hr STAT ONE Administration Azithromycin 500 mg/ Sodium 250 mls @ 250 mls/hr 02/22/25 22:00 02/26/25 22:12 Chloride IV 03/24/25 09:59 250 mls/hr HS REMBERTO Administration Sodium Chloride 1,000 mls @ 50 mls/hr 02/22/25 12:45 02/23/25 12:36 Sodium Chloride 0.9% 1000 Ml IV 03/24/25 12:44 50 mls/hr .Q20H REMBERTO Administration Potassium Chloride 20 meq in 100 mls @ 50 mls/hr 02/24/25 06:00 02/24/25 08:35 Potassium Chloride 20 Meq In Water 100ml IV 02/24/25 09:59 50 mls/hr Q2H REMBERTO Administration Sodium Chloride 500 mls @ 25 mls/hr 02/24/25 07:45 02/26/25 12:57 Sodium Chloride 0.9% 500 Ml IV 03/26/25 07:44 Not Given .Q20H REMBERTO Sodium Bicarbonate 150 meq/ 1,150 mls @ 100 mls/hr 02/25/25 08:30 02/26/25 12:56 Dextrose IV 03/27/25 08:29 Not Given .[id number] REMBERTO Potassium Chloride 100 mls @ 50 mls/hr 02/26/25 08:00 02/26/25 11:10 Potassium Chloride 20 Meq In Water 100ml IV 02/26/25 11:59 50 mls/hr Q2H REMBERTO Administration Sodium Chloride 500 mls @ 50 mls/hr 02/26/25 08:15 02/26/25 09:21 Sodium Chloride 0.9% 500 Ml IV 03/28/25 08:14 50 mls/hr .Q10H REMBERTO Administration Losartan Potassium 50 mg 02/22/25 10:00 02/23/25 11:23 Losartan Potassium 50 Mg Tablet PO 03/24/25 09:59 Not Given DAILY REMBERTO Magnesium Sulfate 2 gm 02/21/25 20:00 02/21/25 21:56 Magnesium Sulfate Injection IV 02/21/25 20:01 Not Given ONCE ONE Methotrexate 5 mg 02/21/25 20:00 Methotrexate Sodium 2.5 Mg Tablet PO 03/23/25 19:59 WEEKLY REMBERTO Methotrexate 5 mg 02/27/25 10:00 Methotrexate Sodium 2.5 Mg Tablet PO 03/29/25 09:59 WEEKLY REMBERTO Non-Formulary Medication 1 each 02/22/25 10:00 Losartan/Hydrochlorothiazide [Losartan-Hctz 50-12.5 Mg Tab] PO 03/24/25 09:59 DAILY REMBERTO Non-Formulary Medication 1 each 02/21/25 19:52 02/23/25 12:41 Pharmacy Dosing Request 02/21/25 19:53 Not Given STAT ONE Non-Formulary Medication 1 each 02/23/25 10:24 02/23/25 12:26 Pharmacy Dosing Request 02/23/25 10:25 Not Given STAT ONE Pantoprazole Sodium 40 mg 02/21/25 20:00 02/21/25 21:32 Pantoprazole 40 Mg Vial IV 03/23/25 19:59 40 mg Q24H REMBERTO Administration Pantoprazole Sodium 40 mg 02/22/25 22:00 02/25/25 21:40 Pantoprazole 40 Mg Vial IV 03/23/25 19:59 40 mg HS REMBERTO Administration Polyethylene Glycol 0 gm 02/23/25 17:00 02/23/25 17:10 Polyethylene Glycol 3350 238 Gm Powder PO 02/23/25 19:00 238 gm .[id number] REMBERTO Administration Polyethylene Glycol 0 gm 02/23/25 21:00 02/23/25 21:25 Polyethylene Glycol 3350 238 Gm Powder PO 02/23/25 23:00 238 gm .Q15 - 30 MIN REMBERTO Administration Potassium Chloride 20 meq 02/26/25 08:00 02/26/25 16:43 Potassium Chloride Tab 10 Meq Tab PO 02/26/25 14:01 20 meq Q2H REMBERTO Administration Potassium Chloride Confirm 02/26/25 16:42 Potassium Chloride Tab 10 Meq Tab Administered 02/26/25 16:43 Dose 20 meq .ROUTE .STK-MED ONE Propofol Confirm 02/24/25 14:06 Propofol 200 Mg/20 Ml Vial Administered 02/24/25 14:07 Dose 200 mg IV .STK-MED ONE Fluticasone/Salmeterol 2 puff 02/23/25 19:00 02/28/25 07:34 Fluticasone/Salmeterol 115/21 60 Puff Aer.W.Adap IH 03/25/25 18:59 2 puff BIDRT REMBERTO Administration Sodium Bicarbonate 650 mg 02/24/25 10:00 02/24/25 21:12 Sodium Bicarbonate 650 Mg Tablet PO 03/26/25 09:59 650 mg BID REMBERTO Administration Sodium Bicarbonate 50 meq 02/25/25 06:15 02/25/25 06:31 Sodium Bicarbonate 1 Meq/Ml 50ml Syringe IV 02/25/25 06:16 50 meq STAT ONE Administration Multi-Disciplinary Progress Notes: Multi-Disciplinary Progress Notes 02/28/25 16:24 Nutrition Note by Racquel Reid F/u Note: Diet resumed to HR with ensure clear; 50-100% po intake. Labs 02/28= BUN 27, Cr 1.41, glu 115, alb 2.2, hgb 10.3, hct 31.2. no weight since 02/24. Note pt to transition to SWB. Will f/u prn. T.ALISSA Reid Initialized on 02/28/25 16:24 - END OF NOTE 02/28/25 11:45 Case Management Note by Bobbi Cisneros S/W PATIENT AND DAUGHTER AND THEY ARE STILL INTERESTED IN [facility] PROGRAM AND AGRREABLE TO STAY FOR 1 WEEK FOR THE SHORT TERM REHAB. THEY ARE UNABLE TO PROVIDE 24 HR CARE IN THE HOME AT THIS TIME AND DON'T FEEL [facility] WILL BE SUFFICIENT. WILL START AUTHORIZATION PROCESS Initialized on 02/28/25 11:45 - END OF NOTE Assessment/Plan (1) Symptomatic anemia Current Visit: Yes Status: Acute Assessment & Plan: -GI bleeding suspected due to melena and positive occult blood. Treated with 2 units PRBC. Hgb stable - EGD/ colonoscopy- Polyps removed and no bleeding seen per GS -Eliquis restarted -CBC reviewed- hemoglobin at 10.3 -IV protonix BID Code(s): D64.9 - ANEMIA, UNSPECIFIED (2) Pneumonia Current Visit: Yes Status: Acute Assessment & Plan: - IV antibiotics (Ceftriaxone/azithromycin), duonebs, and solumedrol -Received complete course of azithromycin - discontinue -CXR showed improvement; still requires oxygen at night -Protonix Code(s): J18.9 - PNEUMONIA, UNSPECIFIED ORGANISM (3) Abdominal pain Current Visit: Yes Status: Acute Assessment & Plan: -Likely multifactorial; CT abdomen suggested ileus or enteritis. Resolved after bowel rest and clear diet -General surgery following Code(s): R10.9 - UNSPECIFIED ABDOMINAL PAIN (4) Confusion state Current Visit: Yes Status: Acute Assessment & Plan: -Reversible cause, possibly metabolic or environmental. CT head showed chronic changes only -Resolved and at baseline mentation Code(s): F44.89 - OTHER DISSOCIATIVE AND CONVERSION DISORDERS (5) Dehydration Current Visit: Yes Status: Acute Assessment & Plan: -Anion gap acidosis and elevated BUN resolved after hydration. IVF discontinued due to pulmonary congestion. Code(s): E86.0 - DEHYDRATION (6) Diarrhea Current Visit: Yes Status: Acute Assessment & Plan: -Possibly infectious. C. difficile testing ordered; probiotics Code(s): R19.7 - DIARRHEA, UNSPECIFIED (7) Edema of both lower extremities Current Visit: Yes Status: Acute Assessment & Plan: -Venous duplex negative for DVT -Poditry consulted for compression dressings -lasix 20mg PO Code(s): R60.0 - LOCALIZED EDEMA (8) Head injury, acute Current Visit: Yes Status: Acute Assessment & Plan: -No acute findings on CT or neuro exam. No external trauma Code(s): S09.90XA - UNSPECIFIED INJURY OF HEAD, INITIAL ENCOUNTER (9) Hx of pulmonary embolus Current Visit: Yes Status: Acute Assessment & Plan: -Dx 1 month ago -On Eliquis, which was temporarily held due to bleeding but later resumed -Venous Doppler reviewed and BLE negative for DVT -Echo pending Code(s): Z86.711 - PERSONAL HISTORY OF PULMONARY EMBOLISM (10) Hyperglycemia Current Visit: Yes Status: Acute Assessment & Plan: -Triggered by steroid use; managed with sliding scale insulin.-ADA diet Code(s): R73.9 - HYPERGLYCEMIA, UNSPECIFIED (11) Melena Current Visit: Yes Status: Acute Assessment & Plan: -Associated with drop in hemoglobin and occult GI blood loss. No active bleeding seen on endoscopy Code(s): K92.1 - MELENA (12) Metabolic acidosis Current Visit: Yes Status: Acute Assessment & Plan: -CO2 <18 initially; corrected with PO bicarb. GTT discontinued once resolved -C02 reviewed at 25 Code(s): E87.20 - ACIDOSIS, UNSPECIFIED (13) Underweight (BMI < 18.5) Current Visit: Yes Status: Acute Assessment & Plan: -Unable to tolerate standard supplements. Ensure Clear started. Nutritional support ongoing Code(s): R63.6 - UNDERWEIGHT; Z68.1 - BODY MASS INDEX [BMI] 19.9 OR LESS, ADULT (14) History of cutaneous T-cell lymphoma Current Visit: Yes Status: Chronic Assessment & Plan: -No active treatment currently noted; documented for completeness Code(s): Z85.72 - PERSONAL HISTORY OF NON-HODGKIN LYMPHOMAS (15) Hypokalemia Current Visit: Yes Status: Resolved Assessment & Plan: -K+ corrected from 2.9 4.4 today with repletion -tele -monitor renal/lytes daily Code(s): E87.6 - HYPOKALEMIA (16) Hypomagnesemia Current Visit: Yes Status: Resolved Assessment & Plan: -Treated and resolved Code(s): E83.42 - HYPOMAGNESEMIA (17) Chronic renal failure Current Visit: No Status: Acute Assessment & Plan: -Stable renal function with creat reviewed at 1.41 compared to baseline around 1.5-1.6 -Monitor renal/lytes -avoid nephrotoxic agents (18) Fall from bed Current Visit: No Status: Acute Assessment & Plan: -No acute findings on CT or neuro exam. No external trauma Code(s): W06.XXXA - FALL FROM BED, INITIAL ENCOUNTER (19) Weakness Current Visit: No Status: Acute Assessment & Plan: -Functional decline; patient prefers swing bed or [facility]. PT evaluation completed Code(s): D64.9 - ANEMIA, UNSPECIFIED (2) Pneumonia Current Visit: Yes Status: Acute Code(s): J18.9 - PNEUMONIA, UNSPECIFIED ORGANISM (3) Abdominal pain Current Visit: Yes Status: Acute Code(s): R10.9 - UNSPECIFIED ABDOMINAL PAIN (4) Confusion state Current Visit: Yes Status: Acute Code(s): F44.89 - OTHER DISSOCIATIVE AND CONVERSION DISORDERS (5) Dehydration Current Visit: Yes Status: Acute Code(s): E86.0 - DEHYDRATION (6) Diarrhea Current Visit: Yes Status: Acute Code(s): R19.7 - DIARRHEA, UNSPECIFIED (7) Edema of both lower extremities Current Visit: Yes Status: Acute Code(s): R60.0 - LOCALIZED EDEMA (8) Head injury, acute Current Visit: Yes Status: Acute Code(s): S09.90XA - UNSPECIFIED INJURY OF HEAD, INITIAL ENCOUNTER (9) Hx of pulmonary embolus Current Visit: Yes Status: Acute Code(s): Z86.711 - PERSONAL HISTORY OF PULMONARY EMBOLISM (10) Hyperglycemia Current Visit: Yes Status: Acute Code(s): R73.9 - HYPERGLYCEMIA, UNSPECIFIED (11) Melena Current Visit: Yes Status: Acute Code(s): K92.1 - MELENA (12) Metabolic acidosis Current Visit: Yes Status: Acute Code(s): E87.20 - ACIDOSIS, UNSPECIFIED (13) Underweight (BMI < 18.5) Current Visit: Yes Status: Acute Code(s): R63.6 - UNDERWEIGHT; Z68.1 - BODY MASS INDEX [BMI] 19.9 OR LESS, ADULT (14) History of cutaneous T-cell lymphoma Current Visit: Yes Status: Chronic Code(s): Z85.72 - PERSONAL HISTORY OF NON-HODGKIN LYMPHOMAS (15) Hypokalemia Current Visit: Yes Status: Resolved Code(s): E87.6 - HYPOKALEMIA (16) Hypomagnesemia Current Visit: Yes Status: Resolved Code(s): E83.42 - HYPOMAGNESEMIA (17) Chronic renal failure Current Visit: No Status: Acute (18) Fall from bed Current Visit: No Status: Acute Code(s): W06.XXXA - FALL FROM BED, INITIAL ENCOUNTER (19) Weakness Current Visit: No Status: Acute Code(s): R53.1 - WEAKNESS
[2025-03-01 06:12] LABS: ALBUMIN 2.1 g/dL (3.5-5.0); ANION GAP 8.5 MEQ/L (5-15); BILIRUBIN,TOTAL 0.6 mg/dL (0.2-1.3); Calcium 9.5 mg/dL (8.4-10.2); Creatinine 1 1.39 mg/dL (0.52-1.04); EST GLOMERULAR FILTRATION RATE 39.3 ML/MIN; Potassium 3.8 mmol/L (3.5-5.1); Total Protein 4.5 g/dL (6.3-8.2)
[2025-03-01 07:07] LABS: ANISOCYTOSIS 1+; Lymphocytes 35 % (19.3-51.7); Monocyte 1 % (4.7-12.5); Neutrophils 64 % (34.0-71.1); Platelet Estimate NORMAL (NORMAL); Total Cells Counted 100
[2025-03-01] MEDS: NORCO 5/325 MG PO PRN (10:20)
--- NOTE | 2025-03-01 10:21 | XRAY ---
Indication: Status post fall 4 days ago. Comparison: None 3 view sacrum/coccyx demonstrates osteopenia, mild degenerative changes visualized lumbar spine, and scattered vascular calcifications including pelvic phleboliths. No acute bony, articular, or soft tissue abnormalities.
--- NOTE | 2025-03-01 11:29 | PCM.DS ---
Discharge Summary Date of Admission: 02/21/25 18:25 Date of Discharge: 03/01/25 Admitting Physician: GIGI SALINAS MD Consults: Consults on Case 02/22/25 09:20 Consult Surgery ROUTINE 02/22/25 09:24 Nutritional Consult ROUTINE 02/28/25 08:34 Consult Podiatry ROUTINE Primary Care Provider: ANGIE NGUYEN Allergies Allergies No Known Drug Allergies Allergy (Verified 02/21/25 15:03) Hospital Summary - Hospital Course Hospital Course: Ms. Calix is a 74-year-old female with a significant past medical history of cutaneous T-cell lymphoma (inactive), chronic kidney disease, chronic anemia of CKD, hypertension, possible congestive heart failure (pending outpatient echocardiogram), and recent pneumonia, who was admitted on 02/21/25 with abdominal cramping, diarrhea, vomiting with possible hematemesis, melena, and generalized weakness. On admission, chest X-ray revealed worsening bilateral infiltrates, consistent with pneumonia, and initial labs showed profound anemia with a hemoglobin of 6.8. Given the melena and positive fecal occult blood test, gastrointestinal bleeding was suspected. She underwent EGD and colonoscopy which revealed two non-bleeding polyps but no active hemorrhage. She was transfused two units of packed red blood cells with post-transfusion stabilization of hemoglobin. On 02/23, she developed an acute episode of confusion prompting a head CT, which demonstrated chronic lacunar infarcts without evidence of acute pathology. Her mental status subsequently returned to baseline. During hospitalization, the patient experienced a witnessed fall from bed on 02/25, resulting in minor head trauma but no loss of consciousness or neurological deficit; repeat head CT was negative for acute findings. XRay of the sacrum/coccyx also performed and negative for acute findings. She developed hypoxia with bilateral crackles requiring supplemental oxygen and corticosteroids, with gradual weaning back to room air during the day, though overnight oximetry revealed desaturations into the 80s. Arrangements for nocturnal home oxygen have been made. Her pneumonia was treated with intravenous ceftriaxone and azithromycin, along with duonebs and solumedrol, completing a full course of antibiotics with radiographic improvement. She also had loose stools for which C. difficile testing was sent, and empiric probiotics were initiated. Metabolic disturbances including hypokalemia and metabolic acidosis resolved with electrolyte repletion and supportive care. Notably, she developed lower extremity edema during the admission, for which venous duplex ultrasound ruled out DVT, and she was managed with compression dressings and oral diuretics. She resumed Eliquis after stabilization of GI bleeding, given her history of pulmonary embolism one month prior. Hyperglycemia secondary to steroid use was managed with sliding scale insulin. Nutritionally, she remains underweight with a BMI under 18.5; she was unable to tolerate standard supplements and was transitioned to Ensure Clear. Physical therapy evaluated her for ongoing weakness and functional decline. Given her continued deconditioning, she expressed preference for swing bed placement for rehabilitation and will transition to swing bed today. - Vitals & Intake/Output Vital Signs: Vital Signs Temperature 97.2 F 03/01/25 04:00 Pulse Rate 57 L 03/01/25 04:00 Respiratory Rate 19 03/01/25 04:00 Blood Pressure 110/56 03/01/25 04:00 O2 Sat by Pulse Oximetry 95 03/01/25 04:00 Intake & Output: Intake & Output 02/26/25 02/27/25 02/28/25 03/01/25 11:59 11:59 11:59 11:59 Intake Total 980 1260 660 660 Output Total 1100 800 Balance -120 1260 -140 660 - Lab Result Diagrams: 03/01/25 05:18 03/01/25 05:18 Lab Results-Last 24 Hrs: Lab Results-Last 24 Hours 03/01/25 03/01/25 Range/Units 05:18 05:18 WBC 8.0 (3.98-10.04) x10^3/uL RBC 3.63 L (3.93-5.22) x10^6/uL Hgb 10.3 L (11.2-15.7) g/dL Hct 31.7 L (34.1-44.9) % MCV 87.3 (79.4-94.8) fL MCH 28.4 (25.6-32.2) pg MCHC 32.5 (32.2-35.5) g/dL RDW 18.9 H (11.7-14.4) % Plt Count 183 (182-369) x10^3/uL MPV 9.9 (9.4-12.3) fL Segmented Neutrophils 64 (34.0-71.1) % Lymphocytes (Manual) 35 (19.3-51.7) % Monocytes (Manual) 1 L (4.7-12.5) % Platelet Estimate NORMAL (NORMAL) RBC Morphology ABNORMAL Anisocytosis 1+ Sodium 136 (135-145) mmol/L Potassium 3.8 (3.5-5.1) mmol/L Chloride 105 (98-107) mmol/L Carbon Dioxide 26 (22-30) mmol/L Anion Gap 8.5 (5-15) MEQ/L BUN 31 H (7-17) mg/dL Creatinine 1.39 H (0.52-1.04) mg/dL Estimated GFR 39.3 ML/MIN Glucose 100 (74-106) mg/dL Calcium 9.5 (8.4-10.2) mg/dL Total Bilirubin 0.60 (0.2-1.3) mg/dL AST 47 H (14-36) U/L ALT 62 H (0-35) U/L Alkaline Phosphatase 77 (38-126) U/L Serum Total Protein 4.5 L (6.3-8.2) g/dL Albumin 2.1 L (3.5-5.0) g/dL Micro Results-Entire Visit: Microbiology 02/21/25 15:35 Blood Culture - Final Blood 02/21/25 15:31 Blood Culture - Final Blood - Radiology Exams Ordered Rad Exams-Entire Visit: Radiology Procedures Category Date Time Status SACRUM AND COCCYX Urgent Exams 03/01/25 09:56 Completed - Procedures and Test Procedures and Tests throughout Hospitalization: Therapy Orders & Screens 02/21/25 18:16 Flutter Therapy UD Comment: 02/21/25 19:49 PT Eval & Treat (MD Order) ONCE Reason for Eval:: weakness, recent pneumonia, ambulatory O2 eval Diagnosis: Pneumonia 02/21/25 21:03 RT Screen per Nursing Assess ONCE Comment: Protocol Order Physician Instructions: Greater than 3 points order RT Admission Screen Reason For Exam: Triggered on Admission Diagnosis: Pneumonia Diagnosis: Pneumonia Pneumonia: Yes Home O2: No Asthma: No CHF: Yes Home CPAP/BIPAP: No Home Nebs/MDI: No Total Points: 6 02/21/25 23:48 Oxygen Nasal Cannula 2 lpm Comment: Diagnosis: Pneumonia 02/22/25 07:30 ST Screen per Nursing Assess ONCE Comment: Protocol Order Physician Instructions: Greater than [address] Admission Screening Reason For Exam: Triggered on Admission Diagnosis: Pneumonia CVA/Dysphagia/Aphasia: No Cognitive Deficits: No Dehydration/Nutrition Deficit: No Reflux: No Oral-Motor Difficulties: No Pneumonia: Yes Snf Resident: No Total Points: 5 02/22/25 07:40 Respiratory Therapy Assessment DAILY Comment: Diagnosis: Pneumonia 02/24/25 07:51 EKG ONCE Comment: Diagnosis: Pneumonia 02/26/25 07:35 RT Miscellaneous Order ROUTINE Comment: Physician Instructions: Reason For Exam: wean O2 baseline RA Diagnosis: Pneumonia 03/01/25 09:07 Incentive Spirometry PRN Comment: Diagnosis: Pneumonia Discharge Exam General Appearance: no apparent distress Neurologic Exam: alert, oriented x 3, cooperative Eye Exam: PERRL Ears, Nose, Throat Exam: normal ENT inspection Neck Exam: normal inspection Respiratory Exam: normal breath sounds, lungs clear Cardiovascular Exam: regular rate/rhythm, normal heart sounds Gastrointestinal/Abdomen Exam: soft, normal bowel sounds Pelvic Exam: deferred Rectal Exam: deferred Back Exam: normal inspection Extremity Exam: swelling (BLE) Skin Exam: normal color Final Diagnosis/Problem List - Final Discharge Diagnosis/Problem (1) Symptomatic anemia Current Visit: Yes Status: Acute Assessment & Plan: Managed with transfusion of two units PRBCs with stabilization of hemoglobin to 10.3. Outpatient follow-up with hematology and primary care. Continue Eliquis with close monitoring. Code(s): D64.9 - ANEMIA, UNSPECIFIED (2) Pneumonia Current Visit: Yes Status: Acute Assessment & Plan: Completed a course of IV ceftriaxone and azithromycin. Clinically improved. Continue inhaled bronchodilators and steroids as needed. Nocturnal oxygen arranged at home due to desaturations on overnight oximetry. Code(s): J18.9 - PNEUMONIA, UNSPECIFIED ORGANISM (3) Abdominal pain Current Visit: Yes Status: Acute Assessment & Plan: Likely secondary to transient ileus or enteritis as seen on abdominal CT. Resolved with bowel rest and conservative management. No surgical intervention required. Code(s): R10.9 - UNSPECIFIED ABDOMINAL PAIN (4) Confusion state Current Visit: Yes Status: Acute Assessment & Plan: Resolved; likely multifactorial including metabolic derangement and infection. No further workup required at this time. Code(s): F44.89 - OTHER DISSOCIATIVE AND CONVERSION DISORDERS (5) Dehydration Current Visit: Yes Status: Acute Assessment & Plan: Resolved with IV fluid resuscitation. Transitioned to oral intake. Monitor for signs of volume overload given CHF suspicion. Code(s): E86.0 - DEHYDRATION (6) Diarrhea Current Visit: Yes Status: Acute Assessment & Plan: C. difficile testing ordered; probiotics initiated empirically. Awaiting final results. Code(s): R19.7 - DIARRHEA, UNSPECIFIED (7) Edema of both lower extremities Current Visit: Yes Status: Acute Assessment & Plan: No DVT on duplex. Managed with oral furosemide 20 mg daily and compression wraps. Podiatry follow-up recommended. Code(s): R60.0 - LOCALIZED EDEMA (8) Head injury, acute Current Visit: Yes Status: Acute Assessment & Plan: No acute intracranial injury seen on two head CTs post-fall. No neurologic deficits on serial exams. No further imaging needed unless symptoms recur. Code(s): S09.90XA - UNSPECIFIED INJURY OF HEAD, INITIAL ENCOUNTER (9) Hx of pulmonary embolus Current Visit: Yes Status: Acute Assessment & Plan: On Eliquis, resumed after bleeding stabilization. Continue anticoagulation per outpatient hematology or PCP guidance. Venous duplex negative for DVT. Code(s): Z86.711 - PERSONAL HISTORY OF PULMONARY EMBOLISM (10) Hyperglycemia Current Visit: Yes Status: Acute Assessment & Plan: Managed with sliding scale insulin. Recommend ADA diet. Reassess need for steroids and glucose control at follow-up. Code(s): R73.9 - HYPERGLYCEMIA, UNSPECIFIED (11) Melena Current Visit: Yes Status: Acute Assessment & Plan: Suspected source for anemia; no active bleeding seen on EGD/colonoscopy. Continue GI precautions with protonix BID. Code(s): K92.1 - MELENA (12) Metabolic acidosis Current Visit: Yes Status: Acute Assessment & Plan: resolved after bicarbonate supplementation. Electrolytes stable; no ongoing supplementation needed. Code(s): E87.20 - ACIDOSIS, UNSPECIFIED (13) Underweight (BMI < 18.5) Current Visit: Yes Status: Acute Assessment & Plan: Nutritional support with Ensure Clear. Recommend outpatient dietitian consultation. Monitor weight closely. Code(s): R63.6 - UNDERWEIGHT; Z68.1 - BODY MASS INDEX [BMI] 19.9 OR LESS, ADULT (14) History of cutaneous T-cell lymphoma Current Visit: Yes Status: Chronic Assessment & Plan: Inactive. No current treatment. Code(s): Z85.72 - PERSONAL HISTORY OF NON-HODGKIN LYMPHOMAS (15) Hypokalemia Current Visit: Yes Status: Resolved Assessment & Plan: Corrected during admission. Continue monitoring potassium levels with routine labs. Code(s): E87.6 - HYPOKALEMIA (16) Hypomagnesemia Current Visit: Yes Status: Resolved Assessment & Plan: Corrected with repletion. No ongoing supplementation required. Code(s): E83.42 - HYPOMAGNESEMIA (17) Chronic renal failure Current Visit: No Status: Acute Assessment & Plan: Stable renal function with creatinine at 1.41 (baseline ~1.51.6). Avoid nephrotoxins. (18) Fall from bed Current Visit: No Status: Acute Assessment & Plan: No injuries noted. Sacral x-rays negative for acute findings. Reassess fall risk strategies in swing bed. Code(s): W06.XXXA - FALL FROM BED, INITIAL ENCOUNTER (19) Weakness Current Visit: No Status: Acute Assessment & Plan: Attributed to multifactorial causes including deconditioning, anemia, and recent illness. Physical therapy evaluated, and patient desires swing bed placement for rehabilitation. Code(s): R53.1 - WEAKNESS - Discharge Discharge Date: 03/01/25 Disposition: Swing Bed @ [facility] Condition: Stable Prescriptions: No Action Mecobalamin [B12 Active] 1,000 mcg PO DAILY Cholecalciferol (Vitamin D3) [D3-5000] 125 mcg PO DAILY Methotrexate Sodium 2.5 mg [Trexall 2.5 mg] 5 mg PO WEEKLY Bumetanide 0.5 mg PO DAILY Albuterol Sulfate [Albuterol Sulfate Hfa] 2 puff PO Q4-6HPRN PRN PRN Reason: Shortness Of Breath Apixaban [Eliquis 2.5 mg Tablet] 5 mg PO BID Additional Instructions: [facility] THEY WILL CALL YOU TO ARRANGE A TIME TO COME SEE YOU.THEIR PHONE NUMBER IS [phone] IF YOU ARIEL ANYTHING PRIOR TO THEIR VISIT Follow up with: ANGIE NGUYEN [Primary Care Provider, INTERNAL MEDICINE]
[2025-03-01 12:35] VITALS: BP 123/58; PULSE 59; RESP 18; TEMP 97.8
== END 2025-03-01 13:44 | disposition swing bed (61) | DRG 811 ==
LOC: ED 14:44 → OBSVTOIN 18:25 → MED SURG 18:25 → UNDODISIN 03-01 13:44
PROVIDERS: ADMIT Internal Medicine; ATTEND Internal Medicine
PROC: 0DJ08ZZ Inspection of Upper Intestinal Tract, Via Natural or Artificial Opening Endoscopic (ICD-10-PCS; principal; 2025-02-24)
PROC: 0DBN8ZZ Excision of Sigmoid Colon, Via Natural or Artificial Opening Endoscopic (ICD-10-PCS; 2025-02-24)
DX: D64.9 Anemia, unspecified (principal); J18.9 Pneumonia, unspecified organism; N17.9 Acute kidney failure, unspecified; K92.1 Melena; E87.20 Acidosis, unspecified; Z68.1 Body mass index [BMI] 19.9 or less, adult; R10.9 Unspecified abdominal pain; F44.89 Other dissociative and conversion disorders; E86.0 Dehydration; R19.7 Diarrhea, unspecified; R60.0 Localized edema; I12.9 Hypertensive chronic kidney disease with stage 1 through stage 4 chronic kidney disease, or unspecified chronic kidney disease; N18.9 Chronic kidney disease, unspecified; S09.90XA Unspecified injury of head, initial encounter; Z86.711 Personal history of pulmonary embolism; R73.9 Hyperglycemia, unspecified; R63.6 Underweight; K29.70 Gastritis, unspecified, without bleeding; Z85.72 Personal history of non-Hodgkin lymphomas; K63.5 Polyp of colon; E87.6 Hypokalemia; E83.42 Hypomagnesemia; W06.XXXA Fall from bed, initial encounter; R53.1 Weakness; Z79.01 Long term (current) use of anticoagulants; Z79.899 Other long term (current) drug therapy; Z80.0 Family history of malignant neoplasm of digestive organs
CPT/HCPCS: 00813; 29580; 36415; 36430; 43235; 45385; 70450; 71045; 72220; 74176; 80048; 80053; 81001; 82247; 82550; 83036; 83605; 83735; 84132; 85014; 85018; 85025; 85027; 85610; 85730; 86850; 86900; 86901; 86922; 87040; 87493; 93005; 93306; 93970; 94640; 94667; 94668; 94760; 97110; 97116; 97161; 97530; 99100; 99223; 99285; G0328; P9016; Q3014; 82274; 88305; 99284; J0456; J0696; J1938; J2704; J2919; J3475; J3480; A9270-GY

== ENCOUNTER 2025-03-01 11:18 | Inpatient (IN) | payer MEDICARE ==
[2025-03-01] MEDS ORDERED: Zofran 4 MG/2 ML VIAL IV PRN (15:13)
[2025-03-01] MEDS ORDERED: FEVERALL 650 MG PR PRN (15:13)
[2025-03-01] MEDS ORDERED: Pain Relieving Rub TOP PRN (15:15)
[2025-03-01] MEDS ORDERED: HUMALOG SQ PRN (15:15)
[2025-03-01] MEDS ORDERED: Aplisol ID ONE (15:18)
[2025-03-01] MEDS: NORCO 5/325 MG PO PRN (15:25)
[2025-03-01] MEDS: ELIQUIS 2.5 MG TABLET PO SCH (22:42)
[2025-03-01] MEDS: Mucinex 600MG ER Tabs PO SCH (22:42)
[2025-03-01] MEDS: PROTONIX 40 MG IV IV SCH (22:44)
[2025-03-01] MEDS: Aplisol ID ONE (23:08)
[2025-03-02 04:57] LABS: Hematocrit 32.9 % (34.1-44.9); Hemoglobin 10.6 g/dL (11.2-15.7); Mean Cell Volume 88.7 fL (79.4-94.8); Mean Corpuscular Hemoglobin 28.6 pg (25.6-32.2); Mean Corpuscular Hgb Concent. 32.2 g/dL (32.2-35.5); Mean Platelet Volume 10.3 fL (9.4-12.3); Platelet Count 196 x10^3/uL (182-369); Red Blood Count 3.71 x10^6/uL (3.93-5.22); Red Cell Distribution Width 18.8 % (11.7-14.4); White Blood Count 5.8 x10^3/uL (3.98-10.04)
[2025-03-02 05:16] LABS: ALBUMIN 2.2 g/dL (3.5-5.0); ANION GAP 8.6 MEQ/L (5-15); BILIRUBIN,TOTAL 0.6 mg/dL (0.2-1.3); Calcium 9.3 mg/dL (8.4-10.2); Creatinine 1 1.54 mg/dL (0.52-1.04); EST GLOMERULAR FILTRATION RATE 34.8 ML/MIN; Potassium 3.7 mmol/L (3.5-5.1); Total Protein 4.5 g/dL (6.3-8.2)
--- NOTE | 2025-03-02 05:35 | PCM.HP ---
History of Present Illness - Chief Complaint Chief Complaint: Pneumonia Date: 03/02/25 History of Present Illness: Ms. Calix is a 74-year-old female with multiple complex comorbidities, including chronic kidney disease, chronic anemia of CKD, hypertension, history of pulmonary embolism, inactive cutaneous T-cell lymphoma, and recent hospitalization for pneumonia, symptomatic anemia, and gastrointestinal bleeding, now stabilized. Her hospitalization was further complicated by metabolic derangements, lower extremity edema, hyperglycemia, significant deconditioning, and a witnessed fall. Given her high risk for clinical deterioration, fall risk, ongoing need for supplemental oxygen and rehabilitation to regain prior functional baseline, swing bed admission is medically necessary. She does not meet criteria for safe discharge to home at this time and requires continued multidisciplinary care to address her ongoing medical and functional needs. Endorses mild pain to sacrum but otherwise no complaints. - Review of Systems Constitutional: Weakness Eyes: No Symptoms Ears, Nose, & Throat: No Symptoms Respiratory: No Symptoms Cardiac: No Symptoms Abdominal/Gastrointestinal: No Symptoms Genitourinary Symptoms: No Symptoms Musculoskeletal: Other (sacral pain) Neurological: No Symptoms Psychological: No Symptoms Endocrine: No Symptoms Hematologic/Lymphatic: No Symptoms Immunological/Allergic: No Symptoms Medications & Allergies Home Medications: Home Medication List Cholecalciferol (Vitamin D3) [D3-5000] 125 mcg PO DAILY 05/27/23 [History Confirmed 03/01/25] Mecobalamin [B12 Active] 1,000 mcg PO DAILY 05/27/23 [History Confirmed 03/01/25] Methotrexate Sodium 2.5 mg [Trexall 2.5 mg] 5 mg PO WEEKLY 03/05/24 [History Confirmed 03/01/25] Albuterol Sulfate [Albuterol Sulfate Hfa] 2 puff IH Q4-6HPRN PRN 02/21/25 [History Confirmed 03/01/25] Apixaban [Eliquis 2.5 mg Tablet] 5 mg PO BID 02/21/25 [History Confirmed 03/01/25] Bumetanide 0.5 mg PO DAILY 02/21/25 [History Confirmed 03/01/25] Allergies/Adverse Reactions: Allergies Allergy/AdvReac Type Severity Reaction Status Date / Time No Known Drug Allergies Allergy Verified 02/21/25 15:03 - Past Medical History Past Medical History: Yes Neurological History: No Pertinent History ENT History: No Pertinent History Cardiac History: Hypertension Respiratory History: No Pertinent History Endocrine Medical History: No Pertinent History Musculoskelatal History: Rheumatoid Arthritis GI Medical History: No Pertinent History History: No Pertinent History Pyscho-Social History: No Pertinent History Reproductive Disorders: No Pertinent History Comment: 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 Carter (upon hospital admission) - Past Surgical History Past Surgical History: Yes Neuro Surgical History: No Pertinent History Cardiac History: No Pertinent History Respiratory Surgery: No Pertinent History GI Surgical History: Cholecystectomy Genitourinary Surgical Hx: No Pertinent History Musculskeletal Surgical Hx: No Pertinent History Female Surgical History: Dilation & Curettage Other Surgical History: melanoma Significant Family History: cancer (Father with colon cancer) - Social History Smoking Status: Never smoker Exposure to second hand smoke: No Alcohol: None Drug Use: none - Social Determinants of Health Will the patient participate in the screening: Yes Do you worry about a steady place to live?: No In the past 12 months,have you had to go without utilities?: No Have you or anyone in your house had to go without enough: No Transportation Issues: No Has anyone in your support network made you feel unsafe?: No Does the patient want assistance with any of the above?: No - Physical Exam Vital Signs: Vital Signs - 24 hr Temp Pulse Resp BP Pulse Ox 03/01/25 20:00 97.1 F 54 L 16 117/58 96 03/01/25 17:38 97.9 F 59 L 20 128/60 92 L General Appearance: no apparent distress Neurologic Exam: alert, oriented x 3, cooperative Eye Exam: PERRL/EOMI Ears, Nose, Throat Exam: normal ENT inspection Neck Exam: normal inspection Respiratory Exam: normal breath sounds, lungs clear Cardiovascular Exam: regular rate/rhythm, normal heart sounds Gastrointestinal/Abdomen Exam: soft, normal bowel sounds Pelvic Exam: not done Rectal Exam: deferred Back Exam: normal inspection Extremity Exam: normal inspection Skin Exam: normal color, ecchymosis (right buttock) Results - Labs Lab/Micro Results: Lab Results-Last 24 Hours 03/02/25 03/02/25 Range/Units 04:51 04:51 WBC 5.8 (3.98-10.04) x10^3/uL RBC 3.71 L (3.93-5.22) x10^6/uL Hgb 10.6 L (11.2-15.7) g/dL Hct 32.9 L (34.1-44.9) % MCV 88.7 (79.4-94.8) fL MCH 28.6 (25.6-32.2) pg MCHC 32.2 (32.2-35.5) g/dL RDW 18.8 H (11.7-14.4) % Plt Count 196 (182-369) x10^3/uL MPV 10.3 (9.4-12.3) fL Sodium 136 (135-145) mmol/L Potassium 3.7 (3.5-5.1) mmol/L Chloride 105 (98-107) mmol/L Carbon Dioxide 26 (22-30) mmol/L Anion Gap 8.6 (5-15) MEQ/L BUN 37 H (7-17) mg/dL Creatinine 1.54 H (0.52-1.04) mg/dL Estimated GFR 34.8 ML/MIN Glucose 116 H (74-106) mg/dL Calcium 9.3 (8.4-10.2) mg/dL Total Bilirubin 0.60 (0.2-1.3) mg/dL AST 37 H (14-36) U/L ALT 60 H (0-35) U/L Alkaline Phosphatase 83 (38-126) U/L Serum Total Protein 4.5 L (6.3-8.2) g/dL Albumin 2.2 L (3.5-5.0) g/dL - Other Procedures and Tests Respiratory Therapy 03/01/25 15:16 Incentive Spirometry PRN Oxygen Nasal Cannula 2 lpm 03/01/25 19:50 Incentive Spirometry PRN Oxygen Nasal Cannula 2 lpm Assessment/Plan (1) Physical deconditioning Current Visit: Yes Status: Acute Assessment & Plan: -PT/OT initiated; continue therapy in swing bed. -Focus on strength, balance, endurance, and ADL retraining. -Monitor progress toward functional goals Code(s): R53.81 - OTHER MALAISE (2) Abdominal pain Current Visit: No Status: Acute Assessment & Plan: -Resolved with conservative measures. -Monitor for recurrence; no surgical intervention needed Code(s): R10.9 - UNSPECIFIED ABDOMINAL PAIN (3) Chronic renal failure Current Visit: No Status: Acute Assessment & Plan: -Baseline stable. -Avoid nephrotoxins. -Monitor renal function and adjust medications as needed (4) Confusion state Current Visit: No Status: Acute Assessment & Plan: -Resolved. -Monitor mental status; ensure infection and metabolic derangements are prevented Code(s): F44.89 - OTHER DISSOCIATIVE AND CONVERSION DISORDERS (5) Dehydration Current Visit: No Status: Acute Assessment & Plan: -Resolved. -Maintain adequate oral hydration while avoiding volume overload Code(s): E86.0 - DEHYDRATION (6) Diarrhea Current Visit: No Status: Acute Assessment & Plan: -Continue probiotics. -Monitor stool patterns and hydration status Code(s): R19.7 - DIARRHEA, UNSPECIFIED (7) Edema of both lower extremities Current Visit: No Status: Acute Assessment & Plan: -Managed with oral furosemide and compression wraps. -Continue compression therapy and monitor for DVT symptoms. -Elevate legs as tolerated. Code(s): R60.0 - LOCALIZED EDEMA (8) Fall from bed Current Visit: No Status: Acute Assessment & Plan: -No injury noted. -Reinforce fall precautions. -PT/OT to assess for safe mobility Code(s): W06.XXXA - FALL FROM BED, INITIAL ENCOUNTER (9) Head injury, acute Current Visit: No Status: Acute Assessment & Plan: -No acute intracranial injury. -Continue fall precautions in swing bed. -Reassess safety with PT/OT. Code(s): S09.90XA - UNSPECIFIED INJURY OF HEAD, INITIAL ENCOUNTER (10) Hx of pulmonary embolus Current Visit: No Status: Acute Assessment & Plan: -Continue Eliquis. -Monitor for bleeding and signs of VTE recurrence. -Reassess need for anticoagulation in outpatient setting Code(s): Z86.711 - PERSONAL HISTORY OF PULMONARY EMBOLISM (11) Hyperglycemia Current Visit: No Status: Acute Assessment & Plan: -Continue sliding scale insulin as needed. -Taper steroids as able. -Diabetic diet recommended Code(s): R73.9 - HYPERGLYCEMIA, UNSPECIFIED (12) Melena Current Visit: No Status: Acute Assessment & Plan: -Continue Protonix BID. -GI follow-up as outpatient. -Monitor for recurrence of GI bleeding Code(s): K92.1 - MELENA (13) Metabolic acidosis Current Visit: No Status: Acute Assessment & Plan: -resolved Code(s): E87.20 - ACIDOSIS, UNSPECIFIED (14) Pneumonia Current Visit: No Status: Acute Assessment & Plan: -Completed IV ceftriaxone and azithromycin. -Continue Duonebs and steroids as needed. -Nocturnal home oxygen arranged; monitor need for daytime oxygen in swing bed Code(s): J18.9 - PNEUMONIA, UNSPECIFIED ORGANISM (15) Symptomatic anemia Current Visit: No Status: Acute Assessment & Plan: -Completed transfusion of two units PRBCs and stable -Continue Eliquis cautiously with GI monitoring. -Outpatient hematology and primary care follow-up for anemia management Code(s): D64.9 - ANEMIA, UNSPECIFIED (16) Underweight (BMI < 18.5) Current Visit: No Status: Acute Assessment & Plan: -Continue Ensure Clear. -Monitor oral intake, weight, and tolerance. -Dietitian consult recommended. Code(s): R63.6 - UNDERWEIGHT; Z68.1 - BODY MASS INDEX [BMI] 19.9 OR LESS, ADULT (17) History of cutaneous T-cell lymphoma Current Visit: No Status: Chronic Assessment & Plan: -Inactive. -No current interventions required. Code(s): Z85.72 - PERSONAL HISTORY OF NON-HODGKIN LYMPHOMAS (18) Hypokalemia Current Visit: No Status: Resolved Assessment & Plan: -resolved Code(s): E87.6 - HYPOKALEMIA (19) Hypomagnesemia Current Visit: No Status: Resolved Assessment & Plan: -resolved VTE: Eliquis PPI: protonix Code status: Full Code Code(s): E83.42 - HYPOMAGNESEMIA
[2025-03-02] MEDS: VITAMIN D PO SCH (09:12)
[2025-03-02] MEDS: DELTASONE 20 MG PO SCH (09:13)
[2025-03-02] MEDS: Vitamin B-12 500 MCG PO SCH (09:13)
[2025-03-02] MEDS: Acidophilus TABLET PO SCH (09:13)
[2025-03-02] MEDS: Protonix 40MG Tablet PO SCH (09:14)
[2025-03-02] MEDS ORDERED: LASIX 20 MG PO SCH (10:00)
--- NOTE | 2025-03-02 16:20 | PCM.CONS ---
Podiatry HPI - Consult Consulting Provider: MARINA LIAO DPM - HPI History of Present Illness: is a 74 year old female with a history of large T cell lymphoma, CKD, chronic anemia of CKD, HTN (no history of CAD; had recent evaluation by Dr. Wood for nonspecific T wave abnormalities on EKG attributed to hyperventilation), possible CHF (has chronic leg edema on Bumex with upcoming outpatient ECHO scheduled) and recent pneumonia (diagnosed about 3 weeks ago and treated with course of antibiotics) who presented to the ED with abdominal cramping for about 24 to 48 hours, vomiting with possible hematemesis, dark bowel movements, diarrhea, cough productive of clear sputum, fatigue with exertion, and generalized weakness. She did report recently having some red Gatorade. She is not on any blood thinners and denies any history of prior ulcer or GI bleed. She has never had an endoscopy. In the ED, hemoglobin was noted to be at baseline, and the patient's CXR demonstrated worsening infiltrate. The patient's daughter was at bedside during my assessment. Medications & Allergies Home Medications: Home Medication List Cholecalciferol (Vitamin D3) [D3-5000] 125 mcg PO DAILY 05/27/23 [History Confirmed 03/01/25] Mecobalamin [B12 Active] 1,000 mcg PO DAILY 05/27/23 [History Confirmed 03/01/25] Methotrexate Sodium 2.5 mg [Trexall 2.5 mg] 5 mg PO WEEKLY 03/05/24 [History Confirmed 03/01/25] Albuterol Sulfate [Albuterol Sulfate Hfa] 2 puff IH Q4-6HPRN PRN 02/21/25 [History Confirmed 03/01/25] Apixaban [Eliquis 2.5 mg Tablet] 5 mg PO BID 02/21/25 [History Confirmed 03/01/25] Bumetanide 0.5 mg PO DAILY 02/21/25 [History Confirmed 03/01/25] Allergies/Adverse Reactions: Allergies Allergy/AdvReac Type Severity Reaction Status Date / Time No Known Drug Allergies Allergy Verified 02/21/25 15:03 - Past Medical History Past Medical History: Yes Neurological History: No Pertinent History ENT History: No Pertinent History Cardiac History: Hypertension Respiratory History: No Pertinent History Endocrine Medical History: No Pertinent History Musculoskelatal History: Rheumatoid Arthritis GI Medical History: No Pertinent History History: No Pertinent History Pyscho-Social History: No Pertinent History Reproductive Disorders: No Pertinent History Comment: 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 Carter (upon hospital admission) - Past Surgical History Past Surgical History: Yes Neuro Surgical History: No Pertinent History Cardiac History: No Pertinent History Respiratory Surgery: No Pertinent History GI Surgical History: Cholecystectomy Genitourinary Surgical Hx: No Pertinent History Musculskeletal Surgical Hx: No Pertinent History Female Surgical History: Dilation & Curettage Other Surgical History: melanoma Significant Family History: cancer (Father with colon cancer) - Social History Smoking Status: Never smoker Exposure to second hand smoke: No Alcohol: None Drug Use: none - Social Determinants of Health Will the patient participate in the screening: Yes Do you worry about a steady place to live?: No In the past 12 months,have you had to go without utilities?: No Have you or anyone in your house had to go without enough: No Transportation Issues: No Has anyone in your support network made you feel unsafe?: No Does the patient want assistance with any of the above?: No Physical Exam - Narrative Narrative Physical Exam: Podiatry Physical Exam Results - Labs Lab/Micro Results: Lab Results-Last 24 Hours 03/02/25 03/02/25 Range/Units 04:51 04:51 WBC 5.8 (3.98-10.04) x10^3/uL RBC 3.71 L (3.93-5.22) x10^6/uL Hgb 10.6 L (11.2-15.7) g/dL Hct 32.9 L (34.1-44.9) % MCV 88.7 (79.4-94.8) fL MCH 28.6 (25.6-32.2) pg MCHC 32.2 (32.2-35.5) g/dL RDW 18.8 H (11.7-14.4) % Plt Count 196 (182-369) x10^3/uL MPV 10.3 (9.4-12.3) fL Sodium 136 (135-145) mmol/L Potassium 3.7 (3.5-5.1) mmol/L Chloride 105 (98-107) mmol/L Carbon Dioxide 26 (22-30) mmol/L Anion Gap 8.6 (5-15) MEQ/L BUN 37 H (7-17) mg/dL Creatinine 1.54 H (0.52-1.04) mg/dL Estimated GFR 34.8 ML/MIN Glucose 116 H (74-106) mg/dL Calcium 9.3 (8.4-10.2) mg/dL Total Bilirubin 0.60 (0.2-1.3) mg/dL AST 37 H (14-36) U/L ALT 60 H (0-35) U/L Alkaline Phosphatase 83 (38-126) U/L Serum Total Protein 4.5 L (6.3-8.2) g/dL Albumin 2.2 L (3.5-5.0) g/dL Assessment/Plan (1) DVT (deep venous thrombosis) Current Visit: No Status: Acute Qualifiers: DVT location: lower extremity Affected thrombotic vein of extremity: femoral Chronicity: acute Laterality: right Qualified Code(s): I82.411 - Acute embolism and thrombosis of right femoral vein Code(s): I82.409 - ACUTE EMBOLISM AND THOMBOS UNSP DEEP VN UNSP LOWER EXTREMITY (2) Edema of both lower extremities Current Visit: No Status: Acute Assessment & Plan: Patient examination and evaluation Ultrasounds negative for dvt to the bilateral lower extremity. Patient started diuresis today with medicine team Recommend compression therapy to the bilateral lower extremity in the form of unna boots. Patient encouraged to elevate extremities. Will follow with you. Code(s): R60.0 - LOCALIZED EDEMA (3) Hx of pulmonary embolus Current Visit: No Status: Acute Code(s): Z86.711 - PERSONAL HISTORY OF PULMONARY EMBOLISM (4) Pulmonary emphysema Current Visit: No Status: Acute Code(s): J43.9 - EMPHYSEMA, UNSPECIFIED (5) Generalized weakness Current Visit: No Status: Chronic Code(s): R53.1 - WEAKNESS (6) Shortness of breath Current Visit: No Status: Resolved Code(s): R06.02 - SHORTNESS OF BREATH
[2025-03-03] MEDS: Aplisol ID SCH (11:55)
[2025-03-03] MEDS: IMODIUM 2 MG PO PRN (15:54)
[2025-03-04] MEDS: PROTONIX 40 MG IV IV SCH (20:38)
[2025-03-04 22:47] LABS: Hematocrit 31.2 % (34.1-44.9); Hemoglobin 10.1 g/dL (11.2-15.7); Mean Cell Volume 89.1 fL (79.4-94.8); Mean Corpuscular Hemoglobin 28.9 pg (25.6-32.2); Mean Corpuscular Hgb Concent. 32.4 g/dL (32.2-35.5); Platelet Count 184 x10^3/uL (182-369); Red Cell Distribution Width 18.8 % (11.7-14.4)
[2025-03-04 23:19] LABS: BAND 1 % (0.0-2.0); Lymphocytes 15 % (19.3-51.7); Metamyelocyte 1 %; Monocyte 12 % (4.7-12.5); Myelocyte 3 %; Neutrophils 68 % (34.0-71.1); Platelet Estimate NORMAL (NORMAL); Total Cells Counted 100
[2025-03-05 09:00] LABS: Hematocrit 34.6 % (34.1-44.9)
--- NOTE | 2025-03-05 09:52 | PCM.NOTE ---
The patient was noted to have two episodes of bright red blood per rectum overnight. She recently underwent an esophagogastroduodenoscopy (EGD) and colonoscopy on February 24, 2025, which revealed minimal gastritis and polypoid lesions in the rectosigmoid region; however, no definitive source of gastrointestinal bleeding was identified at that time. The identified polyps were removed during the procedure. Currently, the patient's hemoglobin remains stable. The plan is to continue protonix at twice daily dosing for gastroprotection and to temporarily hold Eliquis. Further discussion with the prescribing provider is planned for Friday to determine whether Eliquis can be permanently discontinued based on the patient's overall thromboembolic risk and recent bleeding events.
[2025-03-06 05:49] LABS: Hematocrit 31.1 % (34.1-44.9); Hemoglobin 9.6 g/dL (11.2-15.7); Mean Cell Volume 93.4 fL (79.4-94.8); Mean Corpuscular Hemoglobin 28.8 pg (25.6-32.2); Mean Corpuscular Hgb Concent. 30.9 g/dL (32.2-35.5); Mean Platelet Volume 9.7 fL (9.4-12.3); Platelet Count 149 x10^3/uL (182-369); Red Blood Count 3.33 x10^6/uL (3.93-5.22); Red Cell Distribution Width 19.2 % (11.7-14.4); White Blood Count 5.1 x10^3/uL (3.98-10.04)
[2025-03-06 05:59] LABS: ALBUMIN 2.1 g/dL (3.5-5.0); ANION GAP 3.3 MEQ/L (5-15); BILIRUBIN,TOTAL 0.7 mg/dL (0.2-1.3); Calcium 8.6 mg/dL (8.4-10.2); Creatinine 1 1.35 mg/dL (0.52-1.04); EST GLOMERULAR FILTRATION RATE 40.7 ML/MIN; Potassium 3.6 mmol/L (3.5-5.1); Total Protein 4.4 g/dL (6.3-8.2)
[2025-03-06 06:54] LABS: ANISOCYTOSIS 1+; BAND 1 % (0.0-2.0); Lymphocytes 39 % (19.3-51.7); Monocyte 3 % (4.7-12.5); Neutrophils 57 % (34.0-71.1); Platelet Estimate NORMAL (NORMAL); Poikilocytosis 1+; Total Cells Counted 100
[2025-03-06 13:44] LABS: Hematocrit 36.3 % (34.1-44.9); Hemoglobin 11.5 g/dL (11.2-15.7)
[2025-03-06] MEDS: NORCO 5/325 MG PO PRN (17:05)
[2025-03-07 04:59] LABS: Absolute Neutrophil Ct (ANC) 2.69 x10^3/uL (1.56-6.13); BASOPHIL % 0.2 % (0.1-1.2); Basophil (Absolute #) 0.01 x10^3/uL (0.01-0.08); Eosinophil % 3.4 % (0.7-5.8); Eosinophil (Absolute #) 0.16 x10^3/uL (0.04-0.36); Hematocrit 28.9 % (34.1-44.9); Hemoglobin 9.3 g/dL (11.2-15.7); IMMATURE GRAN % 2.1 % (0.001-0.429); Lymphocyte (Absolute #) 1.21 x10^3/uL (1.18-3.74); Mean Cell Volume 91.2 fL (79.4-94.8); Mean Corpuscular Hemoglobin 29.3 pg (25.6-32.2); Mean Corpuscular Hgb Concent. 32.2 g/dL (32.2-35.5); Mean Platelet Volume 10.1 fL (9.4-12.3); Monocyte (Absolute #) 0.49 x10^3/uL (0.24-0.86); Monocytes % 10.5 % (4.7-12.5); Neutrophil % 57.8 % (34.0-71.1); Platelet Count 139 x10^3/uL (182-369); Red Blood Count 3.17 x10^6/uL (3.93-5.22); White Blood Count 4.7 x10^3/uL (3.98-10.04)
[2025-03-07 05:18] LABS: ANION GAP 2.3 MEQ/L (5-15); BILIRUBIN,TOTAL 0.8 mg/dL (0.2-1.3); Calcium 8.6 mg/dL (8.4-10.2); Creatinine 1 1.45 mg/dL (0.52-1.04); EST GLOMERULAR FILTRATION RATE 37.4 ML/MIN; Potassium 3.7 mmol/L (3.5-5.1); Total Protein 4.3 g/dL (6.3-8.2)
[2025-03-07] MEDS ORDERED: ZOFRAN ODT 4 MG PO PRN (12:08)
[2025-03-07] MEDS: TYLENOL 325 MG PO PRN (16:15)
--- NOTE | 2025-03-08 11:30 | PCM.NOTE ---
Discussed pt case with Dr. Carter yesterday regarding her blood thinner. He would like to have this held for 7 days and then restarted. Discussed bloody stool Friday and that it was again held and he is ok with this. After the 7 days restart and f/u OP with PCP and him.
[2025-03-09 04:59] LABS: Hematocrit 27.3 % (34.1-44.9); Hemoglobin 8.6 g/dL (11.2-15.7); Mean Corpuscular Hemoglobin 28.7 pg (25.6-32.2); Mean Corpuscular Hgb Concent. 31.5 g/dL (32.2-35.5); Mean Platelet Volume 9.5 fL (9.4-12.3); Platelet Count 116 x10^3/uL (182-369); Red Cell Distribution Width 18.9 % (11.7-14.4); White Blood Count 4.7 x10^3/uL (3.98-10.04)
[2025-03-09 05:24] LABS: ALBUMIN 2.1 g/dL (3.5-5.0); ANION GAP 3.9 MEQ/L (5-15); BILIRUBIN,TOTAL 0.8 mg/dL (0.2-1.3); Calcium 8.4 mg/dL (8.4-10.2); Creatinine 1 1.29 mg/dL (0.52-1.04); Potassium 3.8 mmol/L (3.5-5.1); Total Protein 4.4 g/dL (6.3-8.2)
[2025-03-09 07:53] VITALS: BP 127/59; PULSE 66; RESP 17; TEMP 98.3; O2SAT 95
--- NOTE | 2025-03-09 08:00 | PCM.NOTE ---
Date and Time: 03/09/25 0759 Subjective Assessment: Progressing without complication with significant improvement in legs at this time. Will proceed with tubigrips for home use. Physical Exam - Narrative Narrative Physical Exam: Podiatry Physical Exam Objective Data Vital Signs: Vital Signs - 24 hr Temp Pulse Resp BP Pulse Ox 03/09/25 07:52 98.3 F 66 17 127/59 95 03/09/25 07:10 94 L 03/08/25 23:48 95 03/08/25 20:00 97.1 F 68 18 135/71 95 03/08/25 08:00 97.8 F 83 16 159/69 95 Pain Assessment - Last Documented Pain Intensity 7 Pain Scale Used [facility] Intake and Output: Intake & Output 03/06/25 03/07/25 03/08/25 03/09/25 11:59 11:59 11:59 11:59 Intake Total 420 240 840 420 Balance 420 240 840 420 Weight 60.2 kg Lab Results: Lab Results-Last 24 Hours 03/09/25 03/09/25 Range/Units 04:54 04:54 WBC 4.7 (3.98-10.04) x10^3/uL RBC 3.00 L (3.93-5.22) x10^6/uL Hgb 8.6 L (11.2-15.7) g/dL Hct 27.3 L (34.1-44.9) % MCV 91.0 (79.4-94.8) fL MCH 28.7 (25.6-32.2) pg MCHC 31.5 L (32.2-35.5) g/dL RDW 18.9 H (11.7-14.4) % Plt Count 116 L (182-369) x10^3/uL MPV 9.5 (9.4-12.3) fL Sodium 133 L (135-145) mmol/L Potassium 3.8 (3.5-5.1) mmol/L Chloride 109 H (98-107) mmol/L Carbon Dioxide 24 (22-30) mmol/L Anion Gap 3.9 L (5-15) MEQ/L BUN 21 H (7-17) mg/dL Creatinine 1.29 H (0.52-1.04) mg/dL Estimated GFR 43.0 ML/MIN Glucose 85 (74-106) mg/dL Calcium 8.4 (8.4-10.2) mg/dL Total Bilirubin 0.80 (0.2-1.3) mg/dL AST 23 (14-36) U/L ALT 23 (0-35) U/L Alkaline Phosphatase 95 (38-126) U/L Serum Total Protein 4.4 L (6.3-8.2) g/dL Albumin 2.1 L (3.5-5.0) g/dL Medications: Medications Generic Name Dose Route Start Last Admin Trade Name Freq PRN Reason Stop Dose Admin Acetaminophen 650 mg 03/01/25 15:13 Acetaminophen 650 Mg Supp.Rect NE 03/31/25 15:12 Q4H PRN PRN PAIN AND/OR FEVER Acetaminophen 325 mg 03/01/25 15:13 03/07/25 16:15 Acetaminophen 325 Mg Tablet PO 03/31/25 15:12 325 mg Q4H PRN PRN Administration PAIN, FEVER, HEADACHE Hydrocodone Bitart/Acetaminophen 1 tab 03/06/25 16:42 03/09/25 03:21 Hydrocodone/Apap 5/325 1 Tab Tablet PO 03/11/25 16:41 1 tab Q4H PRN PRN Administration PAIN Apixaban 5 mg 03/01/25 22:00 03/04/25 20:39 Apixaban 2.5 Mg Tablet PO 03/31/25 21:59 Not Given BID REMBERTO Cholecalciferol 5,000 unit 03/02/25 10:00 03/08/25 09:40 Cholecalciferol (Vitamin D3) 1000 Unit Tablet PO 04/01/25 09:59 5,000 unit DAILY REMBERTO Administration Cyanocobalamin 1,000 mcg 03/02/25 10:00 03/08/25 09:40 Cyanocobalamin 500 Mcg Tablet PO 04/01/25 09:59 1,000 mcg DAILY REMBERTO Administration Guaifenesin 600 mg 03/01/25 22:00 03/08/25 22:59 Guaifenesin 600 Mg Tablet Er PO 03/31/25 21:59 600 mg BID REMBERTO Administration Insulin Human Lispro 0 unit 03/01/25 15:15 Insulin Lispro 1 Unit SQ 03/31/25 15:14 UD PRN HYPERGLYCEMIA Lactobacillus Acidophilus 1 tab 03/02/25 10:00 03/08/25 09:40 Lactobacillus Acidophilus 1 Tab Tablet PO 04/01/25 09:59 1 tab DAILY REMBERTO Administration Loperamide HCl 2 mg 03/03/25 15:41 03/04/25 19:03 Loperamide Hcl 2 Mg Capsule PO 04/02/25 15:40 2 mg PRN PRN Administration DIARRHEA Methyl Salicylate 0 gm 03/01/25 15:15 Methyl Salicylate/Menthol 85 Gm Cream TOP 03/31/25 15:14 .3-4 TIMES DAILY PRN PRN Ondansetron HCl 4 mg 03/07/25 12:08 Zofran 4 Mg/Udtablet Orally Disintegrating PO 04/06/25 12:07 Q6H PRN PRN NAUSEA/VOMITING Pantoprazole Sodium 40 mg 03/02/25 10:00 03/08/25 22:59 Protonix (Pantoprazole) 40 Mg Tablet PO 04/01/25 09:59 40 mg BID REMBERTO Administration Tuberculin PPD 5 unit 03/13/25 10:00 Aplisol (Tuberculin,Purif.Prot.Deriv.) 5 Unit/0.1 Ml Ml ID 03/13/25 10:01 DAILY REMBERTO Discontinued Medications Generic Name Dose Route Start Last Admin Trade Name Freq PRN Reason Stop Dose Admin Hydrocodone Bitart/Acetaminophen 1 tab 03/01/25 15:16 03/06/25 08:48 Hydrocodone/Apap 5/325 1 Tab Tablet PO 03/06/25 15:15 1 tab Q4H PRN PRN Administration PAIN Furosemide 20 mg 03/02/25 10:00 Furosemide 20 Mg Tablet PO 04/01/25 09:59 DAILY REMBERTO Ondansetron HCl 4 mg 03/01/25 15:13 Ondansetron Hcl 4 Mg/2 Ml Vial IV 03/31/25 15:12 Q6H PRN PRN NAUSEA/VOMITING Pantoprazole Sodium 40 mg 03/01/25 22:00 03/01/25 22:44 Pantoprazole 40 Mg Vial IV 03/31/25 21:59 40 mg BID REMBERTO Administration Pantoprazole Sodium 40 mg 03/04/25 20:15 03/04/25 20:38 Pantoprazole 40 Mg Vial IV 04/03/25 20:14 40 mg Q24H REMBERTO Administration Prednisone 40 mg 03/02/25 10:00 03/04/25 09:53 Prednisone 20 Mg Tablet PO 03/05/25 09:59 40 mg DAILY REMBERTO Administration Tuberculin PPD 5 unit 03/02/25 10:00 03/03/25 11:55 Aplisol (Tuberculin,Purif.Prot.Deriv.) 5 Unit/0.1 Ml Ml ID 03/02/25 10:01 Not Given DAILY REMBERTO Tuberculin PPD 5 unit 03/01/25 19:50 03/01/25 23:08 Aplisol (Tuberculin,Purif.Prot.Deriv.) 5 Unit/0.1 Ml Ml ID 03/01/25 19:51 5 unit ONCE ONE Administration Multi-Disciplinary Progress Notes: Multi-Disciplinary Progress Notes 03/08/25 21:51 Occupational Therapy Note by Forest (L#[id number])Kassie Occupational Therapy Note: Upon OT arrival, patient sitting up in standard chair and agreeable to OT session. She completed functional transfers from chair requiring SBA with verbal cues for hand placement to improve safety insight. She mobilized to sink where she completed grooming tasks while standing with SBA as needed. She returned to chair for a seated rest break while education provided on activity pacing. She declined practicing tub transfers and prefers to wait until HHT at d/c. She then completes standing BUE AROM exercises (completed unilaterally for safety purposes) including 2 set x 10 reps of shoulder flexion, shoulder abduction, shoulder circles in abd and flexion at 90 degrees, chest press, bicep curl, and overhead press. She transferred back to bed at end of session, requesting to rest with SBA. She reports improved strength and endurance from initial admission to the hospital. She does admit to decreased activity since her 2 years ago. Patient provided with lap tray, bed alarm on, and call light in reach. No further needs indicated at end of session. Initialized on 03/08/25 21:51 - END OF NOTE 03/08/25 11:51 Case Management Note by Kylah Mitchell ORDER SUBMITTED TO [facility] FOR WALKER AND NOC TIME O2- ORDERED FOR DELIVERY TO HOME 03/09 AM. S/W DAUGHTER, JAIME, SHE WAS NOTIFIED AND PLANS TO BE AVAILABLE FOR DELIVERY TOMORROW AM. SHE PLANS TO PICK PATIENT UP TOMORROW AFTERNOON WELL WHEN PATIENT IS DCD Initialized on 03/08/25 11:51 - END OF NOTE Assessment/Plan (1) DVT (deep venous thrombosis) Current Visit: No Status: Acute Qualifiers: DVT location: lower extremity Affected thrombotic vein of extremity: femoral Chronicity: acute Laterality: right Qualified Code(s): I82.411 - Acute embolism and thrombosis of right femoral vein Code(s): I82.409 - ACUTE EMBOLISM AND THOMBOS UNSP DEEP VN UNSP LOWER EXTREMITY (2) Edema of both lower extremities Current Visit: No Status: Acute Assessment & Plan: will proceed with tubigrips for home use and compression as patients symptoms appear to be resolving. will follow up outpatient to see if continued need for compression recommended. Diuretics managed by PCP. Will follow with you Code(s): R60.0 - LOCALIZED EDEMA (3) Hx of pulmonary embolus Current Visit: No Status: Acute Code(s): Z86.711 - PERSONAL HISTORY OF PULMONARY EMBOLISM (4) Pulmonary emphysema Current Visit: No Status: Acute Code(s): J43.9 - EMPHYSEMA, UNSPECIFIED (5) Generalized weakness Current Visit: No Status: Chronic Code(s): R53.1 - WEAKNESS (6) Shortness of breath Current Visit: No Status: Resolved Code(s): R06.02 - SHORTNESS OF BREATH
--- NOTE | 2025-03-09 10:04 | PCM.DS ---
Discharge Summary Date of Admission: 03/01/25 13:45 Date of Discharge: 03/09/25 Admitting Physician: RAMÓN SMART MD Primary Care Provider: ANGIE NGUYEN Allergies Allergies No Known Drug Allergies Allergy (Verified 02/21/25 15:03) Hospital Summary - Hospital Course Hospital Course: Ms. Calix is a 74-year-old female with multiple complex comorbidities, including chronic kidney disease, chronic anemia of CKD, hypertension, history of pulmonary embolism, inactive cutaneous T-cell lymphoma, and recent hospitalization for pneumonia, symptomatic anemia, and gastrointestinal bleeding, now stabilized. Her hospitalization was further complicated by metabolic derangements, lower extremity edema, hyperglycemia, significant de- conditioning, and a witnessed fall. Given her high risk for clinical deterioration, fall risk, ongoing need for supplemental oxygen and rehabilitation to regain prior functional baseline, swing bed admission was medically necessary. She did not meet criteria for safe discharge to home and required continued multidisciplinary care to address her ongoing medical and functional needs. Overall sxs improved and she is now strong enough to d/c home. She denies CP, SOB, abd. pain, N/V/D. Podiatry following for BLLE edema and tubegrips applied, she will f/u with him OP. Home O2 being set up by CM to wear at night. - Vitals & Intake/Output Vital Signs: Vital Signs Temperature 98.3 F 03/09/25 07:52 Pulse Rate 66 03/09/25 07:52 Respiratory Rate 17 03/09/25 07:52 Blood Pressure 127/59 03/09/25 07:52 O2 Sat by Pulse Oximetry 95 03/09/25 07:52 Intake & Output: Intake & Output 03/06/25 03/07/25 03/08/25 03/09/25 11:59 11:59 11:59 11:59 Intake Total 420 240 840 420 Balance 420 240 840 420 Weight 60.2 kg - Lab Result Diagrams: 03/09/25 04:54 03/09/25 04:54 Lab Results-Last 24 Hrs: Lab Results-Last 24 Hours 03/09/25 03/09/25 Range/Units 04:54 04:54 WBC 4.7 (3.98-10.04) x10^3/uL RBC 3.00 L (3.93-5.22) x10^6/uL Hgb 8.6 L (11.2-15.7) g/dL Hct 27.3 L (34.1-44.9) % MCV 91.0 (79.4-94.8) fL MCH 28.7 (25.6-32.2) pg MCHC 31.5 L (32.2-35.5) g/dL RDW 18.9 H (11.7-14.4) % Plt Count 116 L (182-369) x10^3/uL MPV 9.5 (9.4-12.3) fL Sodium 133 L (135-145) mmol/L Potassium 3.8 (3.5-5.1) mmol/L Chloride 109 H (98-107) mmol/L Carbon Dioxide 24 (22-30) mmol/L Anion Gap 3.9 L (5-15) MEQ/L BUN 21 H (7-17) mg/dL Creatinine 1.29 H (0.52-1.04) mg/dL Estimated GFR 43.0 ML/MIN Glucose 85 (74-106) mg/dL Calcium 8.4 (8.4-10.2) mg/dL Total Bilirubin 0.80 (0.2-1.3) mg/dL AST 23 (14-36) U/L ALT 23 (0-35) U/L Alkaline Phosphatase 95 (38-126) U/L Serum Total Protein 4.4 L (6.3-8.2) g/dL Albumin 2.1 L (3.5-5.0) g/dL - Procedures and Test Procedures and Tests throughout Hospitalization: Therapy Orders & Screens 03/01/25 15:16 Incentive Spirometry PRN Comment: Oxygen Nasal Cannula 2 lpm Comment: 03/01/25 15:18 PT Eval & Treat ( Order) ONCE Reason for Eval:: WEAKNESS, SWING BED Diagnosis: DECONDITIONING R/T ANEMIA, PNEUMONIA OT Eval and Treat ( Order) ONCE Comment: Physician Instructions: Reason For Exam: Evaluate: Yes Treat: Yes Reason for Evaluation: WEAKNESS Diagnosis: DECONDITIONING R/T ANEMIA AND PNEUMONIA 03/01/25 16:43 PT Clarification Order ROUTINE Comment: Physician Instructions: Reason For Exam: PT Clarification: PT. WILL BE SEEN BY P.T. 5X/WK TO ADDRESS FUNCTIONAL MOBILITY AND GAIT TRAINING, AND THER EX, WELL BALANCE AND ENDURANCE ACTIVITIES TO MAXIMIZE FUNCTIONAL POTENTIAL FOR SAFE RETURN HOME. 03/01/25 19:50 PT Eval & Treat (MD Order) ONCE Reason for Eval:: WEAKNESS, SWINGBED Diagnosis: Pneumonia Incentive Spirometry PRN Comment: Diagnosis: Pneumonia Oxygen Nasal Cannula 2 lpm Comment: Diagnosis: Pneumonia OT Eval and Treat (MD Order) ONCE Comment: Physician Instructions: Reason For Exam: Diagnosis: Pneumonia 03/02/25 23:28 OT Clarification Order ROUTINE Comment: Physician Instructions: Reason For Exam: OT Clarification: 5X/WEEK TO ADDRESS I/ADLS, TOILET AND TUB/SHOWER TRANSFERS TO FACILTIATE INDEPENDENCE WITH RETURN HOME. Discharge Exam General Appearance: no apparent distress, alert Neurologic Exam: alert, oriented x 3, cooperative, normal mood/affect, nml cerebellar function, sensation nml, No motor deficits Eye Exam: PERRL, EOMI, eyes nml inspection Ears, Nose, Throat Exam: normal ENT inspection, pharynx normal, moist mucous membranes Neck Exam: normal inspection, non-tender, supple, full range of motion Respiratory Exam: normal breath sounds, lungs clear, No respiratory distress Cardiovascular Exam: regular rate/rhythm, normal heart sounds Gastrointestinal/Abdomen Exam: soft, No tenderness, No mass Pelvic Exam: deferred Rectal Exam: deferred Back Exam: normal inspection, normal range of motion, No CVA tenderness, No vertebral tenderness Extremity Exam: normal inspection, normal range of motion Skin Exam: normal color, warm, dry Wound Assessment: Skin/Wound Assessment Wound/Incision Assessment Start: 03/02/25 23:28 Text: Status: Active Freq: Q6H Protocol: Document 03/09/25 09:00 NICOLAS (Rec: 03/09/25 09:16 NICOLAS [id number]) Wound/Incision Assessment Sacrum Wound Assessment Shift Assessment Wound Type Pressure Ulcer Wound Stage Stage II Drainage Amount None General Appearance Clean/Dry,Reddened Surrounding Tissue Isabel Comment Barrier cream applied as needed Wound Photo Photo Taken No Final Diagnosis/Problem List - Final Discharge Diagnosis/Problem (1) Physical deconditioning Current Visit: Yes Status: Acute Code(s): R53.81 - OTHER MALAISE (2) Abdominal pain Current Visit: No Status: Acute Code(s): R10.9 - UNSPECIFIED ABDOMINAL PAIN (3) Anemia Current Visit: No Status: Acute Code(s): D64.9 - ANEMIA, UNSPECIFIED (4) Chronic renal failure Current Visit: No Status: Acute (5) Confusion state Current Visit: No Status: Acute Code(s): F44.89 - OTHER DISSOCIATIVE AND CONVERSION DISORDERS (6) Dehydration Current Visit: No Status: Acute Code(s): E86.0 - DEHYDRATION (7) Diarrhea Current Visit: No Status: Acute Code(s): R19.7 - DIARRHEA, UNSPECIFIED (8) Edema of both lower extremities Current Visit: No Status: Acute Code(s): R60.0 - LOCALIZED EDEMA (9) Fall from bed Current Visit: No Status: Acute Code(s): W06.XXXA - FALL FROM BED, INITIAL ENCOUNTER (10) Head injury, acute Current Visit: No Status: Acute Code(s): S09.90XA - UNSPECIFIED INJURY OF HEAD, INITIAL ENCOUNTER (11) Hx of pulmonary embolus Current Visit: No Status: Acute Code(s): Z86.711 - PERSONAL HISTORY OF PULMONARY EMBOLISM (12) Hyperglycemia Current Visit: No Status: Acute Code(s): R73.9 - HYPERGLYCEMIA, UNSPECIFIED (13) Melena Current Visit: No Status: Acute Code(s): K92.1 - MELENA (14) Metabolic acidosis Current Visit: No Status: Acute Code(s): E87.20 - ACIDOSIS, UNSPECIFIED (15) Pneumonia Current Visit: No Status: Acute Code(s): J18.9 - PNEUMONIA, UNSPECIFIED ORGANISM (16) Underweight (BMI < 18.5) Current Visit: No Status: Acute Code(s): R63.6 - UNDERWEIGHT; Z68.1 - BODY MASS INDEX [BMI] 19.9 OR LESS, ADULT (17) History of cutaneous T-cell lymphoma Current Visit: No Status: Chronic Code(s): Z85.72 - PERSONAL HISTORY OF NON- HODGKIN LYMPHOMAS (18) Hypokalemia Current Visit: No Status: Resolved Code(s): E87.6 - HYPOKALEMIA (19) Hypomagnesemia Current Visit: No Status: Resolved Assessment & Plan: (1) Physical deconditioning Current Visit: Yes Status: Acute Assessment & Plan: -PT/OT initiated; continued therapy in swing bed. -Focus on strength, balance, endurance, and ADL retraining. -Monitor progress toward functional goals Code(s): R53.81 - OTHER MALAISE (2) Abdominal pain Current Visit: No Status: Acute Assessment & Plan: -Resolved with conservative measures. -Monitor for recurrence; no surgical intervention needed Code(s): R10.9 - UNSPECIFIED ABDOMINAL PAIN (3) Chronic renal failure Current Visit: No Status: Acute Assessment & Plan: -Baseline stable. -Avoid nephrotoxins. -Monitor renal function and adjust medications as needed (4) Confusion state Current Visit: No Status: Acute Assessment & Plan: -Resolved. -Monitor mental status; ensure infection and metabolic derangements are prevented Code(s): F44.89 - OTHER DISSOCIATIVE AND CONVERSION DISORDERS (5) Dehydration Current Visit: No Status: Acute Assessment & Plan: -Resolved. -Maintain adequate oral hydration while avoiding volume overload Code(s): E86.0 - DEHYDRATION (6) Diarrhea Current Visit: No Status: Acute Assessment & Plan: -Continue probiotics. -Monitor stool patterns and hydration status - resolved Code(s): R19.7 - DIARRHEA, UNSPECIFIED (7) Edema of both lower extremities Current Visit: No Status: Acute Assessment & Plan: -Managed with oral furosemide and compression wraps. -Continue compression therapy and monitor for DVT symptoms. -Elevate legs as tolerated. - podiatry consult with tube compression- f/u OP Code(s): R60.0 - LOCALIZED EDEMA (8) Fall from bed Current Visit: No Status: Acute Assessment & Plan: -No injury noted. -Reinforce fall precautions. -PT/OT to assess for safe mobility Code(s): W06.XXXA - FALL FROM BED, INITIAL ENCOUNTER (9) Head injury, acute Current Visit: No Status: Acute Assessment & Plan: -No acute intracranial injury. -Continue fall precautions in swing bed. -Reassess safety with PT/OT. Code(s): S09.90XA - UNSPECIFIED INJURY OF HEAD, INITIAL ENCOUNTER (10) Hx of pulmonary embolus Current Visit: No Status: Acute Assessment & Plan: -Continue Eliquis. -Monitor for bleeding and signs of VTE recurrence. -Reassess need for anticoagulation in outpatient setting Code(s): Z86.711 - PERSONAL HISTORY OF PULMONARY EMBOLISM (11) Hyperglycemia Current Visit: No Status: Acute Assessment & Plan: -Continue sliding scale insulin as needed. -Taper steroids as able. -Diabetic diet recommended Code(s): R73.9 - HYPERGLYCEMIA, UNSPECIFIED (12) Melena Current Visit: No Status: Acute Assessment & Plan: -Continue Protonix BID. -GI follow-up as outpatient. -Monitor for recurrence of GI bleeding Code(s): K92.1 - MELENA (13) Metabolic acidosis Current Visit: No Status: Acute Assessment & Plan: -resolved Code(s): E87.20 - ACIDOSIS, UNSPECIFIED (14) Pneumonia Current Visit: No Status: Acute Assessment & Plan: -Completed IV ceftriaxone and azithromycin. -Continue Duonebs and steroids as needed. -Nocturnal home oxygen arranged; monitor need for daytime oxygen in swing bed Code(s): J18.9 - PNEUMONIA, UNSPECIFIED ORGANISM (15) Symptomatic anemia Current Visit: No Status: Acute Assessment & Plan: -Completed transfusion of two units PRBCs and stable -Continue Eliquis cautiously with GI monitoring. -Outpatient hematology and primary care follow-up for anemia management - Hgb stable 8.6 Code(s): D64.9 - ANEMIA, UNSPECIFIED (16) Underweight (BMI < 18.5) Current Visit: No Status: Acute Assessment & Plan: -Continue Ensure Clear. -Monitor oral intake, weight, and tolerance. -Dietitian consult recommended. Code(s): R63.6 - UNDERWEIGHT; Z68.1 - BODY MASS INDEX [BMI] 19.9 OR LESS, ADULT (17) History of cutaneous T-cell lymphoma Current Visit: No Status: Chronic Assessment & Plan: -Inactive. -No current interventions required. Code(s): Z85.72 - PERSONAL HISTORY OF NON-HODGKIN LYMPHOMAS (18) Hypokalemia Current Visit: No Status: Resolved Assessment & Plan: -resolved Code(s): E87.6 - HYPOKALEMIA (19) Hypomagnesemia Current Visit: No Status: Resolved Assessment & Plan: -resolved Code(s): E83.42 - HYPOMAGNESEMIA (20) Nocturnal oxygen desaturation Current Visit: Yes Status: Acute Assessment & Plan: - Home O2 at 2lNC set up by CM for OP use - Overnight pulse ox confirmed need for home O2 at noc Code(s): G47.34 - IDIO SLEEP RELATED NONOBSTRUCTIVE ALVEOLAR HYPOVENTILATION (21) Thrombocytopenia Current Visit: Yes Status: Acute Assessment & Plan: - Plt 116- will need OP labs drawn - if remains low consider hematology referral - Discharge Discharge Date: 03/09/25 Disposition: Home, Self-Care Condition: Stable Prescriptions: New Pantoprazole 20 mg [Protonix 20MG Tablet] 20 mg PO DAILY 30 Days #30 tab Continue Mecobalamin [B12 Active] 1,000 mcg PO DAILY Cholecalciferol (Vitamin D3) [D3-5000] 125 mcg PO DAILY Methotrexate Sodium 2.5 mg [Trexall 2.5 mg] 5 mg PO WEEKLY Bumetanide 0.5 mg PO DAILY Albuterol Sulfate [Albuterol Sulfate Hfa] 2 puff IH Q4-6HPRN PRN PRN Reason: Shortness Of Breath Apixaban [Eliquis 2.5 mg Tablet] 5 mg PO BID Additional Instructions: WEAR 2L/NC WHEN YOUR ARE SLEEPING OR NAPPING [facility] THEY WILL CALL YOU TO ARRANGE A TIME TO COME SEE YOU. THEIR PHONE NUMBER IS [phone] IF YOU NEED ANYTHING PRIOR TO THEIR VISIT Follow up with: ANGIE NGUYEN [Primary Care Provider, INTERNAL MEDICINE]
[2025-03-13] MEDS ORDERED: Aplisol ID SCH (10:00)
== END 2025-03-09 17:40 | disposition home or self-care (01) | DRG 947 ==
LOC: MED SURG 13:45
PROVIDERS: ADMIT Internal Medicine; ATTEND Internal Medicine
DX: R53.81 Other malaise (principal); J18.9 Pneumonia, unspecified organism; K92.1 Melena; E87.20 Acidosis, unspecified; Z68.1 Body mass index [BMI] 19.9 or less, adult; I82.411 Acute embolism and thrombosis of right femoral vein; R10.9 Unspecified abdominal pain; D64.9 Anemia, unspecified; I12.9 Hypertensive chronic kidney disease with stage 1 through stage 4 chronic kidney disease, or unspecified chronic kidney disease; N18.9 Chronic kidney disease, unspecified; F44.89 Other dissociative and conversion disorders; E86.0 Dehydration; R19.7 Diarrhea, unspecified; R60.0 Localized edema; W06.XXXA Fall from bed, initial encounter; S09.90XA Unspecified injury of head, initial encounter; Z86.711 Personal history of pulmonary embolism; R73.9 Hyperglycemia, unspecified; R63.6 Underweight; Z85.72 Personal history of non-Hodgkin lymphomas; E87.6 Hypokalemia; L89.152 Pressure ulcer of sacral region, stage 2; Z79.899 Other long term (current) drug therapy; Z79.01 Long term (current) use of anticoagulants
CPT/HCPCS: 29580; 36415; 80053; 85014; 85018; 85025; 85027; 94760; 94762; 99306; 97110-GP; A9270-GY

== ENCOUNTER 2025-07-31 09:01 | Observation (INO) | payer MEDICARE ==
--- NOTE | 2025-07-31 09:04 | ERPHSYRPT ---
- History of Present Illness Time Seen by Provider: 07/31/25 09:04 Source: patient Exam Limitations: no limitations Physician History: Patient presents to the emergency room after 2 episodes of right sided facial drooping, dysphagia, dysarthria in the past 24 hours. Last night patient had some right sided facial drooping with word finding difficulties that resolved and then this morning had another similar episode with more pronounced facial drooping. The symptoms resolved prior to the ER arrival. Patient denies previous history of stroke. No history of diabetes. She is not on any cholesterol medications. She is on Eliquis 2.5 mg daily. Timing/Duration: yesterday Severity: mild Baseline/Normal Cognition: alert oriented x 3 Current Cognition: alert oriented x 3 Baseline Gait: walks w/o assistance Allergies/Adverse Reactions: No Known Drug Allergies Allergy (Verified 07/31/25 09:27) Home Medications: Cholecalciferol (Vitamin D3) [D3-5000] 125 mcg PO DAILY 05/27/23 [History] Mecobalamin [B12 Active] 1,000 mcg PO DAILY 05/27/23 [History] Methotrexate Sodium 2.5 mg [Trexall 2.5 mg] 5 mg PO WEEKLY 03/05/24 [History] Albuterol Sulfate [Albuterol Sulfate Hfa] 2 puff IH Q4-6HPRN PRN 02/21/25 [History] Apixaban [Eliquis 2.5 mg Tablet] 5 mg PO BID 02/21/25 [History] Bumetanide 0.5 mg PO DAILY PRN 02/21/25 [History] Hx Tetanus, Diphtheria Vaccination/Date Given: No Hx Influenza Vaccination/Date Given: No Hx Pneumococcal Vaccination/Date Given: Yes Travel Risk - Emerging Infectious Disease Are you exhibiting symptoms associated with any current EIDs: Yes Symptoms: Diarrhea, Shortness of Breath, Vomitting - Review of Systems All Other Systems: Reviewed and Negative - Past Medical History Pertinent Past Medical History: Yes Neurological History: No Pertinent History ENT History: No Pertinent History Cardiac History: Hypertension Respiratory History: No Pertinent History Endocrine Medical History: No Pertinent History Musculoskeletal History: Rheumatoid Arthritis GI Medical History: No Pertinent History History: No Pertinent History Psycho-Social History: No Pertinent History Female Reproductive Disorders: No Pertinent History Other Medical History: 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 Carter (upon hospital admission) - Past Surgical History Past Surgical History: Yes Neuro Surgical History: No Pertinent History Cardiac: No Pertinent History Respiratory: No Pertinent History Gastrointestinal: Cholecystectomy Genitourinary: No Pertinent History Musculoskeletal: No Pertinent History Female Surgical History: Dilation & Curettage Other Surgical History: melanoma Significant Family History: cancer (Father with colon cancer) - Social History Drug Use: none - Social Determinants of Health Will the patient participate in the screening: Yes Do you worry about a steady place to live?: No In the past 12 months,have you had to go without utilities?: No Transportation Issues: No Has anyone in your support network made you feel unsafe?: No Have you or anyone in your house had to go w/o enough food: No - Nursing Vital Signs Nursing Vital Signs: Initial Vital Signs Temperature 97.3 F 07/31/25 09:16 Pulse Rate 58 L 07/31/25 09:16 Respiratory Rate 21 07/31/25 09:16 Blood Pressure 180/73 07/31/25 09:16 O2 Sat by Pulse Oximetry 100 07/31/25 09:16 Pain Scale Pain Intensity 0 - [place] Coma Scale Best Eye Response (Amalia): (4) open spontaneously Best Verbal Response (Mad[place]): (5) oriented Best Motor Response (Amalia): (6) obeys commands [place] Total: 15 - Physical Exam General Appearance: no apparent distress Eye Exam: bilateral eye: normal inspection, PERRL, EOMI Ears, Nose, Throat Exam: normal ENT inspection Neck Exam: normal inspection, non-tender, supple, full range of motion, No carotid bruit Respiratory: normal breath sounds, lungs clear, airway intact, No respiratory distress Cardiovascular: regular rate/rhythm, capillary refill <2 sec, No edema Gastrointestinal: soft, No tenderness Mental Status: alert, oriented x 3, cooperative 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 services operator Exam: normal hearing, normal speech, PERRL, tongue midline Coordination/Gait: normal finger to nose, normal gait, normal cerebellar function Motor/Sensory: no motor deficit, no sensory deficit, no pronator drift Skin Exam: warm, dry, pale, No rash SpO2 Interpretation: normal O2 Delivery: Room Air - Course Nursing assessment & vital signs reviewed: Yes Ordered Tests: Active Orders 24 hr Category Date Time Status Brand Planner STAT Care 07/31/25 09:05 Active EKG-ER Only STAT Care 07/31/25 09:04 Active IV Insertion STAT Care 07/31/25 09:04 Active NPO (ED) STAT Care 07/31/25 09:04 Active Consult Neurology STAT Cons 07/31/25 09:[address] ANGIOGRAPHY NECK [CT] Stat Exams 07/31/25 10:37 Completed CTA HEAD W AND/OR WO CONTRAST [CT] Stat Exams 07/31/25 09:42 Completed HEAD WITHOUT CONTRAST [CT] Stat Exams 07/31/25 09:15 Completed CBC W DIFF Stat Lab 07/31/25 09:35 Completed CMP Stat Lab 07/31/25 09:35 Completed Lactic Acid Stat Lab 07/31/25 09:35 Completed Manual Differential NC Stat Lab 07/31/25 09:35 Completed PROTIME WITH INR Stat Lab 07/31/25 09:35 Completed PTT Stat Lab 07/31/25 09:35 Completed Transfer Order Routine Transfer 07/31/25 Ordered Medication Summary Discontinued Medications Generic Name Dose Route Start Last Admin Trade Name Freq PRN Reason Stop Dose Admin Aspirin 324 mg 07/31/25 11:05 Aspirin 81 Mg Tab.Chew PO 07/31/25 11:06 STAT ONE Atorvastatin Calcium 80 mg 07/31/25 09:24 07/31/25 09:34 Atorvastatin Calcium 40 Mg Tablet PO 07/31/25 09:25 80 mg STAT STA Administration Atorvastatin Calcium Confirm 07/31/25 09:32 Atorvastatin Calcium 40 Mg Tablet Administered 07/31/25 09:33 Dose 80 mg .ROUTE .STK-MED ONE Clopidogrel Bisulfate 300 mg 07/31/25 09:24 07/31/25 09:34 Clopidogrel Bisulfate 75 Mg Tablet PO 07/31/25 09:25 300 mg STAT ONE Administration Clopidogrel Bisulfate Confirm 07/31/25 09:32 Clopidogrel Bisulfate 75 Mg Tablet Administered 07/31/25 09:33 Dose 300 mg .ROUTE .STK-MED ONE Sodium Chloride 1,000 mls @ 999 mls/hr 07/31/25 09:56 Sodium Chloride 0.9% 1000 Ml IV 07/31/25 10:56 .Q1H1M STA Lab/Rad Data: Laboratory Result Diagrams 07/31/25 09:35 07/31/25 09:35 Laboratory Results 07/31/25 07/31/25 07/31/25 Range/Units 09:35 09:35 09:35 WBC (3.98-10.04) x10^3/uL RBC (3.93-5.22) x10^6/uL Hgb (11.2-15.7) g/dL Hct (34.1-44.9) % MCV (79.4-94.8) fL MCH (25.6-32.2) pg MCHC (32.2-35.5) g/dL RDW (11.7-14.4) % Plt Count (182-369) x10^3/uL MPV (9.4-12.3) fL Segmented Neutrophils (34.0-71.1) % Band Neutrophils (0.0-2.0) % Lymphocytes (Manual) (19.3-51.7) % Monocytes (Manual) (4.7-12.5) % Eosinophils (Manual) (0.7-5.8) % Atypical Lymphocytes % Platelet Estimate (NORMAL) RBC Morphology Anisocytosis PT 11.9 (9.4-12.5) SECONDS INR 1.07 (0.8-3.0) APTT 26.0 (25.1-36.5) SECONDS Sodium 138 (135-145) mmol/L Potassium 4.0 (3.5-5.1) mmol/L Chloride 107 (98-107) mmol/L Carbon Dioxide 24 (22-30) mmol/L Anion Gap 10.8 (5-15) MEQ/L BUN 18 H (7-17) mg/dL Creatinine 1.60 H (0.52-1.04) mg/dL Estimated GFR 33.0 ML/MIN Glucose 92 (74-106) mg/dL Lactic Acid 0.8 (0.4-2.0) Calcium 9.6 (8.4-10.2) mg/dL Total Bilirubin 1.40 H (0.2-1.3) mg/dL AST 37 H (14-36) U/L ALT 21 (0-35) U/L Alkaline Phosphatase 73 (38-126) U/L Serum Total Protein 7.2 (6.3-8.2) g/dL Albumin 4.2 (3.5-5.0) g/dL 07/31/25 Range/Units 09:35 WBC 3.5 L (3.98-10.04) x10^3/uL RBC 3.81 L (3.93-5.22) x10^6/uL Hgb 10.7 L (11.2-15.7) g/dL Hct 33.0 L (34.1-44.9) % MCV 86.6 (79.4-94.8) fL MCH 28.1 (25.6-32.2) pg MCHC 32.4 (32.2-35.5) g/dL RDW 15.5 H (11.7-14.4) % Plt Count 137 L (182-369) x10^3/uL MPV 9.4 (9.4-12.3) fL Segmented Neutrophils 51 (34.0-71.1) % Band Neutrophils 1 (0.0-2.0) % Lymphocytes (Manual) 32 (19.3-51.7) % Monocytes (Manual) 11 (4.7-12.5) % Eosinophils (Manual) 3 (0.7-5.8) % Atypical Lymphocytes 2 % Platelet Estimate DECREASED (NORMAL) RBC Morphology ABNORMAL Anisocytosis 1+ PT (9.4-12.5) SECONDS INR (0.8-3.0) APTT (25.1-36.5) SECONDS Sodium (135-145) mmol/L Potassium (3.5-5.1) mmol/L Chloride (98-107) mmol/L Carbon Dioxide (22-30) mmol/L Anion Gap (5-15) MEQ/L BUN (7-17) mg/dL Creatinine (0.52-1.04) mg/dL Estimated GFR ML/MIN Glucose (74-106) mg/dL Lactic Acid (0.4-2.0) Calcium (8.4-10.2) mg/dL Total Bilirubin (0.2-1.3) mg/dL AST (14-36) U/L ALT (0-35) U/L Alkaline Phosphatase (38-126) U/L Serum Total Protein (6.3-8.2) g/dL Albumin (3.5-5.0) g/dL - Progress Progress: improved Progress Note: Neurologic Deficits: right sided facial drooping, slurred speech, aphasia that resolved prior to arrival. Last night sxs started around 730 and resolved and this morning sxs started around 850. Last known Well Time: 850 NIH Stroke Score: 0 Given History and Exam I have lower suspicion for infectious etiology, neurologic changes secondary to toxicologic ingestion, seizure, complex migraine. Presentation concerning for possible stroke requiring workup. Workup: Labs: glucose, CBC, BMP, LFTs, Troponin, PT/INR, PTT Other Diagnostics: ECG, non-contrast head CT followed by CTA brain and neck (to r/o large vessel occlusion amenable to thrombectomy) Interventions: Patient low on NIH scale. Consult: Neurology. Discussed with Dr. Hart regarding patients neurological symptoms and last well-known time approximately 850 and eligibility for TPA criteria. recommends ASA, Plavix, MRI brain, Carotid US, Echo. No LVO on CTA head/neck. 07/31/25 11:37 Dr. Palmer accepts at 1135. Discussed with DrStas: Tele-Neurologist Will see patient in: hospital (observation) Counseled pt/family regarding: lab results, diagnosis, need for follow-up, rad results Medical Desision Making - Discussion of managment Care discussed with:: specialist Reviewed:: Test results, Need for additional workup Agreed on:: Treatment plan, place in obs Will see patient: in hospital - Diagnostic Testing Diagnostic test were ordered, analyzed, and reviewed by me: Yes Radiological Interpretation: Interpreted by me, Reviewed by me, Teleradiologist Report - Risk of complications The pt has a mod risk of morbidity or mortality based on: Need for prescription drug management The pt has a high risk of morbidity or mortality based on: Decision regarding hospitilization or escalation of hosp level of care - Departure Departure Disposition: Observation Clinical Impression: TIA (transient ischemic attack), Carotid stenosis, Facial droop Condition: Stable Critical Care Time: No Referrals: ANGIE NGUYEN [Primary Care Provider, INTERNAL MEDICINE] - Follow up/PCP as directed Instructions: Transient Ischemic Attack (DC)
[2025-07-31] MEDS ORDERED: LIPITOR 40MG ONE (09:32)
[2025-07-31] MEDS ORDERED: PLAVIX Tablet ONE (09:32)
[2025-07-31] MEDS: PLAVIX Tablet PO ONE (09:34)
[2025-07-31] MEDS: LIPITOR 40MG PO STA (09:34)
--- NOTE | 2025-07-31 09:38 | XRAY ---
CLINICAL HISTORY: facial drooping COMPARISON: CT dated 02/23/2025. TECHNIQUE: Axial non-contrast CT scan of the brain was performed from the skull base to the high parietal region. One of the following dose reduction techniques was utilized for this exam: automated exposure control, adjustment of the mA and/or kV according to patient size, or use of iterative reconstruction. 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 Bilateral periventricular and white matter hypodensities likely represent small vessel ischemic changes. Age-related cerebral atrophic changes are evidenced bythe prominence of cortical sulci and gyri and mildly prominent lateral ventricles. Normal attenuation of the cerebral hemispheres, cerebellum, and brainstem. No evidence of acute infarct, hemorrhage, or mass effect. No abnormal areas of hyperattenuation. Ventricular System: Ventricles are prominent. No evidence of hydrocephalus or ventricular enlargement. Subarachnoid Spaces: Prominent sulci and cisterns. No evidence of subarachnoid hemorrhage or extra-axial fluid collections. Cerebellum and Brainstem: No masses, lesions, or areas of abnormal density. Orbits: Normal appearance of the globes, optic nerves, and extraocular muscles. No evidence of orbital masses or abnormal density. Sinuses: Clear paranasal sinuses. No evidence of sinusitis or mucosal thickening. Mastoid Air Cells: Clear mastoid air cells. No evidence of mastoiditis. Skull: Normal skull morphology. IMPRESSION: 1. No acute intracranial insult. Early changes of a stroke may not be detected on a CT scan. If there is strong clinical suspicion of stroke, then suggest MRI with diffusion-weighted imaging. 2. 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 Unchanged. 3. Small vessel ischemic changes. No significant changes. Electronically Signed by: Servando Valdes MD. (07/31/2025 09:36:36 EDT)
[2025-07-31 09:41] LABS: Hematocrit 33.0 % (34.1-44.9); Hemoglobin 10.7 g/dL (11.2-15.7); Mean Corpuscular Hemoglobin 28.1 pg (25.6-32.2); Mean Corpuscular Hgb Concent. 32.4 g/dL (32.2-35.5); Platelet Count 137 x10^3/uL (182-369); Red Blood Count 3.81 x10^6/uL (3.93-5.22); White Blood Count 3.5 x10^3/uL (3.98-10.04)
[2025-07-31 09:54] LABS: Calcium 9.6 mg/dL (8.4-10.2); Carbon Dioxide 24.0 mmol/L (22-30); Creatinine 1 1.6 mg/dL (0.52-1.04); EST GLOMERULAR FILTRATION RATE 33.0 ML/MIN; Glucose 92.0 mg/dL (74-106); Potassium 4.0 mmol/L (3.5-5.1); SGOT/AST 37.0 U/L (14-36); SGPT/ALT 21.0 U/L (0-35); Total Protein 7.2 g/dL (6.3-8.2)
[2025-07-31 09:57] LABS: INR 1.07 (0.8-3.0); PROTIME 11.9 SECONDS (9.4-12.5); PTT 26.0 SECONDS (25.1-36.5)
[2025-07-31 10:16] LABS: BAND 1 % (0.0-2.0); Total Cells Counted 100
--- NOTE | 2025-07-31 11:14 | XRAY ---
CLINICAL HISTORY: facial drooping COMPARISON: No previous studies are available for comparison. TECHNIQUE: CT angiography of the head was performed following the intravenous administration of iodinated contrast material 80 cc Isovue 370. Contiguous axial images were obtained from the base of the skull to the vertex. Coronal and sagittal reformatted images were also reviewed. One of these three-dimensional techniques was utilized: Maximum Intensity Pixel (MIP), three-dimensional reconstructed images, volume rendered images, or surface shaded rendering. One of the following dose reduction techniques was utilized for this exam: automated exposure control, adjustment of the mA and/or kV according to patient size, and use of iterative reconstruction. FINDINGS: Intracranial Arteries: The intracranial arteries, including the anterior cerebral arteries, middle cerebral arteries, posterior cerebral arteries, basilar artery, and vertebral arteries, are all patent without evidence of significant stenosis, aneurysm, or dissection. There is no evidence of vascular malformations. [place]: The [place] is intact, with no anatomical variations or abnormalities noted. All segments are well visualized and normal in appearance. Venous System: The visualized portions of the venous system, including the dural venous sinuses, are patent with no evidence of thrombosis. Brain Parenchyma: The brain parenchyma shows no evidence of acute infarct, hemorrhage, or mass effect. The ventricles and sulci are normal in size and configuration. Bones: The bony structures of the skull are intact, without evidence of fracture or destructive lesions. Soft Tissues: The visualized soft tissues of the head are unremarkable. Additional Findings: No other significant findings are noted. IMPRESSION: No evidence of significant vascular abnormalities, acute infarct, or hemorrhage. Electronically Signed by: Servando Valdes MD. (07/31/2025 11:13:02 EDT)
--- NOTE | 2025-07-31 11:30 | XRAY ---
CLINICAL HISTORY: facial drooping COMPARISON: No previous studies are available for comparison. TECHNIQUE: CT angiography of the neck was performed following the intravenous administration of iodinated contrast material. Axial images were obtained from the aortic arch to the vertex. Coronal and sagittal reformatted images were also reviewed. 80 cc isovue intravenous contrast was administered. One of the following dose reduction techniques was utilized for this exam: automated exposure control, adjustment of the mA and/or kV according to patient size, and use of iterative reconstruction. One of the following 3D techniques was utilized: Maximum Intensity Pixel (MIP), 3D reconstructed images, volume rendered images, or surface shaded rendering. DLP: 632.72 mGy.cm FINDINGS: Soft atheromatous plaque is noted in the proximal cervical internal carotid artery on the left side, causing 40-50% stenosis. Mild bilateral carotid bulge intimal calcifications are present with no stenosis. Carotid Arteries: The other scanned parts of the common, internal, and external carotid arteries are patent bilaterally with no evidence of significant stenosis, aneurysm, or dissection. Vertebral Arteries: The vertebral arteries are patent bilaterally with no evidence of significant stenosis, aneurysm, or dissection. Thyroid Gland: The thyroid gland is normal in size and appearance with no focal lesions. Lymph Nodes: There is no evidence of significant lymphadenopathy in the neck. Soft Tissues: The soft tissues of the neck are unremarkable with no evidence of masses or abnormal collections. Additional Findings: Degenerative changes of the imaged spine are present. No other significant findings are noted. IMPRESSION: 1. Soft atheromatous plaque is noted in the proximal cervical internal carotid artery on the left side, causing 40-50% stenosis. 2. Mild bilateral carotid bulge intimal calcifications are present with no stenosis. Electronically Signed by: Servando Valdes MD. (07/31/2025 11:29:12 EDT)
[2025-07-31] MEDS ORDERED: BABY ASPIRIN 81 MG CHEW ONE (11:39)
[2025-07-31] MEDS: BABY ASPIRIN 81 MG CHEW PO ONE (11:40)
--- NOTE | 2025-07-31 12:00 | PCM.HP ---
History of Present Illness - Chief Complaint Chief Complaint: TIA Date: 07/31/25 History of Present Illness: is a 75-year-old female with a past medical history significant for chronic kidney disease, chronic anemia secondary to CKD, hypertension, history of pulmonary embolism (on Eliquis), and inactive cutaneous T-cell lymphoma, who presented to the emergency department after two episodes of transient right- sided facial drooping, dysarthria, and dysphagia within the past 24 hours. The first episode occurred last night, characterized by right facial droop and word-finding difficulty, which spontaneously resolved. A second, more pronounced episode occurred this morning with similar right-sided facial drooping and slurred speech, again resolving completely prior to arrival at the ED. The patient currently denies any weakness, numbness, vision changes, or residual neurological deficits. She denies prior history of stroke or transient ischemic attack (TIA). No history of diabetes mellitus. She is not currently on statin therapy. She takes Eliquis 2.5 mg daily for prior pulmonary embolism. Pt to have MRI in AM. She denies any further concerns at this time. - Review of Systems Constitutional: No Fever, No Chills Eyes: No Symptoms Ears, Nose, & Throat: No Symptoms Respiratory: No Cough, No Short Of Breath Cardiac: No Chest Pain, No Edema, No Syncope Abdominal/Gastrointestinal: No Abdominal Pain, No Nausea, No Vomiting, No Diarrhea Genitourinary Symptoms: No Dysuria Musculoskeletal: No Back Pain, No Neck Pain Skin: No Rash Neurological: No Dizziness, No Focal Weakness, No Sensory Changes Psychological: No Symptoms Endocrine: No Symptoms Hematologic/Lymphatic: No Symptoms Immunological/Allergic: No Symptoms Medications & Allergies Home Medications: Home Medication List Cholecalciferol (Vitamin D3) [D3-5000] 125 mcg PO DAILY 05/27/23 [History Confirmed 07/31/25] Mecobalamin [B12 Active] 1,000 mcg PO DAILY 05/27/23 [History Confirmed 07/31/25] Methotrexate Sodium 2.5 mg [Trexall 2.5 mg] 5 mg PO WEEKLY 03/05/24 [History Confirmed 07/31/25] Albuterol Sulfate [Albuterol Sulfate Hfa] 2 puff IH Q4-6HPRN PRN 02/21/25 [History Confirmed 07/31/25] Apixaban [Eliquis 2.5 mg Tablet] 5 mg PO BID 02/21/25 [History Confirmed ] Bumetanide 0.5 mg PO DAILY PRN 02/21/25 [History Confirmed 07/31/25] Allergies/Adverse Reactions: Allergies Allergy/AdvReac Type Severity Reaction Status Date / Time No Known Drug Allergies Allergy Verified 07/31/25 09:27 - Past Medical History Past Medical History: Yes Neurological History: No Pertinent History ENT History: No Pertinent History Cardiac History: Hypertension Respiratory History: No Pertinent History Endocrine Medical History: No Pertinent History Musculoskelatal History: Rheumatoid Arthritis GI Medical History: No Pertinent History History: No Pertinent History Pyscho-Social History: No Pertinent History Reproductive Disorders: No Pertinent History Comment: 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 Carter (upon hospital admission) - Past Surgical History Past Surgical History: Yes Neuro Surgical History: No Pertinent History Cardiac History: No Pertinent History Respiratory Surgery: No Pertinent History GI Surgical History: Cholecystectomy Genitourinary Surgical Hx: No Pertinent History Musculskeletal Surgical Hx: No Pertinent History Female Surgical History: Dilation & Curettage Other Surgical History: melanoma Significant Family History: cancer (Father with colon cancer) - Social History Smoking Status: Never smoker Exposure to second hand smoke: No Alcohol: None Drug Use: none - Social Determinants of Health Will the patient participate in the screening: Yes Do you worry about a steady place to live?: No Do you have any problems with any of the following?: No known problems In the past 12 months,have you had to go without utilities?: No Have you or anyone in your house had to go without enough: No Transportation Issues: No Has anyone in your support network made you feel unsafe?: No Does the patient want assistance with any of the above?: No - Physical Exam Vital Signs: Vital Signs - 24 hr Temp Pulse Resp BP BP Pulse Ox 07/31/25 11:30 64 15 164/53 100 07/31/25 11:00 55 L 23 162/63 100 07/31/25 10:52 56 L 23 166/49 100 07/31/25 10:51 58 L 24 89 L 07/31/25 10:50 67 27 H 89 L 07/31/25 10:44 96 07/31/25 10:00 59 L 22 156/71 07/31/25 09:31 55 L 26 H 167/54 100 07/31/25 09:16 97.3 F 58 L 21 180/73 100 General Appearance: no apparent distress, alert, thin Neurologic Exam: alert, oriented x 3, cooperative, normal mood/affect, nml cerebellar function, nml station & gait, sensation nml, No motor deficits Eye Exam: PERRL/EOMI, eyes nml inspection Ears, Nose, Throat Exam: normal ENT inspection, TMs normal, pharynx normal, moist mucous membranes Neck Exam: normal inspection, non-tender, supple, full range of motion Respiratory Exam: normal breath sounds, lungs clear, No respiratory distress Cardiovascular Exam: regular rate/rhythm, normal heart sounds, normal peripheral pulses Gastrointestinal/Abdomen Exam: soft, normal bowel sounds, No tenderness, No mass Back Exam: normal inspection, normal range of motion, No CVA tenderness, No vertebral tenderness Extremity Exam: normal inspection, normal range of motion, pelvis stable Skin Exam: warm, dry, pale, No rash Lymphatic Exam: No adenopathy Results - Labs Lab/Micro Results: Lab Results-Last 24 Hours 07/31/25 07/31/25 07/31/25 Range/Units 09:35 09:35 09:35 WBC 3.5 L (3.98-10.04) x10^3/uL RBC 3.81 L (3.93-5.22) x10^6/uL Hgb 10.7 L (11.2-15.7) g/dL Hct 33.0 L (34.1-44.9) % MCV 86.6 (79.4-94.8) fL MCH 28.1 (25.6-32.2) pg MCHC 32.4 (32.2-35.5) g/dL RDW 15.5 H (11.7-14.4) % Plt Count 137 L (182-369) x10^3/uL MPV 9.4 (9.4-12.3) fL Segmented Neutrophils 51 (34.0-71.1) % Band Neutrophils 1 (0.0-2.0) % Lymphocytes (Manual) 32 (19.3-51.7) % Monocytes (Manual) 11 (4.7-12.5) % Eosinophils (Manual) 3 (0.7-5.8) % Atypical Lymphocytes 2 % Platelet Estimate DECREASED (NORMAL) RBC Morphology ABNORMAL Anisocytosis 1+ PT (9.4-12.5) SECONDS INR (0.8-3.0) APTT (25.1-36.5) SECONDS Sodium 138 (135-145) mmol/L Potassium 4.0 (3.5-5.1) mmol/L Chloride 107 (98-107) mmol/L Carbon Dioxide 24 (22-30) mmol/L Anion Gap 10.8 (5-15) MEQ/L BUN 18 H (7-17) mg/dL Creatinine 1.60 H (0.52-1.04) mg/dL Estimated GFR 33.0 ML/MIN Glucose 92 (74-106) mg/dL Lactic Acid 0.8 (0.4-2.0) Calcium 9.6 (8.4-10.2) mg/dL Total Bilirubin 1.40 H (0.2-1.3) mg/dL AST 37 H (14-36) U/L ALT 21 (0-35) U/L Alkaline Phosphatase 73 (38-126) U/L Serum Total Protein 7.2 (6.3-8.2) g/dL Albumin 4.2 (3.5-5.0) g/dL 07/31/25 Range/Units 09:35 WBC (3.98-10.04) x10^3/uL RBC (3.93-5.22) x10^6/uL Hgb (11.2-15.7) g/dL Hct (34.1-44.9) % MCV (79.4-94.8) fL MCH (25.6-32.2) pg MCHC (32.2-35.5) g/dL RDW (11.7-14.4) % Plt Count (182-369) x10^3/uL MPV (9.4-12.3) fL Segmented Neutrophils (34.0-71.1) % Band Neutrophils (0.0-2.0) % Lymphocytes (Manual) (19.3-51.7) % Monocytes (Manual) (4.7-12.5) % Eosinophils (Manual) (0.7-5.8) % Atypical Lymphocytes % Platelet Estimate (NORMAL) RBC Morphology Anisocytosis PT 11.9 (9.4-12.5) SECONDS INR 1.07 (0.8-3.0) APTT 26.0 (25.1-36.5) SECONDS Sodium (135-145) mmol/L Potassium (3.5-5.1) mmol/L Chloride (98-107) mmol/L Carbon Dioxide (22-30) mmol/L Anion Gap (5-15) MEQ/L BUN (7-17) mg/dL Creatinine (0.52-1.04) mg/dL Estimated GFR ML/MIN Glucose (74-106) mg/dL Lactic Acid (0.4-2.0) Calcium (8.4-10.2) mg/dL Total Bilirubin (0.2-1.3) mg/dL AST (14-36) U/L ALT (0-35) U/L Alkaline Phosphatase (38-126) U/L Serum Total Protein (6.3-8.2) g/dL Albumin (3.5-5.0) g/dL - Radiology Impressions Radiology Exams & Impressions: Radiology Procedures Category Date Time Status CT ANGIOGRAPHY NECK [CT] Stat Exams 07/31/25 10:37 Completed CTA HEAD W AND/OR WO CONTRAST [CT] Stat Exams 07/31/25 09:42 Completed HEAD WITHOUT CONTRAST [CT] Stat Exams 07/31/25 09:15 Completed Assessment/Plan (1) TIA (transient ischemic attack) Current Visit: Yes Status: Acute Assessment & Plan: - Pt gave ASA, Plavix and high dose statin in ER. - Continue ASA 81mg daily, and plavix - Lipid panel, TSH, A1C pending - Continue Eliquis- when/if able - MRI brain tomorrow - CT head: 1. No acute intracranial insult. Early changes of a stroke may not be detected on a CT scan. If there is strong clinical suspicion of stroke, then suggest MRI with diffusion-weighted imaging. 2. 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 Unchanged. 3. Small vessel ischemic changes. No significant changes. - CT angio: 1. Soft atheromatous plaque is noted in the proximal cervical internal carotid artery on the left side, causing 40-50% stenosis. 2. Mild bilateral carotid bulge intimal calcifications are present with no stenosis. - CTA head: No evidence of significant vascular abnormalities, acute infarct, or hemorrhage - Neurology consult - Tele - Allow for permissive HTN only treat if BP > 220/120 - Neuro checks Q4 hr - ABCD score < 4 - PT/ST/OT Code(s): G45.9 - TRANSIENT CEREBRAL ISCHEMIC ATTACK, UNSPECIFIED (2) Carotid artery stenosis Current Visit: Yes Status: Acute Assessment & Plan: - As seen on CT angio: 1. Soft atheromatous plaque is noted in the proximal cervical internal carotid artery on the left side, causing 40-50% stenosis. 2. Mild bilateral carotid bulge intimal calcifications are present with no stenosis. - Will need OP F/U with cardiothoracic surgeon. Code(s): I65.29 - OCCLUSION AND STENOSIS OF UNSPECIFIED CAROTID ARTERY (3) HTN (hypertension) Current Visit: Yes Status: Acute Assessment & Plan: - Allow for permissive HTN Code(s): I10 - ESSENTIAL (PRIMARY) HYPERTENSION (4) Hx pulmonary embolism Current Visit: Yes Status: Chronic Assessment & Plan: - Continue Eliquis when able - Wait for MRI results Code(s): Z86.711 - PERSONAL HISTORY OF PULMONARY EMBOLISM (5) Anemia Current Visit: No Status: Acute Qualifiers: Anemia type: due to chronic kidney disease Assessment & Plan: - Hgb stable at 10.7 - 2:2 CKD Code(s): D64.9 - ANEMIA, UNSPECIFIED (6) Chronic renal failure Current Visit: No Status: Acute Qualifiers: Chronic kidney disease stage: stage 3 (moderate) Chronic kidney disease stage 3 subtype: stage 3b (GFR 30-44) Qualified Code(s): N18.32 - Chronic kidney disease, stage 3b Assessment & Plan: - Creat 1.60- baseline 1.08 - Stage 3 CKD- GFR 33 - 1 Liter fluid bolus gave in ER - Gentle IV hydration (7) History of cutaneous T-cell lymphoma Current Visit: No Status: Chronic Assessment & Plan: - Noted - Follows Dr. Carter VTE: Plavix, SCD's PPI: Protonix Next of KIN: Daughter Prachi D/C plan: 1-2 days Code status: Full Plan of care time: > 50 minutes. Code(s): Z85.72 - PERSONAL HISTORY OF NON-HODGKIN LYMPHOMAS Telemedicine Encounter - Telemedicine Encounter Telemedicine Encounter: "The entirety of this encounter was performed via Telemedicine" This visit was performed using real-time audio and video connection between my location and thepatients locationwith the assistance of a surrogateat the patients location. Written or verbal consent was obtained from the patient/guardian to perform this visit [email or web address]. Any patient questions regarding the telemedicine interaction were answered.
[2025-07-31 12:33] LABS: Cholesterol 191.0 mg/dL (50-200); LDL, DIRECT 81.0 mg/dL (30-100); TRIGLYCERIDE 91.0 mg/dL (30-150)
[2025-07-31] MEDS ORDERED: NON-FORMULARY ITEM (Bumetanide [Bumetanide] 0.5 MG Tablet) PO PRN (12:34)
[2025-07-31] MEDS ORDERED: VENTOLIN COMMON CANISTER IH PRN (12:34)
[2025-07-31] MEDS ORDERED: BUMEX 1 MG PO PRN (12:54)
[2025-08-01] MEDS: TYLENOL 325 MG PO ONE (01:08)
[2025-08-01 05:01] LABS: Hematocrit 27.5 % (34.1-44.9); Hemoglobin 9.1 g/dL (11.2-15.7); Mean Corpuscular Hemoglobin 28.6 pg (25.6-32.2); Mean Corpuscular Hgb Concent. 33.1 g/dL (32.2-35.5); Platelet Count 118 x10^3/uL (182-369); Red Blood Count 3.18 x10^6/uL (3.93-5.22); White Blood Count 4.0 x10^3/uL (3.98-10.04)
--- NOTE | 2025-08-01 05:09 | PCM.NOTE ---
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 Earlier in the day she also noted brief word-finding difficulty that had resolved, followed by recurrence of more pronounced right facial weakness. Upon arrival to ED patient was hypertensive on arrival (BP 180/73 ) and mildly bradycardic (HR 58 bpm). Neurologically, symptoms had resolved by the time of evaluation. Initial laboratory studies revealed mild pancytopenia (WBC 3.5 , RBC 3.81, platelets 137), consistent with her hematologic history. Hemoglobin was 10.7 , stable compared with prior results. Creatinine was mildly above baseline at 1.6 (baseline 1.4 mg/dL), and mild indirect hyperbilirubinemia (total 1.4 ) with AST 37. CT head without contrast demonstrated no acute intracranial hemorrhage or infarct; a chronic lacunar infarction in the left external capsule and small- vessel ischemic changes were unchanged from prior imaging. CTA head showed no acute vascular occlusion, aneurysm, or hemorrhage. CTA neck revealed a soft atheromatous plaque in the proximal left internal carotid artery with 4050% stenosis, mild bilateral carotid bulb intimal calcification, and no flow- limiting disease. Teleneurology (Dr. Hart) was consulted and recommended initiation of dual antiplatelet therapy with aspirin 81 mg daily and clopidogrel 75 mg daily (after a 300 mg loading dose), continuation of high-intensity statin therapy with atorvastatin 80 mg nightly, and follow-up MRI brain, carotid duplex, and echocardiogram on 08/01/25. She received ASA 324 mg chewable, Plavix 300 mg load, Lipitor 80 mg, and a 1 L IV fluid bolus in the ED. Permissive hypertension was advised (treat only if > 220/120 ). Objective Data Vital Signs: Vital Signs - 24 hr Temp Pulse Resp BP BP Pulse Ox 08/01/25 04:00 97.2 F 63 18 151/65 98 07/31/25 23:54 97.6 F 69 16 185/74 95 07/31/25 19:54 97.1 F 65 18 176/86 98 07/31/25 16:00 97.9 F 66 16 192/77 97 07/31/25 13:47 70 16 99 07/31/25 11:58 98.0 F 63 16 192/78 99 07/31/25 11:56 98.0 F 63 16 192/78 99 07/31/25 11:30 64 15 164/53 100 07/31/25 11:00 55 L 23 162/63 100 07/31/25 10:52 56 L 23 166/49 100 07/31/25 10:51 58 L 24 89 L 07/31/25 10:50 67 27 H 89 L 07/31/25 10:44 96 07/31/25 10:00 59 L 22 156/71 07/31/25 09:31 55 L 26 H 167/54 100 07/31/25 09:16 97.3 F 58 L 21 180/73 100 Pain Assessment - Last Documented Pain Intensity 0 Pain Scale Used 0-10 Pain Scale Intake and Output: Intake & Output 07/29/25 07/30/25 07/31/25 08/01/25 11:59 11:59 11:59 11:59 Intake Total 1407 Balance 1407 Weight 45.6 kg Lab Results: Lab Results-Last 24 Hours 07/31/25 07/31/25 07/31/25 Range/Units 09:35 09:35 09:35 WBC 3.5 L (3.98-10.04) x10^3/uL RBC 3.81 L (3.93-5.22) x10^6/uL Hgb 10.7 L (11.2-15.7) g/dL Hct 33.0 L (34.1-44.9) % MCV 86.6 (79.4-94.8) fL MCH 28.1 (25.6-32.2) pg MCHC 32.4 (32.2-35.5) g/dL RDW 15.5 H (11.7-14.4) % Plt Count 137 L (182-369) x10^3/uL MPV 9.4 (9.4-12.3) fL Segmented Neutrophils 51 (34.0-71.1) % Band Neutrophils 1 (0.0-2.0) % Lymphocytes (Manual) 32 (19.3-51.7) % Monocytes (Manual) 11 (4.7-12.5) % Eosinophils (Manual) 3 (0.7-5.8) % Atypical Lymphocytes 2 % Platelet Estimate DECREASED (NORMAL) RBC Morphology ABNORMAL Anisocytosis 1+ PT (9.4-12.5) SECONDS INR (0.8-3.0) APTT (25.1-36.5) SECONDS Sodium 138 (135-145) mmol/L Potassium 4.0 (3.5-5.1) mmol/L Chloride 107 (98-107) mmol/L Carbon Dioxide 24 (22-30) mmol/L Anion Gap 10.8 (5-15) MEQ/L BUN 18 H (7-17) mg/dL Creatinine 1.60 H (0.52-1.04) mg/dL Estimated GFR 33.0 ML/MIN Glucose 92 (74-106) mg/dL Hemoglobin A1c (4.5-6.0) % Lactic Acid 0.8 (0.4-2.0) Calcium 9.6 (8.4-10.2) mg/dL Total Bilirubin 1.40 H (0.2-1.3) mg/dL AST 37 H (14-36) U/L ALT 21 (0-35) U/L Alkaline Phosphatase 73 (38-126) U/L Serum Total Protein 7.2 (6.3-8.2) g/dL Albumin 4.2 (3.5-5.0) g/dL Triglycerides (30-150) mg/dL Cholesterol (50-200) mg/dL LDL Cholesterol (30-100) mg/dL HDL Cholesterol (40-60) mg/dL Heart Disease Risk Ratio TSH 3rd Generation (0.470-4.680) mIU/L 07/31/25 07/31/25 07/31/25 Range/Units 09:35 09:35 09:35 WBC (3.98-10.04) x10^3/uL RBC (3.93-5.22) x10^6/uL Hgb (11.2-15.7) g/dL Hct (34.1-44.9) % MCV (79.4-94.8) fL MCH (25.6-32.2) pg MCHC (32.2-35.5) g/dL RDW (11.7-14.4) % Plt Count (182-369) x10^3/uL MPV (9.4-12.3) fL Segmented Neutrophils (34.0-71.1) % Band Neutrophils (0.0-2.0) % Lymphocytes (Manual) (19.3-51.7) % Monocytes (Manual) (4.7-12.5) % Eosinophils (Manual) (0.7-5.8) % Atypical Lymphocytes % Platelet Estimate (NORMAL) RBC Morphology Anisocytosis PT 11.9 (9.4-12.5) SECONDS INR 1.07 (0.8-3.0) APTT 26.0 (25.1-36.5) SECONDS Sodium (135-145) mmol/L Potassium (3.5-5.1) mmol/L Chloride (98-107) mmol/L Carbon Dioxide (22-30) mmol/L Anion Gap (5-15) MEQ/L BUN (7-17) mg/dL Creatinine (0.52-1.04) mg/dL Estimated GFR ML/MIN Glucose (74-106) mg/dL Hemoglobin A1c (4.5-6.0) % Lactic Acid (0.4-2.0) Calcium (8.4-10.2) mg/dL Total Bilirubin (0.2-1.3) mg/dL AST (14-36) U/L ALT (0-35) U/L Alkaline Phosphatase (38-126) U/L Serum Total Protein (6.3-8.2) g/dL Albumin (3.5-5.0) g/dL Triglycerides 91 (30-150) mg/dL Cholesterol 191 (50-200) mg/dL LDL Cholesterol 81 (30-100) mg/dL HDL Cholesterol 76 H (40-60) mg/dL Heart Disease Risk Ratio 3.0 TSH 3rd Generation 3.071 (0.470-4.680) mIU/L 07/31/25 Range/Units 09:35 WBC (3.98-10.04) x10^3/uL RBC (3.93-5.22) x10^6/uL Hgb (11.2-15.7) g/dL Hct (34.1-44.9) % MCV (79.4-94.8) fL MCH (25.6-32.2) pg MCHC (32.2-35.5) g/dL RDW (11.7-14.4) % Plt Count (182-369) x10^3/uL MPV (9.4-12.3) fL Segmented Neutrophils (34.0-71.1) % Band Neutrophils (0.0-2.0) % Lymphocytes (Manual) (19.3-51.7) % Monocytes (Manual) (4.7-12.5) % Eosinophils (Manual) (0.7-5.8) % Atypical Lymphocytes % Platelet Estimate (NORMAL) RBC Morphology Anisocytosis PT (9.4-12.5) SECONDS INR (0.8-3.0) APTT (25.1-36.5) SECONDS Sodium (135-145) mmol/L Potassium (3.5-5.1) mmol/L Chloride (98-107) mmol/L Carbon Dioxide (22-30) mmol/L Anion Gap (5-15) MEQ/L BUN (7-17) mg/dL Creatinine (0.52-1.04) mg/dL Estimated GFR ML/MIN Glucose (74-106) mg/dL Hemoglobin A1c 4.30 L (4.5-6.0) % Lactic Acid (0.4-2.0) Calcium (8.4-10.2) mg/dL Total Bilirubin (0.2-1.3) mg/dL AST (14-36) U/L ALT (0-35) U/L Alkaline Phosphatase (38-126) U/L Serum Total Protein (6.3-8.2) g/dL Albumin (3.5-5.0) g/dL Triglycerides (30-150) mg/dL Cholesterol (50-200) mg/dL LDL Cholesterol (30-100) mg/dL HDL Cholesterol (40-60) mg/dL Heart Disease Risk Ratio TSH 3rd Generation (0.470-4.680) mIU/L Radiology Exams: Radiology Procedures Category Date Time Status CT ANGIOGRAPHY NECK [CT] Stat Exams 07/31/25 10:37 Completed CTA HEAD W AND/OR WO CONTRAST [CT] Stat Exams 07/31/25 09:42 Completed ECHO W/2D AND DOPPLER [US] Routine Exams 08/01/25 08:00 Ordered HEAD WITHOUT CONTRAST [CT] Stat Exams 07/31/25 09:15 Completed MRI BRAIN W/O CONTRAST [MRI] Routine Exams 08/01/25 08:00 Ordered Medications: Medications Generic Name Dose Route Start Last Admin Trade Name Royal PRN Reason Stop Dose Admin Acetaminophen 650 mg 08/01/25 01:05 08/01/25 01:08 Acetaminophen 325 Mg Tablet PO 08/01/25 01:06 650 mg ONCE ONE Administration Albuterol Sulfate 2 puff 07/31/25 12:34 Albuterol Common Canister Inhaler IH 08/30/25 12:33 Q4HPRN PRN SHORTNESS OF BREATH Aspirin 81 mg 08/01/25 10:00 Aspirin 81 Mg Tablet.Ec PO 08/31/25 09:59 DAILY REMBERTO Atorvastatin Calcium 80 mg 08/01/25 10:00 Atorvastatin Calcium 40 Mg Tablet PO 08/31/25 09:59 DAILY REMBERTO Bumetanide 0.5 mg 07/31/25 12:54 Bumetanide 1 Mg Tablet PO 08/30/25 12:53 DAILY PRN PRN diuretic Cholecalciferol 5,000 unit 08/01/25 10:00 Cholecalciferol (Vitamin D3) 1000 Unit Tablet PO 08/31/25 09:59 DAILY REMBERTO Clopidogrel Bisulfate 75 mg 08/01/25 10:00 Clopidogrel Bisulfate 75 Mg Tablet PO 08/31/25 09:59 DAILY REMBERTO Cyanocobalamin 1,000 mcg 08/01/25 10:00 Cyanocobalamin 500 Mcg Tablet PO 08/31/25 09:59 DAILY REMBERTO Sodium Chloride 1,000 mls @ 50 mls/hr 07/31/25 12:30 07/31/25 14:31 Sodium Chloride 0.9% 1000 Ml IV 08/30/25 12:29 50 mls/hr .Q20H REMBERTO Administration Discontinued Medications Generic Name Dose Route Start Last Admin Trade Name Royal PRN Reason Stop Dose Admin Aspirin 324 mg 07/31/25 11:05 07/31/25 11:40 Aspirin 81 Mg Tab.Chew PO 07/31/25 11:06 324 mg STAT ONE Administration Aspirin Confirm 07/31/25 11:39 Aspirin 81 Mg Tab.Chew Administered 07/31/25 11:40 Dose 324 mg .ROUTE .STK-MED ONE Atorvastatin Calcium 80 mg 07/31/25 09:24 07/31/25 09:34 Atorvastatin Calcium 40 Mg Tablet PO 07/31/25 09:25 80 mg STAT STA Administration Atorvastatin Calcium Confirm 07/31/25 09:32 Atorvastatin Calcium 40 Mg Tablet Administered 07/31/25 09:33 Dose 80 mg .ROUTE .STK-MED ONE Clopidogrel Bisulfate 300 mg 07/31/25 09:24 07/31/25 09:34 Clopidogrel Bisulfate 75 Mg Tablet PO 07/31/25 09:25 300 mg STAT ONE Administration Clopidogrel Bisulfate Confirm 07/31/25 09:32 Clopidogrel Bisulfate 75 Mg Tablet Administered 07/31/25 09:33 Dose 300 mg .ROUTE .STK-MED ONE Sodium Chloride 1,000 mls @ 999 mls/hr 07/31/25 09:56 07/31/25 11:40 Sodium Chloride 0.9% 1000 Ml IV 07/31/25 10:56 999 mls/hr .Q1H1M STA Administration Sodium Chloride Confirm 07/31/25 11:39 Sodium Chloride 0.9% 1000 Ml Administered 07/31/25 11:40 Dose 1,000 mls @ ud .ROUTE .STK-MED ONE Assessment/Plan (1) TIA (transient ischemic attack) Current Visit: Yes Status: Acute Assessment & Plan: -Presented with transient right facial droop, dysphagia, and dysarthria resolving prior to evaluation; CT head negative for acute insult; chronic left external capsule lacune and microvascular changes noted. -CTA head: no vascular abnormality; CTA neck: left ICA 4050% stenosis. -Managed with dual antiplatelet therapy (ASA 81 mg daily + Plavix 75 mg daily after 300 mg load) and high-intensity statin (Lipitor 80 mg) per teleneurology recommendations -Eliquis to be resumed when safe per neurology guidance post-MRI. -Neuro checks q4h, telemetry, permissive HTN, MRI brain pending. -A-BCD score < 4 - low short-term stroke risk. Code(s): G45.9 - TRANSIENT CEREBRAL ISCHEMIC ATTACK, UNSPECIFIED (2) Carotid artery stenosis Current Visit: Yes Status: Acute Assessment & Plan: -CTA neck: soft plaque in left proximal ICA (4050%), mild bilateral carotid bulb calcifications. -Plan for outpatient vascular follow-up with cardiothoracic/vascular surgery for ongoing surveillance and risk-factor optimization. Code(s): I65.29 - OCCLUSION AND STENOSIS OF UNSPECIFIED CAROTID ARTERY (3) HTN (hypertension) Current Visit: Yes Status: Acute Assessment & Plan: -Hypertensive on presentation (180/73) -Permissive hypertension maintained during acute TIA evaluation; treat only if > 220/120 -Resume outpatient antihypertensives after MRI once acute neurologic event ruled out. Code(s): I10 - ESSENTIAL (PRIMARY) HYPERTENSION (4) Pancytopenia Current Visit: Yes Status: Acute Assessment & Plan: -Pancytopenia (WBC 3.5, Hgb 10.7, Plt 137) on admission consistent with background T-cell lymphocytic leukemia. -CBC reviewed and WBC at 4.0 Hgb 9.1 Plt 118 -Hemoglobin stable, no transfusion indicated . -Continue CBC monitoring. Code(s): D61.818 - OTHER PANCYTOPENIA (5) CKD (chronic kidney disease) Current Visit: Yes Status: Acute Assessment & Plan: -Baseline creatinine 1.4 -1.6 on admission -now at 1.33 -Received 1 L IV bolus; -Continue gentle IV hydration -Avoid nephrotoxins; monitor renal function. Code(s): N18.9 - CHRONIC KIDNEY DISEASE, UNSPECIFIED (6) Hx pulmonary embolism Current Visit: Yes Status: Chronic Assessment & Plan: -Chronic anticoagulation with Eliquis 2.5 mg BID; temporarily held pending MRI results due to acute neurologic presentation; resume per neurology clearance. Code(s): Z86.711 - PERSONAL HISTORY OF PULMONARY EMBOLISM (7) Anemia Current Visit: No Status: Acute Qualifiers: Anemia type: due to chronic kidney disease Assessment & Plan: -see pancytopenia Code(s): D64.9 - ANEMIA, UNSPECIFIED (8) History of cutaneous T-cell lymphoma Current Visit: No Status: Chronic Assessment & Plan: -Diagnosed 11/2022; under oncology follow-up (Dr. Carter). -Stable cytopenias; no acute leukemic flare. Continue outpatient hematology monitoring. VTE: Plavix, SCD's PPI: Protonix Next of KIN: Daughter Prachi D/C plan: 1-2 days Code status: Full Plan of care time: > 50 minutes. Code(s): Z85.72 - PERSONAL HISTORY OF NON-HODGKIN LYMPHOMAS
[2025-08-01 05:19] LABS: Calcium 8.3 mg/dL (8.4-10.2); Carbon Dioxide 21.0 mmol/L (22-30); Creatinine 1 1.33 mg/dL (0.52-1.04); EST GLOMERULAR FILTRATION RATE 41.2 ML/MIN; Glucose 92.0 mg/dL (74-106); Potassium 3.6 mmol/L (3.5-5.1); SGOT/AST 34.0 U/L (14-36); SGPT/ALT 18.0 U/L (0-35); Total Protein 5.7 g/dL (6.3-8.2)
[2025-08-01 07:44] VITALS: BP 168/70; PULSE 58; RESP 20; TEMP 98.2; O2SAT 99
[2025-08-01] MEDS ORDERED: NON-FORMULARY ITEM (Mecobalamin [B12 Active] 1,000 MCG Tab.Chew) PO SCH (10:00)
[2025-08-01] MEDS ORDERED: NON-FORMULARY ITEM (Cholecalciferol (Vitamin D3) [D3-5000] 125 MCG Capsule) PO SCH (10:00)
[2025-08-01] MEDS: ECOTRIN 81 MG PO SCH (10:42)
[2025-08-01] MEDS: LIPITOR 40MG PO SCH (10:43)
[2025-08-01] MEDS: PLAVIX Tablet PO SCH (10:43)
[2025-08-01] MEDS: Vitamin B-12 500 MCG PO SCH (10:44)
[2025-08-01] MEDS: VITAMIN D PO SCH (10:44)
[2025-08-01] MEDS: ATIVAN 2 MG/ML MDV FOR SINGLE DOSES IV ONE (10:46)
--- NOTE | 2025-08-01 12:18 | XRAY ---
Indication: Stroke like symptoms. Transient ischemic attack. Negative CT head, CTA neck, and CTA head exams 1 day earlier. Sagittal, coronal, and axial MRI brain performed without contrast using T1, T2, FLAIR, diffusion, and ADC sequences. Comparison: None Age-appropriate global atrophy and minimal periventricular degenerative microischemia signal bilaterally. Tiny remote lacunar infarct left external capsule. No acute intracranial hemorrhage, abnormal extra-axial fluid collection, or mass effect. Diffusion images negative for restricted signal. 4th ventricle is midline without hydrocephalus. 7/8 cranial nerve complex bilaterally symmetric. Normal flow void signal within the major intracerebral circulation. Normal appearing craniocervical junction and sella turcica. Visualized paranasal sinuses are clear. Minimal fluid signal right mastoid air cells presumed inflammatory. Impression: 1. Normal aging brain including atrophy and degenerative microischemia. Remote lacunar infarct left external capsule. 2. No acute intracranial abnormalities or evidence for evolving large vessel territorial stroke. 3. Incidental fluid signal right mastoid air cells presumed inflammatory.
--- NOTE | 2025-08-01 13:05 | PCM.CONS ---
History of Present Illness - Neuro Consultation Date of Consultation Date: 08/01/25 ED Arrival Date & Time: 07/31/25 09:01 Providers: Attending Provider: MISTI PRUETT MD ED Provider: DEVIN PEREYRA MD Consulting Provider: MARCIO DOUGLAS MD cc:: The requesting physician will be sent a copy of the consult. - History of Present Illness HPI: The patient is a 75F with HTN, CKD, RA, PE on apixaban. She presented to the hospital with two separate transient episodes of speech changes and facial droop. History provided by patient and daughter bedside. Friday evening, she took her dog outside. When she came back in, she was having trouble forming sentences, was able to say she had a headache. She was having paraphasic errors (tike instead of kite). Resolved on its own that night. Then the next day, at restorationist, had issues getting any words out, and had a right facial droop. This also improved on its own (first the speech, then the facial droop after being hospitalized). Currently at baseline. She reports excellent compliance with apixaban. She does report some bruising. MRI brain this admission did not show any acute ischemic changes, personally reviewed, some mild chronic ischemic changes noted. CTA showed some atherosclerotic changes including L ICA origin stenosis (read as 50% by radiology). REVIEW OF SYSTEMS: - Constitutional: negative except as stated in HPI above - ENT: negative except as stated in HPI above - Cardiovascular: negative except as stated in HPI above - Respiratory: negative except as stated in HPI above - Gastrointestinal: negative except as stated in HPI above - Musculoskeletal: negative except as stated in HPI above - Neurological: negative except as stated in HPI above - Psychiatric: negative except as stated in HPI above - Hematologic: negative except as stated in HPI above - Endocrine: negative except as stated in HPI above PAST MEDICAL/SURGICAL HISTORY: as stated in HPI FAMILY HISTORY: no relevant family history disclosed SOCIAL HISTORY: denies illicit drug use Review of Systems - Review of Systems Review of Systems (Narrative): Pertinent positive and negative findings as per HPI. All other systems negative. - Past Medical History Past Medical History: Yes Neurological History: No Pertinent History ENT History: No Pertinent History Cardiac History: Hypertension Respiratory History: No Pertinent History Endocrine Medical History: No Pertinent History Musculoskelatal History: Rheumatoid Arthritis GI Medical History: No Pertinent History History: No Pertinent History Pyscho-Social History: No Pertinent History Reproductive Disorders: No Pertinent History Comment: 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 Carter (upon hospital admission) - Past Surgical History Past Surgical History: Yes Neuro Surgical History: No Pertinent History Cardiac History: No Pertinent History Respiratory Surgery: No Pertinent History GI Surgical History: Cholecystectomy Genitourinary Surgical Hx: No Pertinent History Musculskeletal Surgical Hx: No Pertinent History Female Surgical History: Dilation & Curettage Other Surgical History: melanoma Significant Family History: cancer (Father with colon cancer) - Social History Smoking Status: Never smoker Exposure to second hand smoke: No Alcohol: None Drug Use: none - Social Determinants of Health Will the patient participate in the screening: Yes Do you worry about a steady place to live?: No Do you have any problems with any of the following?: No known problems In the past 12 months,have you had to go without utilities?: No Have you or anyone in your house had to go without enough: No Transportation Issues: No Has anyone in your support network made you feel unsafe?: No Does the patient want assistance with any of the above?: No Physical Exam - Vital Signs Vital Signs: Vital Signs - 24 hr 07/31/25 07/31/25 07/31/25 13:47 16:00 19:54 Temperature 97.9 F 97.1 F Pulse Rate 70 66 65 Respiratory 16 16 18 Rate Blood Pressure 192/77 176/86 [Right Arm] O2 Sat by Pulse 99 97 98 Oximetry 07/31/25 08/01/25 08/01/25 23:54 04:00 07:12 Temperature 97.6 F 97.2 F Pulse Rate 69 63 60 Respiratory 16 18 18 Rate Blood Pressure 185/74 151/65 [Right Arm] O2 Sat by Pulse 95 98 98 Oximetry 08/01/25 07:44 Temperature 98.2 F Pulse Rate 58 L Respiratory 20 Rate Blood Pressure 168/70 [Right Arm] O2 Sat by Pulse 99 Oximetry - Physical Exam Tele-Neuro Physical Exam (Narrative): PHYSICAL EXAMINATION: Constitutional: well-developed, no acute distress Cardiovascular: appears well-perfused, no significant edema Skin: no evident rashes or lesions Respiratory: breathing comfortably on room air Psychiatric: awake, alert, oriented, conversational Eyes: normal ocular alignment, full range of motion Musculoskeletal: muscle strength symmetric Neurologic: no aphasia, face symmetric, no dysarthria, sensation intact, moving all extremities well spontaneously NIHSS Mental status (0-3): 0 Month/age (0-2): 0 Commands (0-2): 0 Best Gaze (0-2): 0 Visual Petit (0-3):0 Facial weakness (0-3): 0 LUE (0-4): 0 RUE (0-4): 0 LLE (0-4): 0 RLE (0-4): 0 Ataxia (0-2): 0 Sensation (0-2): 0 Aphasia (0-3): 0 Dysarthria (0-2): 0 Extinction (0-2): 0 NIHSS Total: 0 - NIHSS Stroke Scale Date Completed: 08/01/25 Time Stroke Scale Completed: 03:09 Results - Labs Lab/Micro Results: Lab Results-Last 24 Hours 08/01/25 08/01/25 Range/Units 04:17 04:17 WBC 4.0 (3.98-10.04) x10^3/uL RBC 3.18 L (3.93-5.22) x10^6/uL Hgb 9.1 L (11.2-15.7) g/dL Hct 27.5 L (34.1-44.9) % MCV 86.5 (79.4-94.8) fL MCH 28.6 (25.6-32.2) pg MCHC 33.1 (32.2-35.5) g/dL RDW 15.5 H (11.7-14.4) % Plt Count 118 L (182-369) x10^3/uL MPV 9.2 L (9.4-12.3) fL Sodium 135 (135-145) mmol/L Potassium 3.6 (3.5-5.1) mmol/L Chloride 110 H (98-107) mmol/L Carbon Dioxide 21 L (22-30) mmol/L Anion Gap 7.7 (5-15) MEQ/L BUN 16 (7-17) mg/dL Creatinine 1.33 H (0.52-1.04) mg/dL Estimated GFR 41.2 ML/MIN Glucose 92 (74-106) mg/dL Calcium 8.3 L (8.4-10.2) mg/dL Total Bilirubin 1.40 H (0.2-1.3) mg/dL AST 34 (14-36) U/L ALT 18 (0-35) U/L Alkaline Phosphatase 72 (38-126) U/L Serum Total Protein 5.7 L (6.3-8.2) g/dL Albumin 3.2 L (3.5-5.0) g/dL - Radiology Orders Radiology Orders: Radiology Procedures Category Date Time Status CT ANGIOGRAPHY NECK [CT] Stat Exams 07/31/25 10:37 Completed CTA HEAD W AND/OR WO CONTRAST [CT] Stat Exams 07/31/25 09:42 Completed ECHO W/2D AND DOPPLER [US] Routine Exams 08/01/25 08:00 Taken HEAD WITHOUT CONTRAST [CT] Stat Exams 07/31/25 09:15 Completed MRI BRAIN W/O CONTRAST [MRI] Routine Exams 08/01/25 08:00 Completed Impressions & Recommendations - Impression Acute Ischemic Stroke: Two separate instances on Friday and on Friday of aphasia-like symptoms (para phasic errors, garbled speech, inability to form sentences). Second episode was associated with right facial droop. Otherwise no motor/sensory symptoms reported. No evidence of acute ischemic changes on MRI A little atypical for recurrent similar episodes to occur due to cerebrovascular ischemia (ie TIA), unless there is a particular culprit vessel with compromised flow. No significant lesion seen on CTA (noted 50% stenosis of L ICA origin). Discussed with patient and family. She is compliant with apixaban for history of PE. No strong data or recommendations for addition of further agents (eg antiplatelets) to her anticoagulation in this situation. However, given these recurrent episodes, with excellent family/patient reliability, I think there is enough concern for true TIAs, possibly due to a stenotic small distal vessel not seen on CTA, that I would recommend addition of aspirin to her apixaban. There is little indication for DAPT here when already on apixaban, and in my opinion the risk of bleeding is not trivial and outweighs possible benefits. If episodes continue to recur, other possibilities include focal seizure, and hypoperfusion related to the L ICA stenosis. Recommendations: - serial neurological examinations - telemetry, consider ambulatory cardiac event monitor - TTE with bubble study pending - high intensity statin, LDL goal <70 - A1c at goal - BP goal normotension - home apixaban - aspirin 81mg daily - NIHSS Candidate (No): Reason: Patient is not a candidate for EVT given absence of disabling deficits - Recommendations Recommendations: Please disregard any templated references in this documented to acute stroke treatment (eg TNK or EVT). Efforts were made to remove from the template. Assessment & Plan - Encounter Encounter: "The entirety of this encounter was performed via Telemedicine using audio and visual "
--- NOTE | 2025-08-01 13:34 | PCM.DS ---
Discharge Summary Date of Admission: 07/31/25 11:55 Date of Discharge: 08/01/25 Admitting Physician: MISTI PRUETT MD Consults: Consults on Case 07/31/25 09:05 Consult Neurology STAT Primary Care Provider: ANGIE NGUYEN Allergies Allergies No Known Drug Allergies Allergy (Verified 07/31/25 09:27) Hospital Summary - Hospital Course Hospital Course: Ms. 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 Symptoms had resolved prior to evaluation. On arrival to ED, she was hypertensive (BP 180/73) and mildly bradycardic (HR 58). CT head showed no acute intracranial process, with chronic left external capsule lacunar infarct and microvascular ischemic changes unchanged from prior. CTA head was normal, while CTA neck revealed 4050% left ICA stenosis with soft plaque and mild bilateral calcifications, without flow-limiting disease. Labs demonstrated pancytopenia (WBC 3.5, Hgb 10.7, Plt 137), consistent with her chronic leukemia, and creatinine 1.6 mg/dL (baseline 1.4) with mild indirect hyperbilirubinemia (1.4). She received ASA 324 mg, clopidogrel 300 mg load, atorvastatin 80 mg, and a 1 L IV fluid bolus in the ED. Teleneurology (Dr. Hart) diagnosed probable TIA and advised dual antiplatelet therapy, high-intensity statin, permissive hypertension, and further workup with MRI brain, echocardiogram, and carotid duplex. MRI brain (08/01/25) showed no acute infarct, confirming transient ischemia; chronic changes were stable. Carotid duplex corroborated the left ICA 4050% stenosis. Renal function improved with hydration (creatinine 1.33 mg/dL), and repeat CBC (WBC 4.0, Hgb 9.1, Plt 118) remained consistent with baseline cytopenias. Following MRI results, neurology reconsulted (08/01/25) and recommended discontinuing clopidogrel and resuming home apixaban 5 mg BID with aspirin 81 mg daily and continued atorvastatin 80 mg nightly. A cardiac event monitor was ordered prior to discharge, and echocardiogram results were pending with outpatient follow-up arranged. The patient remained neurologically intact, hemodynamically stable, and expressed understanding of her plan. She was discharged home on aspirin, apixaban, and atorvastatin, with follow-up arranged for neurology, vascular, primary care, and hematology. Discharge Note New Diagnosis: TIA New Medications: Continue home Eliquis/ASA/Atorvastatin HD Follow Up: PCP/neurology/Vascular/Cardiology Results pending: Echo/holter I spent 35 minutes [id number] with the patient on the day of discharge performing discharge exam, discussing hospital stay and discharge instructions with patient and caregivers, preparation of discharge records, prescriptions & referral forms and addressing any questions/concerns the patient had as documented above. - Vitals & Intake/Output Vital Signs: Vital Signs Temperature 98.2 F 08/01/25 07:44 Pulse Rate 58 L 08/01/25 07:44 Respiratory Rate 20 08/01/25 07:44 Blood Pressure 168/70 08/01/25 07:44 O2 Sat by Pulse Oximetry 99 08/01/25 07:44 Intake & Output: Intake & Output 07/30/25 07/31/25 08/01/25 08/02/25 11:59 11:59 11:59 11:59 Intake Total 1767 360 Balance 1767 360 Weight 45.6 kg - Lab Result Diagrams: 08/01/25 04:17 08/01/25 04:17 Lab Results-Last 24 Hrs: Lab Results-Last 24 Hours 08/01/25 08/01/25 Range/Units 04:17 04:17 WBC 4.0 (3.98-10.04) x10^3/uL RBC 3.18 L (3.93-5.22) x10^6/uL Hgb 9.1 L (11.2-15.7) g/dL Hct 27.5 L (34.1-44.9) % MCV 86.5 (79.4-94.8) fL MCH 28.6 (25.6-32.2) pg MCHC 33.1 (32.2-35.5) g/dL RDW 15.5 H (11.7-14.4) % Plt Count 118 L (182-369) x10^3/uL MPV 9.2 L (9.4-12.3) fL Sodium 135 (135-145) mmol/L Potassium 3.6 (3.5-5.1) mmol/L Chloride 110 H (98-107) mmol/L Carbon Dioxide 21 L (22-30) mmol/L Anion Gap 7.7 (5-15) MEQ/L BUN 16 (7-17) mg/dL Creatinine 1.33 H (0.52-1.04) mg/dL Estimated GFR 41.2 ML/MIN Glucose 92 (74-106) mg/dL Calcium 8.3 L (8.4-10.2) mg/dL Total Bilirubin 1.40 H (0.2-1.3) mg/dL AST 34 (14-36) U/L ALT 18 (0-35) U/L Alkaline Phosphatase 72 (38-126) U/L Serum Total Protein 5.7 L (6.3-8.2) g/dL Albumin 3.2 L (3.5-5.0) g/dL - Radiology Exams Ordered Rad Exams-Entire Visit: Radiology Procedures Category Date Time Status CT ANGIOGRAPHY NECK [CT] Stat Exams 07/31/25 10:37 Completed CTA HEAD W AND/OR WO CONTRAST [CT] Stat Exams 07/31/25 09:42 Completed ECHO W/2D AND DOPPLER [US] Routine Exams 08/01/25 08:00 Taken HEAD WITHOUT CONTRAST [CT] Stat Exams 07/31/25 09:15 Completed MRI BRAIN W/O CONTRAST [MRI] Routine Exams 08/01/25 08:00 Completed - Procedures and Test Procedures and Tests throughout Hospitalization: Therapy Orders & Screens 07/31/25 12:27 PT Eval & Treat ( Order) ONCE Reason for Eval:: TIA Diagnosis: TIA ST Eval & Treat (MD Order) .as ordered Comment: Physician Instructions: Reason For Exam: TIA Evaluate: Yes Treat: Yes Reason for Eval: TIA Diagnosis: TIA OT Eval and Treat (MD Order) ROUTINE Comment: Physician Instructions: Reason For Exam: Diagnosis: TIA 07/31/25 13:47 Respiratory Therapy Assessment DAILY Comment: Diagnosis: TIA Discharge Exam General Appearance: no apparent distress Neurologic Exam: alert, oriented x 3, cooperative Eye Exam: PERRL Ears, Nose, Throat Exam: normal ENT inspection Neck Exam: normal inspection Respiratory Exam: normal breath sounds, lungs clear Cardiovascular Exam: regular rate/rhythm, normal heart sounds Gastrointestinal/Abdomen Exam: soft, normal bowel sounds Pelvic Exam: deferred Rectal Exam: deferred Back Exam: normal inspection Extremity Exam: normal inspection Skin Exam: normal color Final Diagnosis/Problem List - Final Discharge Diagnosis/Problem (1) TIA (transient ischemic attack) Current Visit: Yes Status: Acute Assessment & Plan: MRI brain negative for acute infarction. Continue aspirin 81 mg daily and atorvastatin 80 mg nightly. Apixaban 5 mg BID resumed per neurology guidance; clopidogrel discontinued. Cardiac event monitor to be placed prior to discharge. Outpatient neurology follow-up arranged. Maintain permissive BP initially, then gradual normalization outpatient. Code(s): G45.9 - TRANSIENT CEREBRAL ISCHEMIC ATTACK, UNSPECIFIED (2) Carotid artery stenosis Current Visit: Yes Status: Acute Assessment & Plan: CTA neck: Left ICA 4050% soft plaque, [id number]. Continue aggressive risk-factor control (statin, BP management, antithrombotic therapy). Outpatient vascular follow-up for repeat imaging and risk modification. Code(s): I65.29 - OCCLUSION AND STENOSIS OF UNSPECIFIED CAROTID ARTERY (3) HTN (hypertension) Current Visit: Yes Status: Acute Assessment & Plan: Permissive hypertension during hospitalization. Resume home antihypertensives after discharge. Encourage outpatient BP monitoring and follow-up with primary care. Code(s): I10 - ESSENTIAL (PRIMARY) HYPERTENSION (4) Pancytopenia Current Visit: Yes Status: Acute Assessment & Plan: Chronic cytopenias, stable from baseline. No transfusion required. Continue hematology follow-up with Dr. Carter. CBC to be rechecked at next oncology visit. Code(s): D61.818 - OTHER PANCYTOPENIA (5) CKD (chronic kidney disease) Current Visit: Yes Status: Acute Assessment & Plan: Baseline creatinine 1.31.6 mg/dL; stable at discharge (1.33 mg/dL). Continue to avoid nephrotoxins; maintain hydration. Monitor renal function outpatient. Code(s): N18.9 - CHRONIC KIDNEY DISEASE, UNSPECIFIED (6) Hx pulmonary embolism Current Visit: Yes Status: Chronic Assessment & Plan: Resume apixaban 5 mg BID. No evidence of recurrent thromboembolism. Code(s): Z86.711 - PERSONAL HISTORY OF PULMONARY EMBOLISM (7) Anemia Current Visit: No Status: Acute Assessment & Plan: see pancytopenia Code(s): D64.9 - ANEMIA, UNSPECIFIED (8) History of cutaneous T-cell lymphoma Current Visit: No Status: Chronic Assessment & Plan: -Diagnosed 11/2022; under oncology follow-up (Dr. Carter). -Stable cytopenias; no acute leukemic flare. Continue outpatient hematology monitoring. Code(s): Z85.72 - PERSONAL HISTORY OF NON-HODGKIN LYMPHOMAS - Discharge Discharge Date: 08/01/25 Disposition: Home, Self-Care Condition: Stable Prescriptions: New Atorvastatin Calcium 80 mg PO DAILY 30 Days #30 tablet Aspirin EC 81 mg [Ecotrin 81 mg] 81 mg PO DAILY 30 Days #30 tablet Continue Mecobalamin [B12 Active] 1,000 mcg PO DAILY Cholecalciferol (Vitamin D3) [D3-5000] 125 mcg PO DAILY Methotrexate Sodium 2.5 mg [Trexall 2.5 mg] 5 mg PO WEEKLY Bumetanide 0.5 mg PO DAILY PRN PRN Reason: diuretic Albuterol Sulfate [Albuterol Sulfate Hfa] 2 puff IH Q4-6HPRN PRN PRN Reason: Shortness Of Breath Apixaban [Eliquis 2.5 mg Tablet] 5 mg PO BID Follow up with: ANGIE NGUYEN [Primary Care Provider, INTERNAL [facility]]
[2025-08-01] MEDS: TYLENOL 325 MG PO PRN (14:28)
== END 2025-08-01 15:12 | disposition home or self-care (01) ==
LOC: ED 09:01 → MED SURG 11:55
PROVIDERS: ADMIT Internal Medicine; ATTEND Internal Medicine
DX: G45.9 Transient cerebral ischemic attack, unspecified (principal); I12.9 Hypertensive chronic kidney disease with stage 1 through stage 4 chronic kidney disease, or unspecified chronic kidney disease; N18.32 Chronic kidney disease, stage 3b; D61.818 Other pancytopenia; D64.9 Anemia, unspecified; Z86.711 Personal history of pulmonary embolism; Z79.899 Other long term (current) drug therapy; Z79.01 Long term (current) use of anticoagulants; Z85.72 Personal history of non-Hodgkin lymphomas
CPT/HCPCS: 36415; 70450; 70496; 70498; 70551; 80053; 80061; 83036; 83605; 83721; 84443; 85025; 85027; 85610; 85730; 93005; 93041; 93246; 93268; 93306; 94760; 97161; 99285; G0378; Q3014